=== PATIENT | female | born 1955 | race Caucasian/White ===

== ENCOUNTER 2022-10-11 04:03 | Emergency (ER) | payer MEDICARE, SELFPAY ==
[2022-10-11 04:26] VITALS: BP 157/72; PULSE 72; RESP 18; TEMP 36.5; O2SAT 97; BMI 23.4
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
--- NOTE | 2022-10-11 05:01 | CT_ITS ---
[address] [address] Patient Name: MARIANNA STEINBERG MRN: [id number] date: 1955 Sex: F Assigned Patient Location: ER Current Patient Location: ER Accession/Order Number: [id number] Exam Date: 10/11/2022 06:10 Report Date: 10/11/2022 06:35 At the request of: RONALD GONZALEZ Procedure: CT abdomen pelvis w con EXAM: CT abdomen pelvis w con HISTORY: TRAUMA right pelvis COMPARISON: 07/18/2017. TECHNIQUE: Axial CT imaging was performed through the abdomen and pelvis with intravenous contrast. Multiplanar reformats were performed. Dose reduction techniques were achieved by using automated exposure control and/or adjustment of mA and/or kV according to patient size and/or use of iterative reconstruction technique. FINDINGS: Lung bases: Mild, dependent opacities at the lung bases have appearance most suggestive of atelectasis. GI upper: Unremarkable. Liver: Hepatic steatosis. Normal size and contour. Gallbladder: No significant abnormality. No cholelithiasis. Biliary system: No intra or extrahepatic biliary ductal dilatation. Spleen: Normal size. Pancreas: Unremarkable. Adrenal glands: Normal adrenal glands. Kidneys/ureters: Normal contours. No hydronephrosis or ureterolithiasis. No nephrolithiasis. Subcentimeter hypoattenuating lesions of the bilateral kidneys are too small to further characterize although statistically most likely represent cysts. Simple fluid attenuation cyst of the mid left kidney is noted. Vessels: No aneurysmal dilatation of the aorta. Atherosclerotic disease is noted. Lymph Nodes: No lymphadenopathy. Small bowel: No wall thickening or dilatation. Colon: No wall thickening or dilatation. Appendix: No findings of appendicitis. Peritoneal cavity: No free fluid or peritoneum. Lower : Tiny focus of nondependent bladder gas is most likely related to catheterization-in the absence of catheterization, gas-forming infectious process must be excluded on clinical grounds. Bones: Degenerative findings without acute bony abnormality. Mild to moderate spondylosis of the lower lumbar spine. Findings are suggestive of decreased bone density. Soft tissues: No acute finding. Additional findings: None. CT/CT abdomen pelvis w con IMPRESSION: 1. No acute intra-abdominal abnormality. 2. Hepatic steatosis. Electronically authenticated by: KEON MARTINEZ Date: 10/11/2022 06:35
--- NOTE | 2022-10-11 05:01 | CT_ITS ---
The [address] [address] Patient Name: MARIANNA STEINBERG MRN: [id number] date: 1955 Sex: F Assigned Patient Location: ED.MAIN Current Patient Location: Accession/Order Number: [id number] Exam Date: 10/11/2022 06:10 Report Date: 10/11/2022 06:23 At the request of: RONALD GONZALEZ Procedure: CT head/brain wo con NONCONTRAST HEAD CT COMPARISON: None. CLINICAL HISTORY: Fall. TECHNIQUE: Routine noncontrast images of the brain obtained. CT examination of the head without IV contrast. Dose reduction techniques were achieved by using: automated exposure control and/or adjustment of mA and /or kV according to patient size and/or use of iterative reconstruction technique. FINDINGS: Paranasal sinuses and mastoid air cells are clear. Intraorbital contents are unremarkable. No acute bony abnormality. Intracranially, there is no evidence of hemorrhage, mass effect, or midline shift. Ventricles and cisternal spaces are age appropriate. CT/CT head/brain wo con IMPRESSION: No acute intracranial abnormality. Electronically authenticated by: HOLLY SEGUNDO Date: 10/11/2022 06:23
--- NOTE | 2022-10-11 05:01 | CT_ITS ---
The [address] [address] Patient Name: MARIANNA STEINBERG MRN: [id number] date: 1955 Sex: F Assigned Patient Location: ER Current Patient Location: ER Accession/Order Number: [id number] Exam Date: 10/11/2022 06:10 Report Date: 10/11/2022 06:47 At the request of: RONALD GONZALEZ Procedure: CT cervical spine wo con INDICATION: 67 years old; Female. Fall. CT cervical spine wo con INDICATION: 67 years old; Female . CLINICAL HISTORY: trauma TECHNIQUE: CT imaging of the cervical spine was performed. IV contrast: None. Dose reduction techniques were achieved by using automated exposure control and/or adjustment of mA and/or kV according to patient size and/or use of iterative reconstruction technique. COMPARISON: Cervical x-ray dated 12/26/2016. FINDINGS: POSTOPERATIVE CHANGES: None. ALIGNMENT: Normal cervical curve. COMPRESSION FRACTURES: No fracture or vertebral body collapse is appreciated. There is subtle deformity of the anterior, superior aspect of the body of C5 with a tiny bony density along the anterior, inferior aspect of the body of C5. These findings are present in the prior x-ray. No asymmetric widening of the facets is seen. No vertebral body collapse is seen. PREVERTEBRAL SOFT TISSUES: Normal. CRANIOCERVICAL JUNCTION: There is a normal relationship of the occipital condyles, lateral masses of C1, and articular surfaces of C2. The base of the dens and body of C2 are intact. There is a nonexpansile well-circumscribed cyst seen within C2 inferiorly on the right. No cortical disruption is seen. There is narrowing of the predental space with [id number] appearance between the anterior arch of C1 and the dens. Osteophytes are noted arising from the anterior arch of C1 and the dens with ligamentous calcification also present. POSTERIOR FOSSA: The cerebellar tonsils are above the foramen magnum. Disc levels: C2-C3: No disc herniation. No spinal canal or foraminal narrowing. C3-C4: No disc herniation. No spinal canal or foraminal narrowing. C4-C5: No disc herniation. No spinal canal or foraminal narrowing. C5-C6: No disc herniation. No spinal canal or foraminal narrowing. C6-C7: No disc herniation. No spinal canal or foraminal narrowing. C7-T1: No disc herniation. No spinal canal or foraminal narrowing. UPPER THORACIC SPINE: Not included in this examination. OTHER: No thyroid nodule or adenopathy. Vascular calcifications. CT/CT cervical spine wo con IMPRESSION: 1. No acute fracture or vertebral body collapse. 2. Degenerative changes, without stenosis. Electronically authenticated by: NILTON URIARTE Date: 10/11/2022 06:47
[2022-10-11 05:27] LABS: Basophils Absolute Auto 0.1 10^3/uL (0.0-0.1); Basophils Percent Auto 0.9 % (0.2-2.0); Eosinophils Absolute Auto 0.1 10^3/uL (0.0-0.7); Eosinophils Percent Auto 2.5 % (0.9-7.0); Hematocrit 38.1 % (36.0-48.0); Hemoglobin 12.2 g/dL (12.0-16.0); Immature Granulocytes Abs Auto 0.01 10^3/uL (0.00-0.03); Immature Granulocytes Pct Auto 0.2 % (0.0-0.5); Lymphocytes Absolute Auto 1.8 10^3/uL (1.2-3.8); Lymphocytes Percent Auto 31.9 % (20.5-60.0); Mean Corpuscular Hemoglobin 29.8 pg (26.7-34.0); Mean Corpuscular Volume 93.2 fL (81.0-99.0); Mean Platelet Volume 9.7 fL (9.5-13.5); Monocytes Absolute Auto 0.6 10^3/uL (0.3-0.8); Monocytes Percent Auto 10.5 % (1.7-12.0); Platelet Count 214 10^3/uL (150-450); Red Blood Count 4.09 10^6/uL (4.20-5.40); Red Cell Distribution Width 13.7 % (11.0-15.0); White Blood Count 5.5 10^3/uL (4.0-11.0)
[2022-10-11] MEDS: 0.9 % SODIUM CHLORIDE 1,000 ML 999 ML IV (05:34)
[2022-10-11 05:36] LABS: Alanine Aminotransferase 14 U/L (14-59); Albumin Level 3.3 g/dL (3.4-5.0); Alkaline Phosphatase 68 U/L (46-116); Anion Gap 13.5; Aspartate Amino Transferase 20 U/L (15-37); BUN Creatinine Ratio 12.9; Bilirubin Total 0.3 mg/dL (0.2-1.0); Calcium 8.2 mg/dL (8.5-10.1); Chloride 106 mmol/L (98-107); Estimated GFR (African America >60 (>=60); Estimated GFR (Non-African Ame 54 (>=60); Globulin 3.4 g/dL; Glucose 103 mg/dL (74-106); Potassium 3.5 mmol/L (3.5-5.1); Sodium 140 mmol/L (136-145); Total Protein 6.7 g/dL (6.4-8.2)
[2022-10-11 05:39] LABS: Lactate/Lactic Acid 0.4 mmol/L (0.4-2.0)
[2022-10-11 07:00] LABS: Bilirubin Urine NEGATIVE (NEGATIVE); Blood Urine SMALL (NEGATIVE); Clarity Urine CLEAR (CLEAR); Color Urine LT. YELLOW (YELLOW); Glucose Urine UA NEGATIVE (NEGATIVE); Ketones Urine NEGATIVE (NEGATIVE); Leukocyte Esterase Urine SMALL (NEGATIVE); Nitrite Urine POSITIVE (NEGATIVE); Protein Urine NEGATIVE (NEG/TRACE); Specific Gravity Urine <=1.005 (1.005-1.025); Urine Microscopic Indicated YES; Urobilinogen Urine 0.2 EU/dL (0.2-1.0); pH Urine 6.5 (5.0-9.0)
[2022-10-11 07:16] LABS: Bacteria Urine SMALL #/HPF (NONE SEEN); Mucus Urine NONE SEEN (NONE SEEN); Squamous Epithelial Cell Urine FEW #/LPF (NONE/RARE)
[2022-10-11 07:17] LABS: Urine Culture Indicated YES
[2022-10-11] MEDS: NAPROXEN 250 MG TABLET 500 MG PO (07:20)
--- NOTE | 2022-10-13 13:07 | PC.NURSE ---
10/13/[address] fernández reviewed c+s of urine from 10/11/22 nno at this time. S Sharon MEDINA
== END 2022-10-11 07:39 | disposition home or self-care (01) ==
PROVIDERS: Emergency Provider Internal Medicine; PCP Family Medicine
DX: S30.0XXA Contusion of lower back and pelvis, initial encounter (principal); S40.012A Contusion of left shoulder, initial encounter; W50.0XXA Accidental hit or strike by another person, initial encounter; F17.210 Nicotine dependence, cigarettes, uncomplicated
CPT/HCPCS: 36415; 70450; 72125; 74177; 80053; 81003; 81015; 83605; 85025; 87086; 87150; 87186; 99284; Q9967

== ENCOUNTER 2022-10-30 12:46 | Emergency (ER) | payer MEDICARE, SELFPAY ==
[2022-10-30] VITALS (28 sets, daily range): BP systolic 116–182; BP diastolic 50–94; PULSE 66–86; RESP 10–20; TEMP 36.7; O2SAT 95–100; BMI 23.4
--- NOTE | 2022-10-30 12:51 | XR_ITS ---
The [address] [address] Patient Name: MARIANNA STEINBERG MRN: [id number] date: 1955 Sex: F Assigned Patient Location: ED.MAIN Current Patient Location: ER Accession/Order Number: [id number] Exam Date: 10/30/2022 13:14 Report Date: 10/30/2022 13:24 At the request of: FIORELLA CASRTO Procedure: XR chest 1V EXAMINATION: XR chest 1V 10/30/2022 10:23 AM PDT HISTORY: chest pain TECHNIQUE: Single frontal view of the chest acquired. COMPARISONS: None. FINDINGS: Lines/tubes/other: None. Heart and mediastinum: Calcified atherosclerosis of the aortic arch. Cardiac silhouette is within normal limits for size. Bones: No acute osseous abnormality. Lungs: The lungs are clear. There is no evidence of pneumonia or pulmonary edema. Pleura: There is no significant pleural effusion or pneumothorax. Other: None. XR/XR chest 1V IMPRESSION: No acute cardiopulmonary abnormality. Electronically authenticated by: TAMI WORTHINGTON Date: 10/30/2022 13:24
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
[2022-10-30] MEDS: NITROGLYCERIN 2% 1 GRAM PACKET 1 GM TD (13:07)
[2022-10-30] MEDS: MORPHINE SULFATE 2 MG/ML SYRINGE IV (13:07)
--- NOTE | 2022-10-30 13:13 | ECG_ITS ---
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
[2022-10-30 13:19] LABS: Basophils Absolute Auto 0.1 10^3/uL (0.0-0.1); Basophils Percent Auto 0.6 % (0.2-2.0); Eosinophils Absolute Auto 0.1 10^3/uL (0.0-0.7); Eosinophils Percent Auto 1.4 % (0.9-7.0); Hematocrit 37.3 % (36.0-48.0); Hemoglobin 12.6 g/dL (12.0-16.0); Immature Granulocytes Abs Auto 0.01 10^3/uL (0.00-0.03); Immature Granulocytes Pct Auto 0.1 % (0.0-0.5); Lymphocytes Absolute Auto 2.1 10^3/uL (1.2-3.8); Lymphocytes Percent Auto 27.2 % (20.5-60.0); Mean Corpuscular HGB Conc 33.8 g/dL (29.9-35.2); Mean Corpuscular Hemoglobin 29.6 pg (26.7-34.0); Mean Corpuscular Volume 87.6 fL (81.0-99.0); Mean Platelet Volume 9.5 fL (9.5-13.5); Monocytes Absolute Auto 0.5 10^3/uL (0.3-0.8); Monocytes Percent Auto 6.5 % (1.7-12.0); Neutrophils Absolute Auto 4.9 10^3/uL (1.4-6.5); Neutrophils Percent Auto 64.2 % (43.0-75.0); Platelet Count 256 10^3/uL (150-450); Red Blood Count 4.26 10^6/uL (4.20-5.40); Red Cell Distribution Width 13.2 % (11.0-15.0); White Blood Count 7.7 10^3/uL (4.0-11.0)
[2022-10-30 13:32] LABS: D Dimer 0.38 mg/L FEU (<=0.59); Partial Thromboplastin Time 28.9 sec (22.3-36.2); Prothrombin Time 9.8 sec (9.0-11.6)
[2022-10-30 13:40] LABS: Alanine Aminotransferase 16 U/L (14-59); Albumin Level 3.6 g/dL (3.4-5.0); Alkaline Phosphatase 68 U/L (46-116); Anion Gap 14.3; Aspartate Amino Transferase 18 U/L (15-37); BUN Creatinine Ratio 14.7; Bilirubin Total 0.3 mg/dL (0.2-1.0); Calcium 8.6 mg/dL (8.5-10.1); Carbon Dioxide 24.5 mmol/L (21.0-32.0); Chloride 105 mmol/L (98-107); Estimated GFR (African America >60 (>=60); Estimated GFR (Non-African Ame 54 (>=60); Globulin 3.5 g/dL; Glucose 107 mg/dL (74-106); Potassium 3.8 mmol/L (3.5-5.1); Sodium 140 mmol/L (136-145); Total Protein 7.1 g/dL (6.4-8.2); Troponin I High Sensitivity 8.3 pg/mL (4.0-51.3)
[2022-10-30 13:45] LABS: INR <0.93
[2022-10-30] MEDS: LORAZEPAM 2 MG/ML 1 ML VIAL 1 MG IV (13:47)
[2022-10-30 14:01] LABS: Myoglobin 124 ng/mL (9-82)
[2022-10-30 15:52] LABS: Troponin I High Sensitivity 9.8 pg/mL (4.0-51.3)
== END 2022-10-30 17:11 | disposition home or self-care (01) ==
PROVIDERS: Personal Emergency Response Attendant; Emergency Provider Emergency Medicine; PCP Family Medicine
DX: R07.9 Chest pain, unspecified (principal); F17.210 Nicotine dependence, cigarettes, uncomplicated; Z79.899 Other long term (current) drug therapy
CPT/HCPCS: 36415; 71045; 80053; 82553; 83690; 83874; 84484; 85025; 85378; 85610; 85730; 93005; 96374; 96375; 99285

== ENCOUNTER 2023-02-16 13:25 | Outpatient (OUT) | payer MEDICARE, SELFPAY ==
--- NOTE | 2023-02-16 13:27 | MM_ITS ---
Patient Name: MARIANNA STEINBERG MR#: [id number] : 1955 Exam Date: 02/16/2023 Ordering Doctor: DR Omkar Raza . RADIOLOGY REPORT PROCEDURE: MM TOMOSYNTHESIS SCREENING BI COMPARISON: MG MAMM SCREEN 3D ANDERSON CAD, 02/13/2022. MG MAMM SCREEN 3D [place]ERSON CAD, 01/14/2021. MG MAMM SCREEN [place]ERSON W CAD, 01/03/2020. MG MAMM [place]ERSON SCRN W CAD DIG, 05/25/2013. INDICATIONS: Screening Calculator Name NCI Breast Cancer Risk Assessment Tool 5 Year Breast Cancer Risk 2.20% Lifetime Breast Cancer Risk 6.60% Personal Breast Cancer No Personal Ovarian Cancer No Treatments None Family Cancers Sister with hodgkins cancer at age 17. LOCATION: [facility] BREAST COMPOSITION: Scattered areas fibroglandular density. FINDINGS: DIAGNOSTIC CATEGORY 1--NEGATIVE. RIGHT BREAST: No significant suspicious finding. No significant change has occurred. LEFT BREAST: No significant suspicious finding. No significant change has occurred. RECOMMENDATIONS: ROUTINE MAMMOGRAM AND CLINICAL EVALUATION IN 12 MONTHS. PLEASE NOTE: A NORMAL MAMMOGRAM DOES NOT EXCLUDE THE POSSIBILITY OF BREAST CANCER. A CLINICALLY SUSPICIOUS PALPABLE LUMP SHOULD BE BIOPSIED. Dictated by: Moreno Briscoe M.D. on 02/18/2023 at 12:13 Approved by: Moreno Briscoe M.D. on 02/18/2023 at 12:25
== END 2023-02-16 13:26 | disposition home or self-care (01) ==
LOC: MAMMO 13:25
PROVIDERS: PCP Family Medicine; Visit Provider Family Medicine
DX: Z12.31 Encounter for screening mammogram for malignant neoplasm of breast (principal); Z80.7 Family history of other malignant neoplasms of lymphoid, hematopoietic and related tissues
CPT/HCPCS: 77063; 77067

== ENCOUNTER 2023-04-21 09:55 | Outpatient (OUT) | payer MEDICARE, SELFPAY ==
--- NOTE | 2023-04-21 10:01 | US_ITS ---
[address] [address] Patient Name: MARIANNA STEINBERG MRN: [id number] date: 1955 Sex: F Assigned Patient Location: US Current Patient Location: US Accession/Order Number: [id number] Exam Date: 04/21/2023 10:02 Report Date: 04/21/2023 12:33 At the request of: MARY ELLEN GRIFFITHS Procedure: US carotid duplex BI EXAMINATION: US carotid duplex BI HISTORY: carotid stenosis, asymptomatic bilateral I65.23 COMPARISON: No relevant comparison available. TECHNIQUE: Duplex Doppler ultrasound analysis of carotid and vertebral arteries. . Bilateral carotid arterial duplex examination was performed using B-mode, color flow and spectral analysis. Carotid stenosis is reported according to validated velocity parameters, similar to NASCET criteria. FINDINGS: RIGHT CAROTID ARTERY Mild atherosclerotic plaque Subclavian: PSV: 96.9 cm/s cm/s EDV: 9.2 cm/s cm/s CCA: Prox: PSV: 100.7 cm/s cm/s EDV: 11.5 cm/s cm/s Mid: PSV: 81.3 cm/s cm/s EDV: 12.8 cm/s cm/s Distal: PSV: 96.9 cm/s cm/s EDV: 16.7 cm/s cm/s BULB: PSV: 108.1 cm/s cm/s EDV: 25.7 cm/s cm/s ICA: Prox: PSV: 131.3 cm/s cm/s EDV: 24.8 cm/s cm/s Mid: PSV: 149.0 cm/s cm/s EDV: 18.9 cm/s cm/s Distal: PSV: 131.3 cm/s cm/s EDV: 18.9 cm/s cm/s ECA: PSV: 95.8 cm/s cm/s EDV: 3.2 cm/s cm/s VERTEBRAL: PSV: 76.0 cm/s cm/s EDV: 16.9 cm/s cm/s, antegrade ICA/CCA ratio: PSV: 1.5 EDV: 1.1 LEFT CAROTID ARTERY Mild atherosclerotic plaque Subclavian: PSV: 151.6 cm/s cm/s EDV: 16.5 cm/s CCA: Prox: PSV: 137.8 cm/s cm/s EDV: 11.6 cm/s Mid: PSV: 96.8 cm/s cm/s EDV: 12.8 cm/s Distal: PSV: 119.4 cm/s cm/s EDV: 14.4 cm/s BULB: PSV: 83.8 cm/s cm/s EDV: 9.5 cm/s ICA: Prox: PSV: 88.7 cm/s cm/s EDV: 16.0 cm/s Mid: PSV: 117.7 cm/s cm/s EDV: 20.8 cm/s Distal: PSV: 111.3 cm/s cm/s EDV: 14.4 cm/s ECA: PSV: 79.0 cm/s cm/s EDV: 6.6 cm/s VERTEBRAL: PSV: 59.2 cm/s cm/s EDV: 7.6 cm/s , antegrade ICA/CCA ratio: PSV: 1.0 EDV: 1.4 US/US carotid duplex BI IMPRESSION: 0-49% flow stenosis bilateral internal carotid arteries Spectral Doppler US Thresholds (Reference: Shawn EG, et al. Radiology 2000; 214:247-252) Stenosis (%) PSV (cm/sec) VICA/VCCA 0-49 <150 <2.5 50-69 150-225 2.5-4.0 >70 >225 >4.0 Electronically authenticated by: JANNIE NIEVES Date: 04/21/2023 12:33
--- NOTE | 2023-04-21 10:03 | US_ITS ---
[address] [address] Patient Name: MARIANNA STEINBERG MRN: [id number] date: 1955 Sex: F Assigned Patient Location: Current Patient Location: US Accession/Order Number: [id number] Exam Date: 04/21/2023 10:02 Report Date: 04/21/2023 12:37 At the request of: MARY ELLEN GRIFFITHS Procedure: US arterial duplex UE BI EXAMINATION: US arterial duplex UE BI HISTORY: subclavian artery stenosis I77.1 COMPARISON: No relevant comparison available. TECHNIQUE: Color duplex Doppler ultrasound evaluation analysis was performed in the usual manner. FINDINGS: LEFT UPPER EXTREMITY ARTERIAL Minimal atherosclerotic plaque. Normal waveform and velocities. No flow significant stenosis occlusion or aneurysm Subclavian Proximal PSV: 80.4 cm/s Subclavian Proximal EDV: 7.5 cm/s Axillary PSV: 70.1 cm/s Axillary EDV: 7.5 cm/s Brachial Proximal PSV: 112.2 cm/s Proximal EDV: 8.1 cm/s Distal PSV: 98.3 cm/s Distal EDV: 14.0 cm/s Radial Proximal PSV: 63.6 cm/s Proximal PSV: 2.3 cm/s Distal PSV: 57.0 cm/s Distal EDV: 5.6 cm/s Ulnar Proximal PSV: 55.9 cm/s Proximal PSV: 4.5 cm/s Distal PSV: 46.0 cm/s Distal EDV: 3.4 cm/s RIGHT UPPER EXTREMITY ARTERIAL Minimal atherosclerotic plaque. Normal waveform and velocities. No flow significant stenosis occlusion or aneurysm Subclavian Proximal PSV: 60 Subclavian Proximal EDV: 7 Axillary PSV: 59 Axillary EDV: 7 Brachial Proximal PSV: 113 Proximal EDV: 10 Distal PSV: 118 Distal EDV: 10 Radial Proximal PSV:78 Proximal EDV: 9 Distal PSV: 100 Distal EDV: 4 Ulnar Proximal PSV: 76 Proximal EDV: 4 Distal PSV: 98 Distal EDV: 5 WAVE FORM: Normal triphasic waveform throughout both upper extremities. VESSEL LUMEN: No significant narrowing or atherosclerotic disease. FLOW VELOCITY: No significantly increased or decreased flow velocity. US/US arterial duplex UE BI IMPRESSION: Normal exam Electronically authenticated by: JANNIE NIEVES Date: 04/21/2023 12:37
--- OUTSIDE RECORDS SUMMARY | 2023-04-21 10:08 | XMS_ITS | CCD ---
Author Name Unknown Address [address] [place] [address] Organization [facility] Care Team Providers Care Traffic Safety Administrator Name Role Phone MD Omkar Rene Primary Care Provider MD Twin Martinez Attending Provider [phone] Twin Martinez Unavailable OMKAR RENE Primary Care Physician OMKAR RENE Admitting Unavailable NADERER, OMKAR Clemens Attending Unavailable NADERER, OMKAR Clemens Primary Care Unavailable NADEREJamari, OMKAR Clemens Consulting Unavailable NADEREJamari, OMKAR Clemens Admitting Unavailable NADERER, OMKAR Clemens Attending Unavailable NADEREJamari, OMKAR Clemens Primary Care Unavailable ZIEBER, DR CINDY Kauffman Consulting Unavailable NADEREJamari, OMKAR Clemens Consulting Unavailable NADEREJamari, OMKAR Clemens Admitting Unavailable NADERER, OMKAR Clemens Attending Unavailable NADEREJamari, OMKAR Clemens Primary Care Unavailable ZIEBER, DR CINDY Kauffman Consulting Unavailable NADEREJmaari, OMKAR Clemens Consulting Unavailable NADERER, OMKAR Clemens Admitting Unavailable NADERER, OMKAR Clemens Attending Unavailable NADEREJamari, OMKAR Clemens Primary Care Unavailable ZIEBER, DR CINDY Kauffman Consulting Unavailable NADERER, OMKAR Clemens Consulting Unavailable FAY, MEÑO Admitting Unavailable FAY, MEÑO Attending Unavailable NADERER, OMKAR Clemens Primary Care Unavailable BARCELONETA, DR JANNIE Silva Consulting Unavailable FAY, MEÑO Consulting Unavailable NADERER, OMKAR Clemens Primary Care Unavailable HAY ., DR CHAVEZ Admitting Unavailable HAY ., DR CHAVEZ Attending Unavailable HAY ., DR CHAVEZ Consulting Unavailable AZEVEDO ., DR ZAKIA Joshua Admitting Unavailable AZEVEDO ., DR ZAKIA Joshua Attending Unavailable NADSRIRAM, OMKAR Clmeens Primary Care Unavailable AZEVEDO ., DR ZAKIA Joshua Consulting Unavailable AZEVEDO ., DR ZAKIA Joshua Admitting Unavailable AZEVEDO ., DR ZAKIA Joshua Attending Unavailable NADERER, OMKAR A Primary Care Unavailable JOLLY ., DR ZAKIA Joshua Consulting Unavailable MD Omkar Rene Primary Care Provider [phone] MD Luis Payne II Attending Provider [phone] Luis Payne II [phone] MACIE, YEIMI E Attending Unavailable MACIE, YEIMI E Admitting Unavailable MACIE, YEIMI E Admitting Unavailable MACIE, YEIMI E Attending Unavailable LueAshely MLamberto Admitting Unavailable Lue, Ashely Tovar Attending Unavailable LueAshely MLambetro Referring Unavailable MACIE, YEIMI E Attending Unavailable MACIE, YEIMI E Referring Unavailable MACIE, YEIMI E Admitting Unavailable OMKAR RENE Attending Unavailable MACIE, YEIMI E Attending Unavailable Blayne CHOI Attending Unavailable MACIE, YEIMI Elder Attending Unavailable Lue, Ashely Tovar Attending Unavailable MACIE, YEIMI E Attending Unavailable MACIE, YEIMI E Referring Unavailable MACIE, YEIMI E Admitting Unavailable MACIE, YEIMI E Attending Unavailable Lue, Ashely Tovar Attending Unavailable LueAshely MLamberto Admitting Unavailable MACIE, YEIMI E Attending Unavailable MACIE, YEIMI E Admitting Unavailable Omkar Rene Primary Care Unavailable Luis Payne II Admitting UnavailLuis Little II Attending Unavailtino e Virgilio Thorpe Admitting Unavailab Virgilio Cooper Attending Unavailab Omkar Flores Primary Care Unavailable MEÑO APONTE Attending Unavailable LORNE DURON Attending Unavailable Allergies Allergy Classification Reported Allergen(s) Allergy Type Date of Onset Reaction(s) Facility (3 sources) Amitriptyline Drug Allergy throat swelling [facility] Other (20 sources) atorvastatin; Translations: [atorvastatin] Drug Allergy 06-20-19 14 Unknown [facility] (10 sources) Desvenlafaxine; Translations: [desvenlafaxine] Drug Allergy [facility] (10 sources) FLUoxetine / OLANZapine; Translations: [fluoxetine-olanz apine] Drug Allergy [facility] (11 sources) latanoprost; Translations: [latanoprost ophthalmic] Drug Allergy 07-05-19 14 [facility] (1 source) atorvastatin Drug Allergy 06-21-19 14 [facility] (1 source) buPROPion Drug Allergy 06-21-19 14 [facility] (1 source) gemcitabine Drug Allergy 06-21-19 14 [facility] (2 sources) Lactobacillus; Translations: [OLANZAPINE] Drug Allergy 06-21-19 14 [facility] (1 source) latanoprost Drug Allergy 06-21-19 14 [facility] (2 sources) predniSONE; Translations: [PREDNISONE] Drug Allergy 10-20-19 15 [facility] (1 source) vilazodone Drug Allergy 01-26-20 14 [facility] (1 source) DULoxetine Drug Allergy Unknown [facility] Other (1 source) atorvastatin; Translations: [Lipitor] Drug Allergy [facility] Repository (1 source) buPROPion; Translations: [BUPROPION HCL] Drug Allergy 12-10-19 12 [facility] Repository (1 source) buPROPion; Translations: [BUPROPION HBR] Drug Allergy 11-17-19 17 [facility] Rep[facility] (1 source) vilazodone; Translations: [VILAZODONE] Drug Allergy 12-10-19 12 [facility] (1 source) OLANZAPINE-FLUOXE GREGORIO; Translations: [OLANZAPINE-FLUOX ETINE] Propensity to adverse reactions to drug (disorder) 07-05-19 14 [facility] (1 source) VENLAFAXINE ANALOGUES; Translations: [VENLAFAXINE ANALOGUES] Propensity to adverse reactions to drug (disorder) 07-05-19 14 [facility] Repository Medications Current Medications Medication Drug Class(es) Dates Sig (Normalized) Sig (Original) amoxicillin 875 mg oral tablet (1 source) Penicillin-class Antibacterial Start: 11-06-2022 End: 11-11-2022 take 1 tablet by mouth twice daily amoxicillin 875 mg Tab 875 mg = 1 tab(s), Oral, BID, X 5 day(s), # 10 tab(s), Refills(s) 0, Pharmacy: [facility] [id number], 158, cm, 06/02/22 11:06:00 EDT, Height/Length Dosing, 64, kg, 06/02/22 11:06:00 EDT, Weight Dosing Start Date: 11/06/22 Stop Date: 11/11/22 Status: Ordered aspirin 81 mg delayed release oral tablet (11 sources) Platelet Aggregation Inhibitor, Nonsteroidal Anti-inflammatory Drug Start: 05-18-2017 take 1 tablet by mouth once daily Aspirin (Aspir-81) 81 mg Tablet,Delayed Release (Dr/Ec) Active 81 MG PO Daily May 18, 2017 11:26am Start: 07-05-2014 take 81 mg by mouth once daily aspirin 81 mg, Oral, Daily, Refills(s) 0, Prophylaxis Start Date: 07/05/14 Status: Ordered B-12 (9 sources) Start: 07-05-2014 B-12 1,000 microgram, Oral, Daily, Refills(s) 0, Prophylaxis Start Date: 07/05/14 Status: Ordered carvedilol 3.125 mg oral tablet (14 sources) alpha-Adrenergic Delaney, beta-Adrenergic Delaney Start: 05-18-2017 take 3.125 mg by mouth twice daily Carvedilol Active 3.125 MG PO Twice daily May 18, 2017 11:26am Start: 07-05-2014 carvedilol 6.2 5 mg, Oral, Refills(s) 0, High blood pressure Start Date: 07/05/14 Status: Ordered celecoxib 200 mg oral capsule (9 sources) Nonsteroidal Anti-inflammatory Drug Start: 05-28-2022 celecoxib 200 mg Cap Refills(s) 0 Start Date: 05/28/22 Status: Ordered citalopram 40 mg oral tablet (14 sources) Serotonin Reuptake Inhibitor Start: 07-24-2014 take 40 mg by mouth once daily Celexa 40 mg, Oral, Daily, Refills(s) 0, Depression Start Date: 07/24/14 Status: Ordered Diclofenac (1 source) Nonsteroidal Anti-inflammatory Drug Start: 01-07-2023 Voltaren 1 % Apply 1-2 grams to the affected area Externally 4-5 times a day for 30 days Dec, Active dicyclomine hydrochloride 10 mg oral capsule (2 sources) Anticholinergic Start: 05-18-2017 take 10 mg by mouth once daily Dicyclomine Active 10 MG PO Daily May 18, 2017 11:26am estradiol 0.1 mg/ml vaginal cream (7 sources) Estrogen Start: 11-09-2022 Estrace 0.1 mg/g Cream See Instructions, 42.5 gm, Refill(s) 2, Apply pea sized amount to external urethra/vaginal area 3x a week for 1 month, then 2x a week afterwards, [facility] [id number], 62, cm, 11/09/22 11:18:00 EDT, Height/Length Dosing, 64, kg, 06/02/22 11:06:00 EDT, Weight Dosing Start Date: 11/09/22 Status: Ordered fluconazole 150 mg oral tablet (6 sources) Azole Antifungal Start: 11-20-2022 take 1 tablet by mouth once fluconazole 150 mg Tab 150 mg = 1 tab(s), Oral, Once, # 1 tab(s), Refills(s) 0, Pharmacy: [facility] [address], 62, cm, 11/09/22 11:18:00 EDT, Height/Length Dosing, 64, kg, 06/02/22 11:06:00 EDT, Weight Dosing Start Date: 11/20/22 Status: Ordered LORazepam 1 mg oral tablet (14 sources) Benzodiazepine Start: 05-18-2017 take 1 mg by mouth once daily Lorazepam Active 1 MG PO Daily May 18, 2017 11:26am Start: 07-05-2014 take 1 tablet by sanju th three times daily LORazepam 0.5 mg Tab 0.5 mg = 1 tab(s), Oral, TID, Refills(s) 0, Anxiety Start Date: 07/05/14 Status: Ordered 24 hr metoprolol succinate 25 mg extended release oral tablet (3 sources) beta-Adrenergic Delaney Metoprol ol Succinate ER 25 MG Not Available Oral for 90 Days Active pantoprazole 40 mg delayed release oral tablet (2 sources) Proton Pump Inhibitor Start: 05-18-19 18 take 40 mg by mouth once daily Pantoprazole Active 40 MG PO Daily May 18, 2017 11:26am pravastatin sodium 40 mg oral tablet (11 sources) HMG-CoA Reductase Inhibitor Start: 07-06-19 15 take 40 mg by mouth once daily pravastatin 40 mg, Oral, Daily, Refills(s) 0, High cholesterol Start Date: 07/05/14 Status: Ordered rOPINIRole 1 mg oral tablet (11 sources) Nonergot Dopamine Agonist Start: 05-18-19 18 take 1 mg by mouth once daily Ropinirole Active 1 MG PO Daily May 18, 2017 11:26am Start: 07-05-2014 take 0.5 mg by mouth once norma y ropinirole 0.5 mg, Oral, Daily, Refills(s) 0, Spasm Start Date: 07/05/14 Status: Ordered rosuvastatin calcium 40 mg oral tablet (12 sources) HMG-CoA Reductase Inhibitor Start: 05-28-2022 rosuvastatin 40 mg Tab Refills(s) 0 Start Date: 05/28/22 Status: Ordered sulfamethoxazole 800 mg / trimethoprim 160 mg oral tablet (1 source) Dihydrofolate Reductase Inhibitor Antibacterial, Sulfonamide Antimicrobial Start: 11-02-2022 End: 11-07-2022 Bactrim D.S. 800 mg-160 mg Tab 1 tab(s), Oral, BID for 5 day(s), 10 tab(s), Refill(s) 0, [facility] [address], 158, cm, 06/02/22 11:06:00 EDT, Height/Length Dosing, 64, kg, 06/02/22 11:06:00 EDT, Weight Dosing Start Date: 11/02/22 Stop Date: 11/07/22 Status: Ordered travoprost 0.04 mg/ml ophthalmic solution (2 sources) Prostaglandin Analog Start: 05-18-2017 Travoprost Active 0.004 PERCENT OPHTHALMIC Daily May 18, 2017 11:26am travoprost 0.004% Opth Hailey 2.5 mL (9 sources) Start: 07-05-2014 take 1 drop(s) into the eye(s) once daily in the evening travoprost 0.004% Opth Hailey 2.5 mL 1 drop(s), Eye-Both, qPM, Refill(s) 0, Ocular congestion Start Date: 07/05/14 Status: Ordered Vitamin D3 (9 sources) Start: 07-05-2014 Vitamin D3 1,000 [employer] t, Oral, Daily, Refills(s) 0, Prophylaxis Start Date: 07/05/14 Status: Ordered Completed/Discontinued Medications Medication Drug Class(es) Dates Sig (Normalized) Sig (Original) cephalexin 500 mg oral capsule (1 source) Cephalosporin Antibacterial Start: 02-02-2023 Keflex 500 mg Cap 500 mg = 1 cap(s), Oral, As Directed, Take 1 tab po after intercourse to prevent UTI, # 30 cap(s), Refills(s) 2, Pharmacy: [facility] [address], 158, cm, 02/02/23 11:22:00 EST, Height/Length Dosing, 64, kg, 02/02/23 11:22:00 EST, Weight Dosing Start Date: 02/02/23 Status: Ordered Problems Active Problems Problem Classification Problem Date Documented Da te Episodic/Chronic Abdominal pain (16 sources) Epigastric pain; Translations: [Epigastric pain] 05-18-2017 Episodic Anxiety disorders (10 sources) Anxiety disorder; Translations: [Anxiety disorder, unspecified] Onset: 09-05-2021 05-28-2022 Chronic Calculus of urinary tract (1 source) Kidney stone 02-02-2023 Episodic Chronic kidney disease (9 sources) Chronic kidney disease Onset: 12-06-2021 05-28-2022 Chronic Chronic kidney disease (1 source) Chronic kidney disease; Translations: [CHRONIC KIDNEY DISEASE STAGE 3A] Onset: 12-06-2021 Disorders of lipid metabolism (12 sources) Hyperlipidemia; Translations: [Hyperlipidemia, unspecified] Onset: 12-06-2021 05-28-2022 Chronic Essential hypertension (15 sources) Essential hypertension; Translations: [Essential (primary) hypertension] Onset: 09-03-2021 05-28-2022 Chronic Gastritis and duodenitis (3 sources) Superficial gastritis; Translations: [Chronic superficial gastritis without bleeding] Chronic Gastritis and duodenitis (12 sources) Gastritis; Translations: [Gastritis, unspecified, without bleeding] 05-28-2022 Episodic Hypertension with complications and secondary hypertension (4 sources) Hypertensive chronic kidney disease with stage 1 through stage 4 chronic kidney disease, or unspecified chronic kidney disease; Translations: [HTN CKD W/STAGE 1-4 CKD/UNS CKD] Onset: 12-01-2021 Chronic Menopausal disorders (3 sources) Atrophic vaginitis; Translations: [Postmenopausal atrophic vaginitis] Onset: 11-09-2022 Chronic Mood disorders (1 source) Major depressive disorder, single episode, unspecified; Translations: [SILVIA DEPRESS D/O SINGLE EPIS UNS] Onset: 09-05-2021 Chronic Nausea and vomiting (3 sources) Nausea; Translations: [Nausea] Episodic Occlusion or stenosis of precerebral arteries (1 source) Occlusion and stenosis of right carotid artery; Translations: [OCCLUSION AND STENOSIS RT CAROTID ART] Onset: 06-13-2022 Chronic Osteoarthritis (9 sources) Arthropathy of right hip joint; Translations: [Unilateral primary osteoarthritis, right hip] Onset: 06-12-2021 Resolved: 07-24-2021 Chronic Other aftercare (5 sources) Other long term care phlebotomist (current) drug therapy; Translations: [OTH GENERAL FREIGHT AGENT CURRENT DRUG THERAPY] Onset: 12-06-2021 Episodic Other circulatory disease (2 sources) Stricture of artery; Translations: [Stricture of artery] Onset: 07-24-2022 Chronic Other connective tissue disease (2 sources) Trochanteric bursitis, right hip Onset: 07-24-2021 Resolved: 07-24-2021 Episodic Other diseases of bladder and urethra (11 sources) Urethral stricture; Translations: [Unspecified urethral stricture, female] Onset: 11-09-2022 06-02-2022 Episodic Other diseases of kidney and ureters (1 source) Acquired renal cyst without neoplastic change; Translations: [Cyst of kidney, acquired] Onset: 02-02-2023 Episodic Other diseases of kidney and ureters (1 source) Cyst of kidney 02-02-2023 Episodic Other disorders of stomach and duodenum (2 sources) Disorder of function of stomach; Translations: [Disease of stomach and duodenum, unspecified] 05-18-2017 Episodic Other gastrointestinal disorders (3 sources) Burping; Translations: [Eructation] Episodic Other hereditary and degenerative nervous system conditions (1 source) Restless legs syndrome; Translations: [RESTLESS LEGS SYNDROME] Onset: 09-05-2021 Chronic Other infections; including parasitic (3 sources) History of Helicobacter pylori infection; Translations: [Personal history of other infectious and parasitic diseases] Episodic Other screening for suspected conditions (not mental disorders or infectious disease) (7 sources) CT of abdomen abnormal; Translations: [Abnormal findings on diagnostic imaging of other abdominal regions, including retroperitoneum] Onset: 02-13-2022 Episodic Other skin disorders (11 sources) Lichen sclerosus et atrophicus; Translations: [Lichen sclerosus et atrophicus] Onset: 11-09-2022 06-02-2022 Chronic Peripheral and visceral atherosclerosis (15 sources) Ischemic colitis; Translations: [Vascular disorder of intestine, unspecified] Onset: 05-16-2021 05-28-2022 Chronic Phlebitis; thrombophlebitis and thromboembolism (1 source) Acute embolism and thrombosis of subclavian vein, bilateral; Translations: [ACUTE EMBO THROMB SUBCLAV VEIN ANDERSON] Onset: 08-01-2022 Episodic Spondylosis; intervertebral disc disorders; other back problems (2 sources) Radiculopathy, lumbar region Onset: 06-12-2021 Resolved: 06-12-2021 Episodic Substance-related disorders (19 sources) Smoker; Translations: [Nicotine dependence, unspecified, uncomplicated] Onset: 06-12-2021 Resolved: 05-28-2022 Chronic Thyroid disorders (1 source) Nontoxic goiter, unspecified; Translations: [NONTOXIC GOITER UNSPECIFIED] Onset: 06-13-2022 Chronic Transient cerebral ischemia (6 sources) Other transient cerebral ischemic attacks and related syndromes; Translations: [OTH TRANS CERB ISCH ATTACK REL SYND] Onset: 07-24-2022 Chronic Unclassified (1 source) PERSONAL HISTORY OF COVID-19; Translations: [PERSONAL HISTORY OF COVID-19] Onset: 09-05-2021 Unclassified (1 source) Pain in right hip; Translations: [Pain in right hip] Onset: 01-07-2023 Urinary tract infections (14 sources) Urinary tract infectious disease; Translations: [Urinary tract infection, site not specified] Onset: 11-02-2022 06-02-2022 Episodic Past or Other Problems Problem Classification Problem Date Documented Date Episodic/Chronic E Codes: Adverse effects of medical drugs (1 source) Adverse effect of selective serotonin and norepinephrine reuptake inhibitors, initial encounter; Translations: [ADVERS EFF NICOLE SEROTONIN NRI INIT] Onset: 09-05-2021 Episodic Malaise and fatigue (1 source) Other fatigue; Translations: [OTHER FATIGUE] Onset: 12-06-2021 Episodic Other aftercare (1 source) tank terminal gauger (current) use of aspirin; Translations: [GENERAL FREIGHT AGENT CURRENT USE OF ASPIRIN] Onset: 09-05-2021 Episodic Other and unspecified benign neoplasm (1 source) Personal history of colonic polyps; Translations: [PERSONAL HISTORY OF COLONIC POLYPS] Onset: 09-05-2021 Episodic Other non-traumatic joint disorders (1 source) Pain in right hip; Translations: [PAIN IN RIGHT HIP] Onset: 08-07-2021 Episodic Residual codes; unclassified (1 source) Asymptomatic menopausal state Onset: 06-12-2021 Resolved: 06-12-2021 Episodic Residual codes; unclassified (1 source) Family history of other malignant neoplasms of lymphoid, hematopoietic and related tissues; Translations: [FAM HX OTH MAL GLENN LYMPH HEMATPOETC] Onset: 02-18-2022 Episodic Spondylosis; intervertebral disc disorders; other back problems (18 sources) Lumbar spondylosis; Translations: [Other spondylosis with radiculopathy, lumbar region] Onset: 03-06-2021 Resolved: 05-28-2022 Chronic Results Test Name Value Interpretation Reference Range Facility 36on 04-15-2023 36 Pt having carotid an d subclavin us and seeing gvm 04/16 at [facility] 02-03-2023 Screens [id number]. [id number] [facility] Ambulatory Visit Summaryon 1 04-04-2022 Ambulatory Visit Summary FIONA BECERRA :1955 Visit Date:02/02/2023 Ambulatory Visit Instructions Your Diagnosis Recurrent UTI Vaginal atrophy Unspecified urethral stricture, female Renal cyst Lichen sclerosus Tests Performed Urnls Dip Stick Auto w/o Microscopy POC 84204 Your Care Team Attending Physician - MACIE ACOSTA, YEIMI Elder Primary Care Physician - OMKAR RENE MD This Is Your Medications List estradiol topical (Estrace 0.1 mg/g Cream) Contact prescribing physician if questions or concerns aspirin carvedilol celecoxib (celecoxib 200 mg Cap) cholecalciferol (Vitamin D3) citalopram (Celexa) cyanocobalamin (B-12) fluconazole (fluconazole 150 mg Tab) lorazepam (LORazepam 0.5 mg Tab) pravastatin ropinirole rosuvastatin (rosuvastatin 40 mg Tab) travoprost ophthalmic (travoprost 0.004% Opth Hailey 2.5 mL) Procedures Performed Cystourethroscopy with dilation of urethral stricture (11/09/2022), Cystourethroscopy with dilation of urethral stricture (04/03/2016), Cystoscopy and retrograde pyelography (05/09/2014), Cystourethroscopy with dilation of urethral stricture (12/18/2013), Colonoscopy, Tonsillectomy. Discharge Vitals Height 158 cm Height 62 in Weight 64 kg Weight 140.8 lb BMI 25.64 What to do next Scheduled Follow-Up Appointments Wednesday 10:00 AM EST With: YEIMI QUIJANO PA-C Where: [facility] Patient Educationon 02-03-20 Patient Education Obstetrics and Gynecology Urinary Tract Infection, Adult A urinary tract infection (UTI) is an infection of any part of the urinary tract. The urinary tract includes the kidneys, ureters, bladder, and urethra. These organs make, store, and get rid of urine in the body. An upper UTI affects the ureters and kidneys. A lower UTI affects the bladder and urethra. What are the causes? Most urinary tract infections are caused by bacteria in your genital area around your urethra, where urine leaves your body. These bacteria grow and cause inflammation of your urinary tract. What increases the risk? You are more likely to develop this condition if: ? You have a urinary catheter that stays in place. ? You are not able to control when you urinate or have a bowel movement (incontinence). ? You are female and you: ? Use a spermicide or diaphragm for control. ? Have low estrogen levels. ? Are . ? You have certain genes that increase your risk. ? You are sexually active. ? You take antibiotic medicines. ? You have a condition that causes your flow of urine to slow down, such as: ? An enlarged prostate, if you are male. ? Blockage in your urethra. ? A kidney stone. ? A nerve condition that affects your bladder control (neurogenic bladder). ? Not getting enough to drink, or not urinating often. ? You have certain medical conditions, such as: ? Diabetes. ? A weak disease-fighting system (immunesystem). ? Sickle cell disease. ? Gout. ? Spinal cord injury. What are the signs or symptoms? Symptoms of this condition include: ? Needing to urinate right away (urgency). ? Frequent urination. This may include small amounts of urine each time you urinate. ? Pain or burning with urination. ? Blood in the urine. ? Urine that smells bad or unusual. ? Trouble urinating. ? Cloudy urine. ? Vaginal discharge, if you are female. ? Pain in the abdomen or the lower back. You may also have: ? Vomiting or a decreased appetite. ? Confusion. ? Irritability or tiredness. ? A fever or chills. ? Diarrhea. The first symptom in older adults may be confusion. In some cases, they may not have any symptoms until the infection has worsened. How is this diagnosed? This condition is diagnosed based on your medical history and a physical exam. You may also have other tests, including: ? Urine tests. ? Blood tests. ? Tests for STIs (sexually transmitted infections). If you have had more than one UTI, a cystoscopy or imaging studies may be done to determine the cause of the infections. How is this treated? Treatment for this condition includes: ? Antibiotic medicine. ? Avya-idy-gjtdjgm medicines to treat discomfort. ? Drinking enough water to stay hydrated. If you have frequent infections or have other conditions such as a kidney stone, you may need to see a health care provider who specializes in the urinary tract (urologist). In rare cases, urinary tract infections can cause sepsis. Sepsis is a life-threatening condition that occurs when the body responds to an infection. Sepsis is treated in the hospital with IV antibiotics, fluids, and other medicines. Follow these instructions at home: Medicines ? Take naef-qye-xkdecww and prescription medicines only as told by your health care provider. ? If you were prescribed an antibiotic medicine, take it as told by your health care provider. Do not stop using the antibiotic even if you start to feel better. General instructions ? Make sure you: ? Empty your bladder often and completely. Do not hold urine for long periods of time. ? Empty your bladder after sex. ? Wipe from front to back after urinating or having a bowel movement if you are female. Use each tissue only one time when you wipe. ? Drink enough fluid to keep your urine pale yellow. ? Keep all follow-up visits. This is important. Contact a health care provider if: ? Your symptoms do not get better after 1?2 days. ? Your symptoms go away and then return. Get help right away if: ? You have severe pain in your back or your lower abdomen. ? You have a fever or chills. ? You have nausea or vomiting. Summary ? A urinary tract infection (UTI) is an infection of any part of the urinary tract, which includes the kidneys, ureters, bladder, and urethra. ? Most urinary tract infections are caused by bacteria in your genital area. ? Treatment for this condition often includes antibiotic medicines. ? If you were prescribed an antibiotic medicine, take it as told by your health care provider. Do not stop using the antibiotic even if you start to feel better. ? Keep all follow-up visits. This is important. This information is not intended to replace advice given to you by your health care provider. Make sure you discuss any questions you have with your health care provider. Document Revised: 10/18/2020 Document Revie (more content not included)... Normal [facility] Urology Office/Clinic Noteon 02-02-2023 Urology Office/Clinic Note Chief Complaint F/U to Cysto HPI Staff Last seen in office 06/02/22 by SASHA as a referral for vulvar itching & dysuria. DX: Lichen sclerosus, Urethral Stricture & UTI. +C&S at time of last encounter. *>100,000 cfu/ml Staphylococcus epidermidis Tx'd w/Macrobid. Called our office 11/02/22 c/o pressure/burning and visible blood in urine. +C&S at that time. *30,000 cfu/ml Streptococcus agalactiae (Group B) & 1k skin containments Started on Bactrim Tx then switched to Amoxicillin. Pt then underwent Cysto/UD w/Dr Orlando 11/09/22. At that time KML started pt on Estrace cream topically 3 times a week at night for a month, twice a week for maintenance. Pt called our office 11/20/22 c/o possible yeast infection. KML sent fluconazole. Pt called again on 11/24/22 c/o BL flank pain JACK & KUB 11/26/22 +C&S 12/01/22 *75,000 cfu/ml Enterococcus faecalis 25,000 cfu/ml Escherichia coli Tx'd w/ Doxycycline CT ap w/o 12/04/22 Pt called 01/03/23 c/o bladder pressure & feeling like a bowling ball was coming out of her. +C&S 01/04/23 *>100,000 cfu/ml Escherichia coli Tx'd w/Keflex Dysuria: no Incomplete bladder emptying: no Hematuria: UA shows trace today Frequency: 3-4 hours Urgency: yes Nocturia: 0-1x's Stream: good stream Post void dripping: no Wearing pads/ Depends: no Urge incontinence: rarely Stress incontinence: no Incontinence without Sensory Awareness: no Abdominal pain: no Flank pain: no History of Present Illness staff HPI reviewed and agree. Review of Systems PHQ Score Initial Depression Screen Score: 0 SCORE no fever, chills, malaise, myalgia. no rash/lesions. no chest pain, palpitations, or SOB. no abdominal pain, nausea, vomiting. no unilateral calf swelling, redness, pain Physical Exam Vitals & Measurements HT: 62 in HT: 158 cm WT: 64 kg WT: 140.8 lb BMI: 25.64 General: nontoxic, NAD Mouth: moist mucosa Lungs: normal respiratory effort Cardio: regular rate, good distal perfusion Abdomen: nondistended, no suprapubic distention or tenderness, no CVA tenderness Neurologic: Grossly normal Skin: No rashes or suspicious lesions Assessment/Plan Pt states she has recently lost 20 pounds without trying however states that she had gained weight the previous winter so this is back to her baseline 1. Recurrent UTI (N39.0: Urinary tract infection, site not specified) UaCx: 06/02/22 - >100k staph, Tx'd w/Macrobid. 11/02/22 - 30k strep, 1k mixed skin. Called our office 11/02/22 c/o pressure/burning and visible blood in urine. Started on Bactrim Tx then switched to Amoxicillin. 12/01/22 - 75k enterococcus, 25k e coli, tx'd w/ Doxycycline 01/04/23 - >100k e coli, Tx'd w/ Keflex. Pt called 01/03/23 c/o bladder pressure & feeling like a bowling ball was coming out of her. Does state she was having intercourse in a hot tub frequently. advised this can cause an infection. Counseled pt on post coital abx. risks benefits discussed. pt would like to proceed. UA today shows trace-intact blood. Asx currently. Has been taking probiotics. -Keflex 500mg 1 tab po after intercourse -Follow up in 1 year. call in meantime w breakthrough UTI sx. 2. Vaginal atrophy (N95.2: Postmenopausal atrophic vaginitis) Cysto/UD 11/09/22 sever vaginal atrophy. Pt was started on estrace cream at the time of procedure. -Cont estrace cream 3. Unspecified urethral stricture, female (N35.92: Unspecified urethral stricture, female) S/p cysto/UD 03/2016, 04/2014, 11/[address] Aburto PVR 06/02/22: 51 ml BBS 10. not bothersome. Repeat cysto/UD with KML 11/09/22 - Bladder trabeculated (1), no b.t., lesions, stones or foreign bodies. Urethral stricture mild on exam. Mild cystits cystica at trigone. 4. Renal cyst (N28.1: Cyst of kidney, acquired) KUB 11/26/22 there is a 4 mm calcification over the topography of the left kidney which may represent a renal stone. Renal US 11/26/22 neg for hydronephrosis or stones. CT AP wo con 12/04/22 neg for stones or hydronephrosis. 1.6 cm left renal cyst. -No further follow up for simple cysts 5. Lichen sclerosus (L90.0: Lichen sclerosus et atrophicus) known hx. cont clobetasol prn per dermatology Follow-up With When Contact Information MACIE ACOSTA, YEIMI Elder, URL [address] [facility] [place] [address] Additional Instructions: 1 year Patient Education Urinary Tract Infection, Adult Documentation recorded by the kaylah Pride accurately reflects the services(s) I performed and decisions made by me. Authenticated by Yeimi Quijano PA-C on 02/02/2023 12:59:23. IMarilee, personally scribed for Yeimi Quijano PA-C on 02/02/2023 11:50:05. . Problem List/Past Medical History Ongoing Anxiety disorder Bilateral flank pain Chronic kidney disease Essential hypertension Flank pain Gastritis Hyperlipidemia Ischemic colitis Kidney stone Lichen sclerosus Recurrent UTI Renal c (more content not included)... Normal [facility] Comment on above: Result Comment: Elec tronically Signed By: YEIMI QUIJANO PA-C\.br\Date and Time Signed: 02/02/23 12:59 EST\.br\Electronically Co-Signed By: Marilee Pride\.br\Date and Time Co-Signed: 02/02/23 11:50 EST\.br\Electronically Co-Signed By: Marilee Pride\.br\Date and Time Co-Signed: 02/02/23 11:54 EST XR hip RT min 2V(w/wo pelvis )*on 01-07-2023 XR hip RT min 2V(w/wo pelvis)* [facility] [place] [address] [place] [address] XRay Report Signed Patient: Fiona Becerra MR#: [id number] : 1955 Acct:[id number] Age/Sex: 67 / F ADM Date: 01/07/23 Loc: [facility] Room: Type: [facility] Attending Dr: Luis Payne II, MD Copies to: Luis Payne MD Ordering Provider: Luis Payne MD Date of Service: 01/07/23 XR/XR hip RT min 2V(w/wo pelvis)*: Right hip pain 2 views right hip with single view pelvis plain film COMPARISON: None HISTORY: Right hip pain for 3 to 4 years. ACUTE FINDINGS: None DEGENERATIVE CHANGE: Unremarkable SOFT TISSUE FINDINGS: Benign soft tissue calcification. JOINT EFFUSION: None POSTOP CHANGES: None BONY MINERALIZATION: Adequate XR/XR hip RT min 2V(w/wo pelvis)* IMPRESSION: Unremarkable exam Impression dictated by: Rui Kaba M.D.01/07/2023 8:55 PM Dictation Location: [place] [address] Transcribed By: [facility] 01/07/232054 Dictated By: Rui Kaba DO 01/07/232040 Signed By: 01/07/232054 [facility] C Urineon 01-06-2023 Bacteria identified Cx Nom (U) Microbiology PROCEDURE: Urine Culture [R1] SOURCE: U CleanCatch BODY SITE: COLLECTED DATE/TIME: 01/04/2023 15:16 EDT RECEIVED DATE/TIME: 01/04/2023 19:52 EDT START DATE/TIME: 01/04/2023 19:52 EDT FREE TEXT SOURCE: Darion HUSTON, Ashely Orlando MD, Ashely Tovar FINAL REPORTS Final Report [] Verified Date/Time: 01/06/2023 10:44 EDT >100,000 cfu/ml Escherichia coli SUSCEPTIBILITY RESULTS LEGEND: S=Susceptible, N/R=Not Reported, Blank=Data not available, or drug not advisable or tested, I=Intermediate, ESBL=Extended spectrum beta-lactamase, R=Resistant, TFG=Thymidine-depende nt strain, EARL=Beta-lactamase positive, JEAN PIERRE=mcg/m;(mg/L), S*=Predicted susceptible interp, R*=Predicted resistant interp EC Antibiotic JEAN PIERRE Dilutn JEAN PIERRE Interp Amikacin <=16 S Ampicillin >16 R Ampicillin/ 16/8 I Sulbactam Aztreonam <=4 S Cefazolin 4 S Cefepime <=2 S Cefoxitin <=8 S Ceftazidime <=1 S Ceftazidime/ <=8 S Avibactam Ceftriaxone <=1 S Ciprofloxacin >2 R Ertapenem <=0.5 S Gentamicin <=4 S Levofloxacin >4 R Meropenem <=1 S Nitrofurantoin <=32 S Piperacillin/ <=16 S Tazobactam Tetracycline <=4 S Tigecycline <=2 S Tobramycin <=4 S Trimethoprim/ <=2/38 S Sulfa Performing Locations R1: This test was performed at: [facility], [address] [place] [address], [address] , , [facility] Comment on above: Performed By: #### 2 [id number] #### [facility] [address] [place] [address] C Urineon 12-06-2022 Bacteria identified Cx Nom (U) Microbiology PROCEDURE: Urine Culture [R1] SOURCE: U CleanCatch BODY SITE: COLLECTED DATE/TIME: 12/01/2022 11:12 EDT RECEIVED DATE/TIME: 12/04/2022 10:07 EDT START DATE/TIME: 12/04/2022 10:07 EDT FREE TEXT SOURCE: YEIMI QUIJANO PA-C, PA-C, YEIMI Elder FINAL REPORTS Final Report [] Verified Date/Time: 12/06/2022 10:23 EDT 75,000 cfu/ml Enterococcus faecalis 25,000 cfu/ml Escherichia coli SUSCEPTIBILITY RESULTS LEGEND: S=Susceptible, N/R=Not Reported, Blank=Data not available, or drug not advisable or tested, I=Intermediate, ESBL=Extended spectrum beta-lactamase, R=Resistant, TFG=Thymidine-depende nt strain, EARL=Beta-lactamase positive, JEAN PIERRE=mcg/m;(mg/L), S*=Predicted susceptible interp, R*=Predicted resistant interp Entfaeca EC Antibiotic JEAN PIERRE Dilutn JEAN PIERRE Interp JEAN PIERRE Dilutn JEAN PIERRE Interp Amikacin <=16 S Ampicillin <=2 S >16 R Ampicillin/ 16/8 I Sulbactam Aztreonam <=4 S Cefazolin <=2 S Cefepime <=2 S Cefoxitin <=8 S Ceftazidime <=1 S Ceftazidime/ <=8 S Avibactam Ceftriaxone <=1 S Ciprofloxacin <=1 S >2 R Daptomycin 4 S Ertapenem <=0.5 S Gentamicin <=4 S Levofloxacin 2 S >4 R Linezolid <=2 S Meropenem <=1 S Nitrofurantoin <=32 S <=32 S Penicillin 8 S Piperacillin/ <=16 S Tazobactam Rifampin <=1 S Tetracycline <=4 S <=4 S Tigecycline <=2 S Tobramycin <=4 S Trimethoprim/ <=2/38 S Sulfa Vancomycin 1 S Performing Locations R1: This test was performed at: [facility], [address] [place] [address], [address]- , , [facility] Comment on above: Performed By: #### 2 [id number] #### [facility] [address] [place] [address] Abdomen/Pelvis w/o Contra jose maria 12-04-2022 CT Abdomen/Pelvis w/o Contrast Exam Date/Time: 12/04/2022 17:36 EDT Reason for Exam: Abdominal/flank pain, stone suspected;Other (please specify) Report IMPRESSION: NO OBSTRUCTIVE UROPATHY. NO ACUTE PATHOLOGY IN THE ABDOMEN OR PELVIS. EXAM: CT Abdomen/Pelvis w/o Contrast DATE:12/04/2022 5:23 PM CLINICAL HISTORY: Flank pain Abdominal/flank pain, stone suspected COMPARISON:None TECHNIQUE: Noncontrast CT scans of the kidneys ureters and bladder. It should be noted that study was appropriately performed without oral or IV contrast for consideration of obstructive uropathy. Sensitivity of this technique for alternative diagnosis that might explain the patient's symptoms however is limited. All CT scans at this facility use dose modulation, iterative reconstruction, and/or weight based dosing when appropriate to reduce radiation dose to as low as reasonably achievable. FINDINGS: Calcification in the left renal hilum appears vascular. No definite renal or ureteral stones. No hydronephrosis. 1.6 cm left renal cyst. Other findings on these noncontrast scans: Liver: Negative Spleen:Negative Pancreas:Negative Bowel:No obstruction, diverticulitis, or colitis. Appendix:No CT findings of acute appendicitis Nodes:No retroperitoneal, mesenteric or pelvic lymphadenopathy. Aorta:Negative. No aneurysm Peritoneum:There is no free fluid or free air. The abdominal wall is intact. Pelvis:No abnormal soft tissue mass. Lymphadenopathy. No free fluid Bones:Skeletal structures unremarkable. Report Ordering Provider: , FINAL REPORT Dictated: 12/04/2022 5:54 pm Manuel Ricks MD Signed (Electronic Signature): 12/04/2022 5:54 pm Signed by: Manuel Ricks MD Transcribed by: MAUREEN Technologist: LISA Technical Comments Rectal Contrast Given? No Oral contrast amount in ml's: 0 [facility] Consent for Treatmenton 11-20 Consent for Treatment [id number] .00CD:127 Normal [facility] Insurance Correspondenceon 0 12-02-2022 Insurance Correspondence [id number]# 1.00CD:127 Normal [facility] Ambulatory Visit Summaryon 0 12-01-2022 Ambulatory Visit Summary DIRISDOTANITHA Hill :1955 Visit Date:12/01/2022 Ambulatory Visit Instructions Your Diagnosis Urinary tract infection Tests Performed Urnls Dip Stick Auto w/o Microscopy POC [id number] Your Care Team Attending Physician - Darion HUSTON, Ashely Tovar Primary Care Physician - OMKAR RENE MD This Is Your Medications List aspirin carvedilol celecoxib (celecoxib 200 mg Cap) cholecalciferol (Vitamin D3) citalopram (Celexa) cyanocobalamin (B-12) estradiol topical (Estrace 0.1 mg/g Cream) fluconazole (fluconazole 150 mg Tab) lorazepam (LORazepam 0.5 mg Tab) pravastatin ropinirole rosuvastatin (rosuvastatin 40 mg Tab) travoprost ophthalmic (travoprost 0.004% Opth Hailey 2.5 mL) Procedures Performed Cystourethroscopy with dilation of urethral stricture (04/03/2016), Cystoscopy and retrograde pyelography (05/09/2014), Cystourethroscopy with dilation of urethral stricture (12/18/2013), Colonoscopy, Tonsillectomy. What to do next Scheduled Follow-Up Appointments Wednesday 11:00 AM EST With: MACIE ACOSTA, YEIMI Elder Where: [facility] Normal [facility] Urinalysison 12-01-2022 Bacteria LM Ql (Urine sed) 2+ /HPF Abnormal Trace [facility] Comment on above: Performed By: #### 1 [id number] ####[facility] [address] [place] [address] Bilirubin Ql (U) Negative Normal Negative [facility] Comment on above: Performed By: #### 1 [id number] ####[facility] [address] [place] [address] Clarity (U) CLOUDY Abnormal Clear [facility] Comment on above: Performed By: #### 1 [id number] ####[facility] [address] [place] [address] Color (U) YELLOW Normal Yellow [facility] Comment on above: Performed By: #### 1 [id number] ####[facility] [address] [place] [address] Epithelial cells.squamous LM.HPF (Urine sed) [#/Area] 0-2 Normal 0-2 [facility] Comment on above: Performed By: #### 1 [id number] ####[facility] [address] [place] [address] Glucose Test strip (U) [Mass/Vol] Negative Normal Negative [facility] Comment on above: Performed By: #### 1 [id number] ####[address] [address] Hemoglobin Ql (U) 1+ Abnormal Negative [facility] Comment on above: Performed By: #### 1 [id number] ####[address] [address] Ketones (U) [Mass/Vol] Negative Normal Negative [facility] Comment on above: Performed By: #### 1 [id number] ####[address] [address] [place].plasma/Lithi um.RBC (Bld) [Mass ratio] 0-3 Normal 0-3 [facility] Comment on above: Performed By: #### 1 [id number] ####[address] [address] Mucus Ql (Urine sed) TRACE Normal [facility] Comment on above: Performed By: #### 1 [id number] ####[address] [address] Nitrite Ql (U) Positive Abnormal Negative [facility] Comment on above: Performed By: #### 1 [id number] ####[address] [address] pH (U) 7.0 [pH] Invalid Interpretation Code 5.0-9.0 [facility] Comment on above: Performed By: #### 1 [id number] ####[address] [address] Protein (U) [Mass/Vol] Negative Normal Negative [facility] Comment on above: Performed By: #### 1 [id number] ####[address] [address] Specific gravity (U) [Rel density] 1.010 Invalid Interpretation Code 1.005-1.030 [facility] Comment on above: Performed By: #### 1 [id number] ####[facility] [address] [place] [address] Type of Urine collection method Clean Catch Normal [facility] Comment on above: Performed By: #### 1 [id number] ####[facility] [address] [place] [address] Urobilinogen Qn (U) 0.2 {Daniel'U}/dL Normal 0.0-1.0 [facility] Comment on above: Performed By: #### 1 [id number] ####[facility] [address] [place] [address] WBC Auto Ql (U) 3+ Abnormal Negative [facility] Comment on above: Performed By: #### 1 [id number] ####[facility] [address] [place] [address] WBC LM.HPF (Urine sed) [#/Area] /[HPF] Abnormal 0-5 [facility] Comment on above: Performed By: #### 1 [id number] ####[facility] [address] [place] [address] Consent for Treatmenton Consent for Treatment [id number]#1 .00CD:127 Normal [facility] US Renalon 11-26-2022 US Renal Exam Date/Time: 11/26/2022 10:42 EDT Reason for Exam: R10.9;Pain Report IMPRESSION: SOMEWHAT SMALL BOTH KIDNEYS. OTHERWISE, NEGATIVE ULTRASOUND OF THE KIDNEYS. CLINICAL HISTORY: Pain, R10.9. Persistent UTI COMPARISON: NONE. COMMENT: Sonogram of both kidneys was obtained. The right kidney measures approximately 8.6 cm in length, with renal cortical thickness of approximately 1.1 cm. The left kidney measures approximately 8.5 cm in length, with renal cortical thickness of approximately 1.3 cm. Both kidneys have a normal sonographic appearance. No renal masses nor cysts are seen. There is no hydronephrosis. There is symmetrical color flow into the both kidneys. Ordering Provider: , FINAL REPORT Dictated: 11/26/2022 11:25 am Abiel Quan M.D. Signed (Electronic Signature): 11/26/2022 11:25 am Signed by: Abiel Quan M.D. Transcribed by: MAUREEN Technologist: ANDIE Normal [facility] XR Abdomen 1 Viewon 11-27-19 23 XR Abdomen 1 View Exam Date/Time: 11/26/2022 10:49 EDT Reason for Exam: R10.9;Kidney stone Report IMPRESSION: THERE IS A POSSIBLE LEFT RENAL STONE IN THE 9 MM ROUND NODULE IN THE LEFT SIDE OF THE PELVIS OF UNCERTAIN ETIOLOGY. MAY CONSIDER CT CORRELATION. CLINICAL HISTORY: Kidney stone, R10.9 COMPARISON: NONE. KUB FINDINGS: There are no distended loops of bowel. There is no evidence of obstruction. There is retained fecal material throughout the colon, constipation pattern There is a 4 mm calcification over the topography of the left kidney which may represent a renal stone. There is a 9 mm hypodensity nodule in the left side of the pelvis of uncertain etiology. There are no acute osseous changes. Ordering Provider: , FINAL REPORT Dictated: 11/26/2022 2:33 pm Lj Tomlinson MD, V. Signed (Electronic Signature): 11/26/2022 2:33 pm Signed by: Lj Tomlinson MD, V. Transcribed by: MAUREEN Technologist: PATTY Technical Comments Radiation Dose: Ka,r in mGy = na DAP = na [facility] Consent for Procedure/Surger yon 11-09-2022 Consent for Procedure/Surgery [id number]# 1.00CD:127 Normal [facility] Consent for Treatmenton 10-21 Consent for Treatment [id number]#1 .00CD:127 [facility] Inpatient Patient Summaryon 11-09-2022 Inpatient Patient Summary [place] [id number] Clinical Summary Person Information Name: FIONA BECERRA Age: 67 Years : 1955 Sex: Female PCP: OMKAR RENE MD Marital Status: Race: White Ethnicity: Non- or Language: Zambian Visit Id: Visit Reason: URETHERAL STRICTURE, UTI'S Speciality: Acuity: Enc Type: Outpatient Med Service: Surgery Arrival: 11/09/2022 09:46:33 Discharge: Dispo Type: Address: [address] [place] [address] [address] [facility] [id number] Provider Notes: Diagnosis: Lichen sclerosus; Recurrent UTI; Unspecified urethral stricture, female; Vaginal atrophy Problems Active Urinary tract infection Lichen sclerosus Unspecified urethral stricture, female Ischemic colitis (05/16/2021) Hyperlipidemia (12/06/2021) Gastritis Essential hypertension (09/03/2021) Chronic kidney disease (12/06/2021) Anxiety disorder (09/05/2021) Smoking Status: Functional Status: Sensory Deficits: History of Falls: Mobility Assistance Prior to Admission: ADLs: Current Level of Assistance for Self-Care/Mobility: Cognitive Status: Allergies latanoprost ophthalmic Lipitor Pristiq Symbyax atorvastatin (Unknown) Laboratory or Other Results This Visit (last charted value for your 11/09/2022 visit) No Laboratory or Other Results This Visit Measurements: Height: 62 cm Weight: Blood Pressure: Not Valued / Not Valued BMI: Procedures No Procedures Documented Immunizations No Immunizations Documented This Visit Final Med List: amoxicillin (amoxicillin 875 mg Tab) 1 Tablets By Mouth 2 times a day for 5 Days. Refills: 0. aspirin 81 Milligram By Mouth every day. carvedilol 6.25 Milligram By Mouth. celecoxib (celecoxib 200 mg Cap) cholecalciferol (Vitamin D3) 1,000 International unit By Mouth every day. citalopram (Celexa) 40 Milligram By Mouth every day. cyanocobalamin (B-12) 1,000 Microgram By Mouth every day. estradiol topical (Estrace 0.1 mg/g Cream) Apply pea sized amount to external urethra/vaginal area 3x a week for 1 month, then 2x a week afterwards. Refills: 2. lorazepam (LORazepam 0.5 mg Tab) 1 Tablets By Mouth 3 times a day. pravastatin 40 Milligram By Mouth every day. ropinirole 0.5 Milligram By Mouth every day. rosuvastatin (rosuvastatin 40 mg Tab) travoprost ophthalmic (travoprost 0.004% Opth Hailey 2.5 mL) 1 Drops Both eyes once a day (in the evening). Care Team Members: Attending Physician: Ashely Orlando MD Consulting Physician: Referring Physician: Ashely Orlando MD Follow up: With: Address: When: YEIMI QUIJANO [address] [place], [place] [id number] Business (1) [address], [address] [place], [place] [phone] Business (1) [address] [place], [place] [phone] Business (1) Comments: Office to schedule follow up in 2-3 months with VIVI Bailon Patient Education Information: EU - Cystoscopy with Urethral Dilation Discharge Instructions (CUSTOM) [facility] IntraOperative Documentson 0 11-09-2022 IntraOperative Documents [id number]# 1.00CD:127 [facility] Main OR Intraoperative Recor don 11-09-2022 Main OR Intraoperative Record IntraOp Document Type FTURO Summary Primary Physician: Ashely Orlando MD Finalized Date/Time: 11/09/22 12:02:14 Pt. Name: FIONA BECERRA Chinmay/Sex: 1955 Female Med Rec #: [id number] Physician: Ashely Orlando MD Financial #: [id number] Pt. Type: O Room/Bed: / Admit/Disch: 11/09/22 09:46:33 - Institution: Case Times FTURO Entry 1 Patient Times In Room 11/09/22 11:43:00 Out Room 11/09/22 12:05:00 Procedure Times Start 11/09/22 11:49:00 Stop 11/09/22 12:00:00 Anesthesia Times Last Modified By: Anat MEDINA, Jada CRUZ 11/09/22 11:58:48 Case Attendance FTURO Entry 1 Entry 2 Entry 3 Case Attendee Ashely Orlando MD, RN, BRIANAOR, Lilliana KLEIN, Shell Elias Role Performed Surgeon - Primary Ceramic Coater Machine - Primary Scrub - Primary Time In 11/09/22 11:43:00 11/09/22 11:43:00 11/09/22 11:43:00 Time Out 11/09/22 12:05:00 11/09/22 12:05:00 11/09/22 12:05:00 Procedure CYSTOSCOPY LOCAL WITH CYSTOSCOPY LOCAL WITH CYSTOSCOPY LOCAL WITH URETHRAL DILATION(.) URETHRAL DILATION(.) URETHRAL DILATION(.) Comments Last Modified By: Anat RN, CNOR, Anat RN, CNOR, Anat RN, BRIANAOR, Jada 11/09/22 Jada 11/09/22 Jada 11/09/22 11:58:49 11:58:49 11:58:49 Surgical Procedures FTURO Entry 1 Procedure Description Procedure CYSTOSCOPY LOCAL WITH Modifiers . URETHRAL DILATION Surgeon Description cysto Primary Procedure Yes Primary Surgeon Ashely Orlando MD 11/09/22 11:49:00 Stop 11/09/22 12:00:00 Anesthesia Type Local Surgical Service Urology Wound Class 2 - Clean-Contaminated Last Modified By: Anat MEDINA, BRIANAOR, Jada 11/09/22 11:58:50 General Case Data FTURO Pre-Care Text: Classifies surgical wound, implements aseptic technique, initiates traffic control Entry 1 Case Information OR URO 1 FT Case Level None Wound Class 2 - Clean-Contaminated Specialty Urology Preop Diagnosis URETHERAL STRICTURE, Postop Same As Preop Yes UTI'S Postop Diagnosis URETHERAL STRICTURE, Outcomes Met? Yes UTI'S Last Modified By: Anat MEDINA, BRIANAOR, Jada 11/09/22 11:45:29 Post-Care Text: The patient is free from signs and symptoms of infection EU IntraOp - FTURO Pre-Care Text: Implements protective measures prior to operative or invasive procedure, confirms identity before the operative or invasive procedure, verifies operative procedure, surgical site, and laterality Entry 1 EU Perioperative Protocols Procedure(s) CYSTOSCOPY LOCAL WITH Patient Identity Birthday, ID Band URETHRAL DILATION(.) Verified (select at Check, Patient least 2): Participation Consents / H and P HandP, Surgery/Procedure Operative Site N/A Verified Consent Marking Verified Surgical Site Yes Laterality Verified n/a Verified Procedure Verified Yes Correct Patient Yes Position Verified Availability Equipment, Medication Time Out Ashely Orlando MD, Verified (If Participants ANTHONY Coppola RN, Applicable) Lilliana Elias CST, Julie A Time Out Complete 11/09/22 11:46:00 Allergies Reviewed? Yes Allergies Reviewed Self/Patient With Body Position Frog Legged Prep Area perineal area Prep Agents Betadine Solution Skin. Condition Unable to Visualize Additional None Specimens Collected Vitals - EU Blood Pressure 171/64 Pulse 64 bpm Respirations SPO2 EBL 0 IandO - EU Total Intake 0 mL Total Output 0 mL Outcomes Met? Yes Last Modified By: ANTHONY Coppola RN, Ruthann 11/09/22 11:47:56 Post-Care Text: The patient is free from signs and symptoms of injury caused by extraneous objects Sign Out FTURO Entry 1 Before Patient Leaves OR Nurse verbally Yes Nurse verbally n/a confirms with the confirms with the team the name of team that the procedure(s) instrument, sponge, recorded and needle counts are correct (or N/A) Nurse verbally n/a Nurse verbally n/a confirms with the confirms with the team how the team whether there specimen is labeled are any equipment (including patient problems to be name), if applicable addressed Sign Out Complete 11/09/22 12:02:00 Last Modified By: ANTHONY Coppola RN, Ruthann 11/09/22 11:59:17 Case Comments Finalized By: ANTHONY Coppola RN, Ruthann Document Signatures Signed By: ANTHONY Coppola RN, Ruthann 11/09/22 11:59 ANTHONY Coppola RN, Ruthann 11/09/22 12:02 [facility] Main OR Preoperative Recordo n 11-09-2022 Main OR Preoperative Record Holding Area Document Type FTURO Summary Primary Physician: Ashely Orlando MD Finalized Date/Time: 11/09/22 11:16:57 Pt. Name: FIONA BECERRA/Sex: 1955 Female Med Rec #: [id number] Physician: Ashely Orlando MD Financial #: [id number] Pt. Type: O Room/Bed: / Admit/Disch: 11/09/22 09:46:33 - Institution: Case Times Holding FTURO Pre-Care Text: Verifies consent for planned procedure, identifies individual values and wishes concerning care, includes family members in perioperative teaching Secures patient's records' belongings, and valuables, maintains patient's dignity and privacy, and maintains patient confidentiality Entry 1 In Holding 11/09/22 11:11:00 Outcomes Met? Yes Last Modified By: Shanti Gamboa RN 11/09/22 11:13:20 Post-Care Text: The patient participates in decisions affecting his or her perioperative plan of care The patient's right to privacy is maintained Surgery Checklist FTURO Entry 1 Patient Birthday, ID Band Procedure History and Physical, Identification: Check, Patient Verification: Surgical Consent, With Participation Patient NPO after Midnight: n/a Personal Items: Cataract Lens Implant, Dentures, Jewelry Personal Items BILATERAL CATARACT LENS Limitations: UP AD JUANPABLO Comment: IMPLANTS, UPPER DENTURES; WATCH X 1; NECKLACE X 1, EARRINS X 1 PAIR AND RING X Complaints of Pain: No Skin Integrity Dry, Warm Vitals - EU Blood Pressure 171/64 Pulse 64 bpm Respirations 16 br/min SPO2 93 % Additional None RN Reviewed Yes Specimens Collected Last Modified By: Shanti Gamboa RN 11/09/22 11:16:53 Finalized By: Shanti Gamboa RN Document Signatures Signed By: Shanti Gamboa RN 11/09/22 11:16 Normal [facility] Operative Reporton Operative Report Patient: FIONA BECERRA Age: 67 years Sex: Female : 1955 Associated Diagnoses: None Author: Ashely Orlando MD Procedure Operative Information Details: Date/ Time: 11/09/2022 12:02:00. Pre-Op Dx: Unspecified urethral stricture, female (FKE03-ZW N35.92, Discharge, Medical), Recurrent UTI (TQS11-MA N39.0, Discharge, Medical), Lichen sclerosus (ORE05-WL L90.0, Discharge, Medical). Post-Op Dx: Vaginal atrophy (RRE31-HJ N95.2, Discharge, Medical), Unspecified urethral stricture, female (EWV16-FD N35.92, Discharge, Medical), Recurrent UTI (OVX62-EN N39.0, Discharge, Medical), Lichen sclerosus (VPL49-HQ L90.0, Discharge, Medical). Anesthesia Type: Local. Procedure: Local Cystoscopy with Urethral Dilation. Complications: None. Risks/Benefits/Inform ed Consent: Surgical risks, benefits, details of the procedure have been explained to the patient, Full informed consent has been obtained. Intraoperative Information Prepped: Patient is brought back to the endoscopy suite, Patient is placed in supine position, Patient prepped in the usual fashion with Betadine solution, 2% Xylocaine Jelly is placed per Urethra, After waiting several minutes the Cystoscope is introduced. The Urethra is: Tight. The Bladder is: Normal, Trabeculated Mild (1), No bladder tumors, lesions, stones or foreign bodies. Mild cystitis cystica at trigone. The ureteral orifices: Show efflux of clear urine. The Urethra was dilated to: 30 Malian w/ sounds. Devices Implanted: None. Removal: Cystoscope is removed, The patient tolerated it well. Vaginal examination: Vaginal mucosa: There is severe vaginal atrophy The urethra is patent. There are no masses or lesions. There is no urethral hypermobility and YOSI is not seen. Small introitus. Pale, scarred vaginal tissue . Postoperative Information Discharge: Patient is discharged home with antibiotic coverage, Follow up arranged. Discussed risks/benefits of dilation given recent 30K strep UCx, completed bactrim, now on amoxicilin. She states her understanding and elected to proceed wtih dilation anyway, telling me multiple times just to dilate her urethra. See separate clinic note regarding treatment of recurrent UTIs and vaginal atrophy. . Normal [facility] Comment on above: Result Comment: Elec tronically Signed By: Darion HUSTON, Ashely Whittaker.yohana\Date and Time Signed: 11/09/22 12:06 EDT Outpatient Surgery Discharge Instructionon 11-09-2022 Outpatient Surgery Discharge Instruction [id number]# 1.00CD:127 Normal [facility] Outpatient Surgery Discharge Instruction [place] [id number] Patient Discharge Instructions PERSON INFORMATION Name: FIONA BECERRA Date of : 1955 Current Date: 11/09/2022 12:01:59 PHYSICIANS Admitting Physician: Ashely Orlando MD Comment: Discharge Diagnosis: Lichen sclerosus; Recurrent UTI; Unspecified urethral stricture, female; Vaginal atrophy FIONA BECERRA has been given the following list of follow-up instructions, prescriptions, and patient education materials: IF UNABLE TO CONTACT YOUR PHYSICIAN AND YOU FEEL IT IS AN EMERGENCY, GO TO THE NEAREST EMERGENCY ROOM OR CALL 911 Follow up: With: Address: When: YEIMI QUIJANO [address] [place] [id number] Business (1) [address], [address] [place], [place] [id number] Business (1) [address] [place] [id number] Business (1) Comments: Office to schedule follow up in 2-3 months with VIVI Bailon Comment: PATIENT EDUCATION INFORMATION Instructions: Cystoscopy with Urethral Dilation ? Voiding after the procedure: there may be some pain, urethral bleeding, burning, urgency, frequency and blood tinged urine following the procedure. These symptoms usually resolve within 2-5 days. Drink the amount of fluid it takes to keep the urine pink to yellow or clear in color. Drinking enough water and fluids will help to ease any discomfort after your procedure. ? If you are having problems that seem out of the ordinary, please call. ? If unable to contact your physician and you feel it is an emergency, go to the nearest emergency room or call 911 ? Diet ? you may resume your normal diet. ? Activity ? you may resume your normal activities ? Call if you have a fever over 100 degrees I, FIONA BECERRA, have received the attached patient education materials/instruction s and have verbalized understanding: May we do a follow up call? Yes No I was present when discharge instructions were given Patient Signature Date Clinican/Nurse Signature Date You may receive a survey from [employer] asking you to rate your care experience. Your feedback is important and will help us understand what we do well and how we can improve the quality of care we provide to you, your loved ones and our community. It?s an honor to serve you. Thank you for choosing [facility] Normal [facility] Progress Note-Physicianon Progress Note-Physician Patient: FIONA BECERRA Age: 67 years Sex: Female : 1955 Associated Diagnoses: None Author: Darion HUSTON, Ashely Tovar Health Status Allergies: Allergic Reactions (Selected) Severity Not Documented Atorvastatin- Unknown. Latanoprost ophthalmic- No reactions were documented. Lipitor- No reactions were documented. Pristiq- No reactions were documented. Symbyax- No reactions were documented., Allergies (5) Active Reaction atorvastatin Unknown latanoprost ophthalmic None Documented Lipitor None Documented Pristiq None Documented Symbyax None Documented Current medications: (Selected) Prescriptions Prescribed Estrace 0.1 mg/g Cream: See Instructions, 42.5 gm, Refill(s) 2, Apply pea sized amount to external urethra/vaginal area 3x a week for 1 month, then 2x a week afterwards, [facility] #72, 62, cm, 11/09/22 11:18:00 EDT, Height/Length Dosing, 64, kg, 06/02/22 11:06:0... amoxicillin 875 mg Tab: 875 mg = 1 tab(s), Oral, BID, X 5 day(s), # 10 tab(s), Refills(s) 0, Pharmacy: [facility], 158, cm, 06/02/22 11:06:00 EDT, Height/Length Dosing, 64, kg, 06/02/22 11:06:00 EDT, Weight Dosing Documented Medications Documented B-12: 1,000 microgram, Oral, Daily, Refills(s) 0, Prophylaxis Celexa: 40 mg, Oral, Daily, Refills(s) 0, Depression LORazepam 0.5 mg Tab: 0.5 mg = 1 tab(s), Oral, TID, Refills(s) 0, Anxiety Vitamin D3: 1,000 International_Unit, Oral, Daily, Refills(s) 0, Prophylaxis aspirin: 81 mg, Oral, Daily, Refills(s) 0, Prophylaxis carvedilol: 6.25 mg, Oral, Refills(s) 0, High blood pressure celecoxib 200 mg Cap: Refills(s) 0 pravastatin: 40 mg, Oral, Daily, Refills(s) 0, High cholesterol ropinirole: 0.5 mg, Oral, Daily, Refills(s) 0, Spasm rosuvastatin 40 mg Tab: Refills(s) 0 travoprost 0.004% Opth Hailey 2.5 mL: 1 drop(s), Eye-Both, qPM, Refill(s) 0, Ocular congestion Impression and Plan Assessment and Plan: Diagnosis: Vaginal atrophy (IAI19-MR N95.2, Discharge, Medical), Unspecified urethral stricture, female (FLB87-JW N35.92, Discharge, Medical), Recurrent UTI (ADP56-ZX N39.0, Discharge, Medical), Lichen sclerosus (JKE83-BW L90.0, Discharge, Medical). 67 yo F prior DLS pt last seen by VIVI Bailon here for urethral stricture dilation. 1. Urethral stricture- mild on exam, pt demanded repeat dilation despite recent +UCx, on abx. States understanding of getting worse infection/sick. Unclear if having stricture sx, but again pt was adamant about having dilation done. Risks thoroughly discussed. -Dilated to 30 Malian today without difficulty -Recommend starting Estrace cream topically 3 times a week at night for a month, twice a week for maintenance. Risk benefits discussed. Prescription sent to pharmacy on file -Follow-up with Katharine Quijano in 2 to 3 months 2. Vaginal atrophy on exam today We discussed presence of vaginal atrophy. I explained the lack of estrogen secondary to menopause causes changes in the vaginal epithelium that can predispose to lower urinary tract symptoms, vaginal discomfort, urge urinary incontinence, urgency, frequency, nocturia, dyspareunia, and recurrent urinary tract infections. This can be treated with topical application of estrogen to the vagina, which has been shown to reduce frequency of UTIs by up to 70%. She was reassured that there is minimal systemic absorption with application of vaginal estrogen cream and most of the benefits will be to the local tissues. -Start estrace cream. Patient was told to apply a pea-sized amount 3 times weekly at night for 4 weeks and then 2 times per week thereafter, may take up to 3 months for full effect. She should stop medication and notify us if she feels breast tenderness or has vaginal spotting. 3. Recurrent UTIs -complete antibiotic therapy now. 10% of women over the age of 60 will have recurrent urinary tract infection - 2 or more urinary tract infection in 6 months or 3 or more per year. We discussed the presence of vaginal atrophy on physical examination. I explained the lack of estrogen secondary to menopause causes changes in the vaginal epithelium that can predispose to lower urinary tract symptoms, vaginal discomfort, urinary incontinence, dyspareunia, and recurrent urinary tract infections. Because of these changes to the vaginal tissues the lactobacilli (good bacteria) fail to thrive. The pH of the vagina rises making it easier for harmful bacteria to colonize the vagina. - Cranberry pills, lactobacillus probiotic gel caps were recommended - Estrace cream - Bowel regimen - Safe sex, water based lubricant use. Denies direct associate with UTIs and intercourse. Consider on demand abx in the future if correlates. 4. Lichen sclerosis - cont clobetasol prn per dermatology Normal [facility] Comment on above: Result Comment: Elec tronically Signed By: Darion HUSTON, Ashely Tovar\.br\Date and Time Signed: 11/09/22 12:11 EDT C Urineon 11-05-2022 Bacteria identified Cx Nom (U) Microbiology PROCEDURE: Urine Culture [R1] SOURCE: U CleanCatch BODY SITE: COLLECTED DATE/TIME: 11/02/2022 12:07 EDT RECEIVED DATE/TIME: 11/02/2022 19:35 EDT START DATE/TIME: 11/02/2022 19:35 EDT FREE TEXT SOURCE: YEIMI QIUJANO PA-C, PA-C, YEIMI Elder FINAL REPORTS Final Report [] Verified Date/Time: 11/05/2022 13:09 EDT 30,000 cfu/ml Streptococcus agalactiae (Group B) Presumptive isolated. Penicillin is the drug of choice for Beta Hemolytic Streptococci Isolates. Routine susceptibility testing on Beta Hemolytic Streptococcus isolates is no longer performed. Susceptibilities will continue to be performed on Isolates from sterile body fluids and serious wound infections. 1,000 cfu/ml Mixed skin contaminants Performing Locations R1: This test was performed at: [facility], [address] [place] [address], [facility]- , , [facility] Comment on above: Performed By: #### 2 [id number] ####[place] [address] Insurance Correspondenceon 0 11-05-2022 Insurance Correspondence [id number]# 1.00CD:127 [facility] Office Visiton 11-05-2022 Follow-up visit [id number] Fiona Becerra 1955 F Date Provider Department Center 11/05/2022 [id number]-UBUONIWIELORNE DURON CARD [facility] Family History Problem Relation Age of Onset Atrial fibrillation Mother Hypertension Mother Heart failure Father Kidney disease Father Atrial fibrillation Sister Family Status - Relation Status Age at Mother Father Sister Level of Service:46946 HI OFFICE/OUTPATIENT ESTABLISHED MOD MDM 30-39 MIN Reason for Visit and Comments: Follow-up [155226] - Hospital follow up Normal [facility] Ambulatory Visit Summaryon 0 11-02-2022 Ambulatory Visit Summary FIONA BECERRA :1955 Visit Date:11/02/2022 Ambulatory Visit Instructions Your Diagnosis Urinary tract infection Your Care Team Attending Physician - JIMBO HUSTON, Blayne Kauffman Primary Care Physician - OMKAR RENE MD This Is Your Medications List aspirin carvedilol celecoxib (celecoxib 200 mg Cap) cholecalciferol (Vitamin D3) citalopram (Celexa) cyanocobalamin (B-12) lorazepam (LORazepam 0.5 mg Tab) pravastatin ropinirole rosuvastatin (rosuvastatin 40 mg Tab) travoprost ophthalmic (travoprost 0.004% Opth Hailey 2.5 mL) Procedures Performed Cystourethroscopy with dilation of urethral stricture (04/03/2016), Cystoscopy and retrograde pyelography (05/09/2014), Cystourethroscopy with dilation of urethral stricture (12/18/2013), Colonoscopy, Tonsillectomy. Medications What How Much When Instructions Unchanged aspirin 81 Milligram By Mouth Every day Unchanged carvedilol 6.25 Milligram By Mouth Unchanged celecoxib (celecoxib 200 mg Cap) Unchanged cholecalciferol (Vitamin D3) 1,000 International unit By Mouth Every day Unchanged citalopram (Celexa) 40 Milligram By Mouth Every day Unchanged cyanocobalamin (B-12) 1,000 Microgram By Mouth Every day Unchanged lorazepam (LORazepam 0.5 mg Tab) 1 Tablets By Mouth 3 times a day Unchanged pravastatin 40 Milligram By Mouth Every day Unchanged ropinirole 0.5 Milligram By Mouth Every day Unchanged rosuvastatin (rosuvastatin 40 mg Tab) Unchanged travoprost ophthalmic (travoprost 0.004% Opth Hailey 2.5 mL) 1 Drops Both eyes Once a day (in the evening) Allergies Lipitor Pristiq Symbyax atorvastatin (Unknown) latanoprost ophthalmic Problems Ongoing - Any problem that you are currently receiving treatment for. Anxiety disorder Chronic kidney disease Essential hypertension Gastritis Hyperlipidemia Ischemic colitis Lichen sclerosus Unspecified urethral stricture, female Urinary tract infection Historical - Any problem that you are no longer receiving treatment for. Lumbar spondylosis Smoker Normal [facility] Urinalysison 11-02-2022 Bacteria LM Ql (Urine sed) TRACE Normal Trace [facility] Comment on above: Performed By: #### 1 [id number] #### [facility] [address] [place] [address] Bilirubin Ql (U) Negative Normal Negative [facility] Comment on above: Performed By: #### 1 [id number] #### [facility] [address] [place] [address] Calcium oxalate crystals LM Ql (Urine sed) Present Normal [facility] Comment on above: Performed By: #### 1 [id number] #### [facility] [address] [place] [address] Clarity (U) SL CLOUDY Invalid Interpretation Code [facility] Comment on above: Performed By: #### 1 [id number] #### [facility] [address] [place] [address] Color (U) DARK YELLO Invalid Interpretation Code [facility] Comment on above: Performed By: #### 1 [id number] #### [facility] [address] [place] [address] Epithelial cells.squamous LM.HPF (Urine sed) [#/Area] 0-2 Normal 0-2 [facility] Comment on above: Performed By: #### 1 [id number] #### [facility] [address] [place] [address] Glucose Test strip (U) [Mass/Vol] Negative Normal Negative [facility] Comment on above: Performed By: #### 1 [id number] #### [facility] [address] [place] [address] Hemoglobin Ql (U) 2+ Abnormal Negative [facility] Comment on above: Performed By: #### 1 [id number] #### [facility] [address] [place] [address] Ketones (U) [Mass/Vol] TRACE Invalid Interpretation Code Negative [facility] Comment on above: Performed By: #### 1 [id number] #### [facility] [address] [place] [address] [place].plasma/Lithi um.RBC (Bld) [Mass ratio] 4-20 Normal 0-3 [facility] Comment on above: Performed By: #### 1 [id number] #### [facility] [address] [place] [address] Mucus Ql (Urine sed) 1+ Normal [facility] Comment on above: Performed By: #### 1 [id number] #### [facility] [address] [place] [address] Nitrite Ql (U) Positive Abnormal Negative [facility] Comment on above: Performed By: #### 1 [id number] #### [facility] [address] [place] [address] pH (U) 6.0 [pH] Invalid Interpretation Code 5.0-9.0 [facility] Comment on above: Performed By: #### 1 [id number] #### [facility] [address] [place] [address] Protein (U) [Mass/Vol] TRACE Abnormal Negative [facility] Comment on above: Performed By: #### 1 [id number] #### [facility] [address] [place] [address] Specific gravity (U) [Rel density] 1.020 Invalid Interpretation Code 1.005-1.030 [facility] Comment on above: Performed By: #### 1 [id number] #### [facility] [address] [place] [address] Type of Urine collection method Clean Catch Normal [facility] Comment on above: Performed By: #### 1 [id number] #### [facility] [address] [place] [address] Urobilinogen Qn (U) 0.2 {Daniel'U}/dL Normal 0.0-1.0 [facility] Comment on above: Performed By: #### 1 [id number] #### [facility] [address] [place] [address] WBC Auto Ql (U) 2+ Abnormal Negative [facility] Comment on above: Performed By: #### 1 [id number] #### [facility] [address] [place] [address] WBC LM.HPF (Urine sed) [#/Area] /[HPF] Abnormal 0-5 [facility] Comment on above: Performed By: #### 1 [id number] #### [facility] [address] [place] [address] US ARTERY UP EXT BILon 07-29 US ARTERY UP EXT ANDERSON EXAMINATION: US ARTERY UP EXT ANDERSON HISTORY: Transient cerebral ischemia COMPARISON: No relevant comparison available. TECHNIQUE: Color duplex Doppler ultrasound evaluation analysis was performed in the usual manner. FINDINGS: LEFT UPPER EXTREMITY ARTERIAL Subclavian Proximal PSV: 96.3 cm/s Subclavian Proximal EDV: 0.0 cm/s Axillary PSV: 96.7 cm/s Axillary EDV: 0.0 cm/s Brachial Proximal PSV: 153.0 cm/s Proximal EDV: 0.0 cm/s Distal PSV: 155.7 cm/s Distal EDV: 0.0 cm/s Radial Proximal PSV: 40.6 cm/s Proximal PSV: 0.0 cm/s Distal PSV: 59.2 cm/s Distal EDV: 0.0 cm/s Ulnar Proximal PSV: 57.0 cm/s Proximal PSV: 0.0 cm/s Distal PSV: 81.2 cm/s Distal EDV: 0.0 cm/s RIGHT UPPER EXTREMITY ARTERIAL Subclavian Proximal PSV: 192 cm/s Subclavian Proximal EDV: 0 Axillary PSV: 93 Axillary EDV: 0 Brachial Proximal PSV: 158 Proximal EDV: 0 Distal PSV: 124 Distal EDV: 0 Radial Proximal PSV:22 Proximal EDV: 0 Distal PSV: 46 Distal EDV: 0 Ulnar Proximal PSV: 95 Proximal EDV: 0 Distal PSV: 22 Distal EDV: 0 WAVE FORM: Normal triphasic waveform throughout both upper extremities. VESSEL LUMEN: No significant narrowing or atherosclerotic disease. FLOW VELOCITY: No significantly increased or decreased flow velocity. IMPRESSION: Elevated flow velocity proximal right subclavian artery of unknown etiology Electronically authenticated by: JANNIE NIEVES Date: 2022-07-29 17:55 Normal [facility] Office Visiton 07-24-2022 Follow-up visit [id number] Fiona Becerra 1955 F Date Provider Department Center 07/24/2022 MEÑO [facility] CARD [facility] Family History Problem Relation Age of Onset Atrial fibrillation Mother Hypertension Mother Heart failure Father Kidney disease Father Atrial fibrillation Sister Family Status - Relation Status Age at Mother Father Sister Level of Service:29226 HI OFFICE/OUTPATIENT ESTABLISHED MOD MDM 30-39 MIN Normal [facility] Coding Summary.on 06-05-2022 Coding Summary. [id number] h0bWw+PGhlYWQ+HV1FIKK mL06bgRFcrK7fY0MKZRwJ SywgQVBQTElOSyIgbmFtZ A4sfJUiFVEv IC8+GY4uWYMxCxajwMGvu 7R3dBN8J39lcz4mIUxcwF I4KCJdBtAkkeqbi9zxfGn 6IDcuNmluOyBt IEVaoF60OFL9qT08Mk02n FTztLPxu9mjlMm8OfSpTX WpXWB5lPtrTWhbo7RoZWY gS41raJPif4O4 HZXimPtvqIAdJoPpbEH9t A5mSVcmhjjxs6tgwvxfXr w6im57fRIui6K0jKW5H1S vkxO8HHGbxKZc ScpeqRDAxE9yatcmv3rlq qddOnXrEYNfBAg5OBm8BJ PkzXcgDhPvMF27LQG1EWO fqhLlW2AwMJKt kLebYmS1k9F9Uz3UD5UJN ostO6ZGFRKBMIafuIN+PC 09zp22K0JuKqpqHfh8VFW hFSM5xKR1fO0r KKUxTTpkr7K6qGA7U5Uoj hBlbj5ef4soCIZcDTktP7 4seCFcg2N5CZLujHV7RAK xlOjuXaNctT85 Oyc+WXIdeMqdj3SwZvxfa 7ofc7kolBw9GeesSMGiaz OmxOwuPKI1t4RbLl7sSXJ pzXO0kKZ3iU3f GuDyCyC6MRexF698VlElh TIeUuxeJ24uD1DceWV+PH FbEnl2ZBCjiAemCR9mB6P hZGRpbmctbGVm bVyhRL0fXIMonpogPJMtc S9vOXTcA0z4MlWeAoF9UE ilQ2YzVVOoelbpRw74vK6 kBiYoAbV2VBew T0DcyvA5KMVclRXsHClaR ST8S75xg4Z6OXViHBXrTY V4vIB4vM6liEljunyeeIA mdDsgdmVydGlj ZMyuZOzbM790XGMqfMkpE kNvZGluZyBEYXRlOiAgMD MvMTcvMjAyMzwvdGQ+PHR pAED8dZwmBJUo sWWiVQweDx9luFtzqKnkX J2oAZRqqgayGOWbfI8uBU SvcRZuxKgyJL4cKEOiaac ts867ApHeUAO0 IOXmvDSyO5HamT1jGiWiN MGuWXAlM4FmiWWgEIxnT8 15DWqwRhO0NINwuaSlG2U sLWFsaWduOiB0 z7C3Yy8Xg0DrwnquW7Hwz KMwJjQtKbdkVUe8S0RiGk wvdHI+VY58HQJbMI31OQj 7VXM3eLmrJXet YGOwQ4MscA2uZhLnPELuI GRkOyc+PHRhYmxlIHdpZH RoPScxMDAlJyBzdHlsZT0 bUz0oQDMtSRBk sWstuZHzQdNap7bzELNoN KcvEJ7zpVhjF9VunGR1EO Sax0b7Id36W08oK7TkwGF +TLIouDQ8bSR0 xK8kApVjCpL0LXzzT778V oHzlPElRsrdq2xsf4tgfZ n5AlQ4SNLoosSuiJlsXCE 4g6PjSp04C90y IHdpZHRoPSIxNSUiIHZhb Tksoy2lwD3vKr0+PGNvbC E0uLC9iU2pOvZfGsY6PBm qD894XlPvbUDr Zlkpv5oym7dhyUx7SyEcG JClnjAldYllWWW0h3GyDk 59Y3NlxMgez6XtAbs7ps0 2cUXws6H8jWU8 R2EaWTEidnctwOOffUhhL B9dGHDxytecDJGacB9mFW FaJ9r5RvUgDjM9BJlbT9S pbcD9NIJrpILy EDVnhYNLaU6vplftm7dzp bfcNeIxDJOgZWi4DIr4DF HyfMbqUpQyIYS3DtF6XYH 9iVCfzY3ecMoi wqrogO1aDso+TQW9mBLtn CPNFM9yRyawlTF+PHRkIH C6jKmvTXkuMBJrcJ9kBLH xR3y1XoBvNvE0 GVfbG1OjmqI7AHOxgXUcZ IXopVCUeY5dwhvta5irgq wuShOzVZMtQVc3VEz2MPD saWduOiBsZWZ0 CvV1FWB8vBJeuE4uqBsfl lmstV9kCcp+QmlydGggRG Y1XRo7D0SvIis5LHZldXt hIO1nvGMwIExc Nb1nvMbrkAmuNJ6zUFGty bsgu986GePfx0yiPUXuhB YbHFzoJDY7Y24bh3Z6HZA dPLSpFPH2tYL6 tI4byKtslpdrxVAdzYwgz jIwkDfsXQxgIOfmV770SQ ZeaCpzRqOaRXf4V7WgWgx 6WCAnlEowYK4z pCQyPObdIi0qcNfexGixL V7wFJYsoxqrm117KkYoc9 vzWTEupSPhRBjwTIR4J03 dt0R0TFPhBYWi QBS0pQY1aE8siZpgzfjdj GVmdDsgdmVydGljYWwtYW rqC273WQYzvBodDwUnaLx 0F9VvOwb9WZFd sFznIY1rkVIjDGhoDq2sa KzgdKpbEY3qHQAoqcneb1 78DfWze7iqHYKboCStAAc fFWO5K42jt5L0 SZIyXYEbQFQ0iSP9rM5ib GlnbjogbGVmdDsgdmVydG icMZhsAPuaA245CRBhgPw nPlBhdGllbnQg BEhwRRa9A7VeUoggtEN+P F97ZNOmLJ74cJXogQQat1 opsIe4JoJsILHdNSP5ePw fZEyln7FwBAOe M49hjPJrg2L3TQGdzNuyj FUhPlCbiXN0dB5jFHaakt kpc7jeienqTplhz3buym8 6kS34R83fLQnb ZHRoPSIzMCUiIHZhbGlnb m4ymL7iVx4+KICbvFO3jJ D3dO0zONKrQaI0EVkyH24 9InRvcCIvPjxj o0ikh8wfhDh3CnT5RCHjc kCkyMzzGJH5a6OdHw78V2 9sIHdpZHRoPSIyMCUiIHZ zgDamdh2fzP0m Ii8+SUNmkFN4gDI1iG2uR zTbDbQ0QJkhW751FlGegU WxWoulU99wM0MehOA+PHR oQgd1OXMgbNwp SD3goHZzFWcaKd9uAMA2G oCzVvVlJCmaA9EtSNEfht odqamtjHK3UIEbQJLxpC8 4Hq1nkQmlBEIw wPDIwP4fvfvjm0yrktrxH dCkIQAyTRk4MDb9GSAnpS uoPlUfIZR7IvV7NOH3xBJ vxF2puPlnjlzh dR0cP3UoIWErveuwHx42m G1fOzIuHjT1LAccPrg+SE FMTCwgSkFORVQgSzwvdGQ +NDInDKI6lVjp RBblVARenV1iESNjO2q1R bHfSzE4XSswP9CbNNDbsv mpNl97nU3kOsScHoF1ZSs vS5LmhvW6FMVo iHXaEJgaTQA6X94dn0P0G HZrXOOeTRZ5wOE5jA4crL lnbjogbGVmdDsgdmVydGl lHAglNLhnD051 SGLerGpwMtJdNdYyJtG1R FI7F1AcMby7CREvxIlnDR 3qaVVqOEpeHp4onJkwwOx tLO8wRZWuefad ZDQjnU4lEBSqsRVtlOmmK U0rZPNelhsmk635IyPvNW T6UEQwvFFtL7LzlG5zUaS wCPEmECDdX1Xg tNOqZTxwI677KSbjInJ4K LMhrdJjY5VrFFAajQrePj O6k4L2Ea20JIHSNHYkoum vdGQ+PHRkIHN0 nGmpGIiyGWYnlC5qYAIdV 6s2EmPsGfL0JKxoB8OgUX QajqazTz83bK2cYhQqTrE 1YHtrK2QtvhE4 ETBbuHOhSVodWIU2U26li 3E9SDIyYUUmJBH9dTP6eO 1hbGlnbjogbGVmdDsgdmV ydGljYWwtYWxp T082ZKQkmPuiUnFcpUMvX TwvdGQ+PQBmZSN0dBoxES epSGUwyM7kOGBdS0c1XnJ qEtG8XCigE6Zq TAXumsqvPx22gC7lNjKyI sS0YIxhF1LcgzH5BGMenQ TsXEloRCH0D03uy9F2JIL zDEFlKZZ2xZX3 zT0igTeeufnouGPsjYlwn lGvwJweUBvjNOmkY195IE FukIttZkkqTsFZnb0iTD7 mZjwvdGQ+PC90 nf25W7FkCydwXcq5XMZqW WH0oLS3rI6lWYTrIDjeq9 Z1dCA8T0DwcmGodj7xb7h aAPRnCWrpP19s oZDhu7O4GTXnuME7LPHsl LbcOfZyoZ68Rgk+PGNvbG zli8BqYeowu3xdh3jelBo 9IjMwJSIgdmFs sWofPGV7o5ViWb80M98wF HdpZHRoPSIzMCUiIHZhbG oozu6wyI3pTv5+PGNvbCB 0nAC7hF3hUaGj OwC5ZQlbU770FtZmfJVlA ydvx1afr5dzxSv9BxLrUW TqslKonFaiJVC5q0UnGu7 6D2SpgDzaz1Nv Urn0ib83uQVav3E0pLC2I 3BhZGRpbmctbGVmdDogMC 4lPPHgjggaHFXmxL7xCQC rI9s5ZsUmNmJ6 PAdqN3YhtiW0PSDzmNKmN LCmfCSUiN7nmsnhp0ilvs ngTpSbUIQjQSm7XNh7IQZ saWduOiBsZWZ0 IfG6XOM8rJCaqQ3dnOdtg imnsT9uBcu+GIg9l3ubmW OmMT3fiJZ1HU28ZX78tSA ex9Y0xGT7L5Rp BKYnmlnllhyswSD6YZWqU REapO96Ll8csBefCb7jJA WiCVM7MXKusCKsU1ZhbA5 yOiAjMDAwMDAw U5MnsKHdQCacZ126YYnfT bX9RLJvhaVeR7TuDNHlpX vrMwZ7z1U1Ks8SAO42TL9 0MQ66zQRmj2O2 vSL7H6WwHAGekjewysoaz FC1PIWlRSPzdG69Gy2gaK leXy5vMRRgGNJ1OPYpzUR lC5OmdU9aAcHy GZXvCLJzX8YcaFMqPDotE 864XLjwMnQ1HEJaxzSbW1 RkEWSvqEfyYpG8n4C9Yk7 RRy36VD27GM40 oLGel3P8yPL1H1YtMHEls kuthvrzrVM1KGClHTOfeZ 56Mj5gaDjwHd8pUOSeJDG 8ULAntZXmK1Cv zI7wIhYwXXSoPZYiO2Rjo MTzEZmyN346OMxaCfY7SH DlllTbV9BfDOObjTdiUhO 5u2U0Lz2DMWwd xho1M5BgIejwiNB+PC90Y DWvEG46bMBdvOCck9pbwB b6LrHySQQtMDW8kFvnYXh uu2FvGDDvC71s bGFw (more content not included)... Normal [facility] US CAROTID ART BILon 023 US CAROTID ART ANDERSON EXAMINATION: US CAROTID ART ANDERSON HISTORY: Right carotid artery occlusion , neck pain COMPARISON: Ultrasound carotid artery bilateral 01/16/2019 TECHNIQUE: Duplex Doppler ultrasound analysis of carotid and vertebral arteries. . Bilateral carotid arterial duplex examination was performed using B-mode, color flow and spectral analysis. Carotid stenosis is reported according to validated velocity parameters, similar to NASCET criteria. FINDINGS: RIGHT CAROTID ARTERY: Mild plaque within carotid bulb without significant stenosis. RIGHT VERTEBRAL: Antegrade flow. Subclavian: PSV: 205.8 cm/s EDV: 0.0 cm/s CCA: Prox: PSV: 84.6 cm/s EDV: 15.6 cm/s Mid: PSV: 106.2 cm/s EDV: 17.5 cm/s Distal: PSV: 98.4 cm/s EDV: 19.5 cm/s BULB: PSV: 100.3 cm/s EDV: 19.5 cm/s ICA: Prox: PSV: 116.0 cm/s EDV: 31.3 cm/s Mid: PSV: 98.3 cm/s EDV: 33.3 cm/s Distal: PSV: 94.4 cm/s EDV: 23.4 cm/s ECA: PSV: 116.0 cm/s EDV: 5.7 cm/s VERTEBRAL: PSV: 50.4 cm/s EDV: 13.1 cm/s ICA/CCA ratio: PSV: 1.2 EDV: 1.6 LEFT CAROTID ARTERY: Mild plaque scattered within common carotid artery and within the bulb; mild stenosis within bulb. LEFT VERTEBRAL: Antegrade flow. Subclavian: PSV: 217.4 cm/s EDV: 18.6 cm/s CCA: Prox: PSV: 108.3 cm/s EDV: 22.0 cm/s Mid: PSV: 98.4 cm/s EDV: 17.5 cm/s Distal: PSV: 88.5 cm/s EDV: 13.6 cm/s BULB: PSV: 72.7 cm/s EDV: 13.6 cm/s ICA: Prox: PSV: 94.4 cm/s EDV: 19.5 cm/s Mid: PSV: 116.0 cm/s EDV: 23.4 cm/s Distal: PSV: 121.9 cm/s EDV: 25.4 cm/s ECA: PSV: 104.2 cm/s EDV: 7.7 cm/s VERTEBRAL: PSV: 47.1 cm/s EDV: 8.7 cm/s ICA/CCA ratio: PSV: 1.4 EDV: 1.9 IMPRESSION: 1. Mild atherosclerotic disease bilaterally. 2. 0-49% flow stenosis bilaterally. Electronically authenticated by: CINDY BRISCOE Date: 2022-06-05 10:05 Normal [facility] US THYROIDon 06-05-2022 US THYROID EXAMINATION: US THYROID HISTORY: Simple goiter COMPARISON: Ultrasound thyroid 01/16/2019 FINDINGS: RIGHT LOBE: Slightly heterogeneous echotexture containing several nodules. The only notable nodule is a 1.3 x 1.0 x 1.2 cm TR 4 nodule which appears stable. Lobe size: 4.8 x 1.6 x 1.7 cm LEFT LOBE: Contain several small nodules. The only notable nodule is a 0.4 cm TR 4 nodule. Lobe size: 4.4 x 1.9 x 1.7 cm. ISTHMUS: Normal size and echotexture. Thickness: 2 mm IMPRESSION: 1. Findings favor mild multinodular goiter. No overtly suspicious nodules. TR4 (moderately suspicious): If > 1.0 cm Follow-up ultrasound in 1, 2, 3, and 5 years. If > 1.5 cm fine needle aspiration (FNA). Electronically authenticated by: CINDY BRISCOE Date: 2022-06-05 14:32 Normal [facility] C Urineon 06-04-2022 Bacteria identified Cx Nom (U) Microbiology PROCEDURE: Urine Culture [R1] SOURCE: U Random BODY SITE: COLLECTED DATE/TIME: 06/02/2022 11:33 EDT RECEIVED DATE/TIME: 06/02/2022 18:09 EDT START DATE/TIME: 06/02/2022 18:09 EDT FREE TEXT SOURCE: YEIMI QUIJANO PA-C, PA-C, YEIMI Elder FINAL REPORTS Final Report [] Verified Date/Time: 06/04/2022 11:52 EDT >100,000 cfu/ml Staphylococcus epidermidis SUSCEPTIBILITY RESULTS LEGEND: S=Susceptible, N/R=Not Reported, Blank=Data not available, or drug not advisable or tested, I=Intermediate, ESBL=Extended spectrum beta-lactamase, R=Resistant, TFG=Thymidine-depende nt strain, EARL=Beta-lactamase positive, JEAN PIERRE=mcg/m;(mg/L), S*=Predicted susceptible interp, R*=Predicted resistant interp Staepi Antibiotic JEAN PIERRE Dilutn JEAN PIERRE Interp Amoxicillin/ <=4/2 R Clavulanate Ampicillin 4 R Ampicillin/ <=8/4 R Sulbactam Cefazolin <=8 R Ciprofloxacin >2 R Daptomycin <=1 S Gentamicin <=4 S Levofloxacin >4 R Linezolid <=2 S Nitrofurantoin <=32 S Oxacillin >2 R Penicillin 2 R Rifampin <=1 S Tetracycline <=4 S Trimethoprim/ >2/38 R Sulfa Vancomycin 1 S Performing Locations R1: This test was performed at: [facility], [address] [place] [address], [id number] , , Normal [facility] Comment on above: Performed By: #### 2 [id number] #### [facility] [address] [place] [id number] CBC AUTO DIFFon 06-04-2022 BASO # 0.0 103/ul Normal 0.0-0.1 [facility] Comment on above: Performed By: #### L IVER, BMP, LIPID, TSH #### [facility] [address] [place] [address] Dr. Malachi Maciel Basophils/100 WBC (Bld) 0.6 % Normal 0.2-2.0 [facility] Comment on above: Performed By: #### L IVER, BMP, LIPID, TSH #### [facility] [address] [address] [address] Malachi Maciel EO # 0.1 103/ul Normal 0.0-0.7 [facility] Comment on above: Performed By: #### L IVER, BMP, LIPID, TSH #### [facility] [address] [place] [address] Dr. Malachi Maciel Eosinophils/100 WBC (Bld) 1.7 % Normal 0.9-7.0 [facility] Comment on above: Performed By: #### L IVER, BMP, LIPID, TSH #### [facility] [address] [place] [address] Dr. Malachi Maciel Erythrocyte distribution width (RBC) [Ratio] 12.4 % Normal 11.0-15.0 [facility] Comment on above: Performed By: #### L IVER, BMP, LIPID, TSH #### [facility] [address] [place] [address] Dr. Malachi Maciel Hematocrit (Bld) [Volume fraction] 36.7 % Normal 36.0-48.0 [facility] Comment on above: Performed By: #### L IVER, BMP, LIPID, TSH #### [facility] [address] [place] [address] Dr. Malachi Maciel Hemoglobin (Bld) [Mass/Vol] 12.2 g/dL Normal 12.0-16.0 [facility] Comment on above: Performed By: #### L IVER, BMP, LIPID, TSH #### [facility] [address] [place] [address] Dr. Malachi Maciel IG # 0.01 10e3/ul Normal 0.00-0.03 [facility] Comment on above: Performed By: #### L IVER, BMP, LIPID, TSH #### [facility] [address] [place] [address] Dr. Malachi Maciel IG % 0.1 % Normal 0.0-0.5 [facility] Comment on above: Performed By: #### L IVER, BMP, LIPID, TSH #### [facility] [address] [place] [address] Dr. Malachi Maciel LYMPH # 2.1 103/ul Normal 1.2-3.8 [facility] Comment on above: Performed By: #### L IVER, BMP, LIPID, TSH #### [facility] [address] [place] [address] Dr. Malachi Maciel Lymphocytes/100 WBC (Bld) 29.6 % Normal 20.5-60.0 [facility] Comment on above: Performed By: #### L IVER, BMP, LIPID, TSH #### [facility] [address] [place] [address] Dr. Malachi Maciel MANUAL DIFF REQ NO Normal [facility] Comment on above: Performed By: #### L IVER, BMP, LIPID, TSH #### [facility] [address] [place] [address] Dr. Malachi Maciel MCH (RBC) [Entitic mass] 29.6 pg Normal 26.7-34.0 [facility] Comment on above: Performed By: #### L IVER, BMP, LIPID, TSH #### [facility] [address] [place] [address] Dr. Malachi Maciel MCHC (RBC) [Mass/Vol] 33.2 g/dL Normal 29.9-35.2 [facility] Comment on above: Performed By: #### L IVER, BMP, LIPID, TSH #### [facility] [address] [place] [address] Dr. Malachi Maciel MCV (RBC) [Entitic vol] 89.1 fL Normal 81.0-99.0 [facility] Comment on above: Performed By: #### L IVER, BMP, LIPID, TSH #### [facility] [address] [place] [address] Dr. Malachi Maciel MONO # 0.6 103/ul Normal 0.3-0.8 [facility] Comment on above: Performed By: #### L IVER, BMP, LIPID, TSH #### [facility] [address] [place] [address] Dr. Malachi Maciel Monocytes/100 WBC (Bld) 8.2 % Normal 1.7-12.0 [facility] Comment on above: Performed By: #### L IVER, BMP, LIPID, TSH #### [facility] [address] [place] [address] Dr. Malachi Maciel NEUT # 4.2 103/ul Normal 1.4-6.5 [facility] Comment on above: Performed By: #### L IVER, BMP, LIPID, TSH #### [facility] [address] [place] [address] Dr. Malachi Maciel Neutrophils/100 WBC (Bld) 59.8 % Normal 43.0-75.0 [facility] Comment on above: Performed By: #### L IVER, BMP, LIPID, TSH #### [facility] [address] [place] [address] Dr. Malachi Maciel Platelet mean volume (Bld) [Entitic vol] 9.4 fL Critically low 9.5-13.5 [facility] Comment on above: Performed By: #### L IVER, BMP, LIPID, TSH #### [facility] [address] [address] [address] Malachi Maciel PLT 220 103/ul Normal 150-450 [facility] Comment on above: Performed By: #### L IVER, BMP, LIPID, TSH #### [facility] [address] [address] [address] Malachi Maciel RBC 4.12 106/ul Critically low 4.20-5.40 [facility] Comment on above: Performed By: #### L IVER, BMP, LIPID, TSH #### [facility] [address] [place] [address] Dr. Malachi Maciel WBC 7.0 103/ul Normal 4.0-11.0 [facility] Comment on above: Performed By: #### L IVER, BMP, LIPID, TSH #### [facility] [address] [place] [address] Dr. Malachi Maciel FREE T3on 06-04-2022 FREE T3 2.90 pg/mlL Normal 2.18-3.98 [facility] Comment on above: Performed By: #### L IVER, BMP, LIPID, TSH #### [facility] [address] [place] [address] Dr. Malachi Maciel FREE T4on 06-04-2022 Free T4 [Mass/Vol] 0.69 ng/dL Critically low 0.76-1.46 [facility] Comment on above: Performed By: #### F T4 #### [facility] [address] [place] [address] Dr. Malachi Maciel PROF CHEM 8 (BAS METB)on Anion gap [Moles/Vol] 11.1 mmol/L Normal [facility] Comment on above: Performed By: #### L IVER, BMP, LIPID, TSH #### [facility] [address] [place] [address] Dr. Malachi Maciel Calcium [Mass/Vol] 8.6 mg/dL Normal 8.5-10.1 [facility] Comment on above: Performed By: #### L IVER, BMP, LIPID, TSH #### [facility] [address] [address] [address] Malachi Maciel Chloride [Moles/Vol] 104 mmol/L Normal 98-107 [facility] Comment on above: Performed By: #### L IVER, BMP, LIPID, TSH #### [facility] [address] [address] [address] Malachi Maciel CO2 [Moles/Vol] 29.7 mmol/L Normal 21.0-32.0 [facility] Comment on above: Performed By: #### L IVER, BMP, LIPID, TSH #### [facility] [address] [address] [address] Malachi Maciel Creatinine [Mass/Vol] 1.15 mg/dL Critically high 0.55-1.02 [facility] Comment on above: Performed By: #### L IVER, BMP, LIPID, TSH #### [facility] [address] [address] [address] Malachi Maciel EGFR-AF SALVADOREAN 57 mL/min/1.73m2 Critically low >=60 [facility] Comment on above: Performed By: #### L IVER, BMP, LIPID, TSH #### [facility] [address] [place] [address] Dr. Malachi Maciel EGFR-NON AF SALVADOREAN 47 mL/min/1.73m2 Critically low >=60 [facility] Comment on above: Performed By: #### L IVER, BMP, LIPID, TSH #### [facility] [address] [place] [address] Dr. Malachi Maciel Glucose [Mass/Vol] 101 mg/dL Normal 74-106 [facility] Comment on above: Performed By: #### L IVER, BMP, LIPID, TSH #### [facility] [address] [address] [address] Malachi Maciel Potassium [Moles/Vol] 3.8 mmol/L Normal 3.5-5.1 [facility] Comment on above: Performed By: #### L IVER, BMP, LIPID, TSH #### [facility] [address] [address] [address] Malachi Maciel Sodium [Moles/Vol] 141 mmol/L Normal 136-145 [facility] Comment on above: Performed By: #### L IVER, BMP, LIPID, TSH #### [facility] [address] [address] [address] Malachi Maciel Urea nitrogen [Mass/Vol] 17.0 mg/dL Normal 7.0-18.0 [facility] Comment on above: Performed By: #### L IVER, BMP, LIPID, TSH #### [facility] [address] [address] [address] Malachi Maciel Urea nitrogen/Creatinine [Mass ratio] 14.8 mg/mg Normal [facility] Comment on above: Performed By: #### L IVER, BMP, LIPID, TSH #### [facility] [address] [address] [address] Malachi Maciel TSHon 06-04-2022 TSH 1.471 uIU/mL Normal 0.358-3.740 [facility] Comment on above: Performed By: #### L IVER, BMP, LIPID, TSH #### [facility] [address] [address] [address] Malachi Maciel Ambulatory Visit Summaryon 0 06-02-2022 Ambulatory Visit Summary FIONA BECERRA :1955 Visit Date:06/02/2022 Ambulatory Visit Instructions Your Diagnosis Lichen sclerosus Unspecified urethral stricture, female Urinary tract infection Tests Performed Urnls Dip Stick Auto w/o Microscopy POC [id number] Your Care Team Attending Physician - YEIMI QUIJANO PA-C Primary Care Physician - OMKAR RENE MD This Is Your Medications List Contact prescribing physician if questions or concerns aspirin carvedilol celecoxib (celecoxib 200 mg Cap) cholecalciferol (Vitamin D3) citalopram (Celexa) cyanocobalamin (B-12) lorazepam (LORazepam 0.5 mg Tab) pravastatin ropinirole rosuvastatin (rosuvastatin 40 mg Tab) travoprost ophthalmic (travoprost 0.004% Opth Hailey 2.5 mL) Procedures Performed Cystourethroscopy with dilation of urethral stricture (04/03/2016), Cystoscopy and retrograde pyelography (05/09/2014), Cystourethroscopy with dilation of urethral stricture (12/18/2013), Colonoscopy, Tonsillectomy. Discharge Vitals Blood Pressure 110/62 Height 158 cm Height 62 in Weight 64 kg Weight 140.8 lb BMI 25.64 What to do next You Need to Schedule the Following Appointments Follow Up with SHAYY HUSTON, ANASTACIO Lord When: Where: [email or web address] [place] [id number] Medications What How Much When Instructions Unchanged aspirin 81 Milligram By Mouth Every day Contact prescribing physician if questions or concerns Unchanged carvedilol 6.25 Milligram By Mouth Contact prescribing physician if questions or concerns Unchanged celecoxib (celecoxib 200 mg Cap) Contact prescribing physician if questions or concerns Unchanged cholecalciferol (Vitamin D3) 1,000 International unit By Mouth Every day Contact prescribing physician if questions or concerns Unchanged citalopram (Celexa) 40 Milligram By Mouth Every day Contact prescribing physician if questions or concerns Unchanged cyanocobalamin (B-12) 1,000 Microgram By Mouth Every day Contact prescribing physician if questions or concerns Unchanged lorazepam (LORazepam 0.5 mg Tab) 1 Tablets By Mouth 3 times a day Contact prescribing physician if questions or concerns Unchanged pravastatin 40 Milligram By Mouth Every day Contact prescribing physician if questions or concerns Unchanged ropinirole 0.5 Milligram By Mouth Every day Contact prescribing physician if questions or concerns Unchanged rosuvastatin (rosuvastatin 40 mg Tab) Contact prescribing physician if questions or concerns Unchanged travoprost ophthalmic (travoprost 0.004% Opth Hailey 2.5 mL) 1 Drops Both eyes Once a day (in the evening) Contact prescribing physician if questions or concerns Test Results Urnls Dip Stick Auto w/o Microscopy POC 52415 (06/02/2022) Bilirubin Urine Dipstick - Negative Blood Urine Dipstick - Trace-intact Glucose Urine Dipstick - Negative Ketones Urine Dipstick - Negative Leukocytes Urine Dipstick - Trace Nitrite Urine Dipstick - Positive Protein Urine Dipstick - Negative Specific [place] Urine Dipstick - 1.020 Urine Appearance Urine Dipstick - Clear Urine Color Urine Dipstick - Yellow Urobilinogen Urine Dipstick - Normal 0.2-1 EU/dl pH Urine Dipstick - 6 Allergies Lipitor Pristiq Symbyax atorvastatin (Unknown) latanoprost ophthalmic Problems Ongoing - Any problem that you are currently receiving treatment for. Anxiety disorder Chronic kidney disease Essential hypertension Gastritis Hyperlipidemia Ischemic colitis Lichen sclerosus Unspecified urethral stricture, female Urinary tract infection Historical - Any problem that you are no longer receiving treatment for. Lumbar spondylosis Smoker Education Materials Lichen Sclerosus Lichen sclerosus is a skin problem. It can happen on any part of the body, but it commonly involves the anal or genital areas. It can cause itching and discomfort in these areas. Treatment can help to control symptoms. When the genital area is affected, getting treatment is important because the condition can cause scarring that may lead to other problems. What are the causes? The cause of this condition is not known. It may be related to an overactive immune system or a lack of certain hormones. Lichen sclerosus is not an infection or a fungus, and it is not passed from one person to another (not contagious). What increases the risk? This condition is more likely to develop in women, usually after menopause. What are the signs or symptoms? Symptoms of this condition include: ? Thin, wrinkled, white areas on the skin. ? Thickened white areas on the skin. ? Red and swollen patches (lesions) on the skin. ? Tears or cracks in the skin. ? Bruising. ? Blood blisters. ? Severe itching. ? Pain, itching, or burning when urinating. Constipation is also common in people with lichen sclerosus. How is this diagnosed? This condition may be (more content not included)... Normal [facility] Patient Educationon 06-03-19 23 Patient Education Dermatology Lichen Sclerosus Lichen sclerosus is a skin problem. It can happen on any part of the body, but it commonly involves the anal or genital areas. It can cause itching and discomfort in these areas. Treatment can help to control symptoms. When the genital area is affected, getting treatment is important because the condition can cause scarring that may lead to other problems. What are the causes? The cause of this condition is not known. It may be related to an overactive immune system or a lack of certain hormones. Lichen sclerosus is not an infection or a fungus, and it is not passed from one person to another (not contagious). What increases the risk? This condition is more likely to develop in women, usually after menopause. What are the signs or symptoms? Symptoms of this condition include: ? Thin, wrinkled, white areas on the skin. ? Thickened white areas on the skin. ? Red and swollen patches (lesions) on the skin. ? Tears or cracks in the skin. ? Bruising. ? Blood blisters. ? Severe itching. ? Pain, itching, or burning when urinating. Constipation is also common in people with lichen sclerosus. How is this diagnosed? This condition may be diagnosed with a physical exam. In some cases, a tissue sample (biopsy sample) may be removed to be looked at under a microscope. How is this treated? This condition is usually treated with medicated creams or ointments (topical steroids) that are applied over the affected areas. In some cases, treatment may also include medicines that are taken by mouth. Surgery may be needed in more severe cases that are causing problems such as scarring. Follow these instructions at home: ? Take or use vely-qvn-zbzgube and prescription medicines only as told by your health care provider. ? Use creams or ointments as told by your health care provider. ? Do not scratch the affected areas of skin. ? If you are a woman, be sure to keep the vaginal area as clean and dry as possible. ? Clean the affected area of skin gently with water. Avoid using rough towels or toilet paper. ? Keep all follow-up visits as told by your health care provider. This is important. Contact a health care provider if: ? You have increasing redness, swelling, or pain in the affected area. ? You have fluid, blood, or pus coming from the affected area. ? You have new lesions on your skin. ? You have a fever. ? You have pain during sex. Summary ? Lichen sclerosus is a skin problem. When the genital area is affected, getting treatment is important because the condition can cause scarring that may lead to other problems. ? This condition is usually treated with medicated creams or ointments (topical steroids) that are applied over the affected areas. ? Take or use qzmn-ctn-skegszl and prescription medicines only as told by your health care provider. ? Contact a health care provider if you have new lesions on your skin, have pain during sex, or have increasing redness, swelling, or pain in the affected area. ? Keep all follow-up visits as told by your health care provider. This is important. This information is not intended to replace advice given to you by your health care provider. Make sure you discuss any questions you have with your health care provider. Document Released: 07/29/2011 Document Revised: 07/21/2018 Document Reviewed: 07/21/2018 [employer] Patient Education ? 2019 [employer] Normal [facility] Historical Records Officeon 05-28-2022 Historical Records Office [id number] Normal [facility] MG MAMM SCREEN 3D ANDERSON CADon 02-13-2022 MG MAMM SCREEN 3D ANDERSON CAD Patient: FIONA BECERRA Exam Date: 02/13/2022 : 1955 Gender:F Ordering : DR OMKAR RENE . Admission #: [id number] Family : Order #: [id number] CLICK HERE TO VIEW EXAM RADIOLOGY REPORT PROCEDURE: MAMMOGRAM SCREENING 3D BILATERAL CAD COMPARISON: MG MAMM SCREEN 3D ANDERSON CAD, 01/14/2021. MG MAMM SCREEN ANDERSON W CAD, 01/03/2020. INDICATIONS: Screening mammography Calculator Name NCI Breast Cancer Risk Assessment Tool 5 Year Breast Cancer Risk 2.10% Lifetime Breast Cancer Risk 6.90% Personal Breast Cancer No Personal Ovarian Cancer No Treatments None Family Cancers Sister with hodgkins cancer at age 17. LOCATION: [facility] BREAST COMPOSITION: Scattered areas fibroglandular density. FINDINGS: DIAGNOSTIC CATEGORY 1--NEGATIVE. RIGHT BREAST: No significant suspicious finding. No significant change has occurred. LEFT BREAST: No significant suspicious finding. No significant change has occurred. RECOMMENDATIONS: ROUTINE MAMMOGRAM AND CLINICAL EVALUATION IN 12 MONTHS. PLEASE NOTE: A NORMAL MAMMOGRAM DOES NOT EXCLUDE THE POSSIBILITY OF BREAST CANCER. A CLINICALLY SUSPICIOUS PALPABLE LUMP SHOULD BE BIOPSIED. Dictated by: Cindy Briscoe M.D. on 02/17/2022 at 12:08 Approved by: Cindy Briscoe M.D. on 02/17/2022 at 12:10 Normal [facility] CT LUNG CANCER SCREENINGon 0 12-03-2021 CT LUNG CANCER SCREENING EXAMINATION: CT LUNG CANCER SCREENING HISTORY: Tobacco dependence caused by cigarettes COMPARISON: No relevant comparison available. TECHNIQUE: Axial, Coronal, and Sagittal images were created without the administration of IV contrast material. Dose reduction techniques were achieved by using automated exposure control and/or adjustment of mA and/or kV according to patient size and/or use of iterative reconstruction technique. FINDINGS: LUNGS: Mild emphysematous changes. No pulmonary nodules. PLEURA: No mass, effusion, or pneumothorax. VASCULATURE: No abnormality. BRIANNA: No mass or pathologic adenopathy. MEDIASTINUM: No mass or pathologic adenopathy. CARDIAC: No enlargement, pericardial thickening, or significant calcification. AORTA: Atherosclerotic disease of aorta and aortic arch branches. Endovascular stenting of the left subclavian CHEST WALL: No mass or axillary adenopathy BONES: No bone lesion or fracture. LIMITED ABDOMEN: No suspicious findings. Limited images of the upper abdomen. OTHER: Negative. IMPRESSION: 1. Lung-RADS Category 1 Negative. No nodules and definitely benign nodules. Continue annual screening with LDCT in 12 months. Electronically authenticated by: CINDY BRISCOE Date: 2021-12-03 15:48 Normal [facility] VIT D 25-OH LABCORPon 2021 Vitamin D, 25-Hydroxy 57.7 ng/mL Normal 30.0-100.0 [facility] Comment on above: Result Comment: Clementine min D deficiency has been defined by the [place] of [employer] and an Endocrine Society practice guideline as a level of serum 25-OH vitamin D less than 20 ng/mL (1,2). The Endocrine Society went on to further define vitamin D insufficiency as a level between 21 and 29 ng/mL (2). 1. IOM ([place] of [employer]). 2010. Dietary reference intakes for calcium and D. [place]: The National Academies Press. 2. Sharon MF, Carolyn NC, Jamari DUCKWORTH, et al. Evaluation, treatment, and prevention of vitamin D deficiency: an Endocrine Society clinical practice guideline. JCEM. 2010; 96(7):1911-30. Performed By: #### L IVER, BMP, LIPID, TSH #### [facility] [address] [place] [address] Dr. Malachi Maciel CBC AUTO DIFFon 12-01-2021 BASO # 0.1 103/ul Normal 0.0-0.1 [facility] Comment on above: Performed By: #### L IVER, BMP, LIPID, TSH #### [facility] [address] [place] [address] Dr. Malachi Maciel Basophils/100 WBC (Bld) 0.7 % Normal 0.2-2.0 [facility] Comment on above: Performed By: #### L IVER, BMP, LIPID, TSH #### [facility] [address] [place] [address] Dr. Malachi Maciel EO # 0.1 103/ul Normal 0.0-0.7 [facility] Comment on above: Performed By: #### L IVER, BMP, LIPID, TSH #### [facility] [address] [place] [address] Dr. Malachi Maciel Eosinophils/100 WBC (Bld) 1.8 % Normal 0.9-7.0 [facility] Comment on above: Performed By: #### L IVER, BMP, LIPID, TSH #### [facility] [address] [place] [address] Dr. Malachi Maciel Erythrocyte distribution width (RBC) [Ratio] 12.6 % Normal 11.0-15.0 [facility] Comment on above: Performed By: #### L IVER, BMP, LIPID, TSH #### [facility] [address] [place] [address] Dr. Malachi Macile Hematocrit (Bld) [Volume fraction] 39.7 % Normal 36.0-48.0 [facility] Comment on above: Performed By: #### L IVER, BMP, LIPID, TSH #### [facility] [address] [place] [address] Dr. Malachi Maciel Hemoglobin (Bld) [Mass/Vol] 13.0 g/dL Normal 12.0-16.0 [facility] Comment on above: Performed By: #### L IVER, BMP, LIPID, TSH #### [facility] [address] [place] [address] Dr. Malachi Maciel IG # 0.02 10e3/ul Normal 0.00-0.03 [facility] Comment on above: Performed By: #### L IVER, BMP, LIPID, TSH #### [facility] [address] [address] [address] Malachi Maciel IG % 0.3 % Normal 0.0-0.5 [facility] Comment on above: Performed By: #### L IVER, BMP, LIPID, TSH #### [facility] [address] [place] [address] Dr. Malachi Maciel LYMPH # 2.4 103/ul Normal 1.2-3.8 [facility] Comment on above: Performed By: #### L IVER, BMP, LIPID, TSH #### [facility] [address] [place] [address] Dr. Malachi Maciel Lymphocytes/100 WBC (Bld) 33.2 % Normal 20.5-60.0 [facility] Comment on above: Performed By: #### L IVER, BMP, LIPID, TSH #### [facility] [address] [place] [address] Dr. Malachi Maciel MANUAL DIFF REQ NO Normal [facility] Comment on above: Performed By: #### L IVER, BMP, LIPID, TSH #### [facility] [address] [place] [address] Dr. Malachi Maciel MCH (RBC) [Entitic mass] 29.3 pg Normal 26.7-34.0 [facility] Comment on above: Performed By: #### L IVER, BMP, LIPID, TSH #### [facility] [address] [place] [address] Dr. Malachi Maciel MCHC (RBC) [Mass/Vol] 32.7 g/dL Normal 29.9-35.2 [facility] Comment on above: Performed By: #### L IVER, BMP, LIPID, TSH #### [facility] [address] [place] [address] Dr. Malachi Maciel MCV (RBC) [Entitic vol] 89.4 fL Normal 81.0-99.0 [facility] Comment on above: Performed By: #### L IVER, BMP, LIPID, TSH #### [facility] [address] [place] [address] Dr. Malachi Maciel MONO # 0.5 103/ul Normal 0.3-0.8 [facility] Comment on above: Performed By: #### L IVER, BMP, LIPID, TSH #### [facility] [address] [place] [address] Dr. Malachi Maciel Monocytes/100 WBC (Bld) 7.2 % Normal 1.7-12.0 [facility] Comment on above: Performed By: #### L IVER, BMP, LIPID, TSH #### [facility] [address] [place] [address] Dr. Malachi Maciel NEUT # 4.1 103/ul Normal 1.4-6.5 [facility] Comment on above: Performed By: #### L IVER, BMP, LIPID, TSH #### [facility] [address] [place] [address] Dr. Malachi Maciel Neutrophils/100 WBC (Bld) 56.8 % Normal 43.0-75.0 [facility] Comment on above: Performed By: #### L IVER, BMP, LIPID, TSH #### [facility] [address] [address] [address] Malachi Maciel Platelet mean volume (Bld) [Entitic vol] 10.3 fL Normal 9.5-13.5 [facility] Comment on above: Performed By: #### L IVER, BMP, LIPID, TSH #### [facility] [address] [place] [address] Dr. Malachi Maciel PLT 230 103/ul Normal 150-450 [facility] Comment on above: Performed By: #### L IVER, BMP, LIPID, TSH #### [facility] [address] [place] [address] Dr. Malachi Maceil RBC 4.44 106/ul Normal 4.20-5.40 [facility] Comment on above: Performed By: #### L IVER, BMP, LIPID, TSH #### [facility] [address] [place] [address] Dr. Malachi Maciel WBC 7.2 103/ul Normal 4.0-11.0 [facility] Comment on above: Performed By: #### L IVER, BMP, LIPID, TSH #### [facility] [address] [address] [address] Malachi Maciel LIPID PROFILEon 12-01-2021 CHOL-HDL RATIO NORM SEE BELOW Normal [facility] Comment on above: Result Comment: 3.3 - 4.4 LOW RISK 4.4 - 7.1 AVERAGE RISK 7.1 - 11.0 MODERATE RISK >11.0 HIGH RISK Performed By: #### L IVER, BMP, LIPID, TSH #### [facility] [address] [address] [address] Malachi Maciel Cholesterol [Mass/Vol] 131 mg/dL Normal <=200 [facility] Comment on above: Performed By: #### L IVER, BMP, LIPID, TSH #### [facility] [address] [place] [address] Dr. Malachi Maciel Cholesterol in HDL [Mass/Vol] 29 mg/dL Critically low 40-60 [facility] Comment on above: Performed By: #### L IVER, BMP, LIPID, TSH #### [facility] [address] [address] [address] Malachi Maciel Cholesterol in LDL [Mass/Vol] 68.0 mg/dL Normal [facility] Comment on above: Performed By: #### L IVER, BMP, LIPID, TSH #### [facility] [address] [address] [address] Malachi Maciel Cholesterol.total/Ch olesterol in HDL [Mass ratio] 4.5 {ratio} Normal [facility] Comment on above: Performed By: #### L IVER, BMP, LIPID, TSH #### [facility] [address] [address] [address] Malachi Maciel HDL NORMAL > or = 60 mg/dl - LO W CARDIOVASCULAR RISK <40 mg/dl - HIGH CARDIOVASCULAR RISK Normal [facility] Comment on above: Performed By: #### L IVER, BMP, LIPID, TSH #### [facility] [address] [address] [address] Malachi Maciel LDL CALC NORMAL SEE BELOW Normal [facility] Comment on above: Result Comment: <100 mg/dl OPTIMAL 100 - 129 mg/dl NEAR OR ABOVE OPTIMAL 130 - 159 mg/dl BORDERLINE HIGH 160 - 189 mg/dl HIGH >190 mg/dl VERY HIGH Performed By: #### L IVER, BMP, LIPID, TSH #### [facility] [address] [address] [address] Malachi Maciel Triglyceride [Mass/Vol] 170 mg/dL Critically high <=150 [facility] Comment on above: Performed By: #### L IVER, BMP, LIPID, TSH #### [facility] [address] [address] [address] Malachi Maciel VLDL CALC 34.0 mg/dL Normal [facility] Comment on above: Performed By: #### L IVER, BMP, LIPID, TSH #### [facility] [address] [place] [address] Dr. Malachi Maciel LIVER PROFILEon 12-01-2021 Albumin [Mass/Vol] 4.0 g/dL Normal 3.4-5.0 [facility] Comment on above: Performed By: #### L IVER, BMP, LIPID, TSH #### [facility] [address] [address] [address] Malachi Maciel Albumin/Globulin [Mass ratio] 1.1 {ratio} Normal [facility] Comment on above: Performed By: #### L IVER, BMP, LIPID, TSH #### [facility] [address] [address] [address] Malachi Maciel ALP [Catalytic activity/Vol] 69 U/L Normal 46-116 [facility] Comment on above: Performed By: #### L IVER, BMP, LIPID, TSH #### [facility] [address] [address] [address] Malachi Maciel ALT [Catalytic activity/Vol] 17 U/L Normal 14-59 [facility] Comment on above: Performed By: #### L IVER, BMP, LIPID, TSH #### [facility] [address] [address] [address] Malachi Maciel AST [Catalytic activity/Vol] 22 U/L Normal 15-37 [facility] Comment on above: Performed By: #### L IVER, BMP, LIPID, TSH #### [facility] [address] [address] [address] Malachi Maciel BILI, CONJUGATED 0.1 mg/dL Normal 0.0-0.2 [facility] Comment on above: Performed By: #### L IVER, BMP, LIPID, TSH #### [facility] [address] [address] [address] Malachi Maciel Bilirubin [Mass/Vol] 0.4 mg/dL Normal 0.2-1.0 [facility] Comment on above: Performed By: #### L IVER, BMP, LIPID, TSH #### [facility] [address] [place] [address] Dr. Malachi Maciel Globulin (S) [Mass/Vol] 3.6 g/dL Normal [facility] Comment on above: Performed By: #### L IVER, BMP, LIPID, TSH #### [facility] [address] [place] [address] Dr. Malachi Maciel Protein [Mass/Vol] 7.6 g/dL Normal 6.4-8.2 [facility] Comment on above: Performed By: #### L IVER, BMP, LIPID, TSH #### [facility] [address] [place] [address] Dr. Malachi Maciel PROF CHEM 8 (BAS METB)on Anion gap [Moles/Vol] 10.5 mmol/L Normal [facility] Comment on above: Performed By: #### L IVER, BMP, LIPID, TSH #### [facility] [address] [place] [address] Dr. Malachi Maciel Calcium [Mass/Vol] 9.3 mg/dL Normal 8.5-10.1 [facility] Comment on above: Performed By: #### L IVER, BMP, LIPID, TSH #### [facility] [address] [place] [address] Dr. Malachi Maciel Chloride [Moles/Vol] 105 mmol/L Normal 98-107 [facility] Comment on above: Performed By: #### L IVER, BMP, LIPID, TSH #### [facility] [address] [address] [address] Malachi Maciel CO2 [Moles/Vol] 28.1 mmol/L Normal 21.0-32.0 [facility] Comment on above: Performed By: #### L IVER, BMP, LIPID, TSH #### [facility] [address] [address] [address] Malachi Maciel Creatinine [Mass/Vol] 1.18 mg/dL Critically high 0.55-1.02 [facility] Comment on above: Performed By: #### L IVER, BMP, LIPID, TSH #### [facility] [address] [address] [address] Malachi Maciel EGFR-AF SALV[place]OREAN 55 mL/min/1.73m2 Critically low >=60 [facility] Comment on above: Performed By: #### L IVER, BMP, LIPID, TSH #### [facility] [address] [address] [address] Malachi Maciel EGFR-NON AF [place] 46 mL/min/1.73m2 Critically low >=60 [facility] Comment on above: Performed By: #### L IVER, BMP, LIPID, TSH #### [facility] [address] [address] [address] Malachi Maciel Glucose [Mass/Vol] 95 mg/dL Normal 74-106 [facility] Comment on above: Performed By: #### L IVER, BMP, LIPID, TSH #### [facility] [address] [address] [address] Malachi Maciel Potassium [Moles/Vol] 4.6 mmol/L Normal 3.5-5.1 [facility] Comment on above: Performed By: #### L IVER, BMP, LIPID, TSH #### [facility] [address] [address] [address] Malachi Maciel Sodium [Moles/Vol] 139 mmol/L Normal 136-145 [facility] Comment on above: Performed By: #### L IVER, BMP, LIPID, TSH #### [facility] [address] [place] [address] Dr. Malachi Maciel Urea nitrogen [Mass/Vol] 14.0 mg/dL Normal 7.0-18.0 [facility] Comment on above: Performed By: #### L IVER, BMP, LIPID, TSH #### [facility] [address] [place] [address] Dr. Malachi Maciel Urea nitrogen/Creatinine [Mass ratio] 11.9 mg/mg Normal [facility] Comment on above: Performed By: #### L IVER, BMP, LIPID, TSH #### [facility] [address] [place] [address] Dr. Malachi Maciel TSHon 12-01-2021 TSH 0.987 uIU/mL Normal 0.358-3.740 [facility] Comment on above: Performed By: #### L IVER, BMP, LIPID, TSH #### [facility] [address] [place] [address] Dr. Malachi Maciel CBC AUTO DIFFon 09-03-2021 BASO # 0.0 103/ul Normal 0.0-0.1 [facility] Comment on above: Performed By: #### L IVER, BMP, LIPID, TSH #### [facility] [address] [place] [address] Dr. Malachi Maciel Basophils/100 WBC (Bld) 0.5 % Normal 0.2-2.0 [facility] Comment on above: Performed By: #### L IVER, BMP, LIPID, TSH #### [facility] [address] [place] [address] Dr. Malachi Maciel EO # 0.1 103/ul Normal 0.0-0.7 [facility] Comment on above: Performed By: #### L IVER, BMP, LIPID, TSH #### [facility] [address] [place] [address] Dr. Malachi Maciel Eosinophils/100 WBC (Bld) 1.7 % Normal 0.9-7.0 [facility] Comment on above: Performed By: #### L IVER, BMP, LIPID, TSH #### [facility] [address] [place] [address] Dr. Malachi Maciel Erythrocyte distribution width (RBC) [Ratio] 12.5 % Normal 11.0-15.0 [facility] Comment on above: Performed By: #### L IVER, BMP, LIPID, TSH #### [facility] [address] [place] [address] Dr. Malachi Maciel Hematocrit (Bld) [Volume fraction] 40.8 % Normal 36.0-48.0 [facility] Comment on above: Performed By: #### L IVER, BMP, LIPID, TSH #### [facility] [address] [place] [address] Dr. Malachi Maciel Hemoglobin (Bld) [Mass/Vol] 13.7 g/dL Normal 12.0-16.0 [facility] Comment on above: Performed By: #### L IVER, BMP, LIPID, TSH #### [facility] [address] [place] [address] Dr. Malachi Maciel IG # 0.01 10e3/ul Normal 0.00-0.03 [facility] Comment on above: Performed By: #### L IVER, BMP, LIPID, TSH #### [facility] [address] [place] [address] Dr. Malachi Maciel IG % 0.1 % Normal 0.0-0.5 [facility] Comment on above: Performed By: #### L IVER, BMP, LIPID, TSH #### [facility] [address] [place] [address] Dr. Malachi Maciel LYMPH # 1.8 103/ul Normal 1.2-3.8 [facility] Comment on above: Performed By: #### L IVER, BMP, LIPID, TSH #### [facility] [address] [place] [address] Dr. Malachi Maciel Lymphocytes/100 WBC (Bld) 24.0 % Normal 20.5-60.0 [facility] Comment on above: Performed By: #### L IVER, BMP, LIPID, TSH #### [facility] [address] [place] [address] Dr. Malachi Maciel MANUAL DIFF REQ NO Normal [facility] Comment on above: Performed By: #### L IVER, BMP, LIPID, TSH #### [facility] [address] [address] [address] Malachi Maciel MCH (RBC) [Entitic mass] 29.7 pg Normal 26.7-34.0 [facility] Comment on above: Performed By: #### L IVER, BMP, LIPID, TSH #### [facility] [address] [address] [address] Malachi Maciel MCHC (RBC) [Mass/Vol] 33.6 g/dL Normal 29.9-35.2 [facility] Comment on above: Performed By: #### L IVER, BMP, LIPID, TSH #### [facility] [address] [address] [address] Malachi Maciel MCV (RBC) [Entitic vol] 88.3 fL Normal 81.0-99.0 [facility] Comment on above: Performed By: #### L IVER, BMP, LIPID, TSH #### [facility] [address] [address] [address] Malachi Maciel MONO # 0.7 103/ul Normal 0.3-0.8 [facility] Comment on above: Performed By: #### L IVER, BMP, LIPID, TSH #### [facility] [address] [address] [address] Malachi Maciel Monocytes/100 WBC (Bld) 8.5 % Normal 1.7-12.0 [facility] Comment on above: Performed By: #### L IVER, BMP, LIPID, TSH #### [facility] [address] [address] [address] Malachi Maciel NEUT # 5.0 103/ul Normal 1.4-6.5 [facility] Comment on above: Performed By: #### L IVER, BMP, LIPID, TSH #### [facility] [address] [address] [address] Malachi Maciel Neutrophils/100 WBC (Bld) 65.2 % Normal 43.0-75.0 [facility] Comment on above: Performed By: #### L IVER, BMP, LIPID, TSH #### [facility] [address] [place] [address] Dr. Malachi Maciel Platelet mean volume (Bld) [Entitic vol] 9.8 fL Normal 9.5-13.5 [facility] Comment on above: Performed By: #### L IVER, BMP, LIPID, TSH #### [facility] [address] [place] [address] Dr. Malachi Maciel PLT 232 103/ul Normal 150-450 [facility] Comment on above: Performed By: #### L IVER, BMP, LIPID, TSH #### [facility] [address] [place] [address] Dr. Malachi Maciel RBC 4.62 106/ul Normal 4.20-5.40 [facility] Comment on above: Performed By: #### L IVER, BMP, LIPID, TSH #### [facility] [address] [place] [address] Dr. Malachi Maciel WBC 7.7 103/ul Normal 4.0-11.0 [facility] Comment on above: Performed By: #### L IVER, BMP, LIPID, TSH #### [facility] [address] [place] [address] Dr. Malachi Maciel PROF CHEM 8 (BAS METB)on Anion gap [Moles/Vol] 16.2 mmol/L Normal [facility] Comment on above: Performed By: #### L IVER, BMP, LIPID, TSH #### [facility] [address] [place] [address] Dr. Malachi Maciel Calcium [Mass/Vol] 9.5 mg/dL Normal 8.5-10.1 [facility] Comment on above: Performed By: #### L IVER, BMP, LIPID, TSH #### [facility] [address] [place] [address] Dr. Malachi Maciel Chloride [Moles/Vol] 105 mmol/L Normal 98-107 [facility] Comment on above: Performed By: #### L IVER, BMP, LIPID, TSH #### [facility] [address] [address] [address] Malachi Maciel CO2 [Moles/Vol] 24.7 mmol/L Normal 21.0-32.0 [facility] Comment on above: Performed By: #### L IVER, BMP, LIPID, TSH #### [facility] [address] [address] [address] Malachi Maciel Creatinine [Mass/Vol] 1.16 mg/dL Critically high 0.55-1.02 [facility] Comment on above: Performed By: #### L IVER, BMP, LIPID, TSH #### [facility] [address] [address] [address] Malachi Maciel EGFR-AF SALVADOREAN 56 mL/min/1.73m2 Critically low >=60 [facility] Comment on above: Performed By: #### L IVER, BMP, LIPID, TSH #### [facility] [address] [place] [address] Dr. Malachi Maciel EGFR-NON AF SALVADOREAN 46 mL/min/1.73m2 Critically low >=60 [facility] Comment on above: Performed By: #### L IVER, BMP, LIPID, TSH #### [facility] [address] [address] [address] Malachi Maciel Glucose [Mass/Vol] 103 mg/dL Normal 74-106 [facility] Comment on above: Performed By: #### L IVER, BMP, LIPID, TSH #### [facility] [address] [address] [address] Malachi Maciel Potassium [Moles/Vol] 3.9 mmol/L Normal 3.5-5.1 [facility] Comment on above: Performed By: #### L IVER, BMP, LIPID, TSH #### [facility] [address] [address] [address] Malachi Maciel Sodium [Moles/Vol] 142 mmol/L Normal 136-145 [facility] Comment on above: Performed By: #### L IVER, BMP, LIPID, TSH #### [facility] [address] [address] [address] Malachi Maciel Urea nitrogen [Mass/Vol] 12.0 mg/dL Normal 7.0-18.0 [facility] Comment on above: Performed By: #### L IVER, BMP, LIPID, TSH #### [facility] [address] [address] [address] Malachi Maciel Urea nitrogen/Creatinine [Mass ratio] 10.3 mg/mg Normal [facility] Comment on above: Performed By: #### L IVER, BMP, LIPID, TSH #### [facility] [address] [address] [address] Malachi Maciel TROPONIN, HIGH SENSITIVITYon 09-03-2021 HSTROP 4.6 pg/mL Normal 4.0-51.3 [facility] Comment on above: Result Comment: CUT- OFF POINTS HAVE BEEN ESTABLISHED BASED ON THE FOURTH UNIVERSAL DEFINITIONS OF MYOCARDIAL INFARCTION. THE UPPER REFERENCE LIMIT (URL) OF TROPONIN, DEFINED THE 99TH PERCENTILE OF cTnI DISTRIBUTION IN A REFERENCE POPULATION, HAS BEEN CONFIRMED THE DECISION THRESHOLD FOR MD DIAGNOSIS. Performed By: #### L IVER, BMP, LIPID, TSH #### [facility] [address] [address] [address] Malachi Maciel BASIC METABOLIC PANELon 08-20 Calcium [Mass/Vol] 8.8 mg/dL Normal 8.6-10.3 [facility] Comment on above: Order Comment: No: D o not add to previous draw Performed By: #### 0 0071 #### [facility] [address] [facility] [place] [address], [facility] Chloride [Moles/Vol] 107 mmol/L Normal 98-107 [facility] Comment on above: Order Comment: No: D o not add to previous draw Performed By: #### 0 0071 #### [facility] [address] [place] [address], [facility] CO2 [Moles/Vol] 28 mmol/L Normal 21-31 [facility] Comment on above: Order Comment: No: D o not add to previous draw Performed By: #### 0 0071 #### [facility] [address] [place] [address], [place] Creatinine [Mass/Vol] 0.76 mg/dL Normal 0.60-1.20 [facility] Comment on above: Order Comment: No: D o not add to previous draw Performed By: #### 0 0071 #### [facility] [address] [place] [address], [place] GFR/1.73 sq M predicted among blacks MDRD (S/P/Bld) [Vol rate/Area] mL/min/{1.73_m2} Normal >60 [facility] Comment on above: Order Comment: No: D o not add to previous draw Performed By: #### 0 0071 #### [facility] [address] [place] [address], [place] GFR/1.73 sq M predicted among non-blacks MDRD (S/P/Bld) [Vol rate/Area] mL/min/{1.73_m2} Normal >60 [facility] Comment on above: Order Comment: No: D o not add to previous draw Performed By: #### 0 0071 #### [facility] [address] [place] [address], [place] Glucose [Mass/Vol] 115 mg/dL High 70-100 [facility] Comment on above: Order Comment: No: D o not add to previous draw Performed By: #### 0 0071 #### [facility] [address] [place] [address], [place] Potassium [Moles/Vol] 4.3 mmol/L Normal 3.5-5.1 [facility] Comment on above: Order Comment: No: D o not add to previous draw Performed By: #### 0 0071 #### [facility] [address] [place] [address], [place] Sodium [Moles/Vol] 137 mmol/L Normal 136-145 [facility] Comment on above: Order Comment: No: D o not add to previous draw Performed By: #### 0 0071 #### [facility] [address] [place] [address], [facility] Urea nitrogen [Mass/Vol] 16 mg/dL Normal 7-25 [facility] Comment on above: Order Comment: No: D o not add to previous draw Performed By: #### 0 0071 #### [facility] [address] [place] [address], [facility] CBC COMPLETE BLOOD COUNTon 09-02-2019 Erythrocyte distribution width (RBC) [Ratio] 12.5 % Normal 11.5-15.0 [facility] Comment on above: Order Comment: No: D o not add to previous draw Performed By: #### 5 0608 #### [facility] [address] Hematocrit (Bld) [Volume fraction] 32.2 % Low 36.0-45.0 [facility] Comment on above: Order Comment: No: D o not add to previous draw Performed By: #### 5 [id number] #### [facility] [address] [facility] [place] [address], [facility] Hemoglobin (Bld) [Mass/Vol] 10.6 g/dL Low 12.0-15.0 [facility] Comment on above: Order Comment: No: D o not add to previous draw Performed By: #### 5 0608 #### [facility] [address] [place] [address], [facility] MCH (RBC) [Entitic mass] 29.8 pg Normal 27.0-33.0 [facility] Comment on above: Order Comment: No: D o not add to previous draw Performed By: #### 5 0608 #### [facility] [address] [place] [address], [facility] MCHC (RBC) [Mass/Vol] 32.9 g/dL Normal 32.0-35.0 [facility] Comment on above: Order Comment: No: D o not add to previous draw Performed By: #### 5 0608 #### [facility] [address] [facility] [place] [address], [facility] MCV (RBC) [Entitic vol] 90.4 fL Normal 82.0-98.0 [facility] Comment on above: Order Comment: No: D o not add to previous draw Performed By: #### 5 0608 #### [facility] [address] [place] [address], [facility] Nucleated RBC/100 WBC (Bld) [Ratio] 0 % Normal 0-0 [facility] Comment on above: Order Comment: No: D o not add to previous draw Performed By: #### 5 0608 #### [facility] [address] [place] [address], [facility] PLAT CNT 188 10*3/uL Normal 150-400 [facility] Comment on above: Order Comment: No: D o not add to previous draw Performed By: #### 5 0608 #### [facility] [address] [place] [address], [facility] RBC (Bld) [#/Vol] 3.56 10*6/uL Low 3.80-5.00 [facility] Comment on above: Order Comment: No: D o not add to previous draw Performed By: #### 5 [id number] #### [facility] [address] [facility] [place] [address], [facility] WBC (Bld) [#/Vol] 6.98 10*3/uL Normal 4.00-10.60 [facility] Comment on above: Order Comment: No: D o not add to previous draw Performed By: #### 5 [id number] #### [facility] [address] [place] [address], [facility] CT ABDOMEN AND PELVIS WO CON TRASTon 09-02-2019 CT ABDOMEN AND PELVIS WO CONTRAST [facility] Department of Radiology [address] [place] [id number] Patient Name: FIONA BECERRA : 1955 Sex: F Age: Race: White Pt. Location: [id number] Patient Status: O Ordered Date: 09/02/2019 5:00:00 AM Completed Date: 09/02/2019 05:33 AM Requesting Provider: RAHEL VITAL Attending Provider: JON NUNEZ Report Copy To: Signs & Symptoms: Other History: See Comments Comments: Other, to rule out retroperitnoeal bleed Exam: CT ABDOMEN AND PELVIS WO CONTRAST CT ABDOMEN AND PELVIS WO CONTRAST 09/02/2019 5:33 AM CLINICAL INDICATIONS: Other TECHNOLOGIST COMMENTS: pt. had cardiac cath technician procedure yesterday, rule out retroperitoneal bleed. QUESTION FOR THE RADIOLOGIST: Other, to rule out retroperitoneal bleed PROTOCOL: Axial CT images of the abdomen and pelvis were obtained without IV contrast. TECHNIQUE: Multidetector CT axial slices of the abdomen and pelvis without IV contrast. Multiplanar reformats were performed and viewed on a separate workstation and reviewed to further define anatomy and possible pathology. All CT scans at this facility use dose modulation, iterative reconstruction, and/or weight based dosing when appropriate to reduce radiation dose to as low as reasonably achievable COMPARISON: None. FINDINGS: Minimal bibasilar atelectasis. No cardiomegaly. No pericardial effusion. Liver demonstrates a noncirrhotic morphology, no focal masses identified with limitations of lack of intravenous contrast. The gallbladder is contracted with retained contrast and/or stones. The spleen is unremarkable. The pancreas is unremarkable. The adrenal glands are unremarkable. The right kidney is unremarkable. There is a hypoattenuating focus in the superior pole of the left kidney measuring approximately 1.4 cm. Average Hounsfield units measure approximately 16 and this is consistent with a simple renal cyst which requires no further follow-up. There is another smaller hypoattenuating focus in the mid pole, medially this is too small to characterize but likely also represents a simple renal cyst. There is contrast being excreted with contrast opacifying the bladder. The GI tract is unremarkable with a few segments of what is likely peristalsis. Appendix is visualized in the right lower quadrant is unremarkable. Abdominal aorta is nonaneurysmal with heavy atherosclerotic calcification of the abdominal aorta and the iliac arteries bilaterally. The IVC is right-sided. No free fluid, adenopathy or free intraperitoneal gas. There is stranding with no definitive fluid collection in the right groin, likely related to access changes. No acute fractures or dislocations. Severe degenerative changes of the thoracolumbar spine most pronounced at L4-L5, L5-S1 with vacuum disc phenomenon. IMPRESSION: No acute intra-abdominal or pelvic process. Specifically, no CT evidence of retroperitoneal or intraperitoneal hematoma/hemorrhage. Approved by:Mohamud Bolanos09/02/2019 6:02 AM. I, Kim Ellison,have reviewed the images and reports Electronically signed: Kim Ellison. Transcribed by: [email or web address], User Resident: MOHAMUD JACKSON Electronically Signed by: KIM ELLISON @ 09/02/2019 06:06 AM I personally read this/these film(s) with this resident Normal [facility] Comment on above: Order Comment: Other , to rule out retroperitnoeal bleed Cardiovascular Lab Reporton 09-02-2019 Cardiovascular Lab Report [facility] Patient Name: Fiona Becerra [facility] MR #: [id number] Physician: Hector Painting of [facility] Bang Medicine Service Date: 09/01/2019 Division of Birthdate: 1955 Cardiology Room #: [id number] Adult Cardiovascular Services [address] [place] [address] Cardiovascular Laboratory Report INDICATION: The patient is a 64-year-old woman with prior history of left subclavian stent in 2012. She was recently evaluated in Cardiology Clinic because of left subclavian steal syndrome and significant symptoms of dizziness and arm weakness. There was also suggestion of right innominate artery or subclavian stenosis by ultrasound, therefore she was referred for angiography and possible intervention. PROCEDURE: 1. Limited right femoral angiography. 2. Thoracic aortogram. 3. Innominate arteriography. 4. Left subclavian arteriography. 5. Successful balloon dilatation and reduction of 90% stenosis in the left subclavian artery to 10% using balloon angioplasty alone. METHODS: Procedure was explained to the patient with risks and benefits. She signed informed consent. She was brought to cardiac cath technician in a fasting state. The right groin area was prepped and draped in a usual fashion. Using micropuncture technique, the right common femoral artery was accessed. The inner cannula was advanced and limited femoral angiography was performed. Initially the access was thought to be at higher than desired location. This was abandoned and manual compression applied for hemostasis. After 3 attempts, we managed to access the artery at the optimal location in the mid segment of the common femoral artery, as confirmed by the inner cannula angiography. This access was upsized to a 6-Malian x 11 cm sheath. Heparin was administered intravenously and therapeutic ACT confirmed during the rest of the procedure. A straight 6-Malian pigtail catheter was advanced to the ascending aorta and a thoracic aortogram was performed using power injection of contrast. A 5-Malian [employer] Machine Operator H1 catheter was then used to selectively engage the innominate artery and angiography was performed in multiple views. The catheter was then brought backwards and used to selectively engage the left subclavian artery. Angiography was performed. Using an angled Glidewire, the left subclavian stenosis was crossed and the wire was used to advance the [employer] Machine Operator catheter and then the wire was exchanged to an exchange length Magic Torque wire. The catheter was retracted and the access sheath was removed. Over the Magic Torque wire, a Christopher 6-Malian x 55 cm sheath was then advanced to the ostium of the left subclavian artery. Angiography was performed in multiple views. A [employer] Operating Engineer 6 x 40 mm balloon was then advanced and used to perform balloon angioplasty in the left subclavian artery with repeated inflations up to 14 atmospheres. Angiography was performed. A [employer] Operating Engineer 7 x 20 mm balloon was then advanced and used to perform additional balloon angioplasty in the proximal to mid segment of the stent inflated up to 16 atmospheres. Final angiography was performed showing excellent result with reduction of the stenosis to 10% with no evidence of dissection or perforation and excellent flow in the left subclavian artery and its branches. The guiding wire and catheter were removed. The access sheath was exchanged to a 6-Malian x 11 cm sheath. The patient was transferred to the cardiovascular recovery area. The access sheaths were removed and manual compression applied for hemostasis when the ACT is subtherapeutic. She will be admitted for overnight observation. Note that she was maintained previously on aspirin and she was loaded with 600 mg of Plavix before the procedure. TOTAL FLUORO TIME: 26.58 minutes. TOTAL AIR KERMA: 303 mGy. TOTAL CONTRAST VOLUME: 125 mL. 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 There was evidence of a previously placed stent in the left subclavian artery with reduced flow in the subclavian artery. Right innominate arteriography: This showed a patent right innominate artery, the patent origin and proximal segment of the right carotid artery and patent right subclavian artery with no apparent stenosis in the proximal to mid segment. The right vertebral artery was large and appears patent in its proximal to mid segment. Left subclavian angiography: This showed evidence of a previously placed stent extending from the ostium of the artery to the mid segments. Baseline angiography showed evidence of diffuse in-stent restenoses extending from the ostium to the distal end of the stent with up to 90% severity and the stenosis extended beyond this stent to just proximal to the origin of the vertebral artery post balloon angioplasty. All stenoses were reduced to 10% with no evidence of pressure gradient by pullback from the stent into the aortic arch. Limited right femoral angiography: This showed initial access at a higher than desired location using the micropuncture inner cannula angiography. Access was repeated a couple of times, but was lower than desired and finally the final access was in the mid common femoral artery proper at an optimal location and was upsized to 6-Malian. There were no obstructive lesions noted in the femoral artery or its proximal branches. SUMMARY OF THE FINDINGS: 1. Severe up to 90% in-stent restenosis in the left subclavian artery extending beyond the distal end of the stent to just proximal to the origin of the left vertebral artery. 2. Successful balloon angioplasty of the left subclavian artery with reduction of all stenosis to 10%. 3. Patent bilateral vertebral arteries. 4. Patent proximal to mid segments of both internal carotid arteries. 5. Patent innominate artery with no evidence of stenosis. 6. Patent right subclavian artery in its proximal to mid segment with no evidence of stenosis. RECOMMENDATIONS: 1. Aspirin and statin therapy for life. 2. Plavix therapy for 3 months after balloon angioplasty of the subclavian artery. 3. Follow up in Cardiology Clinic. Electronically Signed by: Hector Bang M.D. 09/10/2019 07:58 A Hector Bang M.D. Date Dict: 09/01/2019/06:08 P/Hector Bang M.D. Date Trans: 09/02/2019 08:52 A/charline [id number] Normal [facility] HEMOGLOBINon 09-02-2019 Hemoglobin (Bld) [Mass/Vol] 10.4 g/dL Low 12.0-15.0 [facility] Comment on above: Order Comment: No: D o not add to previous draw Performed By: #### 9 [id number] #### [facility] [address] [place] [address], [facility] POC GLUCOSE LABon 09-02-2019 Glucose [Mass/Vol] 102 mg/dL High 70-100 [facility] Comment on above: Performed By: #### 8 [id number] #### [facility] [address] [place] [address], [facility] Glucose [Mass/Vol] 106 mg/dL High 70-100 [facility] Comment on above: Performed By: #### 8 [id number] #### [facility] [address] [place] [address], [facility] URINALYSIS REFLEXon 06-13-20 20 Appearance (U) SL CLOUDY Abnormal CLEAR [facility] Comment on above: Order Comment: No: D o not add to previous draw Criteria for reflexing a culture was not met. Please call the lab at [phone] within 24 hours of collection time if culture is needed Performed By: #### 3 0965 #### [facility] [address] [place] [address], [place] Bilirubin [Mass/Vol] Negative Normal NEGATIVE [facility] Comment on above: Order Comment: No: D o not add to previous draw Criteria for reflexing a culture was not met. Please call the lab at [phone] within 24 hours of collection time if culture is needed Performed By: #### 3 0965 #### [facility] [address] [facility] [place] [address], [facility] BLOOD SMALL Abnormal NEGATIVE [facility] Comment on above: Order Comment: No: D o not add to previous draw Criteria for reflexing a culture was not met. Please call the lab at [phone] within 24 hours of collection time if culture is needed Performed By: #### 3 0965 #### [facility] [address] [place] [address], [place] Color (U) YELLOW Normal YELLOW [facility] Comment on above: Order Comment: No: D o not add to previous draw Criteria for reflexing a culture was not met. Please call the lab at [phone] within 24 hours of collection time if culture is needed Performed By: #### 3 0965 #### [facility] [address] [place] [address], [place] EPIS MOD Abnormal FEW,OCC,NONE SEEN [facility] Comment on above: Order Comment: No: D o not add to previous draw Criteria for reflexing a culture was not met. Please call the lab at [phone] within 24 hours of collection time if culture is needed Performed By: #### 3 0965 #### [facility] [address] [place] [address], [place] Glucose [Mass/Vol] Negative Normal NEGATIVE [facility] Comment on above: Order Comment: No: D o not add to previous draw Criteria for reflexing a culture was not met. Please call the lab at [phone] within 24 hours of collection time if culture is needed Performed By: #### 3 0965 #### [facility] [address] [place] [address], [facility] KETONE Negative Normal NEGATIVE [facility] Comment on above: Order Comment: No: D o not add to previous draw Criteria for reflexing a culture was not met. Please call the lab at [phone] within 24 hours of collection time if culture is needed Performed By: #### 3 [id number] #### [facility] [address] [facility] [place] [address], [facility] LEUK CHRIS SMALL Abnormal NEGATIVE [facility] Comment on above: Order Comment: No: D o not add to previous draw Criteria for reflexing a culture was not met. Please call the lab at [phone] within 24 hours of collection time if culture is needed Performed By: #### 3 0965 #### [facility] [address] [facility] [place] [address], [facility] MUCUS THREADS OCC Abnormal NONE SEEN [facility] Comment on above: Order Comment: No: D o not add to previous draw Criteria for reflexing a culture was not met. Please call the lab at [phone] within 24 hours of collection time if culture is needed Performed By: #### 3 0965 #### [facility] [address] [facility] [place] [address], [facility] Nitrite Ql (U) Positive Abnormal NEGATIVE [facility] Comment on above: Order Comment: No: D o not add to previous draw Criteria for reflexing a culture was not met. Please call the lab at [phone] within 24 hours of collection time if culture is needed Performed By: #### 3 [id number] #### [facility] [address] [facility] [place] [address], [facility] pH (Bld) 6.0 Normal 5.0-8.0 [facility] Comment on above: Order Comment: No: D o not add to previous draw Criteria for reflexing a culture was not met. Please call the lab at [phone] within 24 hours of collection time if culture is needed Performed By: #### 3 [id number] #### [facility] [address] [facility] [place] [address], [facility] Protein (U) [Mass/Vol] Negative Normal NEGATIVE [facility] Comment on above: Order Comment: No: D o not add to previous draw Criteria for reflexing a culture was not met. Please call the lab at [phone] within 24 hours of collection time if culture is needed Performed By: #### 3 [id number] #### [facility] [address] [facility] [place] [address], [facility] RBC (U) [#/Vol] 6-10 Abnormal NONE SEEN [facility] Comment on above: Order Comment: No: D o not add to previous draw Criteria for reflexing a culture was not met. Please call the lab at [phone] within 24 hours of collection time if culture is needed Performed By: #### 3 [id number] #### [facility] [address] [facility] [place] [address], [facility] SPEC GRAV 1.032 High 1.015-1.020 [facility] Comment on above: Order Comment: No: D o not add to previous draw Criteria for reflexing a culture was not met. Please call the lab at [phone] within 24 hours of collection time if culture is needed Performed By: #### 3 [id number] #### [facility] [address] [facility] [place] [address], [facility] WBC UA 11-20 Abnormal NONE SEEN [facility] Comment on above: Order Comment: No: D o not add to previous draw Criteria for reflexing a culture was not met. Please call the lab at [phone] within 24 hours of collection time if culture is needed Performed By: #### 3 [id number] #### [facility] [address] [facility] [place] [address], [facility] Vital Signs Date Time Vital Sign Value Performing Clinician Eliezeri lity 01-07-2023 14:00-0400 Body height 157.48 cm Luis Payne II Other [facility] Other 01-07-2023 14:00-0400 Body mass index (BMI) [Ratio] 22.49 kg/m2 Luis Payne II Other [facility] Other 01-07-2023 14:00-0400 Body weight 55.79 kg Luis Payne II Other [facility] Other 07-24-2021 10:40-0400 Body height Twin Martinez Other [facility] Other 07-24-2021 10:40-0400 Body mass index (BMI) [Ratio] 23.77 kg/m2 Twin Martinez Other [facility] Other 07-24-2021 10:40-0400 Body weight 58.97 kg Twin Martinez Other [facility] Other 06-12-2021 14:20-0400 Body height Twin Martinez Other [facility] Other 06-12-2021 14:20-0400 Body mass index (BMI) [Ratio] 23.77 kg/m2 Twin Martinez Other [facility] Other 06-12-2021 14:20-0400 Body weight 58.97 kg Twin Martinez Other [facility] Other Encounters Encounter Date Encounter Type Care Provider Facility Start: 02-08-2024 ambulatory YEIMI Castaneda ty:[facility] Start: 02-05-2023 ambulatory Virgilio Moreno acility:[facility] Start: 02-02-2023 End: 02-03-2023 ambulatory YEIMI QUIJANO Facility:[facility] Start: 02-02-2023 End: 02-02-2023 Patient encounter procedure YEIMI QUIJANO [facility] Start: 01-07-2023 Office outpatient ne w 45 minutes Luis GREER [facility] Start: 01-07-2023 End: 01-07-2023 ambulatory Omkar Rene Facility:[facility] Start: 01-07-2023 End: 01-07-2023 ambulatory MD Omkar Rene Work Phone: [facility] Work Phone: Start: 01-07-2023 End: 01-07-2023 Patient encounter procedure MD Omkar Rene Work Phone: [facility] Start: 01-04-2023 End: 01-05-2023 ambulatory Ashely [place] Facility[facility] Start: 01-04-2023 End: 01-04-2023 Lab Drop off Ashely Orlando [facility] Start: 01-04-2023 End: 01-05-2023 ambulatory OMKAR RENE Facility:[facility] Start: 01-04-2023 End: 01-04-2023 Patient encounter procedure OMKAR RENE [facility] Start: 12-04-2022 End: 12-05-2022 ambulatory YEIMI QUIJANO Facility:[facility] Start: 12-04-2022 End: 12-04-2022 Patient encounter procedure YEIMI QUIJANO [facility] Start: 12-01-2022 End: 12-02-2022 ambulatory YEIMI Elder MACIE Facility:[facility] Start: 12-01-2022 End: 12-01-2022 Patient encounter procedure Ashely Orlando [facility] Start: 11-26-2022 End: 11-27-2022 ambulatory YEIMI E MACIE Facility:[facility] Start: 11-26-2022 End: 11-26-2022 Patient encounter procedure YEIMI E MACIE [facility] Start: 11-09-2022 End: 11-10-2022 ambulatory Ashely Orlando Facility:[facility] Start: 11-09-2022 End: 11-09-2022 Patient encounter procedure Ashely Orlando [facility] Start: 11-05-2022 End: 11-05-2022 ambulatory LORNE [facility] Start: 11-02-2022 End: 11-03-2022 ambulatory YEIMI E MACIE Facility:[facility] Start: 11-02-2022 End: 11-02-2022 Patient encounter procedure Blayne R JIMBO [facility] Start: 07-29-2022 End: 07-30-2022 ambulatory MEÑO LEYVAS Facility:[facility] Start: 07-24-2022 End: 07-24-2022 ambulatory MEÑO APONTE [facility] Start: 06-08-2022 ambulatory YEIMI MACIE Facility :[facility] Start: 06-04-2022 End: 06-05-2022 ambulatory OMKAR RENE Facility:[facility] Start: 06-02-2022 End: 06-03-2022 ambulatory YEIMI E MACIE Facility:[facility] Start: 06-02-2022 End: 06-03-2022 ambulatory YEIMI E MACIE Facility:[facility] [place] Start: 06-02-2022 End: 06-02-2022 Lab Drop off YEIMI E MACIE [facility] Start: 02-13-2022 End: 02-14-2022 ambulatory OMKAR POLANCOERER Facility:[facility] Start: 12-03-2021 End: 12-04-2021 ambulatory OMKAR A SHERRIERER Facility:[facility] Start: 12-01-2021 End: 12-02-2021 ambulatory OMKAR POLANCOERER Facility:[facility] Start: 09-03-2021 End: 09-03-2021 ambulatory OMKAR Sarath RICCOR Facility:[facility] Start: 08-21-2021 End: 08-21-[address] ZAKIA AZEVEDO . Facility:[facility] Start: 08-05-2021 End: 08-05-[address] ZAKIA AZEVEDO . Facility:[facility] Start: 07-24-2021 End: 07-24-2021 ambulatory Twin Martinez Other [facility] Other Start: 07-24-2021 Office outpatient visit 15 minutes Twin Martinez [facility] Start: 06-18-2021 End: 06-18-2021 Patient encounter procedure MD Omkar Rene Work Phone: [facility] Start: 06-12-2021 End: 06-12-2021 ambulatory Twin Martinez Other [facility] Other Start: 06-12-2021 Office outpatient ne w 30 minutes Twin Martinez [facility] Procedures Date Procedure Procedure Detail Performing Clinician Start: 01-07-2023 Plain X-ray of right hip MD Omkar Rene Work Phone: Start: 11-09-2022 Cystourethroscopy wi th dilation of urethral stricture YEIMI QUIJANO Start: 06-18-2021 X-ray of lumbar spin e, six views including bending views MD Omkar Rene Work Phone: Start: 06-18-2021 Dual energy X-ray absorptiometry MD Omkar Rene Work Phone: Start: 04-03-2016 Cystourethroscopy wi th dilation of urethral stricture YEIMI QUIJANO Start: 05-09-2014 Cystoscopy and retro grade pyelography YEIMI QUIJANO Start: 12-18-2013 Cystourethroscopy wi th dilation of urethral stricture YEIMI QUIJANO Colonoscopy YEIMI QUIJANO Tonsillectomy YEIMI QUIJANO Immunizations Immunization Date Immunization Notes Care Provider [facility] 01-08-2023 influenza virus vaccine, unspecified formulation YEIMI QUIJANO [facility] 12-23-2021 influenza virus vaccine, unspecified formulation YEIMI QUIJANO [facility] 12-23-2021 SARS-CoV-2 (COVID-19 ) [id number] YEIMI QUIJANO [facility] 07-15-2021 SARS-CoV-2 mRNA (gobgctxvjox-dbsq-eqofx se) vaccine YEIMI QUIJANO [facility] 01-09-2021 SARS-CoV-2 (COVID-19 ) mRNA BNT-162b2 vax YEIMI QUIJANO [facility] 12-26-2020 influenza virus vaccine, unspecified formulation YEIMI QUIJANO [facility] 06-12-2020 SARS-CoV-2 (COVID-19 ) mRNA BNT-162m2 vax YEIMI QUIJANO [facility] 05-24-2020 SARS-CoV-2 (COVID-19 ) mRNA BNT-162b2 vax YEIMI QUIJANO [facility] Comment on above: Result Comment: 2022: [id number] 04-25-2020 zoster vaccine recombinant YEIMI MACIE [facility] 12-23-2018 influenza virus vaccine, unspecified formulation YEIMI MACIE [facility] 12-23-2018 zoster vaccine recombinant YEIMI MCAIE [facility] 01-01-2016 influenza virus vaccine, unspecified formulation YEIMI MACIE [facility] 01-01-2016 zoster vaccine, live JENNIFE R MACIE [facility] Payers Date Payer Category Payer Self-pay [id number] 2017 Private Health Insurance [facility] [id number] 1959 Medicaid [id number] 1961 Medicare [id number] 1953 Unknown [id number] 2.16.84 0.1.400761.3.579.2.593 1953 Unknown [id number] 2.16.84 0.1.147820.3.579.2.593 1953 Unknown [id number] 2.16.84 0.1.587524.3.579.2.593 1953 Unknown [id number] 2.16.84 0.1.620676.3.579.2.593 1953 Unknown [id number] 2.16.84 0.1.643448.3.579.2.593 1953 Unknown [id number] 2.16.84 0.1.650537.3.579.2.593 1953 Unknown [id number] 2.16.84 0.1.667262.3.579.2.593 1953 Unknown [id number] 2.16.84 0.1.671797.3.579.2.593 1953 Unknown [id number] 2.16.8 40.1.955409.3.579.2.727 1953 Unknown [id number] 2.16.8 40.1.995169.3.579.2.72 1953 Unknown [id number] 2.16.8 40.1.478749.3.579.2.72 1953 Unknown [id number] 2.16.8 40.1.554087.3.579.2.72 1953 Unknown [id number] 2.16.8 40.1.499078.3.579.2.72 1953 Unknown [id number] 2.16.8 40.1.977147.3.579.2.72 1953 Unknown [id number] 2.16.8 40.1.752854.3.579.2.72 1953 Unknown [id number] 2.16.8 40.1.026538.3.579.2.72 1953 Unknown [id number] 2.16.8 40.1.435865.3.579.2.727 1953 Unknown [id number] 2.16.8 40.1.055499.3.579.2.72 1953 Unknown [id number] 2.16.8 40.1.306034.3.579.2.72 1953 Unknown [id number] 2.16.8 40.1.077181.3.579.272 1953 Unknown [id number] 2.16.8 40.1.203712.3.579.2.727 Medicare [id number] Unknown [id number] Unknown [id number] 2.16.8 40.1.357874.3.579.2.531 Unknown [id number] 2.16.8 40.1.100165.3.579.2.531 Social History Date Type Detail [facility] Other Start: 1955 Sex Assigned At Female [facility] Sex Assigned At [facility] Start: 06-02-2022 Tobacco smoking status Ex-smoker (fi nding) [facility] Functional Status Date Assessment Result Facility 02-02-2023 Functional Status N/A [facility] 11-09-2022 Functional Status N/A [facility] Clinical Notes 06-12-2021 to 02-02-2023 Note Date & Type Note Facility 02-02-2023 Hospital Discharg e instructions Patient Education 02/02/2023 11:49:46 Urinary Tract Infection, Adult Urinary Tract Infection, Adult A urinary tract infection (UTI) is an infection of any part of the urinary tract. The urinary tract includes the kidneys, ureters, bladder, and urethra. These organs make, store, and get rid of urine in the body. An upper UTI affects the ureters and kidneys. A lower UTI affects the bladder and urethra. What are the causes? Most urinary tract infections are caused by bacteria in your genital area around your urethra, where urine leaves your body. These bacteria grow and cause inflammation of your urinary tract. What increases the risk? You are more likely to develop this condition if: You have a urinary catheter that stays in place. You are not able to control when you urinate or have a bowel movement (incontinence). You are female and you: ?Use a spermicide or diaphragm for control. ?Have low estrogen levels. ?Are . You have certain genes that increase your risk. You are sexually active. You take antibiotic medicines. You have a condition that causes your flow of urine to slow down, such as: ?An enlarged prostate, if you are male. ?Blockage in your urethra. ?A kidney stone. ?A nerve condition that affects your bladder control (neurogenic bladder). ?Not getting enough to drink, or not urinating often. You have certain medical conditions, such as: ?Diabetes. ?A weak disease-fighting system (immunesystem). ?Sickle cell disease. ?Gout. ?Spinal cord injury. What are the signs or symptoms? Symptoms of this condition include: Needing to urinate right away (urgency). Frequent urination. This may include small amounts of urine each time you urinate. Pain or burning with urination. Blood in the urine. Urine that smells bad or unusual. Trouble urinating. Cloudy urine. Vaginal discharge, if you are female. Pain in the abdomen or the lower back. You may also have: Vomiting or a decreased appetite. Confusion. Irritability or tiredness. A fever or chills. Diarrhea. The first symptom in older adults may be confusion. In some cases, they may not have any symptoms until the infection has worsened. How is this diagnosed? This condition is diagnosed based on your medical history and a physical exam. You may also have other tests, including: Urine tests. Blood tests. Tests for STIs (sexually transmitted infections). If you have had more than one UTI, a cystoscopy or imaging studies may be done to determine the cause of the infections. How is this treated? Treatment for this condition includes: Antibiotic medicine. Waqr-bfj-iehsxln medicines to treat discomfort. Drinking enough water to stay hydrated. If you have frequent infections or have other conditions such as a kidney stone, you may need to see a health care provider who specializes in the urinary tract (urologist). In rare cases, urinary tract infections can cause sepsis. Sepsis is a life-threatening condition that occurs when the body responds to an infection. Sepsis is treated in the hospital with IV antibiotics, fluids, and other medicines. Follow these instructions at home: Medicines Take tqdt-unh-qcydgmi and prescription medicines only as told by your health care provider. If you were prescribed an antibiotic medicine, take it as told by your health care provider. Do not stop using the antibiotic even if you start to feel better. General instructions Make sure you: ?Empty your bladder often and completely. Do not hold urine for long periods of time. ?Empty your bladder after sex. ?Wipe from front to back after urinating or having a bowel movement if you are female. Use each tissue only one time when you wipe. Drink enough fluid to keep your urine pale yellow. Keep all follow-up visits. This is important. Contact a health care provider if: Your symptoms do not get better after 1 2 days. Your symptoms go away and then return. Get help right away if: You have severe pain in your back or your lower abdomen. You have a fever or chills. You have nausea or vomiting. Summary A urinary tract infection (UTI) is an infection of any part of the urinary tract, which includes the kidneys, ureters, bladder, and urethra. Most urinary tract infections are caused by bacteria in your genital area. Treatment for this condition often includes antibiotic medicines. If you were prescribed an antibiotic medicine, take it as told by your health care provider. Do not stop using the antibiotic even if you start to feel better. Keep all follow-up visits. This is important. This information is not intended to replace advice given to you by your health care provider. Make sure you discuss any questions you have with your health care provider. Document Revised: 10/18/2020 Document Reviewed: 10/18/2020 [employer] Patient Education 2022 [employer]. Follow Up Care 11/10/2022 12:49:15 With:YEIMI QUIJANO PA-C, URL Address: [address] [place] [address] [facility] [place] [address] When: Unknown [facility] 01-07-2023 Evaluation note Encounter Date Diagnosis Assessment Notes Dec, Greater trochanteric bursitis of right hip (ICD-10 - M70.61) Dec, Lumbar back pain with radiculopathy affecting right lower extremity (ICD-10 - M54.16) Dec, Other 1. We had a long discussion regarding the etiology of their symptoms. I explained to the patient that greater trochanteric bursitis is a chronic condition and as a result may require several rounds of physical therapy and or injections. Furthermore, it requires a diligent home exercise regimen to prevent flareups. 2. We discussed oral anti-inflammato elsy and Tylenol. Recommended utilizing saju-bjq-xptknl r oral anti-inflammato elsy. Recommended adjusting their Tylenol dosing to 1000mg by mouth up to 3 times a day. We also prescribed her Voltaren gel 3. We discussed physical therapy. Patient preferred formal therapy which we prescribed today. 4. We discussed steroid injections as a treatment option. We will hold off on any injections at this point 5. Follow up in 3 months with Katharine. If the patient did not get relief at all the we may want to consider more invasive treatment options. If she goes through multiple rounds of more invasive options from a treatment standpoint and is not getting relief we may need to consider an MRI to evaluate for gluteal tendon pathology. [facility] Other 08-21-2023 Note [id number]:127[facility] 11-09-2022 NoteCystoscopy with Urethral Dilation ? Voiding after the procedure: there may be some pain, urethral bleeding, burning, urgency, frequency and blood tinged urine following the procedure. These symptoms usually resolve within 2-5 days. Drink the amount of fluid it takes to keep the urine pink to yellow or clear in color. Drinking enough water and fluids will help to ease any discomfort after your procedure. ? If you are having problems that seem out of the ordinary, please call. ? If unable to contact your physician and you feel it is an emergency, go to the nearest emergency room or call 911 ? Diet ? you may resume your normal diet. ? Activity ? you may resume your normal activities ? Call if you have a fever over [facility] degrees[facility] Hospital Discharge instructions Patient Education 11/09/2022 12:01:57 [facility] - Cystoscopy with Urethral Dilation Discharge Instructions (CUSTOM) Cystoscopy with Urethral Dilation Voiding after the procedure: there may be some pain, urethral bleeding, burning, urgency, frequencyand blood tinged urine following the procedure. These symptoms usually resolve within 2-5 days. Drink the amount of fluid it takes to keep the urine pink to yellow or clear in color. Drinking enough water and fluids will help to ease any discomfort after your procedure. If you are having problems that seem out of the ordinary, please call. If unable to contact your physician and you feel it is an emergency, go to the nearest emergency room or call 911 Diet you may resume your normal diet. Activity you may resume your normal activities Call if you have a fever over 100 degrees Follow Up Care 11/04/2022 16:37:52 With:YEIMI QUIJANO Address: [address] [place] [address] [place] [address] Business (1) [address], [address] [place] [address] Business (1) [address] [place] [address] Business (1) When: Unknown Comments:Office to schedule follow up in 2-3 months with VIVI Bailon [facility]08-21-2023 Evaluation + Plan noteExtracted from: Title:- Clinic HOPD Note Author:Ashely Orlando MD. Date:11/09/22 Impression and Plan Assessment and Plan: Diagnosis: Vaginal atrophy (FQS45-AO N95.2, Discharge, Medical), Unspecified urethral stricture, female (MSW02-RC N35.92, Discharge, Medical), Recurrent UTI (HDL11-UT N39.0, Discharge, Medical), Lichen sclerosus ([id number]-PF L90.0, Discharge, Medical). 67 yo F prior DLS pt last seen by VIVI Bailon here for urethral stricture dilation. 1. Urethral stricture- mild on exam, pt demanded repeat dilation despite recent +UCx, on abx. States understanding of getting worse infection/sick. Unclear if having stricture sx, but again pt was adamant about having dilation done. Risks thoroughly discussed. -Dilated to 30 Malian today without difficulty -Recommend starting Estrace cream topically 3 times a week at night for a month, twice a week for maintenance. Risk benefits discussed. Prescription sent to pharmacy on file -Follow-up with Katharine Quijano in 2 to 3 months 2. Vaginal atrophy on exam today We discussed presence of vaginal atrophy. I explained the lack of estrogen secondary to menopause causes changes in the vaginal epithelium that can predispose to lower urinary tract symptoms, vaginal discomfort, urge urinary incontinence, urgency, frequency, nocturia, dyspareunia, and recurrent urinary tract infections. This can be treated with topical application of estrogen to the vagina, which has been shown to reduce frequency of UTIs by up to 70%. She was reassured that there is minimal systemic absorption with application of vaginal estrogen cream and most of the benefits will be to the local tissues. -Start estrace cream. Patient was told to apply a pea-sized amount 3 times weekly at night for 4 weeks and then 2 times per week thereafter, may take up to 3 months for full effect. She should stop medication and notify us if she feels breast tenderness or has vaginal spotting. 3. Recurrent UTIs -complete antibiotic therapy now. 10% of women over the age of 60 will have recurrent urinary tract infection - 2 or more urinary tract infection in 6 months or 3 or more per year. We discussed the presence of vaginal atrophy on physical examination. I explained the lack of estrogen secondary to menopause causes changes in the vaginal epithelium that can predispose to lower urinary tract symptoms, vaginal discomfort, urinary incontinence, dyspareunia, and recurrent urinary tract infections. Because of these changes to the vaginal tissues the lactobacilli (good bacteria) fail to thrive. The pH of the vagina rises making it easier for harmful bacteria to colonize the vagina. - Cranberry pills, lactobacillus probiotic gel caps were recommended - Estrace cream - Bowel regimen - Safe sex, water based lubricant use. Denies direct associate with UTIs and intercourse. Consider on demand abx in the future if correlates. 4. Lichen sclerosis - cont clobetasol prn per dermatology [facility]08-17-2023 NoteSubjective Fiona Becerra is a 67 y.o. year old female patient being seen for hypertension and subclavian stenosis s/p left subclavian stenting in 2011 at [facility]. Patient Active Problem List Diagnosis Anxiety Carotid stenosis Constipation Depression Disorder of sacrum Essential hypertension Hyperlipidemia Lightheadedness Lumbosacral spondylosis without myelopathy Peripheral vascular disease (CMS/HCC) Thyroid nodule Subclavian steal syndrome Lichen sclerosus Ischemic colitis (CMS/HCC) Gastritis Chronic kidney disease Urinary tract infection Unspecified urethral stricture, female Anxiety disorder Subclavian steal syndrome of left subclavian artery Family History Problem Relation Name Age of Onset Atrial fibrillation Mother Hypertension Mother Heart failure Father Kidney disease Father Atrial fibrillation Sister Social History Tobacco Use Smoking status: Every Day Packs/day: 0.50 Types: Cigarettes Smokeless tobacco: Never Substance Use Topics Alcohol use: Yes Comment: occasional HPI Fiona Becerra is a 67 y.o. year old female patient being seen for hypertension and subclavian stenosis s/p left subclavian stenting in 2011 at [facility]. Update: 02/05/2022 She had Covid back in the summer of 2020, and has been feeling more fatigued and lightheaded/dizzy since then. Lightheadedness occurs upon standing and at times with walking. Notices numbness in hands usually in the morning, no associated pain. Denies chest pain, SOB, palpitations, or syncope. KEITH occurs with climbing 3 flights of stairs. Update: 11/05/2021 She was seen at the [facility] with chest pain on 10/30/2022 Pain was sharp and lasted for 6 hours, was not relieved with nitro EKG and cardiac markers were negative, she was discharged following resolution of symptoms with morphine She is under a lot of stress dealing with multiple interpersonal conflicts She still has mild ongoing pain that is unchanged with activity She is smoking about 1/2-1 ppd Review of Systems Constitutional: Fatigue Cardiovascular: Positive for dyspnea on exertion. Negative for chest pain, leg swelling, near-syncope, orthopnea, palpitations and syncope. Respiratory: Negative. Skin: Negative. Neurological: Negative for dizziness and light-headedness. Psychiatric/Behavioral: Endorses depression Objective Visit Vitals BP 130/62 (BP Location: Left arm, Patient Position: Sitting, BP Cuff Size: Adult) Pulse 81 Resp 10 Ht 1.588 m (5' 2.5 ) Wt 57.6 kg (127 lb) SpO2 96% BMI 22.86 kg/m??? Smoking Status Every Day BSA 1.59 m??? Physical Exam General: Awake, alert, good spirits. NAD Neck: No elevated JVP. +ve carotid bruits R>L Pulm: Breath sounds clear to ascultation bilaterally with no wheeze, crackles or rhonchi Cards: Regular rate and rhythm, S1, S2. No S3 or S4 gallop. Murmur: none Abd: Soft, Nontender, physiologic bowel sounds are present Extr: Lower extremity edema: None. DP pulses present bilaterally Skin: warm, dry, well perfused Neuro: A&Ox3, No gross deficits Allergies Allergies Allergen Reactions Bupropion Hcl Hives Olanzapine-Fluoxetine Unknown Prednisone Other Vilazodone Other suicidal tendencies Atorvastatin Nausea Only and Rash Bupropion Hbr Hives Latanoprost Other and Unknown depression Olanzapine Other Worse depression Venlafaxine Analogues Other and Unknown Depression Medications Current Outpatient Medications: aspirin 81 mg EC tablet, Take 1 tablet every day by oral route., Disp: , Rfl: carvedilol (Coreg) 6.25 mg tablet, Take 1 tablet by mouth in the morning and at bedtime., Disp: , Rfl: citalopram (CeleXA) 40 mg tablet, Take 1 tablet by mouth in the morning., Disp: , Rfl: lisinopril 5 mg tablet, Take 2.5 mg by mouth in the morning., Disp: , Rfl: LORazepam (Ativan) 1 mg tablet, Take 1 tablet by mouth if needed in the morning, at noon, and at bedtime., Disp: , Rfl: rOPINIRole (Requip) 2 mg tablet, Take 1 tablet by mouth in the morning, afternoon, and at bedtime., Disp: , Rfl: rosuvastatin (Crestor) 40 mg tablet, Take 1 tablet (40 mg) by mouth at bedtime., Disp: 90 tablet, Rfl: 3 ibuprofen 600 mg tablet, Take 1 tablet (600 mg) by mouth in the morning, at noon, and at bedtime for 3 days., Disp: 9 tablet, Rfl: 0 Recent Labs 10/30/2022 WBC 7.7, hemoglobin 12.6, hematocrit 37.3, Sodium 140, potassium 3.8,Chloride 107, BUN 15, serum creatinine 1.02, estimated GFR 54% Blood testing 04/25/2021: TSH normal, cholesterol 120, triglycerides 76, LDL 59, HDL 46, potassium 4.7, BUN 22, creatinine 1.07 Free T4 0.95, hemoglobin 12.1, platelets 199. Imaging and other tests Bilateral upper extremity ultrasound: 07/29/2022 Waveform: Normal triphasic waveform throughout both upper extremities Vessel lumen: No significant narrowing or atherosclerotic disease Flow velocity: No significant increased or decreased flow velocity Impression Elevated flow (more content not included)...[facility] 07-24-2022 NoteCurrently stableUnBu[facility]05-05-2023 NoteStable, no concerning symptomsUnBucyrus Community Hospital05-05-2023 NoteContinue crestor Last LDL was 59- well controlledUnBucyrus Community Hospital05-05-2023 NoteubUnBucyrus Community Hospital05-05-2023 NotePatient here for 6 mo follow up subclavian steal syndrome and hypertension. Had labs and carotid US in May 2022. Denies chest pain, SOB, and lightheadedness. Says she's feeling pretty good lately from a cardiac standpoint. Review of Systems Constitutional: Positive for malaise/fatigue. Musculoskeletal: Positive for arthritis, back pain, joint pain and muscle weakness. All other systems reviewed and are negative.[facility] 07-24-2022 NoteUTP CARDIOLOGY PROGRESS NOTE HPI: Fiona Becerra is a 67 y.o. female here for being seen for hypertension, HPL and subclavian stenosis s/p left subclavian stenting in 2011. Currently she denied chest pain, shortness of breath, orthopnea, N/T or weakness of b/l hands/arms. States she forgot to take her b/p meds this morning. Review of Systems Constitutional: Negative. Respiratory: Negative. Cardiovascular: Negative. Neurological: Negative. All other systems reviewed and are negative. Visit Vitals BP 140/63 (BP Location: Right arm, Patient Position: Sitting) Pulse 79 Ht 1.588 m (5' 2.5 ) Wt 64 kg (141 lb) SpO2 99% BMI 25.38 kg/m??? Smoking Status Every Day BSA 1.68 m??? Allergies Allergen Reactions Bupropion Hcl Hives Olanzapine-Fluoxetine Unknown Prednisone Other Vilazodone Other suicidal tendencies Atorvastatin Nausea Only and Rash Bupropion Hbr Hives Latanoprost Other and Unknown depression Olanzapine Other Worse depression Venlafaxine Analogues Other and Unknown Depression Medications: Current Outpatient Medications on File Prior to Visit Medication Sig Dispense Refill aspirin 81 mg EC tablet Take 1 tablet every day by oral route. carvedilol (Coreg) 6.25 mg tablet Take 1 tablet by mouth in the morning and at bedtime. citalopram (CeleXA) 40 mg tablet Take 1 tablet by mouth in the morning. lisinopril 2.5 mg tablet Take 2.5 mg by mouth in the morning and at bedtime. LORazepam (Ativan) 1 mg tablet Take 1 tablet by mouth if needed in the morning, at noon, and at bedtime. rOPINIRole (Requip) 2 mg tablet Take 1 tablet by mouth in the morning, afternoon, and at bedtime. rosuvastatin (Crestor) 40 mg tablet Take 40 mg by mouth at bedtime. No current facility-administered medications on file prior to visit. Physical Exam: Constitutional: Appearance: Normal appearance. Without apparent distress HENT: Head: Normocephalic and atraumatic. Nose: Nose normal. Mouth/Throat: Mouth: Mucous membranes are moist. Eyes: Extraocular Movements: Extraocular movements intact. Conjunctiva/sclera: Conjunctivae normal. Neck: Vascular: No JVD. Cardiovascular: Rate and Rhythm: Normal rate and regular rhythm. Pulses: Radial pulses Lt 2+, Rt 3+ Dorsalis pedis pulses are 3 on the right side and 3on the left side. Posterior tibial pulses are 3 on the right side and 3 on the left side. Heart sounds: Normal heart sounds, S1 normal and S2 normal. Pulmonary: Effort: Pulmonary effort is normal. Breath sounds: Normal breath sounds. Abdominal: General: Bowel sounds are normal. Palpations: Abdomen is soft. Musculoskeletal: General: Normal range of motion. Cervical back: Normal range of motion. Right lower leg: No edema. Left lower leg: No edema. Skin: General: Skin is warm and dry. Capillary Refill: Capillary refill takes less than 2 seconds. Neurological: General: No focal deficit present. Mental Status: She is alert and oriented to person, place, and time. Psychiatric: Mood and Affect: Mood normal. Behavior: Behavior normal. Thought Content: Thought content normal. Judgment: Judgment normal. Labs: Blood testing 04/25/2021: TSH normal, cholesterol 120, triglycerides 76, LDL 59, HDL 46, potassium 4.7, BUN 22, creatinine 1.07 Free T4 0.95, hemoglobin 12.1, platelets 199. Last lab values have been reviewed CV Testin06/05/22 Carotid US- Carotid u/s 08/02/2019: There is less than 50% stenosis of the RIGHT internal carotid artery. There is less than 50% stenosis of the LEFT internal carotid artery. There is flow reversal of the LEFT vertebral artery consistent with subclavian steal. Subclavian u/s 08/02/2019: There is greater than 70% stenosis of the distal innominate artery and proximal RIGHT subclavian artery. There is greater than 70% stenosis of the LEFT proximal subclavian artery. Significant pressure difference between the arms with much lower pressure in left arm consistent with severe left subclavian stenosis. Echocardiogram 06/20/2018: normal LVEF, mild MR. Angiogram 09/01/2019: 1. Severe up to 90% in-stent restenosis in the left subclavian artery extending beyond the distal end of the stent to just proximal to the origin of the left vertebral artery. 2. Successful balloon angioplasty of the left subclavian artery with reduction of all stenosis to 10%. 3. Patent bilateral vertebral arteries. 4. Patent proximal to mid segments of both internal carotid arteries. 5. Patent innominate artery with no evidence of stenosis. 6. Patent right subclavian artery in its proximal to mid segment with no evidence of stenosis. 11/2019 Exam Note: 09/01/19 Thoracic aortogram: Bovine aortic arch with LT carotid artery sharing common origin with the innominate artery. LT subclavian artery stent from ostium of artery to mid segment. Conclusions LEFT subclavian artery stent is patent. There is close to 50% in-stent stenosis ( (more content not included)... [facility]05-05-2023 NoteHypertension is typically well controlled- she forgot to take her meds this morningUnBucyrus Community Hospital05-05-2023 NoteF/[facility]Un[facility]03-14-2023 NoteChief Complaint Patient Is here for a UTI referral HPI Staff Previous DLS pt. Referred due to recurrent UTI. However pt denies frequent UTIs. Hasn't had one in a long time. Pt is actually here w c/o vulvar itching and dysuria. Last seen in our office 05/17/18 by DLS due to urge incontinence, urgency, chronic cystitis, urethral stricture, & dysuria. S/P Cysto/UD 04/03/16 with multiple UD prior. Patient states she is drinking cranberry juice and plenty of water in the last week. no vaginal discharge. Patient states she has tried Monistat spray and cream and no relief. Saw PCP yesterday who started her on topical steroid cream due to hx lichen sclerosis. CT a/p done 09/02/19 Dysuria: yes Incomplete bladder emptying: no Hematuria: no Frequency: Patient states every 2 hours Urgency: no Nocturia: no Stream: Strong Leaking: yes, just right after she finishes voiding and starts to itch Post void dripping: no Wearing pads/ Depends: no Urge incontinence: no Stress incontinence: no Incontinence without Sensory Awareness: no Abdominal pain: no Flank pain: both sides for 3 weeks, mild intermittent History of Present Illness staff HPI reviewed and agree. Review of Systems PHQ Score Initial Depression Screen Score: 0 no fever, chills, malaise, myalgia. no rash/lesions. no chest pain, palpitations, or SOB. no abdominal pain, nausea, vomiting. no unilateral calf swelling, redness, pain Physical Exam Vitals & Measurements BP: 110/62 HT: 62 in HT: 158 cm WT: 64 kg WT: 140.8 lb BMI: 25.64 General: nontoxic, NAD Mouth: moist mucosa Lungs: normal respiratory effort Cardio: regular rate, good distal perfusion Abdomen: nondistended, no suprapubic distention or tenderness, no CVA tenderness Neurologic: Grossly normal Skin: No rashes or suspicious lesions Assessment/Plan last saw Dr. Aburto 05/20/2018 1. Lichen sclerosus (L90.0: Lichen sclerosus et atrophicus) known hx. C/o vaginal/vulvar itching but denies discharge. Patient states she has tried Monistat spray & cream w/o relief. Primary care just started pt on Clobetasol 0.05% cream for Lichen's. 2. Unspecified urethral stricture, female (N35.92: Unspecified urethral stricture, female) S/p Cysto/UD 04/03/2016, 05/09/14, 12/18/[address] Aburto. PVR today 51 mL. Pt is having dysuria and some intermittent stream. Will repeat Cysto/UD with Dr. Matthews (pt requested not to be with other [facility] MDs). The procedure risks, benefits, details, and treatment alternatives have been discussed with the patient. These include bleeding, infection, recurrent scar in over 50%, need for repeat dilation or other procedures, no symptom relief with dilation, among others. Full informed consent has been obtained. Will order Local anesthesia. Holding off on prophylactic antibiotic due to culture being sent today. 3. Urinary tract infection (N39.0: Urinary tract infection, site not specified) UA today shows TRACE-INTACT blood, positive nitrates, and trace GRAHAM. Will send for culture, asx currently. if shows bacteria, will treat due to upcoming UD. Follow-up With When Contact Information SHAYY HUSTON, Oswaldo P, URL [address] [place] [phone] Additional Instructions: Cysto/UD with Dr. Matthews Patient Education Lichen Sclerosus Documentation recorded by the scribjanelle Pride accurately reflects the services(s) I performed and decisions made by me. Authenticated by Yeimi Quijano PA-C on 06/02/2022 12:45:09. IMarilee, personally scribed for Yeimi Quijano PA-C on 06/02/2022 11:36:31. . Problem List/Past Medical History Ongoing Anxiety disorder Chronic kidney disease Essential hypertension Gastritis Hyperlipidemia Ischemic colitis Lichen sclerosus Unspecified urethral stricture, female Urinary tract infection Historical Lumbar spondylosis Smoker Procedure/Surgical History Cystourethroscopy with dilation of urethral stricture (04/03/2016), Cystoscopy and retrograde pyelography (05/09/2014), Cystourethroscopy with dilation of urethral stricture (12/18/2013), Colonoscopy, Tonsillectomy. Medications aspirin, 81 mg, Oral, Daily B-12, 1000 mcg, Oral, Daily carvedilol, 6.25 mg, Oral celecoxib 200 mg Cap Celexa, 40 mg, Oral, Daily LORazepam 0.5 mg Tab, 0.5 mg= 1 tab(s), Oral, TID pravastatin, 40 mg, Oral, Daily ropinirole, 0.5 mg, Oral, Daily rosuvastatin 40 mg Tab travoprost 0.004% Opth Hailey 2.5 mL, 1 drop(s), Eye-Both, qPM Vitamin D3, 1000 International_Unit, Oral, Daily Allergies Lipitor Pristiq Symbyax atorvastatin (Unknown) latanoprost ophthalmic Social History Tobacco Former smoker, quit more than 30 days ago Tobacco Use:., 06/02/2022 Family History Renal failure syndrome: Mother and Father. Lab Results Ambulatory Point of Care Results Bilirubin Urine Dipstick: Negative (06/02/22 10:43:0 (more content not included)...[facility] HospitalComment on above:Result Comment: Electronically Signed By: YEIMI QUIJANO PA-C\.br\Date and Time Signed: 06/03/2311:45 EDT\.br\Electronically Co-Signed By: Marilee Pride\.br\Date and Time Co-Signed: 06/02/22 11:37 [id number] Evaluation + Plan note Diagnostic Tests Pending * Urine Culture 06/02/22 [facility]05-05-2022 Evaluation note* Encounter Date Diagnosis Assessment Notes Treatment Notes Treatment Clinical Notes July, Trochanteric bursitis, right hip (ICD-10 - M70.61) July, Inflammation of right sacroiliac joint (ICD-10 - M46.1) This patient has very little radicular pain on the right. I have independently reviewed the 6 view lumbar spine which shows reasonable alignment and osteoporotic appearing bone and the DEXA scan of the axial skeleton which in the forearm has definite signs of osteoporosis. Add this to smoking and I think the patient is a very poor surgical candidate. Majority of her pain is not radicular, it is axial with sacroiliac and hip pain. I have personally written a note to her pain management doctor for suggestions of treatment. 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 Today the patient reports more of an L5 pain on the right that is much more consistent with radiculopathy, more so than the back pain which is also on the right. She has had some benefit from pain management apparently over time. The patient continues to smoke. I am not certain as to her candidacy for surgery at this point. I have asked the patient to obtain a DEXA scan and a 6 view dynamic back x-ray and review the findings with me. Also part of her treatment will need to be a diagnostic therapeutic intra-articular hip injection as well as a full course of physical therapy which the patient herself asked about. We will discuss that at her next visit. I will follow up with her in a month. May, Arthropathy of right hip (ICD-10 - M16.11) May, Smoker (ICD-10 - F17.200) May, Asymptomatic age-related postmenopausal state (ICD-10 - Z78.0) [facility] Other evaluation + Plan note Future Appointments Appointment Date:02/02/2023 11:00:00 AM Scheduled Provider:YEIMI QUIJANO PA-C Location:[facility] Appointment Type:URO Office Visit Future Scheduled Tests Laboratory* [facility] Future Appointments Appointment Date:02/02/2023 11:00:00 AM Scheduled Provider:YEIMI QUIJANO PA-C Location:[facility] Appointment Type:URO Office Visit Future Scheduled Tests Radiology* CT Abdomen/Pelvis w/o Contrast 12/01/22 [facility] evaluation + Plan note Future Appointments Appointment Date:02/02/2023 11:00:00 AM Scheduled Provider:YEIMI QUIJANO PA-C Location:[facility] Appointment Type:URO [facility] Future Appointments Appointment Date:02/02/2023 11:00:00 AM Scheduled Provider:YEIMI QUIJANO PA-C Location:[facility] Appointment Type:URO Office Visit Diagnostic Tests Pending * Urine Culture [facility] Future Appointments Appointment Date:02/08/2024 10:00:00 AM Scheduled Provider:YEIMI QUIJANO PA-C Location:[facility] Appointment Type:URO Office Visit [facility] evaluation noteNo assessment information available [facility] Work Phone: History general Narrative - Reported* Type Description Date Medical History GERD Medical History glaucoma Medical History HTN Medical History hyperlipidemia Medical History anxiety Medical History Atrial fibrillation Surgical History bunionectomy Surgical History Bunions Surgical History tonsillectomy Surgical History Tonsils Surgical History Ovaries Surgical History urethral dilation Surgical History ovary surgery Surgical History Stents Hospitalization History see above [employer] Other Hospital course Narrative No data available for this section [facility] No data available for this section [facility] No data available for this section [facility] for visit NarrativeReferral [facility] [place] Other Summary Purpose Family History No Family History Records FoundNo Family History Records Found No data available for this section No data available for this section No data available for this section No Family History Records FoundNo Family History Records FoundNo Family History Records Found Advance Directives No Advanced Directives Records Found Advance Directive Response Recorded Date/ Time Advance Directives No April 3:57pm Hospital Course Note MR#: [id number] 2 [facility] Pt. 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 The patient had balloon dilation of the left subclavian artery with reduction in all stenosis to 10%. In addition, the patient had patent bilateral vertebral arteries along with patent uudueefn-bo-sax segments of both internal carotid arteries. The innominate artery also showed no evidence of stenosis along with the right subclavian artery in the oiiriecl-gv-itz segment with no evidence of stenosis. DISCHARGE DIAGNOSES: 1. Left subclavian artery in-stent restenosis, status post balloon dilation. 2. Left subclavian steal syndrome. 3. Carotid artery stenosis. 4. Essential hypertension. (more content not included)... Chief Complaint and Reason for Visit Chief Complaint z78.0,M54.16 Additional Source Comments INFORMATION SOURCE (unrecogn ized section and content) DATE CREATED AUTHOR 04/04/2020 [facility] DATE CREATED AUTHOR AUTHOR'S ORGANIZ ATION 08/02/2022 [facility] DATE CREATED AUTHOR AUTHOR'S ORGANIZ ATION 02/03/2023 [facility] DATE CREATED AUTHOR AUTHOR'S ORGANIZ ATION 03/26/2023 [facility] DATE CREATED AUTHOR AUTHOR'S ORGANIZ ATION 04/16/2023 [facility] Care Teams (unrecognized sec tion and content) Team Status: Inactive Member Role Status Dates Omkar Rene MD Primary Care Provider Active Twin Martinez MD Attending Provider Active Team Status: Active Member Role Status Dates Omkar Rene MD Primary Care Provider Active Team Status: Inactive Member Role Status Dates Omkar Rene MD Primary Care Provider Active Luis Payne II, MD Attending Provider Active Goals (unrecognized section and content) Goals may be documented in a n alternate sectionNo InformationNo Information No data available for this section No data available for this section No data available for this section No data available for this section No data available for this section No data available for this section No data available for this section No data available for this sectionGoals may be documented in an alternate sectionNo Information No data available for this section REASON FOR VISIT (unrecogniz ed section and content) 6 WK-DEXA, XRAY RESULTSCONSU LT DR RENE RT HIP PAIN NX FOR RECORDS PERTAINING TO PATIENTS WHO ARE OR HAVE BEEN ENROLLED IN A CHEMICAL DEPENDENCY/SUBSTANCEABUSE PROGRAM, SOME INFORMATION MAY BE OMITTED. This clinical summary was aggregated from multiple sources. Caution should be exercised in using it in the provision of clinical care. This summary normalizes information from multiple sources, and as a consequence, information in this document may materially change the coding, format and clinical context of patient data. In addition, data may be omitted in some cases. CLINICAL DECISIONS SHOULD BE BASED ON THE PRIMARY CLINICAL RECORDS. [employer] provides no warranty or guarantee of the accuracy or completeness of information in this document.
== END 2023-04-21 09:56 | disposition home or self-care (01) ==
LOC: US 09:55
PROVIDERS: PCP Family Medicine; Visit Provider Internal Medicine Interventional Cardiology
DX: I77.1 Stricture of artery (principal); I87.1 Compression of vein; I65.23 Occlusion and stenosis of bilateral carotid arteries
CPT/HCPCS: 93880; 93930

== ENCOUNTER 2023-05-13 14:26 | Outpatient (OUT) | payer MEDICARE, MEDICAID, SELFPAY ==
--- NOTE | 2023-05-13 | ECG_ITS ---
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
--- NOTE | 2023-05-13 14:44 | XR_ITS ---
[address] [address] Patient Name: MARIANNA STEINBERG MRN: [id number] date: 1955 Sex: F Assigned Patient Location: CARD Current Patient Location: MRI Accession/Order Number: [id number] Exam Date: 05/13/2023 14:46 Report Date: 05/14/2023 13:24 At the request of: SHAIKH DENEEN Procedure: XR lumbar spine 2-3V EXAM: XR lumbar spine 2-3V HISTORY: Lumbosacral Spondylosis Without Myelopathy M57.817 COMPARISON: None. TECHNIQUE: 2 views Findings/impression: Satisfactory alignment. Maintained vertebral body heights. Multilevel endplate degenerative changes and disc disease at the visualized spine of L4 to S1. Scattered calcified atherosclerotic disease of aorta. Electronically authenticated by: BRYSON BRITTON Date: 05/14/2023 13:24
--- OUTSIDE RECORDS SUMMARY | 2023-05-13 14:49 | XMS_ITS | CCD ---
Author Name Unknown Address [address] [place] [address] Organization [facility] Care Team Providers Care Tableau Report Developer Name Role Phone MD Omkar Rene Primary Care Provider MD Twin Martinez Attending Provider Twin Martinez Unavailable OMKAR RENE Primary Care [...] Unavailable NADERER, OMKAR Clemens Primary Care Unavailable NODAWAY, DR JANNIE Silva Consulting Unavailable FAY, MEÑO Consulting Unavailable NADERER, OMKAR Clemens Primary Care Unavailable HAY ., DR CHAVEZ Admitting Unavailable HAY ., DR CHAVEZ Attending Unavailable HAY ., DR CHAVEZ Consulting Unavailable AZEVEDO ., DR ZAKIA Joshua Admitting Unavailable AZEVEDO ., DR ZAKIA Joshua Attending Unavailable NADSRIRAM, OMKAR Clemens Primary Care Unavailable AZEVEDO ., DR ZAKIA Joshua Consulting Unavailable AZEVEDO ., DR ZAKIA Joshua Admitting Unavailable AZEVEDO ., DR ZAKIA Joshua Attending Unavailable NADERER, OMKAR A Primary Care Unavailable JOLLY ., DR ZAKIA Joshua Consulting Unavailable MD Omkar Rene Primary Care Provider [phone] MD Luis Payne II Attending Provider [phone] Luis Payne II [phone] MACIE, YEIMI E Attending Unavailable MACIE, YEIMI E Admitting Unavailable MACIE, YEIMI E Admitting Unavailable MACIE, YEIMI E Attending Unavailable Lue, Ashely MLamberto Admitting Unavailable Lue, Ashely MLamberto Attending Unavailable Lue, Ashely MLamberto Referring Unavailable MACIE, YEIMI E Attending Unavailable MACIE, YEIMI E Referring Unavailable MACIE, YEIMI E Admitting Unavailable NADEREOMKAR Kauffman Attending Unavailable MACIE, YEIMI E Attending Unavailable Blayne CHOI Attending Unavailable MACIE, YEIMI Elder Attending Unavailable Lue, Ashely MLamberto Attending Unavailable MACIE, YEIMI E Attending Unavailable MACIE, YEIMI E Referring Unavailable MACIE, YEIMI E Admitting Unavailable MACIE, YEIMI E Attending Unavailable Lue, Ashely MLamberto Attending Unavailable Lue, Ashely MLamberto Admitting Unavailable MACIE, YEIMI E Attending Unavailable MACIE, YEIMI E Admitting Unavailable MEÑO APONTE Attending Unavailable MARY ELLEN GRIFFITHS Attending Unavailable LORNE DURON Attending Unavailable Amrit Thorpeelrahman Admitting Unavailab Virgilio Cooper Attending Unavailab Omkar Flores Primary Care Unavailable Omkar Rene Primary Care Unavailable Luis Payne II Admitting UnavailLuis Little II Attending Unavailabl e Allergies Allergy Classification Reported Allergen(s) Allergy Type Date of Onset Reaction(s) Facility (3 sources) Amitriptyline Drug Allergy throat swelling [facility] Other (20 sources) atorvastatin; Translations: [atorvastatin] Drug Allergy 06-20-19 14 Unknown [facility] (10 sources) Desvenlafaxine; Translations: [desvenlafaxine] Drug Allergy [facility] (10 sources) FLUoxetine / OLANZapine; Translations: [fluoxetine-olanz apine] Drug Allergy [facility] (11 sources) latanoprost; Translations: [latanoprost ophthalmic] Drug Allergy 07-05-19 14 [facility] (1 source) atorvastatin Drug Allergy 06-21-19 14 [facility] (1 source) buPROPion Drug Allergy 06-21-19 14 [facility] (1 source) gemcitabine Drug Allergy 06-21-19 14 [facility] (2 sources) Lactobacillus; Translations: [OLANZAPINE] Drug Allergy 06-21-19 14 [facility] (1 source) latanoprost Drug Allergy 06-21-19 14 [facility] (2 sources) predniSONE; Translations: [PREDNISONE] Drug Allergy 10-20-19 15 [facility] (1 source) vilazodone Drug Allergy 01-26-20 14 [facility] (1 source) DULoxetine Drug Allergy Unknown [employer] Other (1 source) atorvastatin; Translations: [Lipitor] Drug Allergy [facility] (1 source) buPROPion; Translations: [BUPROPION HCL] Drug Allergy 12-10-19 12 [facility] (1 source) buPROPion; Translations: [BUPROPION HBR] Drug Allergy 11-17-19 17 [facility] (1 source) vilazodone; Translations: [VILAZODONE] Drug Allergy 12-10-19 12 [facility] (1 source) OLANZAPINE-FLUOXE GREGORIO; Translations: [OLANZAPINE-FLUOX ETINE] Propensity to adverse reactions to drug (disorder) 07-05-19 14 [facility] (1 source) VENLAFAXINE ANALOGUES; Translations: [VENLAFAXINE ANALOGUES] Propensity to adverse reactions to drug (disorder) 07-05-19 14 [facility] (1 source) Amitriptyline Drug Allergy 01-08-20 23 [facility] (1 source) DULoxetine Drug Allergy 01-08-20 [facility] Medications Current Medications Medication Drug Class(es) Dates Sig (Normalized) Sig (Original) amoxicillin 875 mg oral tablet (1 source) Penicillin-class Antibacterial Start: 11-06-2022 End: 11-11-2022 take 1 tablet by mouth twice daily amoxicillin 875 mg Tab 875 mg = 1 tab(s), Oral, BID, X 5 day(s), # 10 tab(s), Refills(s) 0, Pharmacy: [facility] #72, 158, cm, 06/02/22 11:06:00 EDT, Height/Length [...] 1 month, then 2x a week afterwards, [facility], 62, cm, 11/09/22 11:18:00 EDT, Height/Length Dosing, 64, kg, 06/02/22 11:06:00 EDT, Weight Dosing Start Date: 11/09/22 Status: Ordered fluconazole 150 mg oral tablet (6 sources) Azole Antifungal Start: 11-20-2022 take 1 tablet by mouth once fluconazole 150 mg Tab 150 mg = 1 tab(s), Oral, Once, # 1 tab(s), Refills(s) 0, Pharmacy: [facility], 62, cm, 11/09/22 11:18:00 EDT, Height/Length [...] (2 sources) Proton Pump Inhibitor Start: 05-18-19 take 40 mg by mouth once daily Pantoprazole Active 40 MG PO Daily May 18, 2017 11:26am pravastatin sodium 40 mg oral tablet (11 sources) HMG-CoA Reductase Inhibitor Start: 07-06-19 take 40 mg by mouth once daily pravastatin 40 mg, Oral, Daily, Refills(s) 0, High cholesterol Start Date: 07/05/14 Status: Ordered rOPINIRole 1 mg oral tablet (11 sources) Nonergot Dopamine Agonist Start: 05-18-19 take 1 mg by mouth once daily [...] for 5 day(s), 10 tab(s), Refill(s) 0, [facility] #[facility], 158, cm, 06/02/22 11:06:00 EDT, [...] UTI, # 30 cap(s), Refills(s) 2, Pharmacy: [facility], 158, cm, 02/02/23 11:22:00 EST, Height/Length [...] 07-24-2021 Chronic Other aftercare (5 sources) 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; Translations: [OTH USP CURRENT DRUG THERAPY] Onset: 12-06-2021 Episodic Other circulatory disease (2 sources) Stricture of artery; Translations: [Stricture of artery] Onset: 07-24-2022 Chronic Other circulatory disease (2 sources) Other hypotension; Translations: [Other hypotension] Onset: 04-23-2023 Episodic Other connective tissue disease (2 sources) Trochanteric [...] Onset: 12-06-2021 Episodic Other aftercare (1 source) long-term (current) use of aspirin; Translations: [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] Onset: 09-05-2021 Episodic [...] Test Name Value Interpretation Reference Range Facility Office Visiton 04-23-2023 Follow-up visit [id number] Fiona Becerra 1955 F Date Provider Department Center 04/23/2023 MARY ELLEN PEREZ [facility] Family History Problem Relation Age of Onset Atrial fibrillation Mother Hypertension Mother Heart failure Father Kidney disease Father Atrial fibrillation Sister Family Status - Relation Status Age at Mother Father Sister Level of Service:[address] [place] OFFICE/OUTPATIENT ESTABLISHED MOD MDM 30 MIN Normal [facility] 36on 04-15-2023 36 Pt having carotid an d subclavin us and seeing gvm 04/16 at [place] Normal [facility] Screenson 02-03-2023 Screens [id number]. [id number] Normal [facility] Ambulatory Visit Summaryon 1 04-04-2022 Ambulatory Visit Summary FIONA BECERRA :1955 Visit Date:02/02/2023 Ambulatory Visit Instructions Your Diagnosis Recurrent UTI Vaginal atrophy Unspecified urethral stricture, female Renal cyst Lichen sclerosus Tests Performed Urnls Dip Stick Auto w/o Microscopy POC 47276 Your Care Team Attending Physician - YEIMI [...] YEIMI QUIJANO PA-C Where: [facility] Patient Educationon 02-03-20 23 Patient Education Obstetrics and Gynecology Urinary Tract [...] this condition includes: ? Antibiotic medicine. ? Kzrq-hlr-ihtqqtg medicines to treat discomfort. ? Drinking enough [...] these instructions at home: Medicines ? Take ctqb-kyc-avncnwb and prescription medicines only as told by [...] Document Revie (more content not included)... Normal [facility] Urology Office/Clinic Noteon 02-02-2023 Urology Office/Clinic Note [...] per dermatology Follow-up With When Contact Information YEIMI QUIJANO PA-C, URL [address] [facility] [place] [address] Additional Instructions: 1 year Patient Education Urinary Tract Infection, Adult Documentation recorded by the kaylah Pride accurately reflects the services(s) I performed and decisions made by me. Authenticated by Yeimi Quijano PA-C on 02/02/2023 12:59:23. I, Marilee Pride, personally scribed for Yeimi Quijano PA-C on 02/02/2023 11:50:05. . Problem List/Past Medical History Ongoing Anxiety disorder Bilateral flank pain Chronic kidney disease Essential hypertension Flank pain Gastritis Hyperlipidemia Ischemic colitis Kidney stone Lichen sclerosus Recurrent UTI Renal c (more content not included)... Normal [facility] Comment on above: Result Comment: Elec tronically Signed By: YEIMI QUIJANO PA-C\.br\Date and Time Signed: 02/02/23 12:59 EST\.br\Electronically Co-Signed By: Marilee Pride\.br\Date and Time Co-Signed: 02/02/23 11:50 EST\.br\Electronically Co-Signed By: Marilee Pride\.br\Date and Time Co-Signed: 02/02/23 11:54 EST XR hip RT min 2V(w/wo pelvis )*on 01-07-2023 XR hip RT min 2V(w/wo pelvis)* [facility] Main [address] [address] XRay Report Signed Patient: Fiona Becerra MR#: [id number] : 1955 Acct:[id number] Age/Sex: 67 / F ADM Date: 01/07/23 Loc: [facility] Room: Type: [facility] Attending Dr: Luis Payen II, MD Copies to: Luis Payne MD [...] Rui Kaba M.D.01/07/2023 8:55 PM Dictation Location: [place] [address] Transcribed By: [facility] 01/07/232054 Dictated By: Rui Kaba DO 01/07/232040 Signed By: 01/07/232054 [facility] C Urineon 01-06-2023 Bacteria identified Cx Nom [...] Locations R1: This test was performed at: [facility], [address] [place] [address], [facility] , , [facility] Comment on above: Performed By: #### 2 [id number] #### [facility] [address] [place] [address] Urineon 12-06-2022 Bacteria identified Cx Nom (U) [...] PIERRE=mcg/m;(mg/L), S*=Predicted susceptible interp, R*=Predicted resistant interp [facility] Antibiotic JEAN PIERRE Dilutn JEAN PIERRE Interp [...] Locations R1: This test was performed at: [facility], [address] [place] [address], [address]- , [place], Normal [facility] Comment on above: Performed By: #### 2 [id number] #### [facility] [address] [place] [address] Abdomen/Pelvis w/o Contra ston 12-04-2022 CT Abdomen/Pelvis w/o Contrast Exam Date/Time: [...] No Oral contrast amount in ml's: 0 Normal [facility] Consent for Treatmenton 11-20 Consent for Treatment [id number] .00CD:127 Normal [facility] Insurance Correspondenceon 0 12-02-2022 Insurance Correspondence [id number]# 1.00CD:127 Normal [facility] Ambulatory Visit Summaryon 0 12-01-2022 Ambulatory Visit Summary FIONA BECERRA :1955 Visit Date:12/01/2022 Ambulatory Visit Instructions Your Diagnosis Urinary tract infection Tests Performed Urnls Dip Stick Auto w/o Microscopy POC 75968 Your Care Team Attending Physician - Darion [...] Follow-Up Appointments Wednesday 11:00 AM EST With: YEIMI QUIJANO PA-C Where: [facility] Lakisha Normal [facility] Urinalysison 12-01-2022 Bacteria LM Ql (Urine sed) 2+ /HPF Abnormal Trace [facility] Comment on above: Performed By: #### 1 [id number] ####[facility] [address] [place] [address] Bilirubin Ql (U) Negative Normal Negative [facility] Comment on above: Performed By: #### 1 [id number] ####[facility] [address] [place] [address] Clarity (U) CLOUDY Abnormal Clear [facility] Comment on above: Performed By: #### 1 [id number] ####[facility] [address] [place] [address] Color (U) YELLOW Normal Yellow [facility] Comment on above: Performed By: #### 1 [id number] ####[address] [address] Epithelial cells.squamous LM.HPF (Urine sed) [#/Area] 0-2 Normal 0-2 [facility] Comment on above: Performed By: #### 1 [id number] ####[address] [address] Glucose Test strip (U) [Mass/Vol] Negative Normal Negative [facility] Comment on above: Performed By: #### 1 [id number] ####[facility] [address] [place] [address] Hemoglobin Ql (U) 1+ Abnormal Negative [facility] Comment on above: Performed By: #### 1 [id number] ####[facility] [address] [place] [address] Ketones (U) [Mass/Vol] Negative Normal Negative [facility] Comment on above: Performed By: #### 1 [id number] ####[address] [address] [place].plasma/Lithi um.RBC (Bld) [Mass ratio] 0-3 Normal 0-3 [facility] Comment on above: Performed By: #### 1 [id number] ####[facility] [address] [place] [address] Mucus Ql (Urine sed) TRACE Normal [facility] Comment on above: Performed By: #### 1 [id number] ####[facility] [address] [place] [address] Nitrite Ql (U) Positive Abnormal Negative [facility] Comment on above: Performed By: #### 1 [id number] ####[place] [address] [place] [address] pH (U) 7.0 [pH] Invalid Interpretation Code 5.0-9.0 [facility] Comment on above: Performed By: #### 1 [id number] ####[address] [address] Protein (U) [Mass/Vol] Negative Normal Negative [facility] Comment on above: Performed By: #### 1 [id number] ####[address] [address] Specific gravity (U) [Rel density] 1.010 Invalid Interpretation Code 1.005-1.030 [facility] Comment on above: Performed By: #### 1 [id number] ####[address] [address] Type of Urine collection method Clean Catch Normal [facility] Comment on above: Performed By: #### 1 [id number] ####[address] [address] Urobilinogen Qn (U) 0.2 {Daniel'U}/dL Normal 0.0-1.0 [facility] Comment on above: Performed By: #### 1 [id number] ####[address] [address] WBC Auto Ql (U) 3+ Abnormal Negative [facility] Comment on above: Performed By: #### 1 [id number] ####[address] [address] WBC LM.HPF (Urine sed) [#/Area] /[HPF] Abnormal 0-5 [facility] Comment on above: Performed By: #### 1 7582489 ####[address] [address] Consent for Treatmenton 09-0 Consent for Treatment [id number]#1 .00CD:127 Normal [facility] US Renalon 11-26-2022 US Renal Exam Date/Time: [...] Abiel Quan M.D. Transcribed by: MAUREEN Technologist: HW [facility] XR Abdomen 1 Viewon 11-27-19 23 [...] in mGy = na DAP = na Normal [facility] Consent for Procedure/Surger yon 11-09-2022 Consent for Procedure/Surgery [id number]# 1.00CD:127 Normal [facility] Consent for Treatmenton 10-21 Consent for Treatment [id number] .00CD:127 Normal [facility] Inpatient Patient Summaryon 11-09-2022 Inpatient Patient Summary [place] [id number] Clinical Summary Person Information Name: FIONA BECERRA Age: 67 Years : 1955 Sex: Female PCP: OMKAR RENE MD Marital Status: Race: White Ethnicity: Non- or Language: Telugu Visit Id: Visit Reason: URETHERAL STRICTURE, UTI'S Speciality: Acuity: Enc Type: Outpatient Med Service: Surgery Arrival: 11/09/2022 09:46:33 Discharge: Dispo Type: Address: [address] [place] [id number] Provider Notes: Diagnosis: Lichen sclerosus; Recurrent UTI; [...] up: With: Address: When: YEIMI QUIJANO [address] [facility] [address] [place], [place] [id number] Business (1) [address] [facility], [facility] [address] [place], [place] [id number] Business (1) [address] [facility]. [place], [place] [phone] Business (1) Comments: Office to schedule follow up in 2-3 months with VIVI Bailon Patient Education Information: EU - Cystoscopy with Urethral Dilation Discharge Instructions (CUSTOM) [facility] IntraOperative Documentson 0 11-09-2022 IntraOperative Documents [id number]# 1.00CD:127 [facility] Main OR Intraoperative Recor don 11-09-2022 Main OR Intraoperative Record IntraOp Document Type FTURO Summary Primary Physician: Ashely [place] MD Finalized Date/Time: 11/09/22 12:02:14 Pt. Name: FIONA BECERRA Chinmay/Sex: 1955 Female Med Rec #: [id number] Physician: Ashely [place] MD Financial #: [id number] Pt. Type: O Room/Bed: / Admit/Disch: 11/09/22 09:46:33 - Institution: Case Times FTURO Entry 1 Patient Times In Room 11/09/22 11:43:00 Out Room 11/09/22 12:05:00 Procedure Times Start 11/09/22 11:49:00 Stop 11/09/22 12:00:00 Anesthesia Times Last Modified By: Anat MEDINA, BRIANAOR, Jada 11/09/22 11:58:48 Case Attendance FTURO Entry 1 Entry 2 Entry 3 Case Attendee Darion HUSTON, Ashely Coppola RN, CNOR, Lilliana KLEIN, Shell Elias Role Performed Surgeon - Primary Photograph Enlarger - Primary Scrub - Primary Time In 11/09/22 11:43:00 11/09/22 11:43:00 11/09/22 11:43:00 Time Out 11/09/22 12:05:00 11/09/22 12:05:00 11/09/22 12:05:00 Procedure CYSTOSCOPY LOCAL WITH CYSTOSCOPY LOCAL WITH CYSTOSCOPY LOCAL WITH URETHRAL DILATION(.) URETHRAL DILATION(.) URETHRAL DILATION(.) Comments Last Modified By: Anat RN, CNOR, Anat RN, CNOR, Anat RN, CNOR, Jada 11/09/22 Jada 11/09/22 Jada 11/09/22 11:58:49 11:58:49 11:58:49 Surgical Procedures FTURO Entry 1 Procedure Description Procedure CYSTOSCOPY LOCAL WITH Modifiers . URETHRAL DILATION Surgeon Description cysto Primary Procedure Yes Primary Surgeon Ashely [place] MD Start 11/09/22 11:49:00 Stop 11/09/22 12:00:00 Anesthesia Type [...] Outcomes Met? Yes UTI'S Last Modified By: ANTHONY Coppola RN, Ruthann 11/09/22 11:45:29 Post-Care Text: The patient is [...] 11:59 ANTHONY Coppola RN, Ruthann 11/09/22 12:02 Normal [facility] Main OR Preoperative Recordo n 11-09-2022 Main OR Preoperative Record Holding Area Document Type FTURO Summary Primary Physician: Ashely [place] MD Finalized Date/Time: 11/09/22 11:16:57 Pt. Name: FIONA BECERRA Chinmay/Sex: 1955 Female Med Rec #: [id number] Physician: Ashely [place] MD Financial #: [id number] Pt. Type: O Room/Bed: / Admit/Disch: 11/09/22 [...] By: Shanti Gamboa RN 11/09/22 11:16 Normal [facility] Operative Reporton Operative Report Patient: FIONA BECERRA Age: 67 years Sex: Female : 1955 Associated Diagnoses: None Author: Ashely [place] MD Procedure Operative Information Details: Date/ Time: 11/09/2022 12:02:00. Pre-Op Dx: Unspecified urethral stricture, female (WWJ21-CY N35.92, Discharge, Medical), Recurrent UTI (QXF75-ST N39.0, Discharge, Medical), Lichen sclerosus (MKM25-WW L90.0, Discharge, Medical). Post-Op Dx: Vaginal atrophy (ISH24-SA N95.2, Discharge, Medical), Unspecified urethral stricture, female (LCL07-LV N35.92, Discharge, Medical), Recurrent UTI (HNZ00-VF N39.0, Discharge, Medical), Lichen sclerosus (AAY12-TY L90.0, Discharge, Medical). Anesthesia Type: Local. Procedure: [...] urine. The Urethra was dilated to: 30 Martiniquais w/ sounds. Devices Implanted: None. Removal: Cystoscope [...] recurrent UTIs and vaginal atrophy. . Normal [facility] Comment on above: Result Comment: Elec tronically Signed By: Ashely [place] MD\.br\Date and Time Signed: 11/09/22 12:06 EDT Outpatient Surgery Discharge Instructionon 11-09-2022 Outpatient Surgery Discharge Instruction [id number]# 1.00CD:127 Normal [facility] Outpatient Surgery Discharge Instruction [address] [address] Patient Discharge Instructions PERSON INFORMATION Name: FIONA [...] Follow up: With: Address: When: YEIMI QUIJANO [address] [place] [address] C [place], [place] [id number] [facility] (1) [address] [facility] [address] [place], [place] [phone] [facility] (1) [address] [place] [address]. [place], [place] [phone] [facility] (1) Comments: Office to schedule follow up [...] you have a fever over 100 degrees IDRIS Montaño FIONA K, have received the attached patient education materials/instruction s and have verbalized understanding: May we do a follow up call? Yes No I was present when discharge instructions were given Patient Signature Date Clinican/Nurse Signature Date You may receive a survey from [employer] asking you to rate your care experience. Your feedback is important and will help us understand what we do well and how we can improve the quality of care we provide to you, your loved ones and our community. It?s an honor to serve you. Thank you for choosing [facility] Normal [facility] Progress Note-Physicianon Progress Note-Physician Patient: FIONA BECERRA [...] 1 month, then 2x a week afterwards, [facility], 62, cm, 11/09/22 11:18:00 EDT, Height/Length Dosing, 64, kg, 06/02/22 11:06:0... amoxicillin 875 mg Tab: 875 mg = 1 tab(s), Oral, BID, X 5 day(s), # 10 tab(s), Refills(s) 0, Pharmacy: [facility], 158, cm, 06/02/22 11:06:00 EDT, Height/Length [...] Plan Assessment and Plan: Diagnosis: Vaginal atrophy (UKM14-VT N95.2, Discharge, Medical), Unspecified urethral stricture, female (GGG72-WG N35.92, Discharge, Medical), Recurrent UTI (JBY15-GX N39.0, Discharge, Medical), Lichen sclerosus (SAC97-ZJ L90.0, Discharge, Medical). 67 yo F prior DLS pt last seen by VIVI Bailon here for urethral stricture dilation. 1. Urethral stricture- mild on exam, pt demanded repeat dilation despite recent +UCx, on abx. States understanding of getting worse infection/sick. Unclear if having stricture sx, but again pt was adamant about having dilation done. Risks thoroughly discussed. -Dilated to 30 Martiniquais today without difficulty -Recommend starting Estrace cream [...] sclerosis - cont clobetasol prn per dermatology [facility] Comment on above: Result Comment: Elec tronically Signed By: Darion HUSTON, Ashely Whittaker.br\Date and Time Signed: 11/09/22 12:11 EDT C Urineon 11-05-2022 Bacteria identified Cx Nom (U) Microbiology PROCEDURE: Urine Culture [R1] SOURCE: U CleanCatch BODY SITE: COLLECTED DATE/TIME: 11/02/2022 12:07 EDT RECEIVED DATE/TIME: 11/02/2022 19:35 EDT START DATE/TIME: 11/02/2022 19:35 EDT FREE TEXT SOURCE: YEIMI QUIJANO PA-C, [...] Locations R1: This test was performed at: [facility], [address] [place] [address], [address] , , [facility] Comment on above: Performed By: #### 2 [id number] ####[place] [address] [place] [address] Insurance Correspondenceon 0 11-05-2022 Insurance Correspondence [id number]# 1.00CD:127 Normal [facility] Office Visiton 11-05-2022 Follow-up visit [id number] Fiona Becerra 1955 F Date Provider Department Center 11/05/2022 [id number] DURON [facility] Family History Problem Relation Age of Onset Atrial fibrillation Mother Hypertension Mother Heart failure Father Kidney disease Father Atrial fibrillation Sister Family Status - Relation Status Age at Mother Father Sister Level of Service:[address] [place] OFFICE/OUTPATIENT ESTABLISHED MOD MDM 30-39 MIN Reason for Visit and Comments: Follow-up [251453] - Hospital follow up Normal [facility] Ambulatory Visit Summaryon 0 11-02-2022 Ambulatory Visit [...] receiving treatment for. Lumbar spondylosis Smoker Normal [facility] Urinalysison 11-02-2022 Bacteria LM Ql (Urine sed) TRACE Normal Trace [facility] Comment on above: Performed By: #### 1 [id number] #### [facility] [address] [place] [address] Bilirubin Ql (U) Negative Normal Negative [facility] Comment on above: Performed By: #### 1 [id number] #### [facility] [address] [place] [address] Calcium oxalate crystals LM Ql (Urine sed) Present Normal [facility] Comment on above: Performed By: #### 1 [id number] #### [facility] [address] [place] [address] Clarity (U) SL CLOUDY Invalid Interpretation Code [facility] Comment on above: Performed By: #### 1 [id number] #### [facility] [address] [place] [address] Color (U) DARK YELLO Invalid Interpretation Code [facility] Comment on above: Performed By: #### 1 [id number] #### [facility] [address] [place] [address] Epithelial cells.squamous LM.HPF (Urine sed) [#/Area] 0-2 Normal 0-2 [facility] Comment on above: Performed By: #### 1 [id number] #### [facility] [address] [place] [address] Glucose Test strip (U) [Mass/Vol] Negative Normal Negative [facility] Comment on above: Performed By: #### 1 [id number] #### [facility] [address] [place] [address] Hemoglobin Ql (U) 2+ Abnormal Negative [facility] Comment on above: Performed By: #### 1 [id number] #### [facility] [address] [place] [address] Ketones (U) [Mass/Vol] TRACE Invalid Interpretation Code Negative [facility] Comment on above: Performed By: #### 1 [id number] #### [facility] [address] [place] [address] [place].plasma/Lithi um.RBC (Bld) [Mass ratio] 4-20 Normal 0-3 [facility] Comment on above: Performed By: #### 1 [id number] #### [facility] [address] [place] [address] Mucus Ql (Urine sed) 1+ Normal [facility] Comment on above: Performed By: #### 1 [id number] #### [facility] [address] [place] [address] Nitrite Ql (U) Positive Abnormal Negative [facility] Comment on above: Performed By: #### 1 [id number] #### [facility] [address] [place] [address] pH (U) 6.0 [pH] Invalid Interpretation Code 5.0-9.0 [facility] Comment on above: Performed By: #### 1 [id number] #### [facility] [address] [place] [address] Protein (U) [Mass/Vol] TRACE Abnormal Negative [facility] Comment on above: Performed By: #### 1 [id number] #### [facility] [address] [place] [address] Specific gravity (U) [Rel density] 1.020 Invalid Interpretation Code 1.005-1.030 [facility] Comment on above: Performed By: #### 1 [id number] #### [facility] [address] [place] [address] Type of Urine collection method Clean Catch Normal [facility] Comment on above: Performed By: #### 1 [id number] #### [facility] [address] [place] [address] Urobilinogen Qn (U) 0.2 {Daniel'U}/dL Normal 0.0-1.0 [facility] Comment on above: Performed By: #### 1 [id number] #### [facility] [address] [place] [address] WBC Auto Ql (U) 2+ Abnormal Negative [facility] Comment on above: Performed By: #### 1 [id number] #### [facility] [address] [place] [address] WBC LM.HPF (Urine sed) [#/Area] /[HPF] Abnormal 0-5 [facility] Comment on above: Performed By: #### 1 [id number] #### [facility] [address] [place], [place] [id number] [place] ARTERY UP EXT BILon 07-29 US [...] by: JANNIE NIEVES Date: 2022-07-29 17:55 Normal [facility] Office Visiton 07-24-2022 Follow-up visit [id number] Fiona Becerra 1955 F Date Provider Department Center 07/24/2022 MEÑO DOUGLASS [facility] Family History Problem Relation Age of Onset Atrial fibrillation Mother Hypertension Mother Heart failure Father Kidney disease Father Atrial fibrillation Sister Family Status - Relation Status Age at Mother Father Sister Level of Service:22123 [place] OFFICE/OUTPATIENT ESTABLISHED MOD MDM 30-39 MIN Normal [facility] Coding Summary.on 06-05-2022 Coding Summary. CD:[id number] G h0bWw+PGhlYWQ+RO7SSUT eC67mtDHjyJ1qD9SPBLmV SywgQVBQTElOSyIgbmFtZ Y3kfCWrQBRu IC8+XA3tSOCsEjhilRRxh 1I0vJP8A02myv2aBKvziN X1NHGzJpJmjiioz5yioCt 6IDcuNmluOyBt VMOnhG52BSK8wC93Qb73w LPxfPDpi9vryQt8UnHxLS IbACY1cAgaZNjvk3GoFZX pG31atVKfn3Z3 AOEvlCmizICjUkWwaCA8s H8zPHshzkgyq0wzlxjcMq b6ij95pNNpi4O6zBM4N0M iagD7DPBazRBm PkthmTUUxX8zyntlw6zkb xfaNpNdWBHgRUt5GQa4YU XiuKxrJhIeYY62DYB4TXH yhmHkT5UlPRTe cPqyQyX0h1T1To5IJ9BRA cnhX1LLVCHDDYuvqOD+PC 15ja84H8GdQfmeQut4JIV tEJF8jPV0cO9m EALfKVfnu2I5eTZ5O5Qqe cHbvr8vc2pfYRZpNGirV3 6hyGDcs8H4HLBsaYM5OTH leVclRjNduO68 Oyc+RGInaFjoo1OlOvfkk 2qkp5vspOb2TndwUTDfra UsbRhdPJS3x3BpFm4eVNE qwGS4tPK1xD5k TbHpAhK2FKkwB062DrOvk VGqBzwiC27mE5TsvUP+PH ElGcr8FALupXwsJL8mG0W hZGRpbmctbGVm mVrnGV5wYUBqnfvtBWZeb J3fOULcI8y0BgNrZoB0VA mvZ8GsRWUfqxysQg64jF4 kKeAoSzD6FHgf L8AfnxD2MRTfmQWrIQjrK RE9F83kw4Q9PNSlVCFyRT J0sAD3eK7ghBvqdxravIQ mdDsgdmVydGlj IVbdXQouI352TMCmwDssP kNvZGluZyBEYXRlOiAgMD MvMTcvMjAyMzwvdGQ+PHR wYPH4oIknCUUl oBLcYXpfLg6xpNvnzDakK U8sUTRsunbbFFQnpS0mVK RqlOCumMxsTZ1jIPUkeno ij140SnHiETC6 HCGkxYSwS8GgqZ7yPyJvO YXuNDSnY0PdvWSxYDpuG4 18JRutVjU4DYDyopEeG3C sLWFsaWduOiB0 g6V7Of9Lf4LatjkhT1Msu MNnFgHgHhrjDAb9W2MgQv wvdHI+BG00SHBaVV58TCi 9WHD2fJlgCGoc MDXtM7MjwY5gJyCzBUZnP GRkOyc+PHRhYmxlIHdpZH RoPScxMDAlJyBzdHlsZT0 wCw1jXNRpZLWl lChfvLCbCiIgi0jhKIEqY PapCD7ajInaK8AvnZP4EV Wva6p8Bs91N53uC3KtvWD +KUGjtDK1xGE8 cQ8nFkVmFdF0DDbbD739H oRnvMDlNkmas5pjl1uycA d9PgN6GPBturScvOwuNVG 8s1UxBj18K92m IHdpZHRoPSIxNSUiIHZhb Hajrw3ihV0hRk1+PGNvbC F7zQR1fO1zMjDpTiG8MDd pK432MtAkvFKx Satvf9rkq3dnlUy1IhOdZ UDcmlTtsHvdLNL0u0ZsIl 13R2AztTnub4EcBaa0fb0 1wFVfx1D7jYM7 U6SyMEAdkmlhrWIyeHuaR Y9aBOUvruesYOPpiN4mVQ JgK2r6QxMkZlL3RNwkA5W oslN9XZBujHYx EIBovZDBxB3clnlqf7oak nrbYtNkOCOyLVu9BDp3HJ UqxTuiJtYgCCY4FyS5MUQ 9lQGgjG3yaHij qgrsoG0jHai+YCM5xFFbo WGSBM2aMvsdmHG+PHRkIH Z5sEebCZufIBAfuH5rHPB pC4u8AoWiFkI6 OKfrH9KomeC3MVOvpPBlM ECwkHAEiZ6ypgkax8kguv fkBmTvUMHzRXb7ECk9QHI saWduOiBsZWZ0 BbP5DNY5wRHfyW5txBjay ofliN7fKon+QmlydGggRG S6WGt4V9JbVle3VJLouEf lUS3viEFsUPsa Sr2lfInycQswEX5aQFRpc nhdz406EmGqg3yxVJPorP FeBSzuUSI4F54ku9E3PAG nLXNfQLL9uWB1 aU3riBwqjfdldJQzrMaxk bBgzRtoFVtdUCtlK251SJ SbfGyiAuQzMUb9W0EqYky 6XHXaoJevIL1v nBMdZSjsSb7yrPgoxKxkJ H7eOXUehkeib441ShMvh4 zgDVYhgFElRSmyATY4G46 dk1I4EBVvWLFj LHY5nGE1yM7vgEopjzfcq GVmdDsgdmVydGljYWwtYW coU572XGDkkPbuJxWnvKs 4X2QuBvo7JMZe uIqcXG6jfCIcRLjaRk0pd EvreTrlPP6cGFSboefni1 87MvQay6qhHPOnmGQyGRb sLXY8B48kn3Q4 CBKyOCLyNQI8vOD4wL3oo GlnbjogbGVmdDsgdmVydG uiETrzTHaqJ405TNVjvZs nPlBhdGllbnQg YOdcUGc6S8EvPstflIT+P E22UKVqXX63fBDkfKAiy1 oylDx0WsTkTAObBRY6pUu mOAogz5ElYVBe A60ncKJpr1Y3CSPmlMdcq UXxVrZevQE1lQ0uUMxgte omh1qlxrtrLceii8kxhs5 1dB46N04dZVzh ZHRoPSIzMCUiIHZhbGlnb i5atD1vOn5+XHMkgZS9yG H1lW0uUGXcJvZ5AKijW67 9InRvcCIvPjxj z8nig4swcFf9DiD8ICBcb eYwaYdoLCR4n9CpEk79A5 9sIHdpZHRoPSIyMCUiIHZ xzImrog1tqH5s Ii8+ZNKwxAX5vDS3bK4hC xJxYoT3HDjkL907JgYicH KmUtiqR81bE1VcxYT+PHR vDbc7QVPrbSph DW4bvJYsKNdkKq5kSKZ5P xMwYeNpAHaeZ7HvTIOgtx ycwihqeMH8RASmHZFkoH5 6Jx0ebYprDYLy uRDEwG0xatblr1lrbtnsP gQtDZScXTz7JAb2GQPgcW rsHrJdQBN2ApL9IPW3tUY tyS8loYygotyo rW1rC8KwCVSflardJq56j W2aFrThEcC5CCvaUmn+SE FMTCwgSkFORVQgSzwvdGQ +VHNmKHP3kIbu RFruLEBstH5pZKBbK7c6X mWrPkM6GDnhG2BpTCFdhn gdMp23tG9pVpRrQpG4FUn nJ6KtqxG5VXEd pEYnJLdySOY7W24yf0Y3W DBmUAFfRHU0gBJ4qF4nsI lnbjogbGVmdDsgdmVydGl rSNfnGMepI096 MNWtqApxSoHaNkAnQrD0P LY7R2XfLdp5WVRszGrxNA 8rbGYtJZzvKj2tbCfxvOs qPN5fTWEurpsp AGXdoX0bVNDrfPJvfUxrD T1rFNZwnuakw025IwWmSU Q2LJZzsGIrN4ZgoX7jFeR pQNOoIYRfV8Ez gLDfBSymX203NVivBrJ0H MBlinSvR3EcBNCasQkbLg P4l6Z9Nc38MEZBNRYmnwa vdGQ+PHRkIHN0 cJeeELzaORSuyY0cIVCxJ 5w8XjQyIfM3MPzqI3NlVH CegedlKh55oF0mTfTlLdY 2SBavS0UsoyC7 NSJjlJPgAAkeTZI3U68vf 2I2SAUyVHCkTMT8zIV9xW 1hbGlnbjogbGVmdDsgdmV ydGljYWwtYWxp S653DZJqaJrpQpExcOQeI TwvdGQ+AIWgIAM6cIheBI lrSOIysB8aMEKgO9z0QeC rIdG4JMrzW7Pw YGRdhyjzVn64pA4uOgWgB rA3QBoiC7JzuxZ0MNKnfW YeVNgpQQK8G14yy0F0SYQ aVBQyXYB3dSK0 tH2gaRrpenbduJNfeUrgv dMvjRylXLlyBOcpS098EL TpaBvrMijuLoFKma4vST6 mZjwvdGQ+PC90 yw10R4TkVqppMye2IIZbB XC4cUU3mK4xWBTlQYjeq7 I1zQW2T7LhgiGwki4hh7e vRXYxEBbsT54x mHPxg9S4DSCdyQY4ICVlo YdyWoWxoM27Jjc+PGNvbG cjo8PaKptsh8zkc6dzuRy 9IjMwJSIgdmFs fEknBEV7q5BxDz52X50nQ HdpZHRoPSIzMCUiIHZhbG wljg2diF4pOs3+PGNvbCB 1yIV5oB7aDzDy StW0QKxdE408SaFczZSkP aghz9dvj6bflBk1EwMqWV RjeqSpvXlhOVI6d5FwCs1 4B8WqfDzys2Sk Mki7cp61uTDwf2P0fZA1A 3BhZGRpbmctbGVmdDogMC 8hSHWctodnFXXzwA9rUGW iH3p9JmHzSuU1 JNpdB6RqubK6MAOrwYQsJ CLexRIZeO8uznwcc1yhrh xtQkUkGXSdMGd3TLm9VUZ saWduOiBsZWZ0 ScZ3XRE6jNMrzT6vvPngn rcmrP8fSnm+MLz3a4qngN BjGI0sbWH8JU82EV16mSB rt3F6wGK1N4Ai ZCJsuiburjnmoAX1BAFeH IJizH90Qt7dgHyjOd6gPQ UeTRZ8YNJnnPXnY6OikO0 yOiAjMDAwMDAw F1AziCVxBLzuJ973GLvwM zW5UAPztdTkF6ErGCOcqO ssZdP5b1Q1Rv1NZR21ZY5 3AO66pWIts1K6 sNR0E6NbDUYbydsinsxww NS6DOVqVGUgbR78Su8foG udKn5uERIpQQA4DWOacAD qA9JnlX4sHtRk AUDjWZUrG4SwnOFpOKtaQ 782RTvyUqZ0WQDewmYmG0 TtYSJtiBlyYdE6z9N9Ft8 KPy07SA42XX46 xKBkk1G7zOF9O1ThTYUjo vzldpiqtMI5ZQSvNPLfdR 12Zd6oeWllTz1wYLJcION 2CAPsyJMnD8St gU2fWcXsGQKvKMHdM3Six YHaHQwxV459CTnlVrB4IH MsfxVbX1PzFFTdwDdkFjB 9c1Z3Co0YLFxq uae8R7EtHarbrOW+PC90Y ACkEF75aXWebWPhx6mvfK q1NdYuTDFtCWV5eDnyKKx qn8JpCVDqN09d bGFw (more content not included)... Normal [facility] US CAROTID ART BILon 17-2 023 US CAROTID ART ANDERSON EXAMINATION: US [...] by: CINDY BRISCOE Date: 2022-06-05 10:05 Normal [facility] US THYROIDon 06-05-2022 US THYROID EXAMINATION: US [...] by: CINDY BRISCOE Date: 2022-06-05 14:32 Normal [facility] C Urineon 06-04-2022 Bacteria identified Cx Nom [...] Locations R1: This test was performed at: [facility], [address] [place] [address], [address] , , [facility] Comment on above: Performed By: #### 2 [id number] #### [facility] [address] [place] [address] CBC AUTO DIFFon 06-04-2022 BASO # 0.0 103/ul Normal 0.0-0.1 [facility] Comment on above: Performed By: #### L IVER, BMP, LIPID, TSH #### [facility] [address] [place] [address] Dr. Malachi Maciel Basophils/100 WBC (Bld) 0.6 % Normal 0.2-2.0 [facility] Comment on above: Performed By: #### L IVER, BMP, LIPID, TSH #### [facility] [address] [place] [address] Dr. Malachi Maciel EO # 0.1 103/ul Normal 0.0-0.7 [facility] Comment on above: Performed By: #### L IVER, BMP, LIPID, TSH #### [facility] [address] [address] [address] Malachi Maciel Eosinophils/100 WBC (Bld) 1.7 % Normal 0.9-7.0 [facility] Comment on above: Performed By: #### L IVER, BMP, LIPID, TSH #### [facility] [address] [address] [address] Malachi Maciel Erythrocyte distribution width (RBC) [Ratio] 12.4 % Normal 11.0-15.0 [facility] Comment on above: Performed By: #### L IVER, BMP, LIPID, TSH #### [facility] [address] [place] [address] Dr. Malachi Maciel Hematocrit (Bld) [Volume fraction] 36.7 % Normal 36.0-48.0 [facility] Comment on above: Performed By: #### L IVER, BMP, LIPID, TSH #### [facility] [address] [place] [address] Dr. Malachi Maciel Hemoglobin (Bld) [Mass/Vol] 12.2 g/dL Normal 12.0-16.0 [facility] Comment on above: Performed By: #### L IVER, BMP, LIPID, TSH #### [facility] [address] [place] [address] Dr. Malachi Maciel IG # 0.01 10e3/ul Normal 0.00-0.03 [facility] Comment on above: Performed By: #### L IVER, BMP, LIPID, TSH #### [facility] [address] [place] [address] Dr. Malachi Maciel IG % 0.1 % Normal 0.0-0.5 [facility] Comment on above: Performed By: #### L IVER, BMP, LIPID, TSH #### [facility] [address] [place] [address] Dr. Malachi Maciel LYMPH # 2.1 103/ul Normal 1.2-3.8 [facility] Comment on above: Performed By: #### L IVER, BMP, LIPID, TSH #### [facility] [address] [address] [address] Malachi Maciel Lymphocytes/100 WBC (Bld) 29.6 % Normal 20.5-60.0 [facility] Comment on above: Performed By: #### L IVER, BMP, LIPID, TSH #### [facility] [address] [place] [address] Dr. Malachi Maciel MANUAL DIFF REQ NO Normal [facility] Comment on above: Performed By: #### L IVER, BMP, LIPID, TSH #### [facility] [address] [place] [address] Dr. Malachi Maciel MCH (RBC) [Entitic mass] 29.6 pg Normal 26.7-34.0 [facility] Comment on above: Performed By: #### L IVER, BMP, LIPID, TSH #### [facility] [address] [place] [address] Dr. Malachi Maciel MCHC (RBC) [Mass/Vol] 33.2 g/dL Normal 29.9-35.2 [facility] Comment on above: Performed By: #### L IVER, BMP, LIPID, TSH #### [facility] [address] [place] [address] Dr. Malachi Maciel MCV (RBC) [Entitic vol] 89.1 fL Normal 81.0-99.0 [facility] Comment on above: Performed By: #### L IVER, BMP, LIPID, TSH #### [facility] [address] [place] [address] Dr. Malachi Maciel MONO # 0.6 103/ul Normal 0.3-0.8 [facility] Comment on above: Performed By: #### L IVER, BMP, LIPID, TSH #### [facility] [address] [place] [address] Dr. Malachi Maciel Monocytes/100 WBC (Bld) 8.2 % Normal 1.7-12.0 [facility] Comment on above: Performed By: #### L IVER, BMP, LIPID, TSH #### [facility] [address] [address] [address] Malachi Maciel NEUT # 4.2 103/ul Normal 1.4-6.5 [facility] Comment on above: Performed By: #### L IVER, BMP, LIPID, TSH #### [facility] [address] [address] [address] Malachi Maciel Neutrophils/100 WBC (Bld) 59.8 % Normal 43.0-75.0 [facility] Comment on above: Performed By: #### L IVER, BMP, LIPID, TSH #### [facility] [address] [address] [address] Malachi Maciel Platelet mean volume (Bld) [Entitic vol] 9.4 fL Critically low 9.5-13.5 [facility] Comment on above: Performed By: #### L IVER, BMP, LIPID, TSH #### [facility] [address] [place] [address] Dr. Malachi Maciel PLT 220 103/ul Normal 150-450 [facility] Comment on above: Performed By: #### L IVER, BMP, LIPID, TSH #### [facility] [address] [address] [address] Malachi Maciel RBC 4.12 106/ul Critically low 4.20-5.40 [facility] Comment on above: Performed By: #### L IVER, BMP, LIPID, TSH #### [facility] [address] [address] [address] aMlachi Maciel WBC 7.0 103/ul Normal 4.0-11.0 [facility] Comment on above: Performed By: #### L IVER, BMP, LIPID, TSH #### [facility] [address] [place] [address] Dr. Malachi Maciel FREE T3on 06-04-2022 FREE T3 2.90 pg/mlL Normal 2.18-3.98 [facility] Comment on above: Performed By: #### L IVER, BMP, LIPID, TSH #### [facility] [address] [place] [address] Dr. Malachi Maciel FREE T4on 06-04-2022 Free T4 [Mass/Vol] 0.69 ng/dL Critically low 0.76-1.46 Th e [facility] Comment on above: Performed By: #### F T4 #### [facility] [address] [place] [address] Dr. Malachi Maciel PROF CHEM 8 (BAS METB)on Anion gap [Moles/Vol] 11.1 mmol/L Normal [facility] Comment on above: Performed By: #### L IVER, BMP, LIPID, TSH #### [facility] [address] [place] [address] Dr. Malachi Maciel Calcium [Mass/Vol] 8.6 mg/dL Normal 8.5-10.1 [facility] Comment on above: Performed By: #### L IVER, BMP, LIPID, TSH #### [facility] [address] [place] [address] Dr. Malachi Maciel Chloride [Moles/Vol] 104 mmol/L Normal 98-107 [facility] Comment on above: Performed By: #### L IVER, BMP, LIPID, TSH #### [facility] [address] [place] [address] Dr. Malachi Maciel CO2 [Moles/Vol] 29.7 mmol/L Normal 21.0-32.0 [facility] Comment on above: Performed By: #### L IVER, BMP, LIPID, TSH #### [facility] [address] [place] [address] Dr. Malachi Maciel Creatinine [Mass/Vol] 1.15 mg/dL Critically high 0.55-1.02 [facility] Comment on above: Performed By: #### L IVER, BMP, LIPID, TSH #### [facility] [address] [place] [address] Dr. Malachi Maciel EGFR-AF CAMEROONIAN 57 mL/min/1.73m2 Critically low >=60 [facility] Comment on above: Performed By: #### L IVER, BMP, LIPID, TSH #### [facility] [address] [place] [address] Dr. Malachi Maciel EGFR-NON AF CAMEROONIAN 47 mL/min/1.73m2 Critically low >=60 [facility] Comment on above: Performed By: #### L IVER, BMP, LIPID, TSH #### [facility] [address] [address] [address] Malachi Maciel Glucose [Mass/Vol] 101 mg/dL Normal 74-106 [facility] Comment on above: Performed By: #### L IVER, BMP, LIPID, TSH #### [facility] [address] [address] [address] Malachi Maciel Potassium [Moles/Vol] 3.8 mmol/L Normal 3.5-5.1 [facility] Comment on above: Performed By: #### L IVER, BMP, LIPID, TSH #### [facility] [address] [address] [address] Malachi Maciel Sodium [Moles/Vol] 141 mmol/L Normal 136-145 [facility] Comment on above: Performed By: #### L IVER, BMP, LIPID, TSH #### [facility] [address] [address] [address] Malachi Maciel Urea nitrogen [Mass/Vol] 17.0 mg/dL Normal 7.0-18.0 [facility] Comment on above: Performed By: #### L IVER, BMP, LIPID, TSH #### [facility] [address] [address] [address] Malachi Maciel Urea nitrogen/Creatinine [Mass ratio] 14.8 mg/mg Normal [facility] Comment on above: Performed By: #### L IVER, BMP, LIPID, TSH #### [facility] [address] [address] [address] Malachi Maciel TSHon 06-04-2022 TSH 1.471 uIU/mL Normal 0.358-3.740 [facility] Comment on above: Performed By: #### L IVER, BMP, LIPID, TSH #### [facility] [address] [address] [address] Malachi Maciel Ambulatory Visit Summaryon 0 06-02-2022 Ambulatory Visit Summary FIONA BECERRA :1955 Visit Date:06/02/2022 Ambulatory Visit Instructions Your Diagnosis Lichen sclerosus Unspecified urethral stricture, female Urinary tract infection Tests Performed Urnls Dip Stick Auto w/o Microscopy POC 69302 Your Care Team Attending Physician - YEIMI [...] with SHAYY HUSTON, ANASTACIO Lord When: Where: [address] [place] [address] [place], [place] [id number]- Medications What How Much When Instructions Unchanged [...] Urnls Dip Stick Auto w/o Microscopy POC 10472 (06/02/2022) Bilirubin Urine Dipstick - Negative Blood Urine Dipstick - Trace-intact Glucose Urine Dipstick - Negative Ketones Urine Dipstick - Negative Leukocytes Urine Dipstick - Trace Nitrite Urine Dipstick - Positive Protein Urine Dipstick - Negative Specific [place] Urine Dipstick - 1.020 Urine Appearance Urine [...] may be (more content not included)... Normal [facility] Patient Educationon 06-03-19 23 Patient Education Dermatology [...] instructions at home: ? Take or use [id number] and prescription medicines only as told by [...] the affected areas. ? Take or use [id number]-[id number] and prescription medicines only as told by [...] 07/29/2011 Document Revised: 07/21/2018 Document Reviewed: 07/21/2018 [employer] Patient Education ? 2019 [employer]. [facility] Historical Records Officeon 05-28-2022 Historical Records Office [id number] [facility] MG MAMM SCREEN 3D ANDERSON CADon 02-13-2022 MG MAMM SCREEN 3D ANDERSON CAD Patient: FIONA BECERRA Exam Date: 02/13/2022 : 1955 Gender:F Ordering : DR OMKAR RENE . Admission #: [id number] Family : Order #: [id number] CLICK HERE TO VIEW EXAM RADIOLOGY REPORT [...] hodgkins cancer at age 15. LOCATION: [facility] BREAST COMPOSITION: Scattered areas fibroglandular density. FINDINGS: [...] LUMP SHOULD BE BIOPSIED. Dictated by: Cindy Brisceo M.D. on 02/17/2022 at 12:08 Approved by: Cindy Briscoe M.D. on 02/17/2022 at 12:10 Normal [facility] CT LUNG CANCER SCREENINGon 0 12-03-2021 CT [...] CINDY BRISCOE Date: 2021-12-03 15:48 Normal [facility] VIT D 25-OH [facility] 2021 Vitamin D, 25-Hydroxy 57.7 ng/mL Normal 30.0-100.0 [facility] Comment on above: Result Comment: Clementine min D deficiency has been defined by the [employer] of [employer] and an Endocrine Society practice guideline as a level of serum 25-OH vitamin D less than 20 ng/mL (1,2). The Endocrine Society went on to further define vitamin D insufficiency as a level between 21 and 29 ng/mL (2). 1. IOM ([employer] of [employer]). 2010. Dietary reference intakes for calcium and D. [place]: The National Academies Press. 2. Sharon MF, Carolyn GILLILAND, Jamari DUCKWROTH, et al. Evaluation, treatment, and prevention of vitamin D deficiency: an Endocrine Society clinical practice guideline. JCEM. 2010; 96(7):1911-30. Performed By: #### L IVER, BMP, LIPID, TSH #### [facility] [address] [place] [address] Dr. Malachi Maciel CBC AUTO DIFFon 12-01-2021 BASO # 0.1 103/ul Normal 0.0-0.1 [facility] Comment on above: Performed By: #### L IVER, BMP, LIPID, TSH #### [facility] [address] [place] [address] Dr. Malachi Maciel Basophils/100 WBC (Bld) 0.7 % Normal 0.2-2.0 [facility] Comment on above: Performed By: #### L IVER, BMP, LIPID, TSH #### [facility] [address] [address] [address] Malachi Maciel EO # 0.1 103/ul Normal 0.0-0.7 [facility] Comment on above: Performed By: #### L IVER, BMP, LIPID, TSH #### [facility] [address] [address] [address] Malachi Maciel Eosinophils/100 WBC (Bld) 1.8 % Normal 0.9-7.0 [facility] Comment on above: Performed By: #### L IVER, BMP, LIPID, TSH #### [facility] [address] [place] [address] Dr. Malachi Maciel Erythrocyte distribution width (RBC) [Ratio] 12.6 % Normal 11.0-15.0 [facility] Comment on above: Performed By: #### L IVER, BMP, LIPID, TSH #### [facility] [address] [place] [address] Dr. Malachi Maciel Hematocrit (Bld) [Volume fraction] 39.7 % Normal 36.0-48.0 [facility] Comment on above: Performed By: #### L IVER, BMP, LIPID, TSH #### [facility] [address] [address] [address] Malachi Maciel Hemoglobin (Bld) [Mass/Vol] 13.0 g/dL Normal 12.0-16.0 [facility] Comment on above: Performed By: #### L IVER, BMP, LIPID, TSH #### [facility] [address] [place] [address] Dr. Malachi Maciel IG # 0.02 10e3/ul Normal 0.00-0.03 [facility] Comment on above: Performed By: #### L IVER, BMP, LIPID, TSH #### [facility] [address] [place] [address] Dr. Malachi Maciel IG % 0.3 % Normal 0.0-0.5 [facility] Comment on above: Performed By: #### L IVER, BMP, LIPID, TSH #### [facility] [address] [address] [address] Malachi Maciel LYMPH # 2.4 103/ul Normal 1.2-3.8 [facility] Comment on above: Performed By: #### L IVER, BMP, LIPID, TSH #### [facility] [address] [place] [address] Dr. Malachi Maciel Lymphocytes/100 WBC (Bld) 33.2 % Normal 20.5-60.0 [facility] Comment on above: Performed By: #### L IVER, BMP, LIPID, TSH #### [facility] [address] [place] [address] Dr. Malachi Maciel MANUAL DIFF REQ NO Normal [facility] Comment on above: Performed By: #### L IVER, BMP, LIPID, TSH #### [facility] [address] [place] [address] Dr. Malachi Maciel MCH (RBC) [Entitic mass] 29.3 pg Normal 26.7-34.0 [facility] Comment on above: Performed By: #### L IVER, BMP, LIPID, TSH #### [facility] [address] [place] [address] Dr. Malachi Maciel MCHC (RBC) [Mass/Vol] 32.7 g/dL Normal 29.9-35.2 [facility] Comment on above: Performed By: #### L IVER, BMP, LIPID, TSH #### [facility] [address] [place] [address] Dr. Malachi Maciel MCV (RBC) [Entitic vol] 89.4 fL Normal 81.0-99.0 [facility] Comment on above: Performed By: #### L IVER, BMP, LIPID, TSH #### [facility] [address] [place] [address] Dr. Malachi Maciel MONO # 0.5 103/ul Normal 0.3-0.8 [facility] Comment on above: Performed By: #### L IVER, BMP, LIPID, TSH #### [facility] [address] [place] [address] Dr. Malachi Maciel Monocytes/100 WBC (Bld) 7.2 % Normal 1.7-12.0 [facility] Comment on above: Performed By: #### L IVER, BMP, LIPID, TSH #### [facility] [address] [place] [address] Dr. Malachi Maciel NEUT # 4.1 103/ul Normal 1.4-6.5 [facility] Comment on above: Performed By: #### L IVER, BMP, LIPID, TSH #### [facility] [address] [place] [address] Dr. Malachi Maciel Neutrophils/100 WBC (Bld) 56.8 % Normal 43.0-75.0 [facility] Comment on above: Performed By: #### L IVER, BMP, LIPID, TSH #### [facility] [address] [place] [address] Dr. Malachi Maciel Platelet mean volume (Bld) [Entitic vol] 10.3 fL Normal 9.5-13.5 [facility] Comment on above: Performed By: #### L IVER, BMP, LIPID, TSH #### [facility] [address] [address] [address] Malachi Maciel PLT 230 103/ul Normal 150-450 [facility] Comment on above: Performed By: #### L IVER, BMP, LIPID, TSH #### [facility] [address] [address] [address] Malachi Maciel RBC 4.44 106/ul Normal 4.20-5.40 [facility] Comment on above: Performed By: #### L IVER, BMP, LIPID, TSH #### [facility] [address] [address] [address] Malachi Maciel WBC 7.2 103/ul Normal 4.0-11.0 [facility] Comment on above: Performed By: #### L IVER, BMP, LIPID, TSH #### [facility] [address] [place] [address] Dr. Malachi Maciel LIPID PROFILEon 12-01-2021 CHOL-HDL RATIO NORM SEE BELOW Normal [facility] Comment on above: Result Comment: 3.3 - 4.4 LOW RISK 4.4 - 7.1 AVERAGE RISK 7.1 - 11.0 MODERATE RISK >11.0 HIGH RISK Performed By: #### L IVER, BMP, LIPID, TSH #### [facility] [address] [place] [address] Dr. Malcahi Maciel Cholesterol [Mass/Vol] 131 mg/dL Normal <=200 [facility] Comment on above: Performed By: #### L IVER, BMP, LIPID, TSH #### [facility] [address] [address] [address] Malachi Maciel Cholesterol in HDL [Mass/Vol] 29 mg/dL Critically low 40-60 [facility] Comment on above: Performed By: #### L IVER, BMP, LIPID, TSH #### [facility] [address] [address] [address] Malachi Maciel Cholesterol in LDL [Mass/Vol] 68.0 mg/dL Normal [facility] Comment on above: Performed By: #### L IVER, BMP, LIPID, TSH #### [facility] [address] [address] [address] Malachi Maciel Cholesterol.total/Ch olesterol in HDL [Mass ratio] 4.5 {ratio} Normal [facility] Comment on above: Performed By: #### L IVER, BMP, LIPID, TSH #### [facility] [address] [address] [address] Malachi Maciel HDL NORMAL > or = 60 mg/dl - LO W CARDIOVASCULAR RISK <40 mg/dl - HIGH CARDIOVASCULAR RISK Normal [facility] Comment on above: Performed By: #### L IVER, BMP, LIPID, TSH #### [facility] [address] [address] [address] Malachi Maciel LDL CALC NORMAL SEE BELOW Normal [facility] Comment on above: Result Comment: <100 mg/dl OPTIMAL 100 - 129 mg/dl NEAR OR ABOVE OPTIMAL 130 - 159 mg/dl BORDERLINE HIGH 160 - 189 mg/dl HIGH >190 mg/dl VERY HIGH Performed By: #### L IVER, BMP, LIPID, TSH #### [facility] [address] [address] [address] Malachi Maciel Triglyceride [Mass/Vol] 170 mg/dL Critically high <=150 [facility] Comment on above: Performed By: #### L IVER, BMP, LIPID, TSH #### [facility] [address] [address] [address] Malachi Maciel VLDL CALC 34.0 mg/dL Normal [facility] Comment on above: Performed By: #### L IVER, BMP, LIPID, TSH #### [facility] [address] [address] [address] Malachi Maciel LIVER PROFILEon 12-01-2021 Albumin [Mass/Vol] 4.0 g/dL Normal 3.4-5.0 [facility] Comment on above: Performed By: #### L IVER, BMP, LIPID, TSH #### [facility] [address] [address] [address] Malachi Maciel Albumin/Globulin [Mass ratio] 1.1 {ratio} Normal [facility] Comment on above: Performed By: #### L IVER, BMP, LIPID, TSH #### [facility] [address] [address] [address] Malachi Maciel ALP [Catalytic activity/Vol] 69 U/L Normal 46-116 [facility] Comment on above: Performed By: #### L IVER, BMP, LIPID, TSH #### [facility] [address] [place] [address] Dr. Malachi Maciel ALT [Catalytic activity/Vol] 17 U/L Normal 14-59 [facility] Comment on above: Performed By: #### L IVER, BMP, LIPID, TSH #### [facility] [address] [place] [address] Dr. Malachi Maciel AST [Catalytic activity/Vol] 22 U/L Normal 15-37 [facility] Comment on above: Performed By: #### L IVER, BMP, LIPID, TSH #### [facility] [address] [place] [address] Dr. Malachi Maciel BILI, CONJUGATED 0.1 mg/dL Normal 0.0-0.2 [facility] Comment on above: Performed By: #### L IVER, BMP, LIPID, TSH #### [facility] [address] [place] [address] Dr. Malachi Maciel Bilirubin [Mass/Vol] 0.4 mg/dL Normal 0.2-1.0 [facility] Comment on above: Performed By: #### L IVER, BMP, LIPID, TSH #### [facility] [address] [place] [address] Dr. Malachi Maciel Globulin (S) [Mass/Vol] 3.6 g/dL Normal [facility] Comment on above: Performed By: #### L IVER, BMP, LIPID, TSH #### [facility] [address] [place] [address] Dr. Malachi Maciel Protein [Mass/Vol] 7.6 g/dL Normal 6.4-8.2 [facility] Comment on above: Performed By: #### L IVER, BMP, LIPID, TSH #### [facility] [address] [place] [address] Dr. Malachi Maciel PROF CHEM 8 (BAS METB)on Anion gap [Moles/Vol] 10.5 mmol/L Normal [facility] Comment on above: Performed By: #### L IVER, BMP, LIPID, TSH #### [facility] [address] [place] [address] Dr. Malachi Maciel Calcium [Mass/Vol] 9.3 mg/dL Normal 8.5-10.1 [facility] Comment on above: Performed By: #### L IVER, BMP, LIPID, TSH #### [facility] [address] [place] [address] Dr. Malachi Maciel Chloride [Moles/Vol] 105 mmol/L Normal 98-107 [facility] Comment on above: Performed By: #### L IVER, BMP, LIPID, TSH #### [facility] [address] [place] [address] Dr. Malachi Maciel CO2 [Moles/Vol] 28.1 mmol/L Normal 21.0-32.0 [facility] Comment on above: Performed By: #### L IVER, BMP, LIPID, TSH #### [facility] [address] [place] [address] Dr. Malachi Maciel Creatinine [Mass/Vol] 1.18 mg/dL Critically high 0.55-1.02 [facility] Comment on above: Performed By: #### L IVER, BMP, LIPID, TSH #### [facility] [address] [place] [address] Dr. Malachi Maciel EGFR-AF CAMEROONIAN 55 mL/min/1.73m2 Critically low >=60 [facility] Comment on above: Performed By: #### L IVER, BMP, LIPID, TSH #### [facility] [address] [place] [address] Dr. Malachi Maciel EGFR-NON AF CAMEROONIAN 46 mL/min/1.73m2 Critically low >=60 [facility] Comment on above: Performed By: #### L IVER, BMP, LIPID, TSH #### [facility] [address] [address] [address] Malachi Maciel Glucose [Mass/Vol] 95 mg/dL Normal 74-106 [facility] Comment on above: Performed By: #### L IVER, BMP, LIPID, TSH #### [facility] [address] [place] [address] Dr. Malachi Maciel Potassium [Moles/Vol] 4.6 mmol/L Normal 3.5-5.1 [facility] Comment on above: Performed By: #### L IVER, BMP, LIPID, TSH #### [facility] [address] [place] [address] Dr. Malachi Maciel Sodium [Moles/Vol] 139 mmol/L Normal 136-145 [facility] Comment on above: Performed By: #### L IVER, BMP, LIPID, TSH #### [facility] [address] [place] [address] Dr. Malacih Maciel Urea nitrogen [Mass/Vol] 14.0 mg/dL Normal 7.0-18.0 [facility] Comment on above: Performed By: #### L IVER, BMP, LIPID, TSH #### [facility] [address] [place] [address] Dr. Malachi Maciel Urea nitrogen/Creatinine [Mass ratio] 11.9 mg/mg Normal [facility] Comment on above: Performed By: #### L IVER, BMP, LIPID, TSH #### [facility] [address] [place] [address] Dr. Malachi Maciel TSHon 12-01-2021 TSH 0.987 uIU/mL Normal 0.358-3.740 [facility] Comment on above: Performed By: #### L IVER, BMP, LIPID, TSH #### [facility] [address] [place] [address] Dr. Malachi Maciel CBC AUTO DIFFon 09-03-2021 BASO # 0.0 103/ul Normal 0.0-0.1 [facility] Comment on above: Performed By: #### L IVER, BMP, LIPID, TSH #### [facility] [address] [place] [address] Dr. Malachi Maciel Basophils/100 WBC (Bld) 0.5 % Normal 0.2-2.0 [facility] Comment on above: Performed By: #### L IVER, BMP, LIPID, TSH #### [facility] [address] [place] [address] Dr. Malachi Maciel EO # 0.1 103/ul Normal 0.0-0.7 [facility] Comment on above: Performed By: #### L IVER, BMP, LIPID, TSH #### [facility] [address] [place] [address] Dr. Malachi Maciel Eosinophils/100 WBC (Bld) 1.7 % Normal 0.9-7.0 [facility] Comment on above: Performed By: #### L IVER, BMP, LIPID, TSH #### [facility] [address] [place] [address] Dr. Malachi Maciel Erythrocyte distribution width (RBC) [Ratio] 12.5 % Normal 11.0-15.0 [facility] Comment on above: Performed By: #### L IVER, BMP, LIPID, TSH #### [facility] [address] [place] [address] Dr. Malachi Maciel Hematocrit (Bld) [Volume fraction] 40.8 % Normal 36.0-48.0 [facility] Comment on above: Performed By: #### L IVER, BMP, LIPID, TSH #### [facility] [address] [place] [address] Dr. Malachi Maciel Hemoglobin (Bld) [Mass/Vol] 13.7 g/dL Normal 12.0-16.0 [facility] Comment on above: Performed By: #### L IVER, BMP, LIPID, TSH #### [facility] [address] [place] [address] Dr. Malachi Maciel IG # 0.01 10e3/ul Normal 0.00-0.03 [facility] Comment on above: Performed By: #### L IVER, BMP, LIPID, TSH #### [facility] [address] [place] [address] Dr. Malachi Maciel IG % 0.1 % Normal 0.0-0.5 [facility] Comment on above: Performed By: #### L IVER, BMP, LIPID, TSH #### [facility] [address] [place] [address] Dr. Malachi Maciel LYMPH # 1.8 103/ul Normal 1.2-3.8 [facility] Comment on above: Performed By: #### L IVER, BMP, LIPID, TSH #### [facility] [address] [place] [address] Dr. Malachi Maciel Lymphocytes/100 WBC (Bld) 24.0 % Normal 20.5-60.0 [facility] Comment on above: Performed By: #### L IVER, BMP, LIPID, TSH #### [facility] [address] [place] [address] Dr. Malachi Maciel MANUAL DIFF REQ NO Normal [facility] Comment on above: Performed By: #### L IVER, BMP, LIPID, TSH #### [facility] [address] [place] [address] Dr. Malachi Maciel MCH (RBC) [Entitic mass] 29.7 pg Normal 26.7-34.0 [facility] Comment on above: Performed By: #### L IVER, BMP, LIPID, TSH #### [facility] [address] [place] [address] Dr. Malachi Maciel MCHC (RBC) [Mass/Vol] 33.6 g/dL Normal 29.9-35.2 [facility] Comment on above: Performed By: #### L IVER, BMP, LIPID, TSH #### [facility] [address] [place] [address] Dr. Malachi Maciel MCV (RBC) [Entitic vol] 88.3 fL Normal 81.0-99.0 [facility] Comment on above: Performed By: #### L IVER, BMP, LIPID, TSH #### [facility] [address] [place] [address] Dr. Malachi Maciel MONO # 0.7 103/ul Normal 0.3-0.8 [facility] Comment on above: Performed By: #### L IVER, BMP, LIPID, TSH #### [facility] [address] [place] [address] Dr. Malachi Maciel Monocytes/100 WBC (Bld) 8.5 % Normal 1.7-12.0 [facility] Comment on above: Performed By: #### L IVER, BMP, LIPID, TSH #### [facility] [address] [place] [address] Dr. Malachi Maciel NEUT # 5.0 103/ul Normal 1.4-6.5 [facility] Comment on above: Performed By: #### L IVER, BMP, LIPID, TSH #### [facility] [address] [place] [address] Dr. Malachi Maciel Neutrophils/100 WBC (Bld) 65.2 % Normal 43.0-75.0 [facility] Comment on above: Performed By: #### L IVER, BMP, LIPID, TSH #### [facility] [address] [place] [address] Dr. Malachi Maciel Platelet mean volume (Bld) [Entitic vol] 9.8 fL Normal 9.5-13.5 [facility] Comment on above: Performed By: #### L IVER, BMP, LIPID, TSH #### [facility] [address] [place] [address] Dr. Malachi Maciel PLT 232 103/ul Normal 150-450 [facility] Comment on above: Performed By: #### L IVER, BMP, LIPID, TSH #### [facility] [address] [place] [address] Dr. Malachi Maciel RBC 4.62 106/ul Normal 4.20-5.40 [facility] Comment on above: Performed By: #### L IVER, BMP, LIPID, TSH #### [facility] [address] [place] [address] Dr. Malachi Maciel WBC 7.7 103/ul Normal 4.0-11.0 [facility] Comment on above: Performed By: #### L IVER, BMP, LIPID, TSH #### [facility] [address] [place] [address] Dr. Malachi Maciel PROF CHEM 8 (BAS METB)on Anion gap [Moles/Vol] 16.2 mmol/L Normal [facility] Comment on above: Performed By: #### L IVER, BMP, LIPID, TSH #### [facility] [address] [place] [address] Dr. Malachi Maciel Calcium [Mass/Vol] 9.5 mg/dL Normal 8.5-10.1 [facility] Comment on above: Performed By: #### L IVER, BMP, LIPID, TSH #### [facility] [address] [place] [address] Dr. Malachi Maciel Chloride [Moles/Vol] 105 mmol/L Normal 98-107 [facility] Comment on above: Performed By: #### L IVER, BMP, LIPID, TSH #### [facility] [address] [place] [address] Dr. Malachi Maciel CO2 [Moles/Vol] 24.7 mmol/L Normal 21.0-32.0 [facility] Comment on above: Performed By: #### L IVER, BMP, LIPID, TSH #### [facility] [address] [place] [address] Dr. Malachi Maciel Creatinine [Mass/Vol] 1.16 mg/dL Critically high 0.55-1.02 [facility] Comment on above: Performed By: #### L IVER, BMP, LIPID, TSH #### [facility] [address] [place] [address] Dr. Malachi Maciel EGFR-AF CAMEROONIAN 56 mL/min/1.73m2 Critically low >=60 [facility] Comment on above: Performed By: #### L IVER, BMP, LIPID, TSH #### [facility] [address] [place] [address] Dr. Malachi Maciel EGFR-NON AF CAMEROONIAN 46 mL/min/1.73m2 Critically low >=60 [facility] Comment on above: Performed By: #### L IVER, BMP, LIPID, TSH #### [facility] [address] [place] [address] Dr. Malachi Maciel Glucose [Mass/Vol] 103 mg/dL Normal 74-106 [facility] Comment on above: Performed By: #### L IVER, BMP, LIPID, TSH #### [facility] [address] [address] [address] Malachi Maciel Potassium [Moles/Vol] 3.9 mmol/L Normal 3.5-5.1 [facility] Comment on above: Performed By: #### L IVER, BMP, LIPID, TSH #### [facility] [address] [address] [address] Malachi Maciel Sodium [Moles/Vol] 142 mmol/L Normal 136-145 [facility] Comment on above: Performed By: #### L IVER, BMP, LIPID, TSH #### [facility] [address] [place] [address] Dr. Malachi Maciel Urea nitrogen [Mass/Vol] 12.0 mg/dL Normal 7.0-18.0 [facility] Comment on above: Performed By: #### L IVER, BMP, LIPID, TSH #### [facility] [address] [address] [address] Malachi Maciel Urea nitrogen/Creatinine [Mass ratio] 10.3 mg/mg Normal The [facility] Comment on above: Performed By: #### L IVER, BMP, LIPID, TSH #### [facility] [address] [place] [address] Dr. Malachi Maciel TROPONIN, HIGH SENSITIVITYon 09-03-2021 HSTROP 4.6 pg/mL Normal 4.0-51.3 The [facility] Comment on above: Result Comment: CUT- OFF POINTS HAVE BEEN ESTABLISHED BASED ON THE FOURTH UNIVERSAL DEFINITIONS OF MYOCARDIAL INFARCTION. THE UPPER REFERENCE LIMIT (URL) OF TROPONIN, DEFINED THE 99TH PERCENTILE OF cTnI DISTRIBUTION IN A REFERENCE POPULATION, HAS BEEN CONFIRMED THE DECISION THRESHOLD FOR WA DIAGNOSIS. Performed By: #### L IVER, BMP, LIPID, TSH #### [facility] [address] [address] [address] Malachi Maciel BASIC METABOLIC PANELon - Calcium [Mass/Vol] 8.8 mg/dL Normal 8.6-10.3 [facility] Comment on above: Order Comment: No: D o not add to previous draw Performed By: #### 0 0071 #### [facility] [address] [place] [address], [place] Chloride [Moles/Vol] 107 mmol/L Normal 98-107 [facility] Comment on above: Order Comment: No: D o not add to previous draw Performed By: #### 0 0071 #### [facility] [address] [place] [address], [place] CO2 [Moles/Vol] 28 mmol/L Normal 21-31 [facility] Comment on above: Order Comment: No: D o not add to previous draw Performed By: #### 0 0071 #### [facility] [address] [place] [address], [place] Creatinine [Mass/Vol] 0.76 mg/dL Normal 0.60-1.20 [facility] Comment on above: Order Comment: No: D o not add to previous draw Performed By: #### 0 0071 #### [facility] [address] [place] [address], [place] GFR/1.73 sq M predicted among blacks MDRD (S/P/Bld) [Vol rate/Area] mL/min/{1.73_m2} Normal >60 [facility] Comment on above: Order Comment: No: D o not add to previous draw Performed By: #### 0 0071 #### [facility] [address] [place] [address], [place] GFR/1.73 sq M predicted among non-blacks MDRD (S/P/Bld) [Vol rate/Area] mL/min/{1.73_m2} Normal >60 [facility] Comment on above: Order Comment: No: D o not add to previous draw Performed By: #### 0 0071 #### [facility] [address] [place] [address], [place] Glucose [Mass/Vol] 115 mg/dL High 70-100 [facility] Comment on above: Order Comment: No: D o not add to previous draw Performed By: #### 0 0071 #### [facility] [address] [place] [id number], [facility] Potassium [Moles/Vol] 4.3 mmol/L Normal 3.5-5.1 [facility] Comment on above: Order Comment: No: D o not add to previous draw Performed By: #### 0 0071 #### [facility] [address] [place] [address], [facility] Sodium [Moles/Vol] 137 mmol/L Normal 136-145 [facility] Comment on above: Order Comment: No: D o not add to previous draw Performed By: #### 0 0071 #### [facility] [address] [place] [address], [facility] Urea nitrogen [Mass/Vol] 16 mg/dL Normal 7-25 [facility] Comment on above: Order Comment: No: D o not add to previous draw Performed By: #### 0 0071 #### [facility] [address] [facility] [place] [address], [facility] CBC COMPLETE BLOOD COUNTon 0 - Erythrocyte distribution width (RBC) [Ratio] 12.5 % Normal 11.5-15.0 [facility] Comment on above: Order Comment: No: D o not add to previous draw Performed By: #### 5 0608 #### [facility] [address] [place] [address], [facility] Hematocrit (Bld) [Volume fraction] 32.2 % Low 36.0-45.0 [facility] Comment on above: Order Comment: No: D o not add to previous draw Performed By: #### 5 0608 #### [facility] [address] [place] [address], [facility] Hemoglobin (Bld) [Mass/Vol] 10.6 g/dL Low 12.0-15.0 [facility] Comment on above: Order Comment: No: D o not add to previous draw Performed By: #### 5 0608 #### [facility] [address] [facility]. [address] MCH (RBC) [Entitic mass] 29.8 pg Normal 27.0-33.0 [facility] Comment on above: Order Comment: No: D o not add to previous draw Performed By: #### 5 0608 #### [facility] [address] MCHC (RBC) [Mass/Vol] 32.9 g/dL Normal 32.0-35.0 [facility] Comment on above: Order Comment: No: D o not add to previous draw Performed By: #### 5 0608 #### [facility] [address] [facility] [place] [address], [facility] MCV (RBC) [Entitic vol] 90.4 fL Normal 82.0-98.0 [facility] Comment on above: Order Comment: No: D o not add to previous draw Performed By: #### 5 0608 #### [facility] [address] Nucleated RBC/100 WBC (Bld) [Ratio] 0 % Normal 0-0 [facility] Comment on above: Order Comment: No: D o not add to previous draw Performed By: #### 5 0608 #### [facility] [address] [place] [address], [facility] PLAT CNT 188 10*3/uL Normal 150-400 [facility] Comment on above: Order Comment: No: D o not add to previous draw Performed By: #### 5 0608 #### [facility] [address] [place] [address], [facility] RBC (Bld) [#/Vol] 3.56 10*6/uL Low 3.80-5.00 [facility] Comment on above: Order Comment: No: D o not add to previous draw Performed By: #### 5 0608 #### [id number] [place] [address] WBC (Bld) [#/Vol] 6.98 10*3/uL Normal 4.00-10.60 [facility] Comment on above: Order Comment: No: D o not add to previous draw Performed By: #### 5 0608 #### [facility] [address] [place], [place] [id number] [place] [address] CT ABDOMEN AND PELVIS WO CON TRASTon 09-02-2019 CT ABDOMEN AND PELVIS WO CONTRAST [facility] Department of Radiology [address] [place] [id number] Patient Name: FIONA BECERRA : 1955 Sex: F Age: Race: White Pt. 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 had director of labor relations procedure yesterday, rule out retroperitoneal bleed. QUESTION [...] reports Electronically signed: Kim Ellison. Transcribed by: [email or web address], User Resident: MOHAMUD JACKSON Electronically Signed by: KIM ELLISON @ 09/02/2019 06:06 AM I personally read this/these film(s) with this resident Normal [facility] Comment on above: Order Comment: Other , to rule out retroperitnoeal bleed Cardiovascular Lab Reporton 09-02-2019 Cardiovascular Lab Report [facility] Patient Name: Fiona Becerra [facility] MR #: [id number] Physician: Mary Ellen Painting of Evette Griffiths Medicine Service Date: 09/01/2019 Division of Birthdate: 1955 Cardiology Room #: 3AB [id number] Adult Cardiovascular Services [facility] [address] [facility]. [address] [place] [address] Cardiovascular Laboratory Report INDICATION: The patient is a 64-year-old woman with prior history of left subclavian stent in 2011. She was recently evaluated in Cardiology Clinic [...] signed informed consent. She was brought to director of labor relations in a fasting state. The right groin [...] angiography. This access was upsized to a 6-Martiniquais x 11 cm sheath. Heparin was administered intravenously and therapeutic ACT confirmed during the rest of the procedure. A straight 6-Martiniquais pigtail catheter was advanced to the ascending aorta and a thoracic aortogram was performed using power injection of contrast. A 5-Martiniquais Criminal Justice Professor H1 catheter was then used to selectively engage the innominate artery and angiography was performed in multiple views. The catheter was then brought backwards and used to selectively engage the left subclavian artery. Angiography was performed. Using an angled Glidewire, the left subclavian stenosis was crossed and the wire was used to advance the Criminal Justice Professor catheter and then the wire was exchanged to an exchange length Magic Torque wire. The catheter was retracted and the access sheath was removed. Over the Magic Torque wire, a Christopher 6-Martiniquais x 55 cm sheath was then advanced to the ostium of the left subclavian artery. Angiography was performed in multiple views. A Scrap Charger 6 x 40 mm balloon was then advanced and used to perform balloon angioplasty in the left subclavian artery with repeated inflations up to 14 atmospheres. Angiography was performed. A Scrap Charger 7 x 20 mm balloon was then [...] The access sheath was exchanged to a 6-Martiniquais x 11 cm sheath. The patient was [...] an optimal location and was upsized to 6-Martiniquais. There were no obstructive lesions noted in [...] up in Cardiology Clinic. Electronically Signed by: Mary Ellen Griffiths M.D. 09/10/2019 07:58 A Mary Ellen Griffiths M.D. Date Dict: 09/01/2019/06:08 P/Mary Ellen Griffiths M.D. Date Trans: 09/02/2019 08:52 A/charline [id number] Normal [facility] HEMOGLOBINon 09-02-2019 Hemoglobin (Bld) [Mass/Vol] 10.4 g/dL Low 12.0-15.0 [facility] Comment on above: Order Comment: No: D o not add to previous draw Performed By: #### 9 2089 #### [facility] [address] [place] [address], [facility] POC GLUCOSE LABon 09-02-2019 Glucose [Mass/Vol] 102 mg/dL High 70-100 [facility] Comment on above: Performed By: #### 8 5499 #### [facility] [address] [place] [address], [place] Glucose [Mass/Vol] 106 mg/dL High 70-100 [facility] Comment on above: Performed By: #### 8 5499 #### [facility] [address] [place] [address], [facility] URINALYSIS REFLEXon 09-02-19 20 Appearance (U) SL CLOUDY Abnormal CLEAR [facility] Comment on above: Order Comment: No: D o not add to previous draw Criteria for reflexing a culture was not met. Please call the lab at [phone] within 24 hours of collection time if culture is needed Performed By: #### 3 0965 #### [facility] [address] [place] [address], [facility] Bilirubin [Mass/Vol] Negative Normal NEGATIVE [facility] Comment on above: Order Comment: No: D o not add to previous draw Criteria for reflexing a culture was not met. Please call the lab at [phone] within 24 hours of collection time if culture is needed Performed By: #### 3 0965 #### [facility] [address] [place] [address], [facility] BLOOD SMALL Abnormal NEGATIVE [facility] Comment on above: Order Comment: No: D o not add to previous draw Criteria for reflexing a culture was not met. Please call the lab at [phone] within 24 hours of collection time if culture is needed Performed By: #### 3 0965 #### [facility] [address] [place] [address], [place] Color (U) YELLOW Normal YELLOW [facility] Comment on above: Order Comment: No: D o not add to previous draw Criteria for reflexing a culture was not met. Please call the lab at [phone] within 24 hours of collection time if culture is needed Performed By: #### 3 0965 #### [facility] [address] [place] [address], [place] EPIS MOD Abnormal FEW,OCC,NONE SEEN [facility] Comment on above: Order Comment: No: D o not add to previous draw Criteria for reflexing a culture was not met. Please call the lab at [phone] within 24 hours of collection time if culture is needed Performed By: #### 3 0965 #### [facility] [address] [place] [address], [facility] Glucose [Mass/Vol] Negative Normal NEGATIVE [facility] Comment on above: Order Comment: No: D o not add to previous draw Criteria for reflexing a culture was not met. Please call the lab at [phone] within 24 hours of collection time if culture is needed Performed By: #### 3 0965 #### [facility] [address] [place] [address], [place] KETONE Negative Normal NEGATIVE [facility] Comment on above: Order Comment: No: D o not add to previous draw Criteria for reflexing a culture was not met. Please call the lab at [phone] within 24 hours of collection time if culture is needed Performed By: #### 3 0965 #### [facility] [address] [place] [address], [place] LEUK CHRIS SMALL Abnormal NEGATIVE [facility] Comment on above: Order Comment: No: D o not add to previous draw Criteria for reflexing a culture was not met. Please call the lab at [phone] within 24 hours of collection time if culture is needed Performed By: #### 3 0965 #### [facility] [address] [place] [address], [place] MUCUS THREADS OCC Abnormal NONE SEEN [facility] Comment on above: Order Comment: No: D o not add to previous draw Criteria for reflexing a culture was not met. Please call the lab at [phone] within 24 hours of collection time if culture is needed Performed By: #### 3 0965 #### [facility] [address] [place] [address], [facility] Nitrite Ql (U) Positive Abnormal NEGATIVE [facility] Comment on above: Order Comment: No: D o not add to previous draw Criteria for reflexing a culture was not met. Please call the lab at [phone] within 24 hours of collection time if culture is needed Performed By: #### 3 0965 #### [facility] [address] [place] [address], [facility] pH (Bld) 6.0 Normal 5.0-8.0 [facility] Comment on above: Order Comment: No: D o not add to previous draw Criteria for reflexing a culture was not met. Please call the lab at [phone] within 24 hours of collection time if culture is needed Performed By: #### 3 0965 #### [facility] [address] [place] [address], [facility] Protein (U) [Mass/Vol] Negative Normal NEGATIVE [facility] Comment on above: Order Comment: No: D o not add to previous draw Criteria for reflexing a culture was not met. Please call the lab at [phone] within 24 hours of collection time if culture is needed Performed By: #### 3 0965 #### [facility] [address] [place] [address], [facility] RBC (U) [#/Vol] 6-10 Abnormal NONE SEEN [facility] Comment on above: Order Comment: No: D o not add to previous draw Criteria for reflexing a culture was not met. Please call the lab at [phone] within 24 hours of collection time if culture is needed Performed By: #### 3 0965 #### [facility] [address] [place] [address], [facility] SPEC GRAV 1.032 High 1.015-1.020 [facility] Comment on above: Order Comment: No: D o not add to previous draw Criteria for reflexing a culture was not met. Please call the lab at [phone] within 24 hours of collection time if culture is needed Performed By: #### 3 0965 #### [facility] [address] [facility] [place] [address], [facility] WBC UA 11-20 Abnormal NONE SEEN [facility] Comment on above: Order Comment: No: D o not add to previous draw Criteria for reflexing a culture was not met. Please call the lab at [phone] within 24 hours of collection time if culture is needed Performed By: #### 3 0965 #### [facility] [address] [facility] [place] [address], [facility] Vital Signs Date Time Vital Sign Value Performing Clinician Faci lity 01-07-2023 14:00-0400 Body height 157.48 cm Luis Galeisle II Other [employer] Other 01-07-2023 14:00-0400 Body mass index (BMI) [Ratio] 22.49 kg/m2 Luis Galeisle II Other [employer] Other 01-07-2023 14:00-0400 Body weight 55.79 kg Luis Alexisle II Other [employer] Other 07-24-2021 10:40-0400 Body height Twin Martinez Other [employer] Other 07-24-2021 10:40-0400 Body mass index (BMI) [Ratio] 23.77 kg/m2 Twin Martinez Other [employer] Other 07-24-2021 10:40-0400 Body weight 58.97 kg Twin Martinez Other [employer] Other 06-12-2021 14:20-0400 Body height Twin Martinez Other [employer] Other 06-12-2021 14:20-0400 Body mass index (BMI) [Ratio] 23.77 kg/m2 Twin Martinez Other [employer] Other 06-12-2021 14:200400 Body weight 58.97 kg Twin Martinez Other [employer] Other Encounters Encounter Date Encounter Type Care Provider Facility Start: 02-08-2024 ambulatory YEIMI Barrowi ty:[facility] Start: 04-23-2023 End: 04-23-[address] [facility] Start: 02-05-2023 ambulatory Virgilio Moreno acility:[facility] Start: 02-02-2023 End: 02-03-2023 ambulatory YEIMI QUIJANO Facility:[facility] Start: 02-02-2023 End: 02-02-2023 Patient encounter procedure YEIMI QUIJANO [facility] Start: 01-07-2023 Office outpatient ne w 45 minutes Luis Payne II [facility] Start: 01-07-2023 End: 01-07-2023 ambulatory Omkar Rene Facility:[facility] Start: 01-07-2023 End: 01-07-2023 ambulatory MD Omkar Rene Work Phone: [facility] Work Phone: Start: 01-07-2023 End: 01-07-2023 Patient encounter procedure MD Omkar Rene Work Phone: [facility] Start: 01-04-2023 End: 01-05-2023 ambulatory Ashely [place] Facility:[facility] Start: 01-04-2023 End: 01-04-2023 Lab Drop off Ashely Orlando [facility] Start: 01-04-2023 End: 01-05-2023 ambulatory [facility]MKAR RENE [facility] Start: 01-04-2023 End: 01-04-2023 Patient encounter procedure OMKAR RENE [facility] Start: 12-04-2022 End: 12-05-2022 ambulatory YEIMI E MACIE Facility:[facility] Start: 12-04-2022 End: 12-04-2022 Patient encounter procedure YEIMI E MACIE [facility] Start: 12-01-2022 End: 12-02-2022 ambulatory YEIMI E MACIE Facility:[facility] Start: 12-01-2022 End: 12-01-2022 Patient encounter procedure Ashely [place] [facility] Start: 11-26-2022 End: 11-27-2022 ambulatory YEIMI E MACIE Facility:[facility] Start: 11-26-2022 End: 11-26-2022 Patient encounter procedure YEIMI E MACIE [facility] Start: 11-09-2022 End: 11-10-2022 ambulatory Ashely [place] Facility:[facility] Start: 11-09-2022 End: 11-09-2022 Patient encounter procedure Ashely MLamberto Edwardse [facility] Start: 11-05-2022 End: 11-05-2022 ambulatory [facility] Start: 11-02-2022 End: 11-03-2022 ambulatory YEIMI E MACIE Facility:[facility] Start: 11-02-2022 End: 11-02-2022 Patient encounter procedure Blayne CHOI [facility] Start: 07-29-2022 End: 07-30-2022 ambulatory MEÑO APONTE Facility:[facility] Start: 07-24-2022 End: 07-24-2022 ambulatory MEÑO APONTE [facility] Start: 06-08-2022 ambulatory YEIMI QUIJANO Facility :[facility] Start: 06-04-2022 End: 06-05-2022 ambulatory OMKAR CHACKOR Facility:[facility] Start: 06-02-2022 End: 06-03-2022 ambulatory YEIMI QUIJANO Facility:[facility] Start: 06-02-2022 End: 06-03-2022 ambulatory YEIMI QUIJANO Facility:[facility] Start: 06-02-2022 End: 06-02-2022 Lab Drop off YEIMI QUIJANO [facility] Start: 02-13-2022 End: 02-14-2022 ambulatory OMKAR RENE Facility:[facility] Start: 12-03-2021 End: 12-04-2021 ambulatory OMKAR A RICCOR Facility:[facility] Start: 12-01-2021 End: 12-02-2021 ambulatory OMKAR CHACKOR Facility:[facility] Start: 09-03-2021 End: 09-03-2021 ambulatory OMKAR CHACKOR Facility:[facility] Start: 08-21-2021 End: 08-21-[address] ZAKIA AZEVEDO . Facility:[facility] Start: 08-05-2021 End: 08-05-[address] ZAKIA AZEVEDO . Facility:[facility] Start: 07-24-2021 End: 07-24-2021 ambulatory Twin Martinez Other [employer] [facility] [employer] Other Start: 07-24-2021 Office outpatient visit 15 minutes Twin Martinez [facility] Start: 06-18-2021 End: 06-18-2021 Patient encounter procedure MD Omkar Rene [facility] Start: 06-12-2021 End: 06-12-2021 ambulatory Twin Martinez Other [facility] [employer] Other Start: 06-12-2021 Office outpatient ne w 30 minutes Twin Michelle [facility] Procedures Date Procedure Procedure Detail Performing [...] Immunizations Immunization Date Immunization Notes Care Provider [facility] 01-08-2023 influenza virus vaccine, unspecified formulation YEIMI QUIJANO [facility] 12-23-2021 influenza virus vaccine, unspecified formulation YEIMI QUIJANO [facility] 12-23-2021 SARS-CoV-2 (COVID-19 ) [id number] YEIMI QUIJANO [facility] 07-15-2021 SARS-CoV-2 mRNA (rtsxdyveqto-lggm-loqex se) vaccine YEIMI MACIE [facility] 01-09-2021 SARS-CoV-2 (COVID-19 ) mRNA BNT-162b2 vax YEIMI MACIE [facility] 12-26-2020 influenza virus vaccine, unspecified formulation YEIMI MACIE [facility] 06-12-2020 SARS-CoV-2 (COVID-19 ) mRNA BNT-162b2 vax YEIMI MACIE [facility] 05-24-2020 SARS-CoV-2 (COVID-19 ) mRNA BNT-162w1 vax YEIMI MACIE [facility] Comment on above: Result Comment: 2022: [id number] 04-25-2020 zoster vaccine recombinant YEIMI MACIE [facility] 12-23-2018 influenza virus vaccine, unspecified formulation YEIMI MACIE [facility] 12-23-2018 zoster vaccine recombinant YEIMI MACIE [facility] 01-01-2016 influenza virus vaccine, unspecified formulation YEIMI MACIE [facility] 01-01-2016 zoster vaccine, live JENNIFE R MACIE [facility] Payers Date Payer Category Payer Self-pay [id number] 2017 Private Health Insurance [facility] [id number] 1959 Medicaid [id number] 1959 Medicare [id number] 1955 Unknown [id number] 2.16.84 0.1.596072.3.579.2.593 1953 Unknown [id number] 2.16.84 0.1.133949.3.579.2.593 1953 Unknown [id number] 2.16.84 0.1.273317.3.579.2.593 1953 Unknown [id number] 2.16.84 0.1.927846.3.579.2.593 1953 Unknown [id number] 2.16.84 0.1.151886.3.579.2.593 1953 Unknown [id number] 2.16.84 0.1.730508.3.579.2.593 1953 Unknown [id number] 2.16.84 0.1.688060.3.579.2.593 1953 Unknown [id number] 2.16.84 0.1.954529.3.579.2.593 1953 Unknown [id number] 2.16.8 40.1.402676.3.579.2.727 1953 Unknown [id number] 2.16.8 40.1.310756.3.579.2.727 1953 Unknown [id number] 2.16.8 40.1.095207.3.579.2.727 1953 Unknown [id number] 2.16.8 40.1.784920.3.579.2.727 1953 Unknown [id number] 2.16.8 40.1.743040.3.579.2.727 1953 Unknown [id number] 2.16.8 40.1.521664.3.579.2.727 1953 Unknown [id number] 2.16.8 40.1.867337.3.579.2.727 1953 Unknown [id number] 2.16.8 40.1.060109.3.579.2.727 1953 Unknown [id number] 2.16.8 40.1.964189.3.579.2.727 1953 Unknown [id number] 2.16.8 40.1.771618.3.579.2.727 1953 Unknown [id number] 2.16.8 40.1.897498.3.579.2.727 1953 Unknown [id number] 2.16.8 40.1.193448.3.579.2.727 1953 Unknown [id number] 2.16.8 40.1.837725.3.579.2.727 Medicare [id number] Unknown [id number] Unknown [id number] 2.16.8 40.1.304064.3.579.2.531 Unknown [id number] 2.16.8 40.1.504726.3.579.2.531 Social History Date Type Detail Facility [facility] [employer] Other Start: 1955 Sex Assigned At Female F [facility] Sex Assigned At [facility] Start: 06-02-2022 Tobacco smoking status Ex-smoker (fi nding) [facility] Functional Status Date Assessment Result Facility 02-02-2023 Functional Status N/A [facility] 11-09-2022 Functional Status N/A [facility] Clinical Notes 06-12-2021 to 04-23-2023 Note Date & Type Note Facility 04-23-2023 Note [facility] Subjective Fiona Becerra is a 68 y.o. year old female patient being seen for follow up vascular testing. She called the office last week c/o lightheadedness upon standing up. Patient had Covid-19 a month or so ago. Denies syncope but has been near-syncope upon standing several times. Denies chest pain, SOB, and palpitations. Patient Active Problem List Diagnosis Anxiety Carotid stenosis Constipation Depression Disorder of sacrum Essential hypertension Hyperlipidemia Lightheadedness Lumbosacral spondylosis without myelopathy Peripheral vascular disease (CMS/HCC) Thyroid nodule Subclavian steal syndrome Lichen sclerosus Ischemic colitis (CMS/HCC) Gastritis Chronic kidney disease Urinary tract infection Unspecified urethral stricture, female Anxiety disorder Subclavian steal syndrome of left subclavian artery Age-related nuclear cataract of both eyes Epigastric abdominal pain Flank pain Kidney stone Vaginal atrophy Family History Problem Relation Name Age of Onset Atrial fibrillation Mother Hypertension Mother Heart failure Father Kidney disease Father Atrial fibrillation Sister Social History Tobacco Use Smoking status: Every Day Packs/day: .5 Types: Cigarettes Smokeless tobacco: Never Substance Use Topics Alcohol use: Yes Comment: occasional HPI Fiona is seen in follow up on subclavian stenosis. Visit of 08/21/2019: She is a 64 yo woman with prior history of hypertension and subclavian stenosis s/p left subclavian stenting in 2011 at [facility]. She has been having significant symptoms of bilateral arm weakness, dizziness and lightheadedness on exertion. She does not have chest pain or shortness of breath. No leg swelling. She reports that she had one time AF episode in 2013 but no recurrence. She was recently evaluated in our clinic and duplex ultrasound showed evidence of bilateral subclavian stenosis more severe on the left with reversal of left vertebral flow. She has a differential of pressure in both arms with the left being lower. Carotid u/s 08/02/2019: There is less than [...] stenosis. Echocardiogram 06/20/2018: normal LVEF, mild MR. Visit of 09/14/2019: She is seen in follow up via telemedicine. After last visit I proceeded with angiogram and FINISH FILER of the left subclavian artery with excellent results on 09/01/2019. Since then the dizziness disappeared. Today she mentions that she has pain in the right side of the chest. The area is tender. Blood pressure is almost equal in both arms. Her blood pressure recordings at home show BP ranging from 100 to 140 systolic. With the low blood pressure she feels lightheaded. Angiogram 09/01/2019: 1. Severe up to 90% [...] mid segment with no evidence of stenosis. Visit of 12/27/2019: She is seen in follow up via telemedicine. She still feels dizziness. This happens with movement. She says it gets worse when she lays down. She has a lot of bruising. Her blood pressure is equal in both arms today. subclavian ultrasound 12/19/2019: ~50% left subclavian stenosis. Stent is patent. Improved velocities compared to prior u/s. Stress test 09/2019: normal. BMP 12/22/2019: w/n normal. Visit of 03/25/2020: She is seen in follow-up. She has been doing very well. No chest pain, no shortness of breath, no leg edema, no palpitations, no lightheadedness or dizziness. She ran out of lisinopril 5 mg daily and she has not been taking it for several weeks. Her blood pressure today is elevated. At last visit of December 2019 I stopped Plavix and continue the aspirin and statin therapy. Visit of 05/05/2021: Today she is seen as a sick call. She has been having issues with dizziness and lightheadedness and her blood pressure has been labile. She has no angina. No specific arm symptoms. No lower extremity swelling. No palpitations. No stroke-like symp (more content not included)... [facility] 02-02-2023 Hospital Discharge instructions Patient Education 02/02/2023 11:49:46 Urinary Tract [...] Treatment for this condition includes: Antibiotic medicine. Qqjd-rse-ifagled medicines to treat discomfort. Drinking enough water [...] Follow these instructions at home: Medicines Take phyp-sye-jhguezz and prescription medicines only as told by [...] provider. Document Revised: 10/18/2020 Document Reviewed: 10/18/2020 [employer] Patient Education 2022 [employer]. Follow Up Care 11/10/2022 12:49:15 With:MACIE ACOSTA, YEIMI Elder, URL Address: [address] [place] [address] When: Unknown [facility] [facility] 01-07-2023 Evaluation note Encounter Date Diagnosis Assessment [...] oral anti-inflammato elsy and Tylenol. Recommended utilizing prwu-syr-mzupka r oral anti-inflammato elsy. Recommended adjusting their [...] MRI to evaluate for gluteal tendon pathology. [employer] Other 08-21-2023 Note [id number]:127[facility] 11-09-2022 NoteCystoscopy with Urethral Dilation ? Voiding [...] if you have a fever over 100 degreesKindred Hospital [facility]ima08-21-2023 Hospital Discharge instructions Patient Education 11/09/2022 12:01:57 [...] Care 11/04/2022 16:37:52 With:YEIMI QUIJANO Address: [address] [place] [address] [place] [address] Business (1) [address], [address] [place] [address] Business (1) [address] [place] [address] Business (1) When: Unknown Comments:Office to schedule follow up in 2-3 months with VIVI Bailon [facility]08-21-2023 Evaluation + Plan noteExtracted from: Title:[facility] HOPD Note Author:Ashely Orlando MD Date:11/09/22 Impression and Plan Assessment and Plan: Diagnosis: Vaginal atrophy (NJZ95-DC N95.2, Discharge, Medical), Unspecified urethral stricture, female (DEE91-SR N35.92, Discharge, Medical), Recurrent UTI (IPC12-GT N39.0, Discharge, Medical), Lichen sclerosus (PVW91-YD L90.0, Discharge, Medical). 67 yo F prior DLS pt last seen by VIVI Bailon here for urethral stricture dilation. 1. Urethral stricture- mild on exam, pt demanded repeat dilation despite recent +UCx, on abx. States understanding of getting worse infection/sick. Unclear if having stricture sx, but again pt was adamant about having dilation done. Risks thoroughly discussed. -Dilated to 30 Martiniquais today without difficulty -Recommend starting Estrace cream [...] sclerosis - cont clobetasol prn per dermatology [facility]08-17-2023 NoteSubjective Fiona Becerra is a 67 y.o. year old female patient being seen for hypertension and subclavian stenosis s/p left subclavian stenting in 2011 at [facility]. Patient Active Problem List Diagnosis Anxiety Carotid [...] s/p left subclavian stenting in 2011 at [facility]. Update: 02/05/2022 She had Covid back in the summer of 2020, and has been feeling more fatigued and lightheaded/dizzy since then. Lightheadedness occurs upon standing and at times with walking. Notices numbness in hands usually in the morning, no associated pain. Denies chest pain, SOB, palpitations, or syncope. KEITH occurs with climbing 3 flights of stairs. Update: 11/05/2021 She was seen at the [place] ED with chest pain on 10/30/2022 Pain [...] velocity Impression Elevated flow (more content not included)...[facility] 07-24-2022 NoteCurrently stableUn[facility]05-05-2023 NoteStable, no concerning symptomsUnVeterans Health Administration05-05-2023 NoteContinue crestor Last LDL was 59- well controlledUnVeterans Health Administration05-05-2023 NoteubUnVeterans Health Administration05-05-2023 NotePatient here for 6 mo follow up subclavian steal syndrome and hypertension. Had labs and carotid US in May 2022. Denies chest pain, SOB, and lightheadedness. Says she's feeling pretty good lately from a cardiac standpoint. Review of Systems Constitutional: Positive for malaise/fatigue. Musculoskeletal: Positive for arthritis, back pain, joint pain and muscle weakness. All other systems reviewed and are negative.[facility] 07-24-2022 NoteUTP CARDIOLOGY PROGRESS NOTE HPI: Fiona [...] in-stent stenosis ( (more content not included)... [facility]05-05-2023 NoteHypertension is typically well controlled- she forgot to take her meds this morningUnVeterans Health Administration05-05-2023 NoteF/[facility] with [facility]UnV[facility]03-14-2023 NoteChief Complaint Patient Is here for a [...] (pt requested not to be with other [place] MDs). The procedure risks, benefits, details, and [...] With When Contact Information SHAYY HUSTON, Oswaldo Sewell, URL [address] [place] [address] [place] [address] Additional Instructions: Cysto/UD with Dr. Matthews Patient Education Lichen Sclerosus Documentation recorded by the kaylah Pride accurately reflects the services(s) I performed and decisions made by me. Authenticated by Yeimi Quijano PA-C on 06/02/2022 12:45:09. Marilee Montaño, personally scribed for Yeimi Quijano PA-C on [...] Dipstick: Negative (06/02/22 10:43:0 (more content not included)...[facility]:Result Comment: Electronically Signed By: YEIMI QUIJANO PA-C\.br\Date and Time Signed: 06/03/2311:45 EDT\.br\Electronically Co-Signed By: Marilee Pride.br\Date and Time Co-Signed: 06/02/22 11:37 [id number] Evaluation + Plan note Diagnostic Tests Pending * Urine Culture 06/02/22 [facility]05-05-2022 Evaluation note* Encounter Date Diagnosis Assessment Notes [...] without myelopathy or radiculopathy (ICD-10 - M47.816) [employer] Other 03-24-2022 Evaluation note* Encounter Date Diagnosis [...] Asymptomatic age-related postmenopausal state (ICD-10 - Z78.0) [employer] Other evaluation + Plan note Future Appointments Appointment Date:02/02/2023 11:00:00 AM Scheduled Provider:YEIMI QUIJANO PA-C Location:[facility] Appointment Type:URO Office Visit Future Scheduled Tests Laboratory* Urine Culture [facility]25/22 [facility] Future Appointments Appointment Date:02/02/2023 11:00:00 AM Scheduled Provider:YEIMI QUIJANO PA-C Location:[facility] Appointment Type:URO Office Visit Future Scheduled Tests Radiology* CT Abdomen/Pelvis w/o Contrast 12/01/22 [facility] evaluation + Plan note Future Appointments Appointment Date:02/02/2023 11:00:00 AM Scheduled Provider:YEIMI QUIJANO PA-C Location:[facility] Appointment Type:URO [facility] Future Appointments Appointment Date:02/02/2023 11:00:00 AM Scheduled Provider:YEIMI QUIJANO PA-C Location:[facility] Appointment Type:URO Office Visit Diagnostic Tests Pending * Urine Culture 01/04/23 [facility] Future Appointments Appointment Date:02/08/2024 10:00:00 AM Scheduled Provider:YEIMI QUIJANO PA-C Location:[facility] Appointment Type:URO Office Visit [facility] evaluation noteNo assessment information available [facility] Work Phone: Hiswdbp general Narrative - Reported* Type Description Date Medical History GERD Medical History glaucoma Medical History HTN Medical History hyperlipidemia Medical History anxiety Medical History Atrial fibrillation Surgical History bunionectomy Surgical History Bunions Surgical History tonsillectomy Surgical History Tonsils Surgical History Ovaries Surgical History urethral dilation Surgical History ovary surgery Surgical History Stents Hospitalization History see above [facility] [employer] Other Hospital course Narrative No data available for this section [facility] Dis[facility] instructions No data available for this section [facility] CenterProgress note No data available for this section [facility] CenterReason for visit NarrativeReferral Maryan Montes [facility]NHar[facility] [employer] Other Summary Purpose Family History No Family [...] 3:57pm Hospital Course Note MR#: [id number] [facility] Pt. 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 PROCEDURES: director of labor relations for severe in-stent restenosis in the left subclavian artery extending beyond the distal end of the stent to just proximal to the origin of the left vertebral artery. The patient had balloon dilation of the left subclavian artery with reduction in all stenosis to 10%. In addition, the patient had patent bilateral vertebral arteries along with patent ytquszmm-ky-euj segments of both internal carotid arteries. The innominate artery also showed no evidence of stenosis along with the right subclavian artery in the pcnpsohe-md-nau segment with no evidence of stenosis. DISCHARGE DIAGNOSES: 1. Left subclavian artery in-stent restenosis, status post balloon dilation. 2. Left subclavian steal syndrome. 3. Carotid artery stenosis. 4. Essential hypertension. (more content not included)... Chief Complaint and Reason for Visit Chief Complaint z78.0,M54.16 Additional Source Comments INFORMATION SOURCE (unrecogn ized section and content) DATE CREATED AUTHOR 04/04/2020 [facility] DATE CREATED AUTHOR AUTHOR'S ORGANIZ ATION 08/02/2022 [facility] DATE CREATED AUTHOR AUTHOR'S ORGANIZ ATION 02/03/2023 [facility] DATE CREATED AUTHOR AUTHOR'S ORGANIZ ATION 04/24/2023 [facility] DATE CREATED AUTHOR AUTHOR'S ORGANIZ ATION 04/30/2023 [facility] Care Teams (unrecognized sec tion and content) [...] BE BASED ON THE PRIMARY CLINICAL RECORDS. [employer] [facility]. provides no warranty or guarantee of the accuracy or completeness of information in this document.
[2023-05-13 15:29] LABS: Basophils Percent Auto 0.5 % (0.2-2.0); Eosinophils Absolute Auto 0.1 10^3/uL (0.0-0.7); Eosinophils Percent Auto 0.7 % (0.9-7.0); Hematocrit 39.4 % (36.0-48.0); Hemoglobin 12.8 g/dL (12.0-16.0); Immature Granulocytes Abs Auto 0.01 10^3/uL (0.00-0.03); Immature Granulocytes Pct Auto 0.1 % (0.0-0.5); Lymphocytes Absolute Auto 1.8 10^3/uL (1.2-3.8); Lymphocytes Percent Auto 24.8 % (20.5-60.0); Mean Corpuscular HGB Conc 32.5 g/dL (29.9-35.2); Mean Corpuscular Hemoglobin 29.2 pg (26.7-34.0); Mean Platelet Volume 9.9 fL (9.5-13.5); Monocytes Absolute Auto 0.4 10^3/uL (0.3-0.8); Monocytes Percent Auto 5.7 % (1.7-12.0); Neutrophils Absolute Auto 5.1 10^3/uL (1.4-6.5); Neutrophils Percent Auto 68.2 % (43.0-75.0); Platelet Count 249 10^3/uL (150-450); Red Blood Count 4.38 10^6/uL (4.20-5.40); Red Cell Distribution Width 12.9 % (11.0-15.0); White Blood Count 7.4 10^3/uL (4.0-11.0)
[2023-05-13 16:00] LABS: Alanine Aminotransferase 15 U/L (14-59); Albumin Globulin Ratio 0.9; Albumin Level 3.9 g/dL (3.4-5.0); Alkaline Phosphatase 74 U/L (46-116); Anion Gap 13.1; Aspartate Amino Transferase 16 U/L (15-37); BUN Creatinine Ratio 21.1; Bilirubin Total 0.3 mg/dL (0.2-1.0); Calcium 9.5 mg/dL (8.5-10.1); Carbon Dioxide 27.8 mmol/L (21.0-32.0); Chloride 103 mmol/L (98-107); Estimated GFR (African America >60 (>=60); Estimated GFR (Non-African Ame 50 (>=60); Globulin 4.4 g/dL; Glucose 79 mg/dL (74-106); Potassium 3.9 mmol/L (3.5-5.1); Sodium 140 mmol/L (136-145); TSH W/ REFLEX FT4 1.252 uIU/mL (0.358-3.740); Total Protein 8.3 g/dL (6.4-8.2)
== END 2023-05-13 14:27 | disposition home or self-care (01) ==
LOC: CARD 14:28
PROVIDERS: PCP Family Medicine; Visit Provider Internal Medicine
DX: R55 Syncope and collapse (principal); R63.4 Abnormal weight loss; R42 Dizziness and giddiness
CPT/HCPCS: 36415; 72100; 80053; 82607; 84443; 85025; 93005

== ENCOUNTER 2023-05-13 18:37 | Emergency (ER) | payer MEDICARE, SELFPAY ==
[2023-05-13] VITALS (28 sets, daily range): BP systolic 84–190; BP diastolic 55–80; PULSE 66–159; RESP 8–30; TEMP 36.5; O2SAT 95–100; BMI 20.9
--- NOTE | 2023-05-13 18:39 | XR_ITS ---
The [address] [address] Patient Name: MARIANNA STEINBERG MRN: [id number] date: 1955 Sex: F Assigned Patient Location: ED.MAIN Current Patient Location: ER Accession/Order Number: [id number] Exam Date: 05/13/2023 19:18 Report Date: 05/13/2023 19:30 At the request of: MAGDALENA KENNEDY Procedure: XR chest 1V EXAM: XR chest 1V at 1912 hours HISTORY: Chest pain COMPARISON: 10/30/2022 TECHNIQUE: AP upright portable chest x-ray FINDINGS: The heart is not enlarged and the vasculature is not distended. No acute infiltrate, effusion or pneumothorax is identified. The osseous structures are grossly intact. XR/XR chest 1V IMPRESSION: No acute infiltrate or evidence of cardiac decompensation. The overall appearance of the chest is essentially unchanged. Electronically authenticated by: ZOE WALKER Date: 05/13/2023 19:30
--- NOTE | 2023-05-13 18:39 | ECG_ITS ---
The [facility] Test Date: 2023-05-13 Pat Name: MARIANNA STEINBERG Department: Room: - Gender: Female Office Electrician: : 1955 Requested By: AMBER RENE Order Number: [id number] Reading MD: MARLINE GUERRIER Measurements Intervals [place] Rate: 155 P: -[id number] PA: -[id number] QRS: 65 QRSD: 74 T: 50 QT: 302 QTc: 389 Interpretive Statements Supraventricular tachycardia, can't exclude atrial flutter [address] depression 9150 abnormal ECG Electronically Signed On 05-13-2023 22:20:44 EST by MARLINE GUERRIER
--- OUTSIDE RECORDS SUMMARY | 2023-05-13 18:51 | XMS_ITS | CCD ---
Author Name Unknown Address [address] [place] [address] Organization [facility] Care Team Providers Care Glass Etcher Name Role Phone MD Omkar Rene Primary Care Provider [phone] MD Twin Martinez Attending Provider [phone] Twin Martinez Unavailable OMKAR RENE Primary [...] Unavailable NADERER, OMKAR Clemens Primary Care Unavailable [place], DR JANNIE Silva Consulting Unavailable FAY, MEÑO Consulting Unavailable NADERER, OMKAR Clemens Primary Care Unavailable HAY ., DR CHAVEZ Admitting Unavailable HAY ., DR CHAVEZ Attending Unavailable HAY ., DR CHVAEZ Consulting Unavailable AZEVEDO ., DR ZAKIA Joshua Admitting Unavailable AZEVEDO ., DR ZAKIA Joshua Attending Unavailable NADSRIRAM, OMKAR Clemens Primary Care Unavailable AZEVEDO ., DR ZAKIA Joshua Consulting Unavailable AZEVEDO ., DR ZAKIA Joshua Admitting Unavailable AZEVEDO ., DR ZAKIA Joshua Attending Unavailable NADERER, OMKAR A Primary Care Unavailable JOLLY ., DR ZAKIA Joshua Consulting Unavailable MD Omkar Rene Primary Care Provider MD Luis Payne II Attending Provider [phone] Luis Payne II Unavailable MACIE, YEIMI E Attending Unavailable MACIE, [...] (3 sources) Amitriptyline Drug Allergy throat swelling [employer] Other (20 sources) atorvastatin; Translations: [atorvastatin] Drug Allergy 06-20-19 14 Unknown [facility] (10 sources) Desvenlafaxine; Translations: [desvenlafaxine] Drug Allergy [facility] (10 sources) FLUoxetine / OLANZapine; Translations: [fluoxetine-olanz apine] Drug Allergy [facility] (11 sources) latanoprost; Translations: [latanoprost ophthalmic] Drug Allergy 07-05-19 14 [facility] (1 source) atorvastatin Drug Allergy 06-21-19 14 [facility] (1 source) buPROPion Drug Allergy 06-21-19 14 [facility] (1 source) gemcitabine Drug Allergy 06-21-19 14 [facility] (2 sources) Lactobacillus; Translations: [OLANZAPINE] Drug Allergy 06-21-19 14 [facility] (1 source) latanoprost Drug Allergy 06-21-19 14 [facility] (2 sources) predniSONE; Translations: [PREDNISONE] Drug Allergy 10-20-19 15 [facility] (1 source) vilazodone Drug Allergy 01-26-20 14 [facility] (1 source) DULoxetine Drug Allergy Unknown [employer] Other (1 source) atorvastatin; Translations: [Lipitor] Drug Allergy [facility] (1 source) buPROPion; Translations: [BUPROPION HCL] Drug Allergy 12-10-19 12 [facility] (1 source) buPROPion; Translations: [BUPROPION HBR] Drug Allergy 11-17-19 17 [facility] (1 source) vilazodone; Translations: [VILAZODONE] Drug Allergy 12-10-19 12 [facility] (1 source) OLANZAPINE-FLUOXE GREGORIO; Translations: [OLANZAPINE-FLUOX ETINE] Propensity to adverse reactions to drug (disorder) 07-05-19 14 [facility] (1 source) VENLAFAXINE ANALOGUES; Translations: [VENLAFAXINE ANALOGUES] Propensity to adverse reactions to drug (disorder) 07-05-19 14 [facility] (1 source) Amitriptyline Drug Allergy 01-08-20 23 [facility] (1 source) DULoxetine Drug Allergy 01-08-20 [facility] Medications Current Medications Medication Drug Class(es) Dates Sig (Normalized) Sig (Original) amoxicillin 875 mg oral tablet (1 source) Penicillin-class Antibacterial Start: 11-06-2022 End: 11-11-2022 take 1 tablet by mouth twice daily amoxicillin 875 mg Tab 875 mg = 1 tab(s), Oral, BID, X 5 day(s), # 10 tab(s), Refills(s) 0, Pharmacy: [facility] #[facility], 158, cm, 06/02/22 11:06:00 EDT, [...] 1 month, then 2x a week afterwards, [facility], 62, cm, 11/09/22 11:18:00 EDT, Height/Length Dosing, 64, kg, 06/02/22 11:06:00 EDT, Weight Dosing Start Date: 11/09/22 Status: Ordered fluconazole 150 mg oral tablet (6 sources) Azole Antifungal Start: 11-20-2022 take 1 tablet by mouth once fluconazole 150 mg Tab 150 mg = 1 tab(s), Oral, Once, # 1 tab(s), Refills(s) 0, Pharmacy: [facility] #[facility], 62, cm, 11/09/22 11:18:00 EDT, Height/Length [...] 5 day(s), 10 tab(s), Refill(s) 0, [facility] #[facility], 158, cm, 06/02/22 11:06:00 EDT, [...] UTI, # 30 cap(s), Refills(s) 2, Pharmacy: [facility] #[facility], 158, cm, 02/02/23 11:22:00 EST, Height/Length [...] 07-24-2021 Chronic Other aftercare (5 sources) 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; Translations: [OTH ASSISTED CURRENT DRUG THERAPY] Onset: 12-06-2021 Episodic Other [...] Onset: 12-06-2021 Episodic Other aftercare (1 source) longterm (current) use of aspirin; Translations: [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 ASPIRIN] Onset: 09-05-2021 Episodic [...] Range Facility Office Visiton 04-23-2023 Follow-up visit [id number] Fiona Becerra 1955 F Date Provider Department Center 04/23/2023 MARY ELLEN PEREZ [facility] Family History Problem Relation Age of Onset Atrial fibrillation Mother Hypertension Mother Heart failure Father Kidney disease Father Atrial fibrillation Sister Family Status - Relation Status Age at Mother Father Sister Level of Service:11664 HI OFFICE/OUTPATIENT ESTABLISHED MOD MDM 30 MIN Normal [facility] 36on 04-15-2023 36 Pt having carotid an d subclavin us and seeing gvm 04/[address] Normal [facility] Screenson 02-03-2023 Screens [id number]. 00TIFF Normal [facility] Ambulatory Visit Summaryon 1 04-04-2022 Ambulatory Visit Summary FIONA BECERRA :1955 Visit Date:02/02/2023 Ambulatory Visit Instructions Your Diagnosis Recurrent UTI Vaginal atrophy Unspecified urethral stricture, female Renal cyst Lichen sclerosus Tests Performed Urnls Dip Stick Auto w/o Microscopy POC 44716 Your Care Team Attending Physician - YEIMI [...] YEIMI QUIJANO PA-C Where: [facility] Patient Educationon 02-03-20 23 Patient Education Obstetrics [...] this condition includes: ? Antibiotic medicine. ? Wahd-akv-qgmjfxz medicines to treat discomfort. ? Drinking enough [...] these instructions at home: Medicines ? Take oglm-rfs-elqhhlb and prescription medicines only as told by [...] Document Revie (more content not included)... Normal [facility] Urology Office/Clinic Noteon 02-02-2023 Urology [...] When Contact Information YEIMI QUIJANO PA-C, URL [address] [place] [address] Additional Instructions: 1 year Patient Education Urinary [...] Renal c (more content not included)... Normal [facility] Comment on above: Result Comment: Elec tronically Signed By: YEIMI QUIJANO PA-C\.br\Date and Time Signed: 02/02/23 12:59 EST\.br\Electronically Co-Signed By: Marilee Pride\.br\Date and Time Co-Signed: 02/02/23 11:50 EST\.br\Electronically Co-Signed By: Marilee Pirde\.br\Date and Time Co-Signed: 02/02/23 11:54 EST XR hip RT min 2V(w/wo pelvis )*on 01-07-2023 XR hip RT min 2V(w/wo pelvis)* [facility] Main [address] [address] XRay Report Signed Patient: Fiona Becerra MR#: [id number] : 1955 Acct:[id number] Age/Sex: 67 / F ADM Date: 01/07/23 Loc: [facility] [place] Room: Type: [facility] Attending Dr: Luis Payne II, MD Copies [...] Rui Kaba M.D.01/07/2023 8:55 PM Dictation Location: [place] [address] Transcribed By: [facility] 01/07/232054 Dictated By: Rui Kaba DO 01/07/232040 Signed By: 01/07/232054 [facility] C Urineon 01-06-2023 Bacteria identified Cx Nom (U) Microbiology PROCEDURE: Urine Culture [R1] SOURCE: U CleanCatch BODY SITE: COLLECTED DATE/TIME: 01/04/2023 15:16 EDT RECEIVED DATE/TIME: 01/04/2023 19:52 EDT START DATE/TIME: 01/04/2023 19:52 EDT FREE TEXT SOURCE: Darion HUSOTN, Ashely Orlando MD, Ashely Tovar FINAL REPORTS [...] Locations R1: This test was performed at: [facility], [address] [place] [address], [facility] , , [facility] Comment on above: Performed By: #### 2 [id number] #### [facility] [address] [place] [address] Urineon 12-06-2022 Bacteria identified Cx Nom (U) [...] PIERRE=mcg/m;(mg/L), S*=Predicted susceptible interp, R*=Predicted resistant interp [facility] Antibiotic JEAN PIERRE Dilutn JEAN [...] Locations R1: This test was performed at: [facility], [address] [place] [address], [address]- , [place], Normal [facility] Comment on above: Performed By: #### 2 [id number] #### [facility] [address] [place] [address] Abdomen/Pelvis w/o Contra ston 12-04-2022 CT [...] Oral contrast amount in ml's: 0 Normal [facility] Consent for Treatmenton 11-20 Consent for Treatment [id number]#1 .00CD:127 Normal [facility] Insurance Correspondenceon 0 12-02-2022 Insurance Correspondence [id number]# 1.00CD:127 Normal [facility] Ambulatory Visit Summaryon 0 12-01-2022 Ambulatory Visit Summary FIONA BECERRA :1955 Visit Date:12/01/2022 Ambulatory Visit Instructions Your Diagnosis Urinary tract infection Tests Performed Urnls Dip Stick Auto w/o Microscopy POC 67311 Your Care Team Attending Physician - Darion [...] YEIMI QUIJANO PA-C Where: [facility] Lakisha Normal [facility] Urinalysison 12-01-2022 Bacteria LM Ql (Urine sed) 2+ /HPF Abnormal Trace [facility] Comment on above: Performed By: #### 1 [id number] ####[facility] [address] [place] [address] Bilirubin Ql (U) Negative Normal Negative [facility] Comment on above: Performed By: #### 1 0966072 ####[facility] [address] [place] [address] Clarity (U) CLOUDY Abnormal Clear [facility] Comment on above: Performed By: #### 1 8455581 ####[facility] [address] [place] [address] Color (U) YELLOW Normal Yellow [facility] Comment on above: Performed By: #### 1 [id number] ####[address] [address] Epithelial cells.squamous LM.HPF (Urine sed) [#/Area] 0-2 Normal 0-2 [facility] Comment on above: Performed By: #### 1 7578874 ####[address] [address] Glucose Test strip (U) [Mass/Vol] Negative Normal Negative [facility] Comment on above: Performed By: #### 1 [id number] ####[facility] [address] [place] [address] Hemoglobin Ql (U) 1+ Abnormal Negative [facility] Comment on above: Performed By: #### 1 [id number] ####[facility] [address] [place] [address] Ketones (U) [Mass/Vol] Negative Normal Negative [facility] Comment on above: Performed By: #### 1 [id number] ####[address] [address] [place].plasma/Lithi um.RBC (Bld) [Mass ratio] 0-3 Normal 0-3 [facility] Comment on above: Performed By: #### 1 6151555 ####[facility] [address] [place] [address] Mucus Ql (Urine sed) TRACE Normal [facility] Comment on above: Performed By: #### 1 3928912 ####[facility] [address] [place] [address] Nitrite Ql (U) Positive Abnormal Negative [facility] Comment on above: Performed By: #### 1 0581820 ####[place] [address] [place] [address] pH (U) 7.0 [pH] Invalid Interpretation Code 5.0-9.0 [facility] Comment on above: Performed By: #### 1 1203017 ####[address] [address] Protein (U) [Mass/Vol] Negative Normal Negative [facility] Comment on above: Performed By: #### 1 3441515 ####[address] [address] Specific gravity (U) [Rel density] 1.010 Invalid Interpretation Code 1.005-1.030 [facility] Comment on above: Performed By: #### 1 0913901 ####[address] [address] Type of Urine collection method Clean Catch Normal [facility] Comment on above: Performed By: #### 1 1360491 ####[address] [address] Urobilinogen Qn (U) 0.2 {Daniel'U}/dL Normal 0.0-1.0 [facility] Comment on above: Performed By: #### 1 9055114 ####[address] [address] WBC Auto Ql (U) 3+ Abnormal Negative [facility] Comment on above: Performed By: #### 1 1251269 ####[address] [address] WBC LM.HPF (Urine sed) [#/Area] /[HPF] Abnormal 0-5 [facility] Comment on above: Performed By: #### 1 9804349 ####[address] [address] Consent for Treatmenton 09-0 Consent for Treatment [id number]#1 .00CD:127 Normal [facility] US Renalon 11-26-2022 US Renal [...] Quan M.D. Transcribed by: MAUREEN Technologist: HW [facility] XR Abdomen 1 Viewon 11-27-19 23 [...] mGy = na DAP = na Normal [facility] Consent for Procedure/Surger yon 11-09-2022 Consent for Procedure/Surgery [id number]# 1.00CD:127 Normal [facility] Consent for Treatmenton 10-21 Consent for Treatment [id number] .00CD:127 Normal [facility] Inpatient Patient Summaryon 11-09-2022 Inpatient Patient Summary [place] [id number] Clinical Summary Person Information Name: FIONA BECERRA Age: 67 Years : 1955 Sex: Female PCP: OMKAR RENE MD Marital Status: Race: White Ethnicity: Non- or Language: Czech Visit Id: Visit Reason: URETHERAL STRICTURE, UTI'S Speciality: Acuity: Enc Type: Outpatient Med Service: Surgery Arrival: 11/09/2022 09:46:33 Discharge: Dispo Type: Address: [address] [place] [id number] Provider Notes: Diagnosis: Lichen sclerosus; Recurrent UTI; [...] up: With: Address: When: YEIMI QUIJANO [address] [place], [place] [phone] Business (1) [address] [facility], [facility] [address] [place], [place] [phone] Business (1) [address] [facility]. [place], [place] [phone] Business (1) Comments: Office to schedule follow up in 2-3 months with VIVI Bailon Patient Education Information: EU - Cystoscopy with Urethral Dilation Discharge Instructions (CUSTOM) [facility] IntraOperative Documentson 0 11-09-2022 IntraOperative Documents [id number]# 1.00CD:127 [facility] Main OR Intraoperative Recor don 11-09-2022 Main OR Intraoperative Record IntraOp Document Type FTURO Summary Primary Physician: Ashely Orlando MD Finalized Date/Time: 11/09/22 12:02:14 Pt. Name: FIONA BECERRA Chinmay/Sex: 1955 Female Med Rec #: [id number] Physician: Ashely Orlando MD Financial #: [id number] Pt. Type: O Room/Bed: / Admit/Disch: 11/09/22 [...] Shell Elias Role Performed Surgeon - Primary Edger Machine Operator - Primary Scrub - Primary Time In [...] Ruthann 11/09/22 11:59:17 Case Comments Finalized By: ANTHOYN Coppola RN, Ruthann Document Signatures Signed By: ANTHONY Coppola RN, Ruthann 11/09/22 11:59 ANTHONY Coppola RN, Ruthann 11/09/22 12:02 Normal [facility] Main OR Preoperative Recordo n 11-09-2022 Main OR Preoperative Record Holding Area Document Type FTURO Summary Primary Physician: Ashely Orlando MD Finalized Date/Time: 11/09/22 11:16:57 Pt. Name: FIONA BECERRA Chinmay/Sex: 1955 Female Med Rec #: [id number] Physician: Ashely Orlando MD Financial #: [id number] Pt. Type: O Room/Bed: / Admit/Disch: 11/09/22 [...] Shanti Gamboa RN 11/09/22 11:16 Normal [facility] Operative Reporton Operative Report Patient: FIONA BECERRA Age: 67 years Sex: Female : 1955 Associated Diagnoses: None Author: Ashely Orlando MD Procedure Operative Information Details: Date/ Time: 11/09/2022 12:02:00. Pre-Op Dx: Unspecified urethral stricture, female (LHE29-XM N35.92, Discharge, Medical), Recurrent UTI (GRF77-HN N39.0, Discharge, Medical), Lichen sclerosus (TXC65-OO L90.0, Discharge, Medical). Post-Op Dx: Vaginal atrophy (KMG06-LD N95.2, Discharge, Medical), Unspecified urethral stricture, female (BSI19-KJ N35.92, Discharge, Medical), Recurrent UTI (PET57-NY N39.0, Discharge, Medical), Lichen sclerosus (QEF52-BK L90.0, Discharge, Medical). Anesthesia Type: Local. Procedure: [...] urine. The Urethra was dilated to: 30 Taiwanese w/ sounds. Devices Implanted: None. Removal: Cystoscope [...] recurrent UTIs and vaginal atrophy. . Normal [facility] Comment on above: Result Comment: Elec tronically Signed By: Ashely Orlando MD\.br\Date and Time Signed: 11/09/22 12:06 EDT Outpatient Surgery Discharge Instructionon 11-09-2022 Outpatient Surgery Discharge Instruction [id number]# 1.00CD:127 Normal [facility] Outpatient Surgery Discharge Instruction [address] [address] Patient Discharge Instructions PERSON INFORMATION [...] Follow up: With: Address: When: YEIMI QUIJANO [address] [place] [address] [address] [place], [place] [phone] [facility] (1) [address] [facility] [address] [place], [place] [phone] [facility] (1) [address] [place] [address]. [place], [place] [phone] [facility] (1) Comments: Office to schedule follow [...] Date You may receive a survey from [employer] asking you to rate your care experience. Your feedback is important and will help us understand what we do well and how we can improve the quality of care we provide to you, your loved ones and our community. It?s an honor to serve you. Thank you for choosing [facility] Normal [facility] Progress Note-Physicianon Progress Note-Physician Patient: [...] 1 month, then 2x a week afterwards, [facility], 62, cm, 11/09/22 11:18:00 EDT, Height/Length Dosing, 64, kg, 06/02/22 11:06:0... amoxicillin 875 mg Tab: 875 mg = 1 tab(s), Oral, BID, X 5 day(s), # 10 tab(s), Refills(s) 0, Pharmacy: [facility] #72, 158, cm, 06/02/22 11:06:00 EDT, Height/Length [...] Plan Assessment and Plan: Diagnosis: Vaginal atrophy (HVA33-VA N95.2, Discharge, Medical), Unspecified urethral stricture, female (QUM04-JC N35.92, Discharge, Medical), Recurrent UTI (LLM80-IP N39.0, Discharge, Medical), Lichen sclerosus (WGM17-QT L90.0, Discharge, Medical). 67 yo F prior DLS pt last seen by VIVI Bailon here for urethral stricture dilation. 1. Urethral stricture- mild on exam, pt demanded repeat dilation despite recent +UCx, on abx. States understanding of getting worse infection/sick. Unclear if having stricture sx, but again pt was adamant about having dilation done. Risks thoroughly discussed. -Dilated to 30 Taiwanese today without difficulty -Recommend starting Estrace cream [...] sclerosis - cont clobetasol prn per dermatology [facility] Comment on above: Result Comment: Elec [...] Locations R1: This test was performed at: [facility], [address] [place] [address], [address] , , [facility] Comment on above: Performed By: #### 2 [id number] ####[place] [address] [place] [address] Insurance Correspondenceon 0 11-05-2022 Insurance Correspondence [id number]# 1.00CD:127 Normal [facility] Office Visiton 11-05-2022 Follow-up visit [id number] Fiona Becerra 1955 F Date Provider Department Center 11/05/2022 [address]-LRPMISHLDLORNE DURON [facility] Family History Problem Relation Age of Onset Atrial fibrillation Mother Hypertension Mother Heart failure Father Kidney disease Father Atrial fibrillation Sister Family Status - Relation Status Age at Mother Father Sister Level of Service:58948 HI OFFICE/OUTPATIENT ESTABLISHED MOD MDM 30-39 MIN Reason for Visit and Comments: Follow-up [253878] - Hospital follow up Normal [facility] Ambulatory Visit Summaryon 0 11-02-2022 Ambulatory [...] receiving treatment for. Lumbar spondylosis Smoker Normal [facility] Urinalysison 11-02-2022 Bacteria LM Ql (Urine sed) TRACE Normal Trace [facility] Comment on above: Performed By: #### 1 [id number] #### [facility] [address] [place] [address] Bilirubin Ql (U) Negative Normal Negative [facility] Comment on above: Performed By: #### 1 [id number] #### [facility] [address] [place] [address] Calcium oxalate crystals LM Ql (Urine sed) Present Normal [facility] Comment on above: Performed By: #### 1 8772761 #### [facility] [address] [place] [address] Clarity (U) SL CLOUDY Invalid Interpretation Code [facility] Comment on above: Performed By: #### 1 [id number] #### [facility] [address] [place] [address] Color (U) DARK YELLO Invalid Interpretation Code [facility] Comment on above: Performed By: #### 1 0357303 #### [facility] [address] [place] [address] Epithelial cells.squamous LM.HPF (Urine sed) [#/Area] 0-2 Normal 0-2 [facility] Comment on above: Performed By: #### 1 6665605 #### [facility] [address] [place] [address] Glucose Test strip (U) [Mass/Vol] Negative Normal Negative [facility] Comment on above: Performed By: #### 1 4885351 #### [facility] [address] [place] [address] Hemoglobin Ql (U) 2+ Abnormal Negative [facility] Comment on above: Performed By: #### 1 9343829 #### [facility] [address] [place] [address] Ketones (U) [Mass/Vol] TRACE Invalid Interpretation Code Negative [facility] Comment on above: Performed By: #### 1 [id number] #### [facility] [address] [place] [address] [place].plasma/Lithi um.RBC (Bld) [Mass ratio] 4-20 Normal 0-3 [facility] Comment on above: Performed By: #### 1 0538962 #### [facility] [address] [place] [address] Mucus Ql (Urine sed) 1+ Normal [facility] Comment on above: Performed By: #### 1 0733358 #### [facility] [address] [place] [address] Nitrite Ql (U) Positive Abnormal Negative [facility] Comment on above: Performed By: #### 1 3830733 #### [facility] [address] [place] [address] pH (U) 6.0 [pH] Invalid Interpretation Code 5.0-9.0 [facility] Comment on above: Performed By: #### 1 8795749 #### [facility] [address] [place] [address] Protein (U) [Mass/Vol] TRACE Abnormal Negative [facility] Comment on above: Performed By: #### 1 6505854 #### [facility] [address] [place] [address] Specific gravity (U) [Rel density] 1.020 Invalid Interpretation Code 1.005-1.030 [facility] Comment on above: Performed By: #### 1 5968557 #### [facility] [address] [place] [address] Type of Urine collection method Clean Catch Normal [facility] Comment on above: Performed By: #### 1 5133449 #### [facility] [address] [place] [address] Urobilinogen Qn (U) 0.2 {Daniel'U}/dL Normal 0.0-1.0 [facility] Comment on above: Performed By: #### 1 3555493 #### [facility] [address] [place] [address] WBC Auto Ql (U) 2+ Abnormal Negative [facility] Comment on above: Performed By: #### 1 5810198 #### [facility] [address] [place] [address] WBC LM.HPF (Urine sed) [#/Area] /[HPF] Abnormal 0-5 [facility] Comment on above: Performed By: #### 1 5059829 #### [facility] [address] [place], [place] [id number] US ARTERY UP EXT BILon 07-29 US [...] by: JANNIE NIEVES Date: 2022-07-29 17:55 Normal [facility] Office Visiton 07-24-2022 Follow-up visit [id number] Fiona Becerra 1955 F Date Provider Department Center 07/24/2022 MEÑO DOUGLASS [facility] Family History Problem Relation Age of Onset Atrial fibrillation Mother Hypertension Mother Heart failure Father Kidney disease Father Atrial fibrillation Sister Family Status - Relation Status Age at Mother Father Sister Level of Service:26380 HI OFFICE/OUTPATIENT ESTABLISHED MOD MDM 30-39 MIN Normal [facility] Coding Summary.on 06-05-2022 Coding Summary. CD:[id number] G h0bWw+PGhlYWQ+XM7JYWL zZ65qmRPvkS0cX6PFNHtQ SywgQVBQTElOSyIgbmFtZ Q5utDDmRHLf IC8+LP4gGMVpDfkaeXFuy 0P5zRZ9R40imy6wELfyoA L2IBKeIdXvahlaw6eaoOk 6IDcuNmluOyBt WWOzjA38UYB4bR07Nl50i FHwyRDal6aaaFj7FmYiZS EoRUV9tNyzHIkqa4UfJDE mA11jpYNnf4Q5 OCIuzTsxzBIcPwNymKK2o E7vENopmsgyv8dnpkxnZc a7yb76vWIad2Q1nDM4H3Z zqmT9CJGclMYi AdacnRNRgX5esgzdh1nek vyzErQbIYBeKBl1TVk9ES SbhJpgTqUpQS19WWE4OWQ byiDhY8DmCBHm dGmgQpU8e3H8Rq9NN8OFZ rofZ8QRGNOKAUppfGF+PC 82zr76O6ApUeamAyp3CSA wOHL4jLH9kS2x VDDsFLzox9D9aGG6E9Xrm lGasq0xl9utVISeSBeyM6 7ptYVqj7W3ZMEohGH6HZF vnJlwWoLbxE19 Oyc+KECfsWyhe2DdItzdz 4alc2uttGj8ZzoeOKEusi KibYykYMP0n7YeZk3bFYY geGA3dFL9gP8p AtXlEmZ2XNxjH159MxZwo QGwPkxpM20wV7WnqTP+PH UxLbm5RSUdyJjoON0aO3N hZGRpbmctbGVm rRtuVM1aUXVtqkhsUDKkn G6eBZAnO0k5ZiFpUyB9SU lxO4RuLTCecepuZp99eP9 eRgUuGqY2VFbh D5XmgfI8YJGcfCOhROeaY VP3B00ld2O8YHMlAKJnRZ X4bAB6iR4ixPrmldzjrFR mdDsgdmVydGlj WOmzYIojC702OMAedWmeO kNvZGluZyBEYXRlOiAgMD MvMTcvMjAyMzwvdGQ+PHR lOQO7xTucQXTa sPNiYCfwZk4uaJfnqZkjP F9iGTOapojlLGKlxD6qLH MhgNKabGziSY3zPKMmtkv yf347RiMoBHN1 ZLIgpOYyZ2HmxS1vKqYlX HKrIZFbY7MxuFVxPAvdO2 59MKktKsQ7ZYSgogNcO9I sLWFsaWduOiB0 o6X3Hk9Yt1AglyseL8Rch EXuVaMgSqhfWIo2C2DiNt wvdHI+NL62KEMrFH13TSf 7BZN9vKyfEZvo GOBmI5JkpK0iEtKpMBRmS GRkOyc+PHRhYmxlIHdpZH RoPScxMDAlJyBzdHlsZT0 kMd4kAADuVZVb cRtlvVNyQrLtw4jeFOBpK AgfYF3vsFluJ5WliUF1VS Fhf6a4Al69T09rR1VvbPJ +QDYdvMH3qQQ5 sH7iMbErJjJ9KIegZ341K pMqpJMhTtjnh2lph2lyaC m6UxY3LKTbjaTlyUwwQCL 4g2QwKf50G15k IHdpZHRoPSIxNSUiIHZhb Cjzkp5dnC1nMy4+PGNvbC A0lTC0cR7tIvSdFqB2IFi bZ135UwCffAQf Hfhdd5rhh5yyaQz7KqMoA DVgfkQbwUnlQUP5x2RiZt 16O5TgoLasr4VlBvy0si4 4kCWpx2Y2tRY1 E8DcHPZndswncNFixWkdX E2kXSDnjyyhGLAjkK3uMM RuD3f7YrXmClN0MFwxH0H fuqL1YLDijASs EPYprTBYvF4capgdm7jcg xezMrKwWDVhPSe5NLy1JC LbbGufPmPpVAJ5CuQ2OHT 4vCWivZ5lfNof csxsyS8mBsz+UHN7nUPpx MAQYB1iXutvaES+PHRkIH A2oYpaXDpiFPOkcI1sAZY fK1g5ChLzNaR3 ALhoS1BtkxV5AOQqhCWeE BMxmZNZiK6sejcel5iwco pcDkEiPPBhMFo1WCr2HGV saWduOiBsZWZ0 IwQ5AWP7kVSixO4prUavz fbggR9dFsu+QmlydGggRG I2OSi5L1ViOmq2AVFahUb sTQ3jgALiLBgi Ja2zqGoqdHueMA8yIBUax uajx397BeLvu5hvFVZpoK WkLAkfPWF1A33du8Q7CTS zEWUaKLW2zMA6 nG9vbCiqwxjulHXrxXeco fYwvZwsGZvqXCakI091WJ VwqEjpDnKuOSi6N5NbJzz 6PTHwjZxdOL0r oQMdISbcRw4doVghzGemP C3tYWUflpjpq044CwLmv6 ypPQLwuTCdOTuiXKF6Q49 br0H5YJFyPMAv JUU0tVC4nQ8dhWdscwbtb GVmdDsgdmVydGljYWwtYW vcG140JPPazEwzAePfhCj 9Z2ZtVut0AOBx tNqtLL5oaQWbZMzvNz4dy LoflEzwYY4xXFEugfbqw5 79RxHhr7biJIQwrVAzEKz tFND8W56xp4Y7 ZXHyORDwKNA2bJH8sF6rs GlnbjogbGVmdDsgdmVydG smVCckJSmtN228YYApbIl nPlBhdGllbnQg OHwlRDy5X4VqLpgrvFV+P O00TYJkKD87aOTwuWLsf2 mmqMe0HlDoRFTgOHM4fGb qLQqcj4ChTOPb Z37pxVLyg4B4BFFxtAtvv YIrOyOceEX7qC1oPIiuak vwy8xccvlfRrzen2xamx0 9cE92I48iLPij ZHRoPSIzMCUiIHZhbGlnb l0xnU2sVm4+EBCeySN7vP R2hD7dGUKfHfU6MVbcJ96 9InRvcCIvPjxj j9ern3iycYf2QyF8EUMpq xCsnPvhJMB1t2HdWx86M8 9sIHdpZHRoPSIyMCUiIHZ swAyojk3mmM4s Ii8+OREpcWT0iDR2yI8qB pAeCvE8ZPclN596YlWlbX GaBwgjB11xN6JttCU+PHR vIgc4OWUknPrt XK8xqBXaIClbJz4kQKS8B jBkMtYtJPzyR7CcDXSybm nqscngrUT4DJZsCGJmyP6 5Mv9thDztBACv aCITsP3gphmcq5dokldmG zRpFUJmIAh5YNe7GMVxnW epEyQfRUG9UvR0WLS8ePR wrK0abGizhlwn oT1wQ1XnHKIooasrKq09m V0aUsUyXbC9HZkfSzy+SE FMTCwgSkFORVQgSzwvdGQ +KUSmEJC0xIuq KLeoPGRnzT8kKWJrA7s8K zMuElS8VPreY1JeDQTcog pjCu01lX5pPmXqUfC1ORi qE9GnwzU5YIQe rBXtMGsrHBR2I41dw1N2Q EWiWNZtUWJ5qTB8wP7axM lnbjogbGVmdDsgdmVydGl jGGleNYetV276 LHBmmUgpNvCcBlVbEzA0L EI0R7SuPzo5SAGxcJawIE 4zdWIxUUjoQr2leFecjXd oEY0pVOBenwsx VKIakG6xYFQolOFzbVabU C0xDCMfqjhwf453DnTxBP H0FAJyaGGxF2ZekX1fXxP cQZAdSLSsY6Yr kLNzFHgxA421VNrnOzV1M BGbqtJxA2CsHVIjkKxiWk T8a2P2Yi17HDKLJOUwkuc vdGQ+PHRkIHN0 sGyiPRwqKMRbgT9rRUQuZ 2x0GyNqTrE4OBvaX8JhCG TostrfVe60rL9tPrImUsP 3LFmyA1FokwK5 HLDcqYTgPYqzQNE6M40im 4C9WNDuZLSpPZP9vOW5yB 1hbGlnbjogbGVmdDsgdmV ydGljYWwtYWxp W647DGWrvBjiVfAunVEyX TwvdGQ+WCUhLXD1wZkzBN rdQSHqeB8hUAPyV3u4CgX dTuK2REbtN8Hl QVNsxqtaQa88bB2gPeItU dM2XYorW9TsmoS4JAWhrT KaRBddCEJ7D75pe1S5IYK qQNCaSZE6sDR8 uY2inSwxbgrkqWWlzSzkt jRutFecOMlgTJrqR701ZG HtpXdmFsmpPnTQao3aLY9 mZjwvdGQ+PC90 qh31I1OyWumjJou3SWRuG VY9qRH1nK7hBKYvVMtwg3 G0nDH2Q0HkavPoev7fb9o tULOaBWhnP85k rNByg8A3LFZvvGE5VAWyy AnjDwWqjP85Qtu+PGNvbG xxo0DvJmgmk3uld4vquZo 9IjMwJSIgdmFs bTgnEIB5o9RwZx44V96dS HdpZHRoPSIzMCUiIHZhbG fosw9njU0tQs6+PGNvbCB 6dIC4mY2jGcWs ZbO3YLfxJ677DxBydRRkZ qeiu7rvq4eujVv6ZoWnZM BirrAbnVtqDYP9m2ZdGl6 9T2FzrOacg0An Zrv6wy21lPYaj9S0ySY4R 3BhZGRpbmctbGVmdDogMC 4lJCRtkoneOZRkdM2tSIJ gR1b4IpQyGbA7 AVebP4PwpvO8JIEzgAJcN HZhaXSWcH8uqphea4ogkn vgQaReGLRkFHm7LQx7WZC saWduOiBsZWZ0 YiP6IMB5nNIzhJ4duIxpu cajgO6qYzo+QUd3z2jyyC RjIL0cnET8MY50AG89hMS wq2Y9aEB6X2Qp HUDrvsfgjkeawWA0DQMfL PXmrJ27Zt7geRebMt9qLK VtZFD3WQHwvSMbM5PhtJ1 yOiAjMDAwMDAw I8EdxTOqNGvtY617UIzsL gG5ISKtjiAgQ3PiHSHewY foJsS6w8O7Ui6VNU41VG1 2SS81kDEfz2I2 hEK1T9TtKWCtettwzhcdw FU7ZKCaHWAcsJ13Me8bgV mdGm1xAPSnCOO9IODpxFW wQ1KbiQ5oAgUb WGGcZTRlC6LpdTGgULmjA 486SVifSyU2UEIixmGzY2 PpSCRabKniXtW5b9H5Bk3 FBa06XY79PU28 yPEoj7R2tIF9U9LcAEXgr viebjnlvCM3XJUbFUOlsL 00Jo1uhBrlYv0aLSLdSQP 7GDBopVDzU1Wx pE9aWqHaKJDdCFKiY5Qgm XXxNJahG940TLrqYpU1BV ZtpeLwW6VwSQCbxTisCcN 0v1P7Or0TRBai nfq8W8LjXtlgrUV+PC90Y LOxRA29rESrnMRcx0flgK n7XuMkYUEyRHH6yRhhJLv bq9TzERMrK02w bGFw (more content not included)... Normal [facility] US CAROTID ART BILon 17-2 023 US [...] by: CINDY BRISCOE Date: 2022-06-05 10:05 Normal [facility] US THYROIDon 06-05-2022 US THYROID EXAMINATION: US [...] by: CINDY BRISCOE Date: 2022-06-05 14:32 Normal [facility] C Urineon 06-04-2022 Bacteria identified Cx Nom [...] Locations R1: This test was performed at: [facility], [address] [place] [address], [id number] , , [facility] Comment on above: Performed By: #### [id number] #### [facility] [address] [place] [address] CBC AUTO DIFFon 06-04-2022 BASO # 0.0 103/ul Normal 0.0-0.1 [facility] Comment on above: Performed By: #### L IVER, BMP, LIPID, TSH #### [facility] [address] [place] [address] Dr. Malachi Maciel Basophils/100 WBC (Bld) 0.6 % Normal 0.2-2.0 [facility] Comment on above: Performed By: #### L IVER, BMP, LIPID, TSH #### [facility] [address] [place] [address] Dr. Malachi Maciel EO # 0.1 103/ul Normal 0.0-0.7 [facility] Comment on above: Performed By: #### L IVER, BMP, LIPID, TSH #### [facility] [address] [address] [address] Malachi Maciel Eosinophils/100 WBC (Bld) 1.7 % Normal 0.9-7.0 [facility] Comment on above: Performed By: #### L IVER, BMP, LIPID, TSH #### [facility] [address] [address] [address] Malachi Maciel Erythrocyte distribution width (RBC) [Ratio] 12.4 % Normal 11.0-15.0 [facility] Comment on above: Performed By: #### L IVER, BMP, LIPID, TSH #### [facility] [address] [place] [address] Dr. Malachi Maciel Hematocrit (Bld) [Volume fraction] 36.7 % Normal 36.0-48.0 [facility] Comment on above: Performed By: #### L IVER, BMP, LIPID, TSH #### [facility] [address] [place] [address] Dr. Malachi Maciel Hemoglobin (Bld) [Mass/Vol] 12.2 g/dL Normal 12.0-16.0 [facility] Comment on above: Performed By: #### L IVER, BMP, LIPID, TSH #### [facility] [address] [place] [address] Dr. Malachi Maciel IG # 0.01 10e3/ul Normal 0.00-0.03 [facility] Comment on above: Performed By: #### L IVER, BMP, LIPID, TSH #### [facility] [address] [place] [address] Dr. Malachi Maciel IG % 0.1 % Normal 0.0-0.5 [facility] Comment on above: Performed By: #### L IVER, BMP, LIPID, TSH #### [facility] [address] [place] [address] Dr. Malachi Maciel LYMPH # 2.1 103/ul Normal 1.2-3.8 [facility] Comment on above: Performed By: #### L IVER, BMP, LIPID, TSH #### [facility] [address] [address] [address] Malachi Maciel Lymphocytes/100 WBC (Bld) 29.6 % Normal 20.5-60.0 [facility] Comment on above: Performed By: #### L IVER, BMP, LIPID, TSH #### [facility] [address] [place] [address] Dr. Malachi Maciel MANUAL DIFF REQ NO Normal [facility] Comment on above: Performed By: #### L IVER, BMP, LIPID, TSH #### [facility] [address] [place] [address] Dr. Malachi Maciel MCH (RBC) [Entitic mass] 29.6 pg Normal 26.7-34.0 [facility] Comment on above: Performed By: #### L IVER, BMP, LIPID, TSH #### [facility] [address] [place] [address] Dr. Malachi Maciel MCHC (RBC) [Mass/Vol] 33.2 g/dL Normal 29.9-35.2 [facility] Comment on above: Performed By: #### L IVER, BMP, LIPID, TSH #### [facility] [address] [place] [address] Dr. Malachi Maciel MCV (RBC) [Entitic vol] 89.1 fL Normal 81.0-99.0 [facility] Comment on above: Performed By: #### L IVER, BMP, LIPID, TSH #### [facility] [address] [place] [address] Dr. Malachi Maciel MONO # 0.6 103/ul Normal 0.3-0.8 [facility] Comment on above: Performed By: #### L IVER, BMP, LIPID, TSH #### [facility] [address] [place] [address] Dr. Malachi Maciel Monocytes/100 WBC (Bld) 8.2 % Normal 1.7-12.0 [facility] Comment on above: Performed By: #### L IVER, BMP, LIPID, TSH #### [facility] [address] [address] [address] Malachi Maciel NEUT # 4.2 103/ul Normal 1.4-6.5 [facility] Comment on above: Performed By: #### L IVER, BMP, LIPID, TSH #### [facility] [address] [address] [address] Malachi Maciel Neutrophils/100 WBC (Bld) 59.8 % Normal 43.0-75.0 [facility] Comment on above: Performed By: #### L IVER, BMP, LIPID, TSH #### [facility] [address] [address] [address] Malachi Maciel Platelet mean volume (Bld) [Entitic vol] 9.4 fL Critically low 9.5-13.5 [facility] Comment on above: Performed By: #### L IVER, BMP, LIPID, TSH #### [facility] [address] [place] [address] Dr. Malachi Maciel PLT 220 103/ul Normal 150-450 [facility] Comment on above: Performed By: #### L IVER, BMP, LIPID, TSH #### [facility] [address] [address] [address] Malachi Maciel RBC 4.12 106/ul Critically low 4.20-5.40 [facility] Comment on above: Performed By: #### L IVER, BMP, LIPID, TSH #### [facility] [address] [address] [address] Malachi Maciel WBC 7.0 103/ul Normal 4.0-11.0 [facility] Comment on above: Performed By: #### L IVER, BMP, LIPID, TSH #### [facility] [address] [place] [address] Dr. Malachi Maciel FREE T3on 06-04-2022 FREE T3 2.90 pg/mlL Normal 2.18-3.98 [facility] Comment on above: Performed By: #### L IVER, BMP, LIPID, TSH #### [facility] [address] [place] [address] Dr. Malachi Maciel FREE T4on 06-04-2022 Free T4 [Mass/Vol] 0.69 ng/dL Critically low 0.76-1.46 [facility] Comment on above: Performed By: #### F T4 #### [facility] [address] [place] [address] Dr. Malachi Maciel PROF CHEM 8 (BAS METB)on Anion gap [Moles/Vol] 11.1 mmol/L Normal [facility] Comment on above: Performed By: #### L IVER, BMP, LIPID, TSH #### [facility] [address] [place] [address] Dr. Malachi Maciel Calcium [Mass/Vol] 8.6 mg/dL Normal 8.5-10.1 [place] Comment on above: Performed By: #### L IVER, BMP, LIPID, TSH #### [facility] [address] [place] [address] Dr. Malachi Maciel Chloride [Moles/Vol] 104 mmol/L Normal 98-107 [facility] Comment on above: Performed By: #### L IVER, BMP, LIPID, TSH #### [facility] [address] [place] [address] Dr. Malachi Maciel CO2 [Moles/Vol] 29.7 mmol/L Normal 21.0-32.0 [facility] Comment on above: Performed By: #### L IVER, BMP, LIPID, TSH #### [facility] [address] [place] [address] Dr. Malachi Maciel Creatinine [Mass/Vol] 1.15 mg/dL Critically high 0.55-1.02 [facility] Comment on above: Performed By: #### L IVER, BMP, LIPID, TSH #### [facility] [address] [place] [address] Dr. Malachi Maciel EGFR-AF BAHRAINI 57 mL/min/1.73m2 Critically low >=60 [facility] Comment on above: Performed By: #### L IVER, BMP, LIPID, TSH #### [facility] [address] [place] [address] Dr. Malachi Maciel EGFR-NON AF BAHRAINI 47 mL/min/1.73m2 Critically low >=60 [facility] Comment on above: Performed By: #### L IVER, BMP, LIPID, TSH #### [facility] [address] [address] [address] Malachi Maciel Glucose [Mass/Vol] 101 mg/dL Normal 74-106 [facility] Comment on above: Performed By: #### L IVER, BMP, LIPID, TSH #### [facility] [address] [address] [address] Malachi Maciel Potassium [Moles/Vol] 3.8 mmol/L Normal 3.5-5.1 [facility] Comment on above: Performed By: #### L IVER, BMP, LIPID, TSH #### [facility] [address] [address] [address] Malachi Maciel Sodium [Moles/Vol] 141 mmol/L Normal 136-145 [facility] Comment on above: Performed By: #### L IVER, BMP, LIPID, TSH #### [facility] [address] [address] [address] Malachi Maciel Urea nitrogen [Mass/Vol] 17.0 mg/dL Normal 7.0-18.0 [facility] Comment on above: Performed By: #### L IVER, BMP, LIPID, TSH #### [facility] [address] [address] [address] Malachi Maciel Urea nitrogen/Creatinine [Mass ratio] 14.8 mg/mg Normal [facility] Comment on above: Performed By: #### L IVER, BMP, LIPID, TSH #### [facility] [address] [address] [address] Malachi Maciel TSHon 06-04-2022 TSH 1.471 uIU/mL Normal 0.358-3.740 [facility] Comment on above: Performed By: #### L IVER, BMP, LIPID, TSH #### [facility] [address] [address] [address] Malachi Maciel Ambulatory Visit Summaryon 0 06-02-2022 Ambulatory Visit Summary FIONA BECERRA :1955 Visit Date:06/02/2022 Ambulatory Visit Instructions Your Diagnosis Lichen sclerosus Unspecified urethral stricture, female Urinary tract infection Tests Performed Urnls Dip Stick Auto w/o Microscopy POC 37554 Your Care Team Attending Physician - YEIMI [...] with SHAYY HUSTON, ANASTACIO Lord When: Where: [address] [place] [address] [place], [place] [id number]- Medications What How Much When Instructions Unchanged [...] Urnls Dip Stick Auto w/o Microscopy POC 87035 (06/02/2022) Bilirubin Urine Dipstick - Negative Blood Urine Dipstick - Trace-intact Glucose Urine Dipstick - Negative Ketones Urine Dipstick - Negative Leukocytes Urine Dipstick - Trace Nitrite Urine Dipstick - Positive Protein Urine Dipstick - Negative Specific [place] Urine Dipstick - 1.020 Urine Appearance Urine [...] may be (more content not included)... Normal [facility] Patient Educationon 06-03-19 23 Patient [...] instructions at home: ? Take or use qmec-ibj-nupoqog and prescription medicines only as told by [...] the affected areas. ? Take or use wszo-hif-ltsycpr and prescription medicines only as told by [...] 07/29/2011 Document Revised: 07/21/2018 Document Reviewed: 07/21/2018 [employer] Patient Education ? 2019 [employer]. [facility] Historical Records Officeon 05-28-2022 Historical Records Office [id number]:127 [facility] MG MAMM SCREEN 3D ANDERSON CADon 02-13-2022 MG MAMM SCREEN 3D ANDERSON CAD Patient: FIONA BECERRA Exam Date: 02/13/2022 : 1955 Gender:F Ordering : DR OMKAR RENE . Admission #: [id number] Family : Order #: [id number] CLICK HERE TO VIEW EXAM RADIOLOGY REPORT [...] hodgkins cancer at age 15. LOCATION: [facility] BREAST COMPOSITION: Scattered areas fibroglandular density. FINDINGS: [...] Briscoe M.D. on 02/17/2022 at 12:10 Normal [facility] CT LUNG CANCER SCREENINGon 0 12-03-2021 CT [...] CINDY BRISCOE Date: 2021-12-03 15:48 Normal [facility] VIT D 25-OH LABCORPon 2021 Vitamin D, 25-Hydroxy 57.7 ng/mL Normal 30.0-100.0 [facility] Comment on above: Result Comment: Clementine min D deficiency has been defined by the [place] of [employer] and an Endocrine Society practice guideline as a level of serum 25-OH vitamin D less than 20 ng/mL (1,2). The Endocrine Society went on to further define vitamin D insufficiency as a level between 21 and 29 ng/mL (2). 1. IOM ([place] [employer]). 2010. Dietary reference intakes for calcium and D. [place]: The National Academies Press. 2. Sharon MF, Carolyn GILLILAND, Jamari DUCKWORTH, et al. Evaluation, treatment, and prevention of vitamin D deficiency: an Endocrine Society clinical practice guideline. JCEM. 2010; 96(7):1911-30. Performed By: #### L IVER, BMP, LIPID, TSH #### [facility] [address] [place] [address] Dr. Malachi Maciel CBC AUTO DIFFon 12-01-2021 BASO # 0.1 103/ul Normal 0.0-0.1 [facility] Comment on above: Performed By: #### L IVER, BMP, LIPID, TSH #### [facility] [address] [place] [address] Dr. Malachi Maciel Basophils/100 WBC (Bld) 0.7 % Normal 0.2-2.0 [facility] Comment on above: Performed By: #### L IVER, BMP, LIPID, TSH #### [facility] [address] [address] [address] Malachi Maciel EO # 0.1 103/ul Normal 0.0-0.7 [facility] Comment on above: Performed By: #### L IVER, BMP, LIPID, TSH #### [facility] [address] [address] [address] Malachi Maciel Eosinophils/100 WBC (Bld) 1.8 % Normal 0.9-7.0 [facility] Comment on above: Performed By: #### L IVER, BMP, LIPID, TSH #### [facility] [address] [place] [address] Dr. Malachi Maciel Erythrocyte distribution width (RBC) [Ratio] 12.6 % Normal 11.0-15.0 [facility] Comment on above: Performed By: #### L IVER, BMP, LIPID, TSH #### [facility] [address] [place] [address] Dr. Malachi Maciel Hematocrit (Bld) [Volume fraction] 39.7 % Normal 36.0-48.0 [facility] Comment on above: Performed By: #### L IVER, BMP, LIPID, TSH #### [facility] [address] [address] [address] Malachi Maciel Hemoglobin (Bld) [Mass/Vol] 13.0 g/dL Normal 12.0-16.0 [facility] Comment on above: Performed By: #### L IVER, BMP, LIPID, TSH #### [facility] [address] [place] [address] Dr. Malachi Maciel IG # 0.02 10e3/ul Normal 0.00-0.03 [facility] Comment on above: Performed By: #### L IVER, BMP, LIPID, TSH #### [facility] [address] [place] [address] Dr. Malachi Maciel IG % 0.3 % Normal 0.0-0.5 [facility] Comment on above: Performed By: #### L IVER, BMP, LIPID, TSH #### [facility] [address] [address] [address] Malachi Maciel LYMPH # 2.4 103/ul Normal 1.2-3.8 [facility] Comment on above: Performed By: #### L IVER, BMP, LIPID, TSH #### [facility] [address] [place] [address] Dr. Malachi Maciel Lymphocytes/100 WBC (Bld) 33.2 % Normal 20.5-60.0 [facility] Comment on above: Performed By: #### L IVER, BMP, LIPID, TSH #### [facility] [address] [place] [address] Dr. Malachi Maciel MANUAL DIFF REQ NO Normal [facility] Comment on above: Performed By: #### L IVER, BMP, LIPID, TSH #### [facility] [address] [place] [address] Dr. Malachi Maciel MCH (RBC) [Entitic mass] 29.3 pg Normal 26.7-34.0 [facility] Comment on above: Performed By: #### L IVER, BMP, LIPID, TSH #### [facility] [address] [place] [address] Dr. Malachi Maciel MCHC (RBC) [Mass/Vol] 32.7 g/dL Normal 29.9-35.2 [facility] Comment on above: Performed By: #### L IVER, BMP, LIPID, TSH #### [facility] [address] [place] [address] Dr. Malachi Maciel MCV (RBC) [Entitic vol] 89.4 fL Normal 81.0-99.0 [facility] Comment on above: Performed By: #### L IVER, BMP, LIPID, TSH #### [facility] [address] [place] [address] Dr. Malachi Maciel MONO # 0.5 103/ul Normal 0.3-0.8 [facility] Comment on above: Performed By: #### L IVER, BMP, LIPID, TSH #### [facility] [address] [place] [address] Dr. Malachi Maciel Monocytes/100 WBC (Bld) 7.2 % Normal 1.7-12.0 [facility] Comment on above: Performed By: #### L IVER, BMP, LIPID, TSH #### [facility] [address] [place] [address] Dr. Malachi Maciel NEUT # 4.1 103/ul Normal 1.4-6.5 [facility] Comment on above: Performed By: #### L IVER, BMP, LIPID, TSH #### [facility] [address] [place] [address] Dr. Malachi Maciel Neutrophils/100 WBC (Bld) 56.8 % Normal 43.0-75.0 [facility] Comment on above: Performed By: #### L IVER, BMP, LIPID, TSH #### [facility] [address] [place] [address] Dr. Malachi Maciel Platelet mean volume (Bld) [Entitic vol] 10.3 fL Normal 9.5-13.5 [facility] Comment on above: Performed By: #### L IVER, BMP, LIPID, TSH #### [facility] [address] [address] [address] Malachi Maciel PLT 230 103/ul Normal 150-450 [facility] Comment on above: Performed By: #### L IVER, BMP, LIPID, TSH #### [facility] [address] [address] [address] Malachi Maciel RBC 4.44 106/ul Normal 4.20-5.40 [facility] Comment on above: Performed By: #### L IVER, BMP, LIPID, TSH #### [facility] [address] [address] [address] Malachi Maciel WBC 7.2 103/ul Normal 4.0-11.0 [facility] Comment on above: Performed By: #### L IVER, BMP, LIPID, TSH #### [facility] [address] [place] [address] Dr. Malachi Maciel LIPID PROFILEon 12-01-2021 CHOL-HDL RATIO NORM SEE BELOW Normal [facility] Comment on above: Result Comment: 3.3 - 4.4 LOW RISK 4.4 - 7.1 AVERAGE RISK 7.1 - 11.0 MODERATE RISK >11.0 HIGH RISK Performed By: #### L IVER, BMP, LIPID, TSH #### [facility] [address] [place] [address] Dr. Malachi Maciel Cholesterol [Mass/Vol] 131 mg/dL Normal <=200 [facility] Comment on above: Performed By: #### L IVER, BMP, LIPID, TSH #### [facility] [address] [address] [address] Malachi Maciel Cholesterol in HDL [Mass/Vol] 29 mg/dL Critically low 40-60 [facility] Comment on above: Performed By: #### L IVER, BMP, LIPID, TSH #### [facility] [address] [address] Dr. Malachi Maciel Cholesterol in LDL [Mass/Vol] 68.0 mg/dL Normal [facility] Comment on above: Performed By: #### L IVER, BMP, LIPID, TSH #### [facility] [address] [address] [address] Malachi Maciel Cholesterol.total/Ch olesterol in HDL [Mass ratio] 4.5 {ratio} Normal [facility] Comment on above: Performed By: #### L IVER, BMP, LIPID, TSH #### [facility] [address] [address] [address] Malachi Maciel HDL NORMAL > or = 60 mg/dl - LO W CARDIOVASCULAR RISK <40 mg/dl - HIGH CARDIOVASCULAR RISK Normal [facility] Comment on above: Performed By: #### L IVER, BMP, LIPID, TSH #### [facility] [address] [address] [address] Malachi Maciel LDL CALC NORMAL SEE BELOW Normal [facility] Comment on above: Result Comment: <100 mg/dl OPTIMAL 100 - 129 mg/dl NEAR OR ABOVE OPTIMAL 130 - 159 mg/dl BORDERLINE HIGH 160 - 189 mg/dl HIGH >190 mg/dl VERY HIGH Performed By: #### L IVER, BMP, LIPID, TSH #### [facility] [address] [address] [address] Malachi Maciel Triglyceride [Mass/Vol] 170 mg/dL Critically high <=150 [facility] Comment on above: Performed By: #### L IVER, BMP, LIPID, TSH #### [facility] [address] [address] [address] Malachi Maciel VLDL CALC 34.0 mg/dL Normal [facility] Comment on above: Performed By: #### L IVER, BMP, LIPID, TSH #### [facility] [address] [address] [address] Malachi Maciel LIVER PROFILEon 12-01-2021 Albumin [Mass/Vol] 4.0 g/dL Normal 3.4-5.0 [place] Comment on above: Performed By: #### L IVER, BMP, LIPID, TSH #### [facility] [address] [address] [address] Malachi Maciel Albumin/Globulin [Mass ratio] 1.1 {ratio} Normal [facility] Comment on above: Performed By: #### L IVER, BMP, LIPID, TSH #### [facility] [address] [address] [address] Malachi Maciel ALP [Catalytic activity/Vol] 69 U/L Normal 46-116 [facility] Comment on above: Performed By: #### L IVER, BMP, LIPID, TSH #### [facility] [address] [place] [address] Dr. Malachi Maciel ALT [Catalytic activity/Vol] 17 U/L Normal 14-59 [facility] Comment on above: Performed By: #### L IVER, BMP, LIPID, TSH #### [facility] [address] [place] [address] Dr. Malachi Maciel AST [Catalytic activity/Vol] 22 U/L Normal 15-37 [facility] Comment on above: Performed By: #### L IVER, BMP, LIPID, TSH #### [facility] [address] [place] [address] Dr. Malachi Maciel BILI, CONJUGATED 0.1 mg/dL Normal 0.0-0.2 [facility] Comment on above: Performed By: #### L IVER, BMP, LIPID, TSH #### [facility] [address] [place] [address] Dr. Malachi Maciel Bilirubin [Mass/Vol] 0.4 mg/dL Normal 0.2-1.0 [facility] Comment on above: Performed By: #### L IVER, BMP, LIPID, TSH #### [facility] [address] [place] [address] Dr. Malachi Maciel Globulin (S) [Mass/Vol] 3.6 g/dL Normal [facility] Comment on above: Performed By: #### L IVER, BMP, LIPID, TSH #### [facility] [address] [place] [address] Dr. Malachi Maciel Protein [Mass/Vol] 7.6 g/dL Normal 6.4-8.2 [place] Comment on above: Performed By: #### L IVER, BMP, LIPID, TSH #### [facility] [address] [place] [address] Dr. Malachi Maciel PROF CHEM 8 (BAS METB)on Anion gap [Moles/Vol] 10.5 mmol/L Normal [facility] Comment on above: Performed By: #### L IVER, BMP, LIPID, TSH #### [facility] [address] [place] [address] Dr. Malachi Maciel Calcium [Mass/Vol] 9.3 mg/dL Normal 8.5-10.1 [place] Comment on above: Performed By: #### L IVER, BMP, LIPID, TSH #### [facility] [address] [place] [address] Dr. Malachi Maciel Chloride [Moles/Vol] 105 mmol/L Normal 98-107 [facility] Comment on above: Performed By: #### L IVER, BMP, LIPID, TSH #### [facility] [address] [place] [address] Dr. Malachi Maciel CO2 [Moles/Vol] 28.1 mmol/L Normal 21.0-32.0 [facility] Comment on above: Performed By: #### L IVER, BMP, LIPID, TSH #### [facility] [address] [place] [address] Dr. Malachi Maciel Creatinine [Mass/Vol] 1.18 mg/dL Critically high 0.55-1.02 [facility] Comment on above: Performed By: #### L IVER, BMP, LIPID, TSH #### [facility] [address] [place] [address] Dr. Malachi Maciel EGFR-AF BAHRAINI 55 mL/min/1.73m2 Critically low >=60 [facility] Comment on above: Performed By: #### L IVER, BMP, LIPID, TSH #### [facility] [address] [place] [address] Dr. Malachi Maciel EGFR-NON AF BAHRAINI 46 mL/min/1.73m2 Critically low >=60 [facility] Comment on above: Performed By: #### L IVER, BMP, LIPID, TSH #### [facility] [address] [address] [address] Malachi Maciel Glucose [Mass/Vol] 95 mg/dL Normal 74-106 [facility] Comment on above: Performed By: #### L IVER, BMP, LIPID, TSH #### [facility] [address] [place] [address] Dr. Malachi Maciel Potassium [Moles/Vol] 4.6 mmol/L Normal 3.5-5.1 [facility] Comment on above: Performed By: #### L IVER, BMP, LIPID, TSH #### [facility] [address] [place] [address] Dr. Malachi Maciel Sodium [Moles/Vol] 139 mmol/L Normal 136-145 [facility] Comment on above: Performed By: #### L IVER, BMP, LIPID, TSH #### [facility] [address] [place] [address] Dr. Malachi Maciel Urea nitrogen [Mass/Vol] 14.0 mg/dL Normal 7.0-18.0 [facility] Comment on above: Performed By: #### L IVER, BMP, LIPID, TSH #### [facility] [address] [place] [address] Dr. Malachi Maciel Urea nitrogen/Creatinine [Mass ratio] 11.9 mg/mg Normal [facility] Comment on above: Performed By: #### L IVER, BMP, LIPID, TSH #### [facility] [address] [place] [address] Dr. Malachi Maciel TSHon 12-01-2021 TSH 0.987 uIU/mL Normal 0.358-3.740 [facility] Comment on above: Performed By: #### L IVER, BMP, LIPID, TSH #### [facility] [address] [place] [address] Dr. Malachi Maciel CBC AUTO DIFFon 09-03-2021 BASO # 0.0 103/ul Normal 0.0-0.1 [facility] Comment on above: Performed By: #### L IVER, BMP, LIPID, TSH #### [facility] [address] [place] [address] Dr. Malachi Maciel Basophils/100 WBC (Bld) 0.5 % Normal 0.2-2.0 [facility] Comment on above: Performed By: #### L IVER, BMP, LIPID, TSH #### [facility] [address] [place] [address] Dr. Malachi Maciel EO # 0.1 103/ul Normal 0.0-0.7 [facility] Comment on above: Performed By: #### L IVER, BMP, LIPID, TSH #### [facility] [address] [place] [address] Dr. Malachi Maciel Eosinophils/100 WBC (Bld) 1.7 % Normal 0.9-7.0 [facility] Comment on above: Performed By: #### L IVER, BMP, LIPID, TSH #### [facility] [address] [place] [address] Dr. Malachi Maciel Erythrocyte distribution width (RBC) [Ratio] 12.5 % Normal 11.0-15.0 [facility] Comment on above: Performed By: #### L IVER, BMP, LIPID, TSH #### [facility] [address] [place] [address] Dr. Malachi Maciel Hematocrit (Bld) [Volume fraction] 40.8 % Normal 36.0-48.0 [facility] Comment on above: Performed By: #### L IVER, BMP, LIPID, TSH #### [facility] [address] [place] [address] Dr. Malachi Maciel Hemoglobin (Bld) [Mass/Vol] 13.7 g/dL Normal 12.0-16.0 [facility] Comment on above: Performed By: #### L IVER, BMP, LIPID, TSH #### [facility] [address] [place] [address] Dr. Malachi Maciel IG # 0.01 10e3/ul Normal 0.00-0.03 [facility] Comment on above: Performed By: #### L IVER, BMP, LIPID, TSH #### [facility] [address] [place] [address] Dr. Malachi Maciel IG % 0.1 % Normal 0.0-0.5 [facility] Comment on above: Performed By: #### L IVER, BMP, LIPID, TSH #### [facility] [address] [place] [address] Dr. Malachi Maciel LYMPH # 1.8 103/ul Normal 1.2-3.8 [facility] Comment on above: Performed By: #### L IVER, BMP, LIPID, TSH #### [facility] [address] [place] [address] Dr. Malachi Maciel Lymphocytes/100 WBC (Bld) 24.0 % Normal 20.5-60.0 [facility] Comment on above: Performed By: #### L IVER, BMP, LIPID, TSH #### [facility] [address] [place] [address] Dr. Malachi Maciel MANUAL DIFF REQ NO Normal [facility] Comment on above: Performed By: #### L IVER, BMP, LIPID, TSH #### [facility] [address] [place] [address] Dr. Malachi Maciel MCH (RBC) [Entitic mass] 29.7 pg Normal 26.7-34.0 [facility] Comment on above: Performed By: #### L IVER, BMP, LIPID, TSH #### [facility] [address] [place] [address] Dr. Malachi Maciel MCHC (RBC) [Mass/Vol] 33.6 g/dL Normal 29.9-35.2 [facility] Comment on above: Performed By: #### L IVER, BMP, LIPID, TSH #### [facility] [address] [place] [address] Dr. Malachi Maciel MCV (RBC) [Entitic vol] 88.3 fL Normal 81.0-99.0 [facility] Comment on above: Performed By: #### L IVER, BMP, LIPID, TSH #### [facility] [address] [place] [address] Dr. Malachi Maceil MONO # 0.7 103/ul Normal 0.3-0.8 [facility] Comment on above: Performed By: #### L IVER, BMP, LIPID, TSH #### [facility] [address] [place] [address] Dr. Malachi Maciel Monocytes/100 WBC (Bld) 8.5 % Normal 1.7-12.0 [facility] Comment on above: Performed By: #### L IVER, BMP, LIPID, TSH #### [facility] [address] [place] [address] Dr. Malachi Maciel NEUT # 5.0 103/ul Normal 1.4-6.5 [facility] Comment on above: Performed By: #### L IVER, BMP, LIPID, TSH #### [facility] [address] [place] [address] Dr. Malachi Maciel Neutrophils/100 WBC (Bld) 65.2 % Normal 43.0-75.0 [facility] Comment on above: Performed By: #### L IVER, BMP, LIPID, TSH #### [facility] [address] [place] [address] Dr. Malachi Maciel Platelet mean volume (Bld) [Entitic vol] 9.8 fL Normal 9.5-13.5 [facility] Comment on above: Performed By: #### L IVER, BMP, LIPID, TSH #### [facility] [address] [place] [address] Dr. Malachi Maciel PLT 232 103/ul Normal 150-450 [facility] Comment on above: Performed By: #### L IVER, BMP, LIPID, TSH #### [facility] [address] [place] [address] Dr. Malachi Maciel RBC 4.62 106/ul Normal 4.20-5.40 [facility] Comment on above: Performed By: #### L IVER, BMP, LIPID, TSH #### [facility] [address] [place] [address] Dr. Malachi Maciel WBC 7.7 103/ul Normal 4.0-11.0 [facility] Comment on above: Performed By: #### L IVER, BMP, LIPID, TSH #### [facility] [address] [place] [address] Dr. Malachi Maciel PROF CHEM 8 (BAS METB)on Anion gap [Moles/Vol] 16.2 mmol/L Normal [facility] Comment on above: Performed By: #### L IVER, BMP, LIPID, TSH #### [facility] [address] [place] [address] Dr. Malachi Maciel Calcium [Mass/Vol] 9.5 mg/dL Normal 8.5-10.1 [place] Comment on above: Performed By: #### L IVER, BMP, LIPID, TSH #### [facility] [address] [place] [address] Dr. Malachi Maciel Chloride [Moles/Vol] 105 mmol/L Normal 98-107 [facility] Comment on above: Performed By: #### L IVER, BMP, LIPID, TSH #### [facility] [address] [place] [address] Dr. Malachi Maciel CO2 [Moles/Vol] 24.7 mmol/L Normal 21.0-32.0 [facility] Comment on above: Performed By: #### L IVER, BMP, LIPID, TSH #### [facility] [address] [place] [address] Dr. Malachi Maciel Creatinine [Mass/Vol] 1.16 mg/dL Critically high 0.55-1.02 [facility] Comment on above: Performed By: #### L IVER, BMP, LIPID, TSH #### [facility] [address] [place] [address] Dr. Malachi Maciel EGFR-AF BAHRAINI 56 mL/min/1.73m2 Critically low >=60 [facility] Comment on above: Performed By: #### L IVER, BMP, LIPID, TSH #### [facility] [address] [place] [address] Dr. Malachi Maciel EGFR-NON AF BAHRAINI 46 mL/min/1.73m2 Critically low >=60 [facility] Comment on above: Performed By: #### L IVER, BMP, LIPID, TSH #### [facility] [address] [place] [address] Dr. Malachi Maciel Glucose [Mass/Vol] 103 mg/dL Normal 74-106 [facility] Comment on above: Performed By: #### L IVER, BMP, LIPID, TSH #### [facility] [address] [address] [address] Malachi Maciel Potassium [Moles/Vol] 3.9 mmol/L Normal 3.5-5.1 [facility] Comment on above: Performed By: #### L IVER, BMP, LIPID, TSH #### [facility] [address] [address] [address] Malachi Maciel Sodium [Moles/Vol] 142 mmol/L Normal 136-145 [facility] Comment on above: Performed By: #### L IVER, BMP, LIPID, TSH #### [facility] [address] [place] [address] Dr. Malachi Maciel Urea nitrogen [Mass/Vol] 12.0 mg/dL Normal 7.0-18.0 [facility] Comment on above: Performed By: #### L IVER, BMP, LIPID, TSH #### [facility] [address] [address] [address] Malachi Maciel Urea nitrogen/Creatinine [Mass ratio] 10.3 mg/mg Normal [facility] Comment on above: Performed By: #### L IVER, BMP, LIPID, TSH #### [facility] [address] [place] [address] Dr. Malachi Maciel TROPONIN, HIGH SENSITIVITYon 09-03-2021 HSTROP 4.6 pg/mL Normal 4.0-51.3 [facility] Comment on above: Result Comment: CUT- OFF POINTS HAVE BEEN ESTABLISHED BASED ON THE FOURTH UNIVERSAL DEFINITIONS OF MYOCARDIAL INFARCTION. THE UPPER REFERENCE LIMIT (URL) OF TROPONIN, DEFINED THE 99TH PERCENTILE OF cTnI DISTRIBUTION IN A REFERENCE POPULATION, HAS BEEN CONFIRMED THE DECISION THRESHOLD FOR IN DIAGNOSIS. Performed By: #### L IVER, BMP, LIPID, TSH #### [facility] [address] [address] [address] Malachi Maciel BASIC METABOLIC PANELon - Calcium [Mass/Vol] 8.8 mg/dL Normal 8.6-10.3 [facility] Comment on above: Order Comment: No: D o not add to previous draw Performed By: #### 0 [id number] #### [facility] [address] [place] [address], [place] Chloride [Moles/Vol] 107 mmol/L Normal 98-107 [facility] Comment on above: Order Comment: No: D o not add to previous draw Performed By: #### 0 [id number] #### [facility] [address] [place] [address], [place] CO2 [Moles/Vol] 28 mmol/L Normal 21-31 [facility] Comment on above: Order Comment: No: D o not add to previous draw Performed By: #### 0 [id number] #### [facility] [address] [place] [address], [place] Creatinine [Mass/Vol] 0.76 mg/dL Normal 0.60-1.20 [facility] Comment on above: Order Comment: No: D o not add to previous draw Performed By: #### 0 [id number] #### [facility] [address] [place] [address], [place] GFR/1.73 sq M predicted among blacks MDRD (S/P/Bld) [Vol rate/Area] mL/min/{1.73_m2} Normal >60 [facility] Comment on above: Order Comment: No: D o not add to previous draw Performed By: #### 0 [id number] #### [facility] [address] [place] [address], [place] GFR/1.73 sq M predicted among non-blacks MDRD (S/P/Bld) [Vol rate/Area] mL/min/{1.73_m2} Normal >60 [facility] Comment on above: Order Comment: No: D o not add to previous draw Performed By: #### 0 [id number] #### [facility] [address] [place] [address], [place] Glucose [Mass/Vol] 115 mg/dL High 70-100 [facility] Comment on above: Order Comment: No: D o not add to previous draw Performed By: #### 0 [id number] #### [facility] [address] [place] [id number], [facility] Potassium [Moles/Vol] 4.3 mmol/L Normal 3.5-5.1 [facility] Comment on above: Order Comment: No: D o not add to previous draw Performed By: #### 0 [id number] #### [facility] [address] [place] [address], [facility] Sodium [Moles/Vol] 137 mmol/L Normal 136-145 [facility] Comment on above: Order Comment: No: D o not add to previous draw Performed By: #### 0 [id number] #### [facility] [address] [place] [address], [facility] Urea nitrogen [Mass/Vol] 16 mg/dL Normal 7-25 [facility] Comment on above: Order Comment: No: D o not add to previous draw Performed By: #### 0 [id number] #### [facility] [address] [facility] [place] [address], [facility] CBC COMPLETE BLOOD COUNTon 0 - Erythrocyte distribution width (RBC) [Ratio] 12.5 % Normal 11.5-15.0 [facility] Comment on above: Order Comment: No: D o not add to previous draw Performed By: #### 5 [id number] #### [facility] [address] [place] [address], [facility] Hematocrit (Bld) [Volume fraction] 32.2 % Low 36.0-45.0 [facility] Comment on above: Order Comment: No: D o not add to previous draw Performed By: #### 5 [id number] #### [facility] [address] [place] [address], [facility] Hemoglobin (Bld) [Mass/Vol] 10.6 g/dL Low 12.0-15.0 [facility] Comment on above: Order Comment: No: D o not add to previous draw Performed By: #### 5 [id number] #### [facility] [address] [facility]. [address] MCH (RBC) [Entitic mass] 29.8 pg Normal 27.0-33.0 [facility] Comment on above: Order Comment: No: D o not add to previous draw Performed By: #### 5 [id number] #### [facility] [address] MCHC (RBC) [Mass/Vol] 32.9 g/dL Normal 32.0-35.0 [facility] Comment on above: Order Comment: No: D o not add to previous draw Performed By: #### 5 [id number] #### [facility] [address] [facility] [place] [address], [facility] MCV (RBC) [Entitic vol] 90.4 fL Normal 82.0-98.0 [facility] Comment on above: Order Comment: No: D o not add to previous draw Performed By: #### 5 [id number] #### [facility] [address] Nucleated RBC/100 WBC (Bld) [Ratio] 0 % Normal 0-0 [facility] Comment on above: Order Comment: No: D o not add to previous draw Performed By: #### 5 [id number] #### [facility] [address] [place] [address], [facility] PLAT CNT 188 10*3/uL Normal 150-400 [facility] Comment on above: Order Comment: No: D o not add to previous draw Performed By: #### 5 [id number] #### [facility] [address] [place] [address], [facility] RBC (Bld) [#/Vol] 3.56 10*6/uL Low 3.80-5.00 [facility] Comment on above: Order Comment: No: D o not add to previous draw Performed By: #### 5 [id number] #### [id number] [place] [address] WBC (Bld) [#/Vol] 6.98 10*3/uL Normal 4.00-10.60 [facility] Comment on above: Order Comment: No: D o not add to previous draw Performed By: #### 5 [id number] #### [facility] [address] [place], [place] [id number] [place] [address] CT ABDOMEN AND PELVIS WO CON TRASTon 09-02-2019 CT ABDOMEN AND PELVIS WO CONTRAST [facility] Department of Radiology [address] [place] [id number] Patient Name: FIONA BECERRA : 1955 Sex: F Age: Race: White Pt. 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 had medical lab director procedure yesterday, rule out retroperitoneal bleed. QUESTION [...] reports Electronically signed: Kim Ellison. Transcribed by: [email or web address], User Resident: MOHAMUD JACKSON Electronically Signed by: KIM ELLISON @ 09/02/2019 06:06 AM I personally read this/these film(s) with this resident Normal [facility] Comment on above: Order Comment: Other , to rule out retroperitnoeal bleed Cardiovascular Lab Reporton 09-02-2019 Cardiovascular Lab Report [facility] Patient Name: Fiona Becerra [facility] MR #: [id number] Physician: Mary Ellen Painting of [facility] Medicine Service Date: 09/01/2019 Division of Birthdate: 1955 Cardiology Room #: 3AB [id number] Adult Cardiovascular Services [facility] [address] [facility] [place] [address] Cardiovascular Laboratory Report INDICATION: The patient is [...] signed informed consent. She was brought to medical lab director in a fasting state. The right groin [...] angiography. This access was upsized to a 6-Taiwanese x 11 cm sheath. Heparin was administered intravenously and therapeutic ACT confirmed during the rest of the procedure. A straight 6-Taiwanese pigtail catheter was advanced to the ascending aorta and a thoracic aortogram was performed using power injection of contrast. A 5-Taiwanese Reservation Clerk H1 catheter was then used to selectively engage the innominate artery and angiography was performed in multiple views. The catheter was then brought backwards and used to selectively engage the left subclavian artery. Angiography was performed. Using an angled Glidewire, the left subclavian stenosis was crossed and the wire was used to advance the Reservation Clerk catheter and then the wire was exchanged to an exchange length Magic Torque wire. The catheter was retracted and the access sheath was removed. Over the Magic Torque wire, a Christopher 6-Taiwanese x 55 cm sheath was then advanced to the ostium of the left subclavian artery. Angiography was performed in multiple views. A Over Hauler Helper 6 x 40 mm balloon was then advanced and used to perform balloon angioplasty in the left subclavian artery with repeated inflations up to 14 atmospheres. Angiography was performed. A Over Hauler Helper 7 x 20 mm balloon was then [...] The access sheath was exchanged to a 6-Taiwanese x 11 cm sheath. The patient was [...] an optimal location and was upsized to 6-Taiwanese. There were no obstructive lesions noted in [...] Griffiths M.D. Date Trans: 09/02/2019 08:52 A/charline [id number] Normal [facility] HEMOGLOBINon 09-02-2019 Hemoglobin (Bld) [Mass/Vol] 10.4 g/dL Low 12.0-15.0 [facility] Comment on above: Order Comment: No: D o not add to previous draw Performed By: #### 9 [id number] #### [facility] [address] [place] [address], [facility] POC GLUCOSE LABon 09-02-2019 Glucose [Mass/Vol] 102 mg/dL High 70-100 [facility] Comment on above: Performed By: #### 8 [id number] #### [facility] [address] [place] [address], [place] Glucose [Mass/Vol] 106 mg/dL High 70-100 [facility] Comment on above: Performed By: #### 8 [id number] #### [facility] [address] [place] [address], [facility] URINALYSIS REFLEXon 09-02-19 20 Appearance (U) SL CLOUDY Abnormal CLEAR [facility] Comment on above: Order Comment: No: D o not add to previous draw Criteria for reflexing a culture was not met. Please call the lab at [phone] within 24 hours of collection time if culture is needed Performed By: #### 3 0965 #### [facility] [address] [place] [address], [facility] Bilirubin [Mass/Vol] Negative Normal NEGATIVE [facility] Comment on above: Order Comment: No: D o not add to previous draw Criteria for reflexing a culture was not met. Please call the lab at [phone] within 24 hours of collection time if culture is needed Performed By: #### 3 0965 #### [facility] [address] [place] [address], [facility] BLOOD SMALL Abnormal NEGATIVE [facility] Comment on above: Order Comment: No: D o not add to previous draw Criteria for reflexing a culture was not met. Please call the lab at [phone] within 24 hours of collection time if culture is needed Performed By: #### 3 0965 #### [facility] [address] [place] [address], [place] Color (U) YELLOW Normal YELLOW [facility] Comment on above: Order Comment: No: D o not add to previous draw Criteria for reflexing a culture was not met. Please call the lab at [phone] within 24 hours of collection time if culture is needed Performed By: #### 3 0965 #### [facility] [address] [place] [address], [place] EPIS MOD Abnormal FEW,OCC,NONE SEEN [facility] Comment on above: Order Comment: No: D o not add to previous draw Criteria for reflexing a culture was not met. Please call the lab at [phone] within 24 hours of collection time if culture is needed Performed By: #### 3 0965 #### [facility] [address] [place] [address], [facility] Glucose [Mass/Vol] Negative Normal NEGATIVE [facility] Comment on above: Order Comment: No: D o not add to previous draw Criteria for reflexing a culture was not met. Please call the lab at [phone] within 24 hours of collection time if culture is needed Performed By: #### 3 0965 #### [facility] [address] [place] [address], [place] KETONE Negative Normal NEGATIVE [facility] Comment on above: Order Comment: No: D o not add to previous draw Criteria for reflexing a culture was not met. Please call the lab at [phone] within 24 hours of collection time if culture is needed Performed By: #### 3 0965 #### [facility] [address] [place] [address], [place] LEUK CHRIS SMALL Abnormal NEGATIVE [facility] Comment on above: Order Comment: No: D o not add to previous draw Criteria for reflexing a culture was not met. Please call the lab at [phone] within 24 hours of collection time if culture is needed Performed By: #### 3 0965 #### [facility] [address] [place] [address], [place] MUCUS THREADS OCC Abnormal NONE SEEN [facility] Comment on above: Order Comment: No: D o not add to previous draw Criteria for reflexing a culture was not met. Please call the lab at [phone] within 24 hours of collection time if culture is needed Performed By: #### 3 0965 #### [facility] [address] [place] [address], [facility] Nitrite Ql (U) Positive Abnormal NEGATIVE [facility] Comment on above: Order Comment: No: D o not add to previous draw Criteria for reflexing a culture was not met. Please call the lab at [phone] within 24 hours of collection time if culture is needed Performed By: #### 3 0965 #### [facility] [address] [place] [address], [facility] pH (Bld) 6.0 Normal 5.0-8.0 [facility] Comment on above: Order Comment: No: D o not add to previous draw Criteria for reflexing a culture was not met. Please call the lab at [phone] within 24 hours of collection time if culture is needed Performed By: #### 3 0965 #### [facility] [address] [place] [address], [facility] Protein (U) [Mass/Vol] Negative Normal NEGATIVE [facility] Comment on above: Order Comment: No: D o not add to previous draw Criteria for reflexing a culture was not met. Please call the lab at [phone] within 24 hours of collection time if culture is needed Performed By: #### 3 0965 #### [facility] [address] [place] [address], [facility] RBC (U) [#/Vol] 6-10 Abnormal NONE SEEN [facility] Comment on above: Order Comment: No: D o not add to previous draw Criteria for reflexing a culture was not met. Please call the lab at [phone] within 24 hours of collection time if culture is needed Performed By: #### 3 0965 #### [facility] [address] [place] [address], [facility] SPEC GRAV 1.032 High 1.015-1.020 [facility] Comment on above: Order Comment: No: D o not add to previous draw Criteria for reflexing a culture was not met. Please call the lab at [phone] within 24 hours of collection time if culture is needed Performed By: #### 3 0965 #### [facility] [address] [facility] [place] [address], [facility] WBC UA 11-20 Abnormal NONE SEEN [facility] Comment on above: Order Comment: No: D o not add to previous draw Criteria for reflexing a culture was not met. Please call the lab at [phone] within 24 hours of collection time if culture is needed Performed By: #### 3 0965 #### [facility] [address] [facility] [place] [address], [facility] Vital Signs Date Time Vital Sign Value Performing Clinician Faci lity 01-07-2023 14:00-0400 Body height 157.48 cm Luis Galeisle II Other [facility] Other 01-07-2023 14:00-0400 Body mass index (BMI) [Ratio] 22.49 kg/m2 Luis Galeisle II Other [facility] Other 01-07-2023 14:00-0400 Body weight 55.79 kg Luis Alexisle II Other [facility] Other 07-24-2021 10:40-0400 Body height Twin Martinez Other [employer] Other 07-24-2021 10:40-0400 Body mass index (BMI) [Ratio] 23.77 kg/m2 Twin Martinez Other [facility] Other 07-24-2021 10:40-0400 Body weight 58.97 kg Twin Martinez Other [facility] Other 06-12-2021 14:20-0400 Body height Twin Martinez Other [facility] Other 06-12-2021 14:20-0400 Body mass index (BMI) [Ratio] 23.77 kg/m2 Twin Martinez Other [facility] Other 06-12-2021 14:200400 Body weight 58.97 kg Twin Martinez Other [employer] Other Encounters Encounter Date Encounter Type Care Provider Facility Start: 02-08-2024 ambulatory YEIMI Barrowi ty:[facility] Start: 04-23-2023 End: 04-23-2023 ambulatory [facility] Start: 02-05-2023 ambulatory Virgilio Moreno acility:[facility] Start: 02-02-2023 End: 02-03-2023 ambulatory YEIMI QUIJANO Facility:[facility] Start: 02-02-2023 End: 02-02-2023 Patient encounter procedure YEIMI QUIJANO [facility] Start: 01-07-2023 Office outpatient ne w 45 minutes Luis Payne II [facility] Start: 01-07-2023 End: 01-07-2023 ambulatory Omkar Rene Facility:[facility] Start: 01-07-2023 End: 01-07-2023 ambulatory MD Omkar Rene Work Phone: [facility] Work Phone: Start: 01-07-2023 End: 01-07-2023 Patient encounter procedure MD Omkar Rene Work Phone: [facility] Start: 01-04-2023 End: 01-05-2023 ambulatory Ashely Orlando Facility:[facility] Start: 01-04-2023 End: 01-04-2023 Lab Drop off Ashely Orlando [facility] Start: 01-04-2023 End: 01-05-2023 ambulatory [facility] Start: 01-04-2023 End: 01-04-2023 Patient encounter procedure OMKAR RENE [facility] Start: 12-04-2022 End: 12-05-2022 ambulatory YEIMI E MACIE Facility:[facility] Start: 12-04-2022 End: 12-04-2022 Patient encounter procedure YEIMI E MACEI [facility] Start: 12-01-2022 End: 12-02-2022 ambulatory YEIMI E MACIE Facility:[facility] Start: 12-01-2022 End: 12-01-2022 Patient encounter procedure Asheyl Orlando [facility] Start: 11-26-2022 End: 11-27-2022 ambulatory YEIMI E MACIE Facility:[facility] Start: 11-26-2022 End: 11-26-2022 Patient encounter procedure YEIMI E MACIE [facility] Start: 11-09-2022 End: 11-10-2022 ambulatory Ashely Orlando Facility:[facility] Start: 11-09-2022 End: 11-09-2022 Patient encounter procedure Ashely MLamberto Edwardse [facility] Start: 11-05-2022 End: 11-05-2022 ambulatory [facility] Start: 11-02-2022 End: 11-03-2022 ambulatory YEIMI E MACIE Facility:[facility] Start: 11-02-2022 End: 11-02-2022 Patient encounter procedure Blayne CHOI [facility] Start: 07-29-2022 End: 07-30-2022 ambulatory MEÑO APONTE Facility:[facility] Start: 07-24-2022 End: 07-24-2022 ambulatory MEÑO APONTE [facility] Start: 06-08-2022 ambulatory YEIMI QUIJANO Facility :[facility] Start: 06-04-2022 End: 06-05-2022 ambulatory OMKAR CHACKOR Facility:[facility] Start: 06-02-2022 End: 06-03-2022 ambulatory YEIMI QUIJANO Facility:[facility] Start: 06-02-2022 End: 06-03-2022 ambulatory YEMII QUIJANO Facility:[facility] Start: 06-02-2022 End: 06-02-2022 Lab Drop off YEIMI QUIJANO [facility] Start: 02-13-2022 End: 02-14-2022 ambulatory OMKAR RENE Facility:[facility] Start: 12-03-2021 End: 12-04-2021 ambulatory OMKAR A RICCOR Facility:[facility] Start: 12-01-2021 End: 12-02-2021 ambulatory OMKAR CHACKOR Facility:[facility] Start: 09-03-2021 End: 09-03-2021 ambulatory OMKAR CHACKOR Facility:[facility] Start: 08-21-2021 End: 08-21-[address] ZAKIA AZEVEDO . Facility:[facility] Start: 08-05-2021 End: 08-05-[address] ZAKIA AZEVEDO . Facility:[facility] Start: 07-24-2021 End: 07-24-2021 ambulatory Twin Martinez Other [employer] [facility] Other Start: 07-24-2021 Office outpatient visit 15 minutes Twin Martinez [facility] Start: 06-18-2021 End: 06-18-2021 Patient encounter procedure MD Omkar Rene [facility] Start: 06-12-2021 End: 06-12-2021 ambulatory Twin Martinez Other [facility] [employer] Other Start: 06-12-2021 Office outpatient ne w 30 minutes Twin Michelle [facility] Procedures Date Procedure Procedure Detail Performing [...] Immunizations Immunization Date Immunization Notes Care Provider [facility] 01-08-2023 influenza virus vaccine, unspecified formulation YEIMI QUIJANO [facility] 12-23-2021 influenza virus vaccine, unspecified formulation YEIMI QUIJANO [facility] 12-23-2021 SARS-CoV-2 (COVID-19 ) [id number] YEIMI QUIJANO [facility] 07-15-2021 SARS-CoV-2 mRNA (yuztnvmvfck-vqsb-smieq se) vaccine YEIMI MACIE [facility] 01-09-2021 SARS-CoV-2 (COVID-19 ) mRNA BNT-162b2 vax YEIMI MACIE [facility] 12-26-2020 influenza virus vaccine, unspecified formulation YEIMI MACIE [facility] 06-12-2020 SARS-CoV-2 (COVID-19 ) mRNA BNT-162b2 vax YEIMI MACIE [facility] 05-24-2020 SARS-CoV-2 (COVID-19 ) mRNA BNT-162p7 vax YEIMI MACIE [facility] Comment on above: Result Comment: 2022: [id number] 04-25-2020 zoster vaccine recombinant YEIMI MACIE [facility] 12-23-2018 influenza virus vaccine, unspecified formulation YEIMI MACIE [facility] 12-23-2018 zoster vaccine recombinant YEIMI MACIE [facility] 01-01-2016 influenza virus vaccine, unspecified formulation YEIMI MACIE [facility] 01-01-2016 zoster vaccine, live JENNIFE R MACIE [facility] Payers Date Payer Category Payer Self-pay [id number] 2017 Private Health Insurance [facility] [id number] 1959 Medicaid [id number] 1959 Medicare [id number] 1953 Unknown [id number] 2.16.84 0.1.007278.3.579.2.593 1953 Unknown [id number] 2.16.84 0.1.764337.3.579.2.593 1953 Unknown [id number] 2.16.84 0.1.233654.3.579.2.593 1953 Unknown [id number] 2.16.84 0.1.331570.3.579.2.593 1953 Unknown [id number] 2.16.84 0.1.700737.3.579.2.593 1953 Unknown [id number] 2.16.84 0.1.045489.3.579.2.593 1953 Unknown [id number] 2.16.84 0.1.681425.3.579.2.593 1953 Unknown [id number] 2.16.84 0.1.656733.3.579.2.593 1953 Unknown [id number] 2.16.8 40.1.182065.3.579.2.727 1953 Unknown [id number] 2.16.8 40.1.475067.3.579.2.727 1953 Unknown [id number] 2.16.8 40.1.979166.3.579.2.727 1953 Unknown [id number] 2.16.8 40.1.837652.3.579.2.727 1953 Unknown [id number] 2.16.8 40.1.215999.3.579.2.727 1953 Unknown [id number] 2.16.8 40.1.859001.3.579.2.727 1953 Unknown [id number] 2.16.8 40.1.557396.3.579.2.727 1953 Unknown [id number] 2.16.8 40.1.341875.3.579.2.727 1953 Unknown [id number] 2.16.8 40.1.814472.3.579.2.727 1953 Unknown [id number] 2.16.8 40.1.027421.3.579.2.727 1953 Unknown [id number] 2.16.8 40.1.999356.3.579.2.727 1953 Unknown [id number] 2.16.8 40.1.430076.3.579.2.727 1953 Unknown [id number] 2.16.8 40.1.880233.3.579.2.727 Medicare [id number] Unknown [id number] Unknown [id number] 2.16.8 40.1.690203.3.579.2.531 Unknown [id number] 2.16.8 40.1.721367.3.579.2.531 Social History Date Type Detail Facility [facility] [employer] Other Start: 1955 Sex Assigned At Female F [facility] Sex Assigned At [facility] Start: 06-02-2022 Tobacco smoking status Ex-smoker (fi nding) [facility] Functional Status Date Assessment Result Facility 02-02-2023 Functional Status N/A [facility] 11-09-2022 Functional Status N/A [facility] Clinical Notes 06-12-2021 to 04-23-2023 Note Date & Type Note Facility 04-23-[address] Cardiology - [facility] Subjective Fiona Becerra is a [...] s/p left subclavian stenting in 2011 at [facility]. 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 [facility] 02-02-2023 Hospital Discharge instructions Patient Education [...] Treatment for this condition includes: Antibiotic medicine. Dhqu-imf-velywhg medicines to treat discomfort. Drinking enough water [...] Follow these instructions at home: Medicines Take csfe-ipm-rkvmmya and prescription medicines only as told by [...] provider. Document Revised: 10/18/2020 Document Reviewed: 10/18/2020 [employer] Patient Education 2022 [employer]. Follow Up Care 11/10/2022 12:49:15 With:MACIE ACOSTA, YEIMI Elder, URL Address: [address] [place] [address] When: Unknown [facility] [email or web address] 01-07-2023 Evaluation note Encounter Date Diagnosis Assessment [...] oral anti-inflammato elsy and Tylenol. Recommended utilizing koye-mls-ikoyrh r oral anti-inflammato elsy. Recommended adjusting their [...] MRI to evaluate for gluteal tendon pathology. [employer] Other 08-21-2023 Note [id number]:127[facility] 11-09-2022 NoteCystoscopy with Urethral Dilation [...] if you have a fever over 100 degrees[facility] Hospital Discharge instructions Patient Education [...] Care 11/04/2022 16:37:52 With:YEIMI QUIJANO Address: [address] [place] [address] Business (1) [address], [address] [place] [address] Business (1) [address] [place] [place] [address] Business (1) When: Unknown Comments:Office to schedule follow up in 2-3 months with VIVI Bailon [facility]08-21-2023 Evaluation + Plan noteExtracted from: Title:[facility] HOPD Note Author:Ashely Orlando MD Date:11/09/22 Impression and Plan Assessment and Plan: Diagnosis: Vaginal atrophy (JAP78-YV N95.2, Discharge, Medical), Unspecified urethral stricture, female (JES59-QP N35.92, Discharge, Medical), Recurrent UTI (YKV26-VH N39.0, Discharge, Medical), Lichen sclerosus (PYX60-IW L90.0, Discharge, Medical). 67 yo F prior DLS pt last seen by VIVI Bailon here for urethral stricture dilation. 1. Urethral stricture- mild on exam, pt demanded repeat dilation despite recent +UCx, on abx. States understanding of getting worse infection/sick. Unclear if having stricture sx, but again pt was adamant about having dilation done. Risks thoroughly discussed. -Dilated to 30 Taiwanese today without difficulty -Recommend starting Estrace cream [...] sclerosis - cont clobetasol prn per dermatology [facility]08-17-2023 NoteSubjective Fiona Becerra is a 67 y.o. year old female patient being seen for hypertension and subclavian stenosis s/p left subclavian stenting in 2011 at [facility]. Patient Active Problem List Diagnosis Anxiety [...] s/p left subclavian stenting in 2011 at [facility]. Update: 02/05/2022 She had Covid back [...] Update: 11/05/2021 She was seen at the [facility] with chest pain on 10/30/2022 Pain [...] velocity Impression Elevated flow (more content not included)...[facility] 07-24-2022 NoteCurrently stableUnSumma Health [facility]05-05-2023 NoteStable, no concerning symptomsUnSumma Health Wadsworth [facility]05-05-2023 NoteContinue crestor Last LDL was 59- well controlledUnSumma Health Wadsworth - [facility]itt[facility]05-05-2023 NoteubUnSumma Health Wadsworth [facility]itt[facility]05-05-2023 NotePatient here for 6 mo follow up subclavian steal syndrome and hypertension. Had labs and carotid US in May 2022. Denies chest pain, SOB, and lightheadedness. Says she's feeling pretty good lately from a cardiac standpoint. Review of Systems Constitutional: Positive for malaise/fatigue. Musculoskeletal: Positive for arthritis, back pain, joint pain and muscle weakness. All other systems reviewed and are negative.[facility] 07-24-2022 NoteUTP CARDIOLOGY PROGRESS NOTE HPI: [...] in-stent stenosis ( (more content not included)... [facility]05-05-2023 NoteHypertension is typically well controlled- she forgot to take her meds this morningUnSumma Health [facility]05-05-2023 NoteF/[facility]03-14-2023 NoteChief Complaint Patient Is here for a [...] (pt requested not to be with other [facility] MDs). The procedure risks, benefits, details, and [...] Contact Information SHAYY HUSTON, Oswaldo Sewell, URL [address] [place] [address] [place] [address]- Additional Instructions: Cysto/UD with Dr. Matthews [...] Dipstick: Negative (06/02/22 10:43:0 (more content not included)...[facility] above:Result Comment: Electronically Signed By: YEIMI QUIJANO PA-C\.br\Date and Time Signed: 06/03/2311:45 EDT\.br\Electronically Co-Signed By: Marilee Pride.br\Date and Time Co-Signed: 06/02/22 11:37 [id number] Evaluation + Plan note Diagnostic Tests Pending * Urine Culture 06/02/22 [facility]05-05-2022 Evaluation note* Encounter Date Diagnosis Assessment Notes [...] without myelopathy or radiculopathy (ICD-10 - M47.816) [facility] [employer] Other 03-24-2022 Evaluation note* Encounter Date Diagnosis [...] Asymptomatic age-related postmenopausal state (ICD-10 - Z78.0) [employer] Other evaluation + Plan note Future Appointments Appointment Date:02/02/2023 11:00:00 AM Scheduled Provider:YEIMI QUIJANO PA-C Location:[facility] Appointment Type:URO Office Visit Future Scheduled Tests Laboratory* Urine [facility] Future Appointments Appointment Date:02/02/2023 11:00:00 AM Scheduled Provider:YEIMI QUIJANO PA-C Location:[facility] Appointment Type:URO Office Visit Future Scheduled Tests Radiology* CT Abdomen/Pelvis w/o Contrast 12/01/22 [facility] evaluation + Plan note Future Appointments Appointment Date:02/02/2023 11:00:00 AM Scheduled Provider:YEIMI QUIJANO PA-C Location:[facility] Appointment Type:URO [facility] Future Appointments Appointment Date:02/02/2023 11:00:00 AM Scheduled Provider:YEIMI QUIJANO PA-C Location:[facility] Appointment Type:URO Office Visit Diagnostic Tests Pending * Urine Culture [facility]04[facility]23 [facility] Future Appointments Appointment Date:02/08/2024 10:00:00 AM Scheduled Provider:YEIMI QUIJANO PA-C Location:[facility] Appointment Type:URO Office Visit [facility] evaluation noteNo assessment information available [facility] Work Phone: Hisjmft general Narrative - Reported* Type Description Date Medical History GERD Medical History glaucoma Medical History HTN Medical History hyperlipidemia Medical History anxiety Medical History Atrial fibrillation Surgical History bunionectomy Surgical History Bunions Surgical History tonsillectomy Surgical History Tonsils Surgical History Ovaries Surgical History urethral dilation Surgical History ovary surgery Surgical History Stents Hospitalization History see above [facility] Other Hospital course Narrative No data available for this section [facility] No data available for this section [facility] No data available for this section [facility] NarrativeReferral [facility] Other Summary Purpose Family History No Family [...] 3:57pm Hospital Course Note MR#: [id number] 2 [facility] Pt. 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 The patient had balloon dilation of the left subclavian artery with reduction in all stenosis to 10%. In addition, the patient had patent bilateral vertebral arteries along with patent bxukjtij-jy-[id number] segments of both internal carotid arteries. The innominate artery also showed no evidence of stenosis along with the right subclavian artery in the bapqvbnb-[id number]-[id number] segment with no evidence of stenosis. DISCHARGE DIAGNOSES: 1. Left subclavian artery in-stent restenosis, status post balloon dilation. 2. Left subclavian steal syndrome. 3. Carotid artery stenosis. 4. Essential hypertension. (more content not included)... Chief Complaint and Reason for Visit Chief Complaint z78.0,M54.16 Additional Source Comments INFORMATION SOURCE (unrecogn ized section and content) DATE CREATED AUTHOR 04/04/2020 [facility] DATE CREATED AUTHOR AUTHOR'S ORGANIZ ATION 08/02/2022 [facility] DATE CREATED AUTHOR AUTHOR'S ORGANIZ ATION 02/03/2023 [facility] DATE CREATED AUTHOR AUTHOR'S ORGANIZ ATION 04/24/2023 [facility] DATE CREATED AUTHOR AUTHOR'S ORGANIZ ATION 04/30/2023 [facility] Teams (unrecognized sec tion and content) [...] BE BASED ON THE PRIMARY CLINICAL RECORDS. [employer] [facility]. provides no warranty or guarantee of the accuracy or completeness of information in this document.
--- NOTE | 2023-05-13 18:59 | ED_ITS ---
Documented by User: VIVI Cooper 05/13/23 21:31 HPI - Chest Pain General Chief Complaint: Chest Pain Stated Complaint: CHEST PAIN Time Seen by Provider: 05/13/23 18:39 Source: patient and EMR Mode of arrival: ambulance Limitations: no limitations History of Present Illness HPI narrative: Patient is a 68-year-old female who presents to the emergency department for the evaluation of chest pain. Patient states she had COVID 1 month ago And has been having issues with losing weight, not feeling well since that time. She states today she went for outpatient labs and on leaving the hospital, she had an onset of chest pain, shortness of breath. She was noted to be in rapid A-fib on arrival to the ER, she states she does have a history of this but does not take any medications for it. She is not anticoagulated. She denies any recent fevers, cough, congestion. She denies any leg swelling. No medications taken prior to arrival. Risk Factors Coronary artery disease risk factors: hypertension Related Data Home Medications Medication Instructions Recorded Confirmed carvedilol 6.25 mg tablet 6.25 mg PO Q12H 10/30/22 05/13/23 citalopram 40 mg tablet 40 mg PO QDAY 10/30/22 05/13/23 lisinopril 5 mg tablet 5 mg PO QDAY 10/30/22 05/13/23 lorazepam 1 mg tablet 1 mg PO Q8H 10/30/22 05/13/23 ropinirole 2 mg tablet 2 mg PO TID 10/30/22 05/13/23 rosuvastatin 40 mg tablet 40 mg PO QDAY 10/30/22 10/30/22 aspirin 81 mg capsule 81 mg PO DAILY 05/13/23 05/13/23 Previous Rx's Medication Instructions Recorded meloxicam 7.5 mg tablet 7.5 mg PO DAILY PRN pain #10 tabs 10/11/22 nitrofurantoin 100 mg PO BID 5 days #10 caps 10/11/22 monohydrate/macrocrystals 100 mg capsule (Macrobid) Allergies Allergy/AdvReac Type Severity Reaction Status Date / Time atorvastatin [From Lipitor] Allergy Mild Rash Verified 05/13/23 18:51 prednisone Allergy Unknown Verified 05/13/23 18:51 latanoprost Allergy Verified 05/13/23 18:51 bupropion AdvReac Unresponsiv Verified 05/13/23 18:51 e desvenlafaxine AdvReac Unconscious Verified 05/13/23 18:51 olanzapine AdvReac Unconscious Verified 05/13/23 18:51 venlafaxine AdvReac Depression Verified 05/13/23 18:52 vilazodone AdvReac suicidal Verified 05/13/23 18:51 ideation Review of Systems ROS Constitutional Denies: fever or chills Ears, nose, mouth, and throat Denies: throat pain Cardiovascular Reports: chest pain Respiratory Reports: shortness of breath; Denies: cough Gastrointestinal Denies: nausea or vomiting Genitourinary Denies: painful urination Musculoskeletal Denies: back pain or neck pain Integumentary/Breast Denies: rash Neurological Denies: headache Endocrine Denies: excessive urination Hematologic/Lymphatic Denies: easy bruising PFSH PFSH Social History Smoking status: Current every day smoker Exam Narrative Exam Narrative: Gen.: Awake, alert, in no distress Head: Normocephalic, atraumatic ENT: Moist mucous membranes Respiratory: No respiratory distress, lungs clear bilaterally Cardio: Tachycardia Gastrointestinal: Abdomen is soft, nondistended and nontender to palpation Extremities: Moves extremities equally Psych: Normal mood and affect Neuro: No focal neuro deficit Skin: Warm, dry, intact Constitutional Vital Signs, click to edit/add: Last Vital Signs Temp 97.7 F 05/13/23 18:40 Pulse 71 05/13/23 21:31 Resp 14 05/13/23 21:31 BP 153/64 H 05/13/23 21:31 Pulse Ox 100 05/13/23 21:31 O2 Del Method Room Air 05/13/23 18:40 Course Vital Signs Vital signs: Vital Signs Temperature 97.7 F 05/13/23 18:40 Pulse Rate 159 H 05/13/23 18:40 Respiratory Rate 24 05/13/23 18:40 Blood Pressure 107/80 05/13/23 18:40 Pulse Oximetry 99 05/13/23 18:40 Oxygen Delivery Method Room Air 05/13/23 18:40 Temperature 97.7 F 05/13/23 18:40 Pulse Rate 71 05/13/23 21:31 Respiratory Rate 14 05/13/23 21:31 Blood Pressure 153/64 H 05/13/23 21:31 Pulse Oximetry 100 05/13/23 21:31 Oxygen Delivery Method Room Air 05/13/23 18:40 MDM - Chest Pain MDM Narrative Medical decision making narrative: Arrival to the emergency department, patient was noted to have A-fib with RVR. She was treated with IV fluids, Cardizem bolus and immediately converted to normal sinus rhythm. She has no further medical complaints in the ER. She is very eager for discharge. Her D-dimer was elevated and she was sent for CT angio of the chest which is unremarkable. Repeat troponin was obtained, she was agreeable to these tests. She was offered admission to the hospital, it was recommended based on her age and risk factors that she be admitted for further evaluation. She declined this and would like to follow-up with her PCP. I feel this is reasonable as her symptoms have resolved as she converted to normal sinus rhythm. She will continue her home medications. Return to the emergency department if symptoms change or worsen. Medical Records Data Attestation: I reviewed the patient's medical records. Lab Data Attestation: I reviewed the patient's lab results. Labs: Lab Results 05/13/23 05/13/23 05/13/23 Range/Units 18:43 18:48 20:53 WBC 8.7 (4.0-11.0) 10^3/uL RBC 4.52 (4.20-5.40) 10^6/uL Hgb 13.1 (12.0-16.0) g/dL Hct 40.4 (36.0-48.0) % MCV 89.4 (81.0-99.0) fL MCH 29.0 (26.7-34.0) pg MCHC 32.4 (29.9-35.2) g/dL RDW 13.0 (11.0-15.0) % Plt Count 231 (150-450) 10^3/uL MPV 9.7 (9.5-13.5) fL Neut % (Auto) 59.2 (43.0-75.0) % Lymph % (Auto) 33.2 (20.5-60.0) % [place] % (Auto) 6.1 (1.7-12.0) % Eos % (Auto) 0.7 L (0.9-7.0) % Baso % (Auto) 0.6 (0.2-2.0) % Neut # (Auto) 5.2 (1.4-6.5) 10^3/uL Lymph # (Auto) 2.9 (1.2-3.8) 10^3/uL [place] # (Auto) 0.5 (0.3-0.8) 10^3/uL Eos # (Auto) 0.1 (0.0-0.7) 10^3/uL Baso # (Auto) 0.1 (0.0-0.1) 10^3/uL Abs Immat Gran (auto) 0.02 (0.00-0.03) 10^3/uL Imm/Tot Granulo (auto) 0.2 (0.0-0.5) % PT 10.3 (9.0-11.6) sec INR 0.97 APTT 31.6 (22.3-36.2) sec D-Dimer 2.43 H* (<=0.59) mg/L FEU Sodium 143 (136-145) mmol/L Potassium 3.8 (3.5-5.1) mmol/L Chloride 104 (98-107) mmol/L Carbon Dioxide 24.2 (21.0-32.0) mmol/L Anion Gap 18.6 BUN 23.0 H (7.0-18.0) mg/dL Creatinine 1.09 H (0.55-1.02) mg/dL Est GFR ( Amer) >60 (>=60) Est GFR (Non-Af Amer) 50 L (>=60) BUN/Creatinine Ratio 21.1 Glucose 129 H (74-106) mg/dL Calcium 9.6 (8.5-10.1) mg/dL Total Bilirubin 0.3 (0.2-1.0) mg/dL AST 14 L (15-37) U/L ALT 11 L (14-59) U/L Alkaline Phosphatase 76 (46-116) U/L Troponin I High Sens 6.3 13.6 (4.0-51.3) pg/mL NT-Pro-B Natriuret Pep 349.0 (<=900.0) pg/mL Total Protein 8.2 (6.4-8.2) g/dL Albumin 3.9 (3.4-5.0) g/dL Globulin 4.3 g/dL Albumin/Globulin Ratio 0.[address] scan - chest: Attestation: I have reviewed the pertinent imaging results. Radiologist's impression: ITS Impressions Chest X-Ray 05/13/23 18:39 IMPRESSION: No acute infiltrate or evidence of cardiac decompensation. The overall appearance of the chest is essentially unchanged. Electronically authenticated by: ZOE WALKER Date: 05/13/2023 19:30 Chest CTA 05/13/23 19:27 IMPRESSION: No evidence of pulmonary emboli or other acute findings. Electronically authenticated by: LUDMILA ARMSTRONG Date: 05/13/2023 21:09 ECG Data Attestation: I personally reviewed and interpreted this ECG as follows: (EKG #1: Rapid A-fib at a rate of 155, moderate ST depression with no acute ST elevation or ectopy. EKG reviewed by attending physician. EKG #2: Normal sinus rhythm at a rate of 77 with first-degree AV block, no acute ST elevation or ectopy. EKG reviewed by attending physician.) Heart Score History: Moderately Suspicious ECG: Normal Age: >65 years Risk Factors: >3 Risk Factors/ HX of CAD:2 Troponin: <Normal Limit Total Heart Score Recommendations & Risks:: 5 Discharge Plan Discharge Chief Complaint: Chest Pain Clinical Impression: Chest pain, Atrial fibrillation with RVR Patient Disposition: Home, Self-Care Time of Disposition Decision: 21:28 Condition: Good Prescriptions / Home Meds: No Action carvedilol 6.25 mg tablet 6.25 mg PO Q12H citalopram 40 mg tablet 40 mg PO QDAY lisinopril 5 mg tablet 5 mg PO QDAY Hold Instructions: Doctor's Order lorazepam 1 mg tablet 1 mg PO Q8H ropinirole 2 mg tablet 2 mg PO TID rosuvastatin 40 mg tablet 40 mg PO QDAY nitrofurantoin monohyd/m-cryst [Macrobid] 100 mg capsule 100 mg PO BID 5 Days Qty: 10 0RF Rx Instructions: must administer with a meal/food meloxicam 7.5 mg tablet 7.5 mg PO DAILY PRN (Reason: pain) Qty: 10 0RF aspirin 81 mg capsule 81 mg PO DAILY Instructions: A-fib (Atrial Fibrillation) (ED), Chest Pain (DC) Stand Alone Forms: Portal Instructions Referrals: Omkar Raza MD [Primary Care Provider] - 1 week Discharge Date/Time: 05/13/23 21:59 Documented by User: Rajeev Farias MD 05/14/23 06:52 HPI - Chest Pain General Chief Complaint: Chest Pain Stated Complaint: CHEST PAIN Time Seen by Provider: 05/13/23 18:39 Related Data Home Medications Medication Instructions Recorded Confirmed carvedilol 6.25 mg tablet 6.25 mg PO Q12H 10/30/22 05/13/23 citalopram 40 mg tablet 40 mg PO QDAY 10/30/22 05/13/23 lisinopril 5 mg tablet 5 mg PO QDAY 10/30/22 05/13/23 lorazepam 1 mg tablet 1 mg PO Q8H 10/30/22 05/13/23 ropinirole 2 mg tablet 2 mg PO TID 10/30/22 05/13/23 rosuvastatin 40 mg tablet 40 mg PO QDAY 10/30/22 10/30/22 aspirin 81 mg capsule 81 mg PO DAILY 05/13/23 05/13/23 Previous Rx's Medication Instructions Recorded meloxicam 7.5 mg tablet 7.5 mg PO DAILY PRN pain #10 tabs 10/11/22 nitrofurantoin 100 mg PO BID 5 days #10 caps 10/11/22 monohydrate/macrocrystals 100 mg capsule (Macrobid) Allergies Allergy/AdvReac Type Severity Reaction Status Date / Time atorvastatin [From Lipitor] Allergy Mild Rash Verified 05/13/23 18:51 prednisone Allergy Unknown Verified 05/13/23 18:51 latanoprost Allergy Verified 05/13/23 18:51 bupropion AdvReac Unresponsiv Verified 05/13/23 18:51 e desvenlafaxine AdvReac Unconscious Verified 05/13/23 18:51 olanzapine AdvReac Unconscious Verified 05/13/23 18:51 venlafaxine AdvReac Depression Verified 05/13/23 18:52 vilazodone AdvReac suicidal Verified 05/13/23 18:51 ideation PFSH PFSH Social History Smoking status: Current every day smoker Exam Constitutional Vital Signs, click to edit/add: Last Vital Signs Temp 97.7 F 05/13/23 18:40 Pulse 71 05/13/23 21:31 Resp 14 05/13/23 21:31 BP 153/64 H 05/13/23 21:31 Pulse Ox 100 05/13/23 21:31 O2 Del Method Room Air 05/13/23 18:40 Course Vital Signs Vital signs: Vital Signs Temperature 97.7 F 05/13/23 18:40 Pulse Rate 159 H 05/13/23 18:40 Respiratory Rate 24 05/13/23 18:40 Blood Pressure 107/80 05/13/23 18:40 Pulse Oximetry 99 05/13/23 18:40 Oxygen Delivery Method Room Air 05/13/23 18:40 Temperature 97.7 F 05/13/23 18:40 Pulse Rate 71 05/13/23 21:31 Respiratory Rate 14 05/13/23 21:31 Blood Pressure 153/64 H 05/13/23 21:31 Pulse Oximetry 100 05/13/23 21:31 Oxygen Delivery Method Room Air 05/13/23 18:40 MDM - Chest Pain Lab Data Labs: Lab Results 05/13/23 05/13/23 05/13/23 Range/Units 18:43 18:48 20:53 WBC 8.7 (4.0-11.0) 10^3/uL RBC 4.52 (4.20-5.40) 10^6/uL Hgb 13.1 (12.0-16.0) g/dL Hct 40.4 (36.0-48.0) % MCV 89.4 (81.0-99.0) fL MCH 29.0 (26.7-34.0) pg MCHC 32.4 (29.9-35.2) g/dL RDW 13.0 (11.0-15.0) % Plt Count 231 (150-450) 10^3/uL MPV 9.7 (9.5-13.5) fL Neut % (Auto) 59.2 (43.0-75.0) % Lymph % (Auto) 33.2 (20.5-60.0) % [place] % (Auto) 6.1 (1.7-12.0) % Eos % (Auto) 0.7 L (0.9-7.0) % Baso % (Auto) 0.6 (0.2-2.0) % Neut # (Auto) 5.2 (1.4-6.5) 10^3/uL Lymph # (Auto) 2.9 (1.2-3.8) 10^3/uL [place] # (Auto) 0.5 (0.3-0.8) 10^3/uL Eos # (Auto) 0.1 (0.0-0.7) 10^3/uL Baso # (Auto) 0.1 (0.0-0.1) 10^3/uL Abs Immat Gran (auto) 0.02 (0.00-0.03) 10^3/uL Imm/Tot Granulo (auto) 0.2 (0.0-0.5) % PT 10.3 (9.0-11.6) sec INR 0.97 APTT 31.6 (22.3-36.2) sec D-Dimer 2.43 H* (<=0.59) mg/L FEU Sodium 143 (136-145) mmol/L Potassium 3.8 (3.5-5.1) mmol/L Chloride 104 (98-107) mmol/L Carbon Dioxide 24.2 (21.0-32.0) mmol/L Anion Gap 18.6 BUN 23.0 H (7.0-18.0) mg/dL Creatinine 1.09 H (0.55-1.02) mg/dL Est GFR ( Amer) >60 (>=60) Est GFR (Non-Af Amer) 50 L (>=60) BUN/Creatinine Ratio 21.1 Glucose 129 H (74-106) mg/dL Calcium 9.6 (8.5-10.1) mg/dL Total Bilirubin 0.3 (0.2-1.0) mg/dL AST 14 L (15-37) U/L ALT 11 L (14-59) U/L Alkaline Phosphatase 76 (46-116) U/L Troponin I High Sens 6.3 13.6 (4.0-51.3) pg/mL NT-Pro-B Natriuret Pep 349.0 (<=900.0) pg/mL Total Protein 8.2 (6.4-8.2) g/dL Albumin 3.9 (3.4-5.0) g/dL Globulin 4.3 g/dL Albumin/Globulin Ratio 0.[address] scan - chest: Radiologist's impression: ITS Impressions Chest X-Ray 05/13/23 18:39 IMPRESSION: No acute infiltrate or evidence of cardiac decompensation. The overall appearance of the chest is essentially unchanged. Electronically authenticated by: ZOE WALKER Date: 05/13/2023 19:30 Chest CTA 05/13/23 19:27 IMPRESSION: No evidence of pulmonary emboli or other acute findings. Electronically authenticated by: LUDMILA ARMSTRONG Date: 05/13/2023 21:09 Heart Score Total Heart Score Recommendations & Risks:: 5 Discharge Plan Discharge Chief Complaint: Chest Pain Clinical Impression: Chest pain, Atrial fibrillation with RVR Patient Disposition: Home, Self-Care Time of Disposition Decision: 21:28 Condition: Good Prescriptions / Home Meds: No Action carvedilol 6.25 mg tablet 6.25 mg PO Q12H citalopram 40 mg tablet 40 mg PO QDAY lisinopril 5 mg tablet 5 mg PO QDAY Hold Instructions: Doctor's Order lorazepam 1 mg tablet 1 mg PO Q8H ropinirole 2 mg tablet 2 mg PO TID rosuvastatin 40 mg tablet 40 mg PO QDAY nitrofurantoin monohyd/m-cryst [Macrobid] 100 mg capsule 100 mg PO BID 5 Days Qty: 10 0RF Rx Instructions: must administer with a meal/food meloxicam 7.5 mg tablet 7.5 mg PO DAILY PRN (Reason: pain) Qty: 10 0RF aspirin 81 mg capsule 81 mg PO DAILY Instructions: A-fib (Atrial Fibrillation) (ED), Chest Pain (DC) Stand Alone Forms: Portal Instructions Referrals: Omkar Raza MD [Primary Care Provider] - 1 week Discharge Date/Time: 05/13/23 21:59
[2023-05-13 19:01] LABS: Basophils Absolute Auto 0.1 10^3/uL (0.0-0.1); Basophils Percent Auto 0.6 % (0.2-2.0); Eosinophils Absolute Auto 0.1 10^3/uL (0.0-0.7); Eosinophils Percent Auto 0.7 % (0.9-7.0); Hematocrit 40.4 % (36.0-48.0); Hemoglobin 13.1 g/dL (12.0-16.0); Immature Granulocytes Abs Auto 0.02 10^3/uL (0.00-0.03); Immature Granulocytes Pct Auto 0.2 % (0.0-0.5); Lymphocytes Absolute Auto 2.9 10^3/uL (1.2-3.8); Lymphocytes Percent Auto 33.2 % (20.5-60.0); Mean Corpuscular HGB Conc 32.4 g/dL (29.9-35.2); Mean Corpuscular Volume 89.4 fL (81.0-99.0); Mean Platelet Volume 9.7 fL (9.5-13.5); Monocytes Absolute Auto 0.5 10^3/uL (0.3-0.8); Monocytes Percent Auto 6.1 % (1.7-12.0); Neutrophils Absolute Auto 5.2 10^3/uL (1.4-6.5); Neutrophils Percent Auto 59.2 % (43.0-75.0); Platelet Count 231 10^3/uL (150-450); Red Blood Count 4.52 10^6/uL (4.20-5.40); White Blood Count 8.7 10^3/uL (4.0-11.0)
[2023-05-13] MEDS: DILTIAZEM HCL 25 MG/5 ML VIAL 10 MG IV (19:06)
[2023-05-13] MEDS: 0.9 % SODIUM CHLORIDE 1,000 ML 1000 ML IV (19:06)
--- NOTE | 2023-05-13 19:13 | ECG_ITS ---
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
[2023-05-13 19:19] LABS: INR 0.97; Partial Thromboplastin Time 31.6 sec (22.3-36.2); Prothrombin Time 10.3 sec (9.0-11.6)
[2023-05-13 19:25] LABS: D Dimer 2.43 mg/L FEU (<=0.59)
--- NOTE | 2023-05-13 19:27 | CT_ITS ---
[address] [address] Patient Name: MARIANNA STEINBERG MRN: [id number] date: 1955 Sex: F Assigned Patient Location: ER Current Patient Location: ER Accession/Order Number: [id number] Exam Date: 05/13/2023 20:38 Report Date: 05/13/2023 21:09 At the request of: MAGDALENA KENNEDY Procedure: CT angio chest EXAMINATION: CT angio chest, 05/13/2023 5:38 PM PST HISTORY: PE COMPARISON: None. TECHNIQUE: CT angiogram of the chest (per pulmonary embolus protocol) with contrast. Coronal and sagittal 3D MIP rendered images were created. ALARA Utilization: Dose reduction technique was used including one or more of the following: automated exposure control, iterative reconstruction technique, adjustment of mA and kV according patient size and/or scan done according to ALARA (exposure dose as low as reasonably achievable). FINDINGS: CTA: No pulmonary artery filling defects/emboli. Non dilated pulmonary trunk. LUNGS: No significant finding. AIRWAYS: No significant finding. PLEURA: No significant finding. MEDIASTINUM AND BRIANNA: No significant finding. HEART AND PERICARDIUM: Cardiomegaly. VESSELS: Moderate to heavy scattered atherosclerotic calcification. CHEST WALL: No significant finding. NECK BASE: No significant finding. UPPER ABDOMEN: No significant finding. BONES: No significant finding. CT/CT angio chest IMPRESSION: No evidence of pulmonary emboli or other acute findings. Electronically authenticated by: LUDMILA ARMSTRONG Date: 05/13/2023 21:09
[2023-05-13 19:28] LABS: Alanine Aminotransferase 11 U/L (14-59); Albumin Globulin Ratio 0.9; Albumin Level 3.9 g/dL (3.4-5.0); Alkaline Phosphatase 76 U/L (46-116); Anion Gap 18.6; Aspartate Amino Transferase 14 U/L (15-37); BUN Creatinine Ratio 21.1; Bilirubin Total 0.3 mg/dL (0.2-1.0); Calcium 9.6 mg/dL (8.5-10.1); Carbon Dioxide 24.2 mmol/L (21.0-32.0); Chloride 104 mmol/L (98-107); Estimated GFR (African America >60 (>=60); Estimated GFR (Non-African Ame 50 (>=60); Globulin 4.3 g/dL; Glucose 129 mg/dL (74-106); Potassium 3.8 mmol/L (3.5-5.1); Sodium 143 mmol/L (136-145); Total Protein 8.2 g/dL (6.4-8.2); Troponin I High Sensitivity 6.3 pg/mL (4.0-51.3)
[2023-05-13] MEDS: ENOXAPARIN SODIUM 60 MG/0.6 ML SYRINGE 50 MG SUBQ (21:00)
[2023-05-13 21:21] LABS: Troponin I High Sensitivity 13.6 pg/mL (4.0-51.3)
== END 2023-05-13 21:59 | disposition home or self-care (01) ==
PROVIDERS: Physician Assistant; Emergency Provider Emergency Medicine; PCP Family Medicine
DX: I48.91 Unspecified atrial fibrillation (principal); R07.9 Chest pain, unspecified; R55 Syncope and collapse; R63.4 Abnormal weight loss; R42 Dizziness and giddiness; Z86.16 Personal history of COVID-19; Z79.899 Other long term (current) drug therapy; Z79.82 Long term (current) use of aspirin; F17.210 Nicotine dependence, cigarettes, uncomplicated; R06.02 Shortness of breath; Z68.20 Body mass index [BMI] 20.0-20.9, adult
CPT/HCPCS: 36415; 71045; 71275; 72100; 80053; 82607; 83880; 84443; 84484; 85025; 85378; 85610; 85730; 93005; 96372; 96374; 99285; J1650; Q9967

== ENCOUNTER 2023-05-17 15:36 | Outpatient (OUT) | payer MEDICARE, SELFPAY ==
--- NOTE | 2023-05-17 15:38 | MR_ITS ---
The [address] [address] Patient Name: MARIANNA STEINBERG MRN: [id number] date: 1955 Sex: F Assigned Patient Location: MRI Current Patient Location: MRI Accession/Order Number: [id number] Exam Date: 05/17/2023 15:49 Report Date: 05/17/2023 16:52 At the request of: SHAIKH DENEEN Procedure: MR head/brain wo/w con MR head/brain wo/w con, 05/17/2023 3:49 PM EST INDICATION: syncope, R55, daily persistent headache G44.52 COMPARISON: prior CT of head dated 10/11/2022. TECHNIQUE: Multiplanar, multisequential MRI images of brain were obtained without and with injection of contrast. FINDINGS: The cerebral sulci as well as ventricular system are appropriate for age. There is no restricted diffusion. Hyperintensities on T2 and FLAIR images in the joseph and kahn radiata and centrum semiovale with sparing of U fibers are nonspecific, statistically most likely consistent with moderate microvascular ischemic changes. There is no intracranial mass, mass effect, midline shift, intra or extra-axial fluid collection or large hemorrhage. No abnormal enhancing lesion is noted. Normal flow-void in the intracranial vessels is noted. There is status post bilateral lens replacement. The visualized portions of orbits, mastoid air cells as well as paranasal sinuses are unremarkable. MR/MR head/brain wo/w con IMPRESSION: No acute intracranial process is noted. Moderate microvascular ischemic changes. Electronically authenticated by: TERESA LORA Date: 05/17/2023 16:52
== END 2023-05-17 15:37 | disposition home or self-care (01) ==
LOC: MRI 15:36
PROVIDERS: PCP Family Medicine; Visit Provider Internal Medicine
DX: R55 Syncope and collapse (principal); G44.52 New daily persistent headache (NDPH)
CPT/HCPCS: 70553; A9575

== ENCOUNTER 2023-07-08 10:55 | Observation (INO) | payer MEDICARE, MEDICAID, SELFPAY ==
[2023-07-08] VITALS (18 sets, daily range): BP systolic 143–204; BP diastolic 61–94; PULSE 63–89; TEMP 36.6–36.7; O2SAT 96–100; BMI 21.0; BMI 21.5
--- NOTE | 2023-07-08 11:16 | XR_ITS ---
The [address] [address] Patient Name: MARIANNA STEINBERG MRN: [id number] date: 1955 Sex: F Assigned Patient Location: ER Current Patient Location: ER Accession/Order Number: [id number] Exam Date: 07/08/2023 11:30 Report Date: 07/08/2023 11:54 At the request of: KATHY WALKER Procedure: XR chest 1V EXAMINATION: XR chest 1V HISTORY: chest pain COMPARISON: XR chest 06/11/2023 FINDINGS: LUNGS: Hyperexpanded lungs with new mild opacity within medial right lung base. VASCULATURE: No increased pulmonary vasculature. PLEURA: No pneumothorax, effusion, or pleural thickening. CARDIAC: No cardiomegaly or cardiac silhouette abnormality. MEDIASTINUM: No visible mass or adenopathy. BONES: No fracture or visible bone lesion. OTHER: Negative. XR/XR chest 1V IMPRESSION: 1. New mild infiltrates versus atelectasis within medial right lung base. Electronically authenticated by: CINDY NUÑEZ Date: 07/08/2023 11:54
--- NOTE | 2023-07-08 11:16 | ECG_ITS ---
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
--- NOTE | 2023-07-08 11:16 | CT_ITS ---
[address] [address] Patient Name: MARIANNA STEINBERG MRN: [id number] date: 1955 Sex: F Assigned Patient Location: ER Current Patient Location: Accession/Order Number: [id number] Exam Date: 07/08/2023 12:05 Report Date: 07/08/2023 12:48 At the request of: KATHY WALKER Procedure: CT abdomen pelvis w con EXAMINATION: CT abdomen pelvis w con HISTORY: abd pain, nausea, bloody diarrhea COMPARISON: No relevant comparison available. TECHNIQUE: Axial, Coronal, and Sagittal images were obtained without and/or with IV contrast as indicated by examination type. Dose reduction techniques were achieved by using automated exposure control and/or adjustment of mA and/or kV according to patient size and/or use of iterative reconstruction technique. FINDINGS: LUNG BASES: No visible pulmonary or pleural disease. LIVER: No enlargement, atrophy, suspicious density, or significant focal lesion. BILIARY: No dilatation or calcification. PANCREAS: No lesion, fluid collection, or abnormal duct dilatation. SPLEEN: No enlargement or focal lesion. ADRENALS: No mass or enlargement. KIDNEYS: A few benign-appearing cysts. No mass, obstruction, or calcification. BOWEL/MESENTERY: Appendix is mildly distended with mild wall thickening, but no significant surrounding inflammatory changes. No visible mass, obstruction, or bowel wall thickening. AORTA/VASCULAR: Marked atherosclerotic disease; no aneurysm. RETROPERITONEUM: No mass or adenopathy. LYMPH NODES: No adenopathy. URINARY BLADDER: No visible focal wall thickening, lesion, or calculus. PELVIC ORGANS: No visible mass. Pelvic organs appropriate for patient age. ABDOMINAL WALL: No mass or hernia. BONES: Moderate marked degenerative disc disease L4-5, L5-S1. No bony lesion or fracture. OTHER: Negative. CT/CT abdomen pelvis w con IMPRESSION: 1. Suspect mild acute appendicitis. No bowel obstruction, free air, free fluid, or significant surrounding inflammatory changes. 2. Marked atherosclerotic disease of aorta and branches. Electronically authenticated by: CINDY NUÑEZ Date: 07/08/2023 12:48
--- NOTE | 2023-07-08 11:19 | ED_ITS ---
HPI HPI - General Adult General Chief complaint: Abdominal Pain Stated complaint: DIARRHEA/BLOOD IN STOOL Time Seen by Provider: 07/08/23 11:00 Source: patient Mode of arrival: walk-in Limitations: no limitations Related Data Home Medications ?Medication ?Instructions ?Recorded ?Confirmed carvedilol 6.25 mg tablet 6.25 mg PO Q12H 10/30/22 05/13/23 citalopram 40 mg tablet 40 mg PO QDAY 10/30/22 05/13/23 lisinopril 5 mg tablet 5 mg PO QDAY 10/30/22 05/13/23 lorazepam 1 mg tablet 1 mg PO Q8H 10/30/22 05/13/23 ropinirole 2 mg tablet 2 mg PO TID 10/30/22 05/13/23 rosuvastatin 40 mg tablet 40 mg PO QDAY 10/30/22 10/30/22 aspirin 81 mg capsule 81 mg PO DAILY 05/13/23 05/13/23 Previous Rx's ?Medication ?Instructions ?Recorded meloxicam 7.5 mg tablet 7.5 mg PO DAILY PRN pain #10 tabs 10/11/22 nitrofurantoin 100 mg PO BID 5 days #10 caps 10/11/22 monohydrate/macrocrystals 100 mg capsule (Macrobid) Allergies Allergy/AdvReac Type Severity Reaction Status Date / Time atorvastatin [From Lipitor] Allergy Mild Rash Verified 05/13/23 18:51 prednisone Allergy Unknown Verified 05/13/23 18:51 latanoprost Allergy Verified 05/13/23 18:51 bupropion AdvReac Unresponsiv Verified 05/13/23 18:51 e desvenlafaxine AdvReac Unconscious Verified 05/13/23 18:51 olanzapine AdvReac Unconscious Verified 05/13/23 18:51 venlafaxine AdvReac Depression Verified 05/13/23 18:52 vilazodone AdvReac suicidal Verified 05/13/23 18:51 ideation Opioid HPI Opioid Management Most Recent Opioid Data: Last Pain Scale 8 07/08/23 11:29 Last MAR Pain Assessment 07/08/23 11:26 PFSH PFSH Social History Smoking status: Current every day smoker Exam Narrative Exam Narrative: Nurses notes and vital signs reviewed and patient is not hypoxic. afebrile General: Well-appearing and in no apparent distress. Skin: Warm, dry, no pallor noted. No rash. Head: Normocephalic, atraumatic. Neck: Supple, non-tender. Eye: Pupils are equal, round and EOMI. No scleral icterus. Ears, Nose, Mouth, and Throat: Oral mucosa is dry Cardiovascular: Regular Rate and Rhythm without murmur, gallop or rub. Respiratory: No accessory muscle use or respiratory distress. Lungs are clear to auscultation, no wheezing, rales or rhonchi Back: No CVA tenderness Musculoskeletal: normal ROM, no calf or popliteal tenderness, no lower extrem ity edema/swelling GI: Abdomen is soft, non-distended. Normal bowel sounds. No masses appreciated. Diffuse abdominal tenderness with focal tenderness to palpation at the umbilicus. No rebound, guarding, or rigidity noted. Neurological: A&O x4. No cranial nerve dysfunction observed. No truncal ataxia. Moves all extremities. Sensation intact. Psychiatric: Cooperative and interactive. Normal mood and affect. Constitutional Vital Signs, click to edit/add: Last Vital Signs Temp 98.1 F 07/08/23 10:57 Pulse 72 07/08/23 13:00 Resp 16 07/08/23 13:00 BP 177/71 H 07/08/23 12:30 Pulse Ox 100 07/08/23 13:00 O2 Del Method Room Air 07/08/23 10:57 Course Vital Signs Vital signs: Vital Signs Temperature 98.1 F 07/08/23 10:57 Pulse Rate 89 07/08/23 10:57 Respiratory Rate 18 07/08/23 10:57 Blood Pressure 197/94 H 07/08/23 10:57 Pulse Oximetry 99 07/08/23 10:57 Oxygen Delivery Method Room Air 07/08/23 10:57 Temperature 98.1 F 07/08/23 10:57 Pulse Rate 72 07/08/23 13:00 Respiratory Rate 16 07/08/23 13:00 Blood Pressure 177/71 H 07/08/23 12:30 Pulse Oximetry 100 07/08/23 13:00 Oxygen Delivery Method Room Air 07/08/23 10:57 Medical Decision Making MDM Narrative Medical decision making narrative: Patient presents with acute lower abdominal pain and bloody diarrhea that began early this morning. She has also been complaining for the last month about mid to upper abdominal pain and heartburn-like symptoms. But she has also been experiencing pain across the chest with some bouts of shortness of breath. She is very anxious and it is possible that her chest symptoms are related to her anxiety. She is unhappy with Dr. Gonzalez's care and is switched to a different provider. She was supposed to get upper and lower endoscopy but canceled that follow-up because she was not feeling up to it . Peripheral IV established and blood drawn and sent for testing. She tried to give us a stool sample but was unable to. She eventually gave us urine that was also sent for testing. CT scan was obtained with IV contrast. Her kidney function was acceptable for this test, despite her belief that she had stage III kidney disease. She and I talked and that evaluation was associated with an acute UTI so it is likely that the patient's renal function has improved once that urinary tract infection was cleared. Blood tests were unremarkable. Urine did show some leukocyte Estrace and some blood. The CT scan revealed mild acute appendicitis. No renal stones were noted. I asked that the general surgeon on-call be paged Dr Patel and I discussed the case and the CT report as well as the patient's exam. Plan is to start IV Zosyn, make the patient NPO and admit to on-call admitting physician. Call placed to Dr Alex to discuss and he is agreeable to admit the patient to his service. Lab Data Lab results reviewed: Yes I reviewed the patient's lab results Labs: Lab Results 07/08/23 07/08/23 Range/Units 11:25 12:42 WBC 6.2 (4.0-11.0) 10^3/uL RBC 4.16 L (4.20-5.40) 10^6/uL Hgb 12.5 (12.0-16.0) g/dL Hct 37.2 (36.0-48.0) % MCV 89.4 (81.0-99.0) fL MCH 30.0 (26.7-34.0) pg MCHC 33.6 (29.9-35.2) g/dL RDW 12.4 (11.0-15.0) % Plt Count 210 (150-450) 10^3/uL MPV 9.5 (9.5-13.5) fL Neut % (Auto) 70.5 (43.0-75.0) % Lymph % (Auto) 22.5 (20.5-60.0) % Sherman % (Auto) 5.3 (1.7-12.0) % Eos % (Auto) 1.0 (0.9-7.0) % Baso % (Auto) 0.5 (0.2-2.0) % Neut # (Auto) 4.4 (1.4-6.5) 10^3/uL Lymph # (Auto) 1.4 (1.2-3.8) 10^3/uL Sherman # (Auto) 0.3 (0.3-0.8) 10^3/uL Eos # (Auto) 0.1 (0.0-0.7) 10^3/uL Baso # (Auto) 0.0 (0.0-0.1) 10^3/uL Abs Immat Gran (auto) 0.01 (0.00-0.03) 10^3/uL Imm/Tot Granulo (auto) 0.2 (0.0-0.5) % PT 10.6 (9.0-11.6) sec INR 1.00 Sodium 142 (136-145) mmol/L Potassium 3.4 L (3.5-5.1) mmol/L Chloride 105 (98-107) mmol/L Carbon Dioxide 25.7 (21.0-32.0) mmol/L Anion Gap 14.7 BUN 11.0 (7.0-18.0) mg/dL Creatinine 1.00 (0.55-1.02) mg/dL Est GFR ( Amer) >60 (>=60) Est GFR (Non-Af Amer) 55 L (>=60) BUN/Creatinine Ratio 11.0 Glucose 106 (74-106) mg/dL Calcium 9.8 (8.5-10.1) mg/dL Total Bilirubin 0.5 (0.2-1.0) mg/dL AST 15 (15-37) U/L ALT 14 (14-59) U/L Alkaline Phosphatase 67 (46-116) U/L Troponin I High Sens 4.7 (4.0-51.3) pg/mL NT-Pro-B Natriuret Pep 448.0 (<=900.0) pg/mL Total Protein 7.7 (6.4-8.2) g/dL Albumin 4.2 (3.4-5.0) g/dL Globulin 3.5 g/dL Albumin/Globulin Ratio 1.2 Lipase 47.0 (16.0-77.0) U/L Urine Color Lt. yellow (YELLOW) Urine Clarity Clear (CLEAR) Urine pH 7.5 (5.0-9.0) Ur Specific [place] <=1.005 A (1.005-1.025) Urine Protein Negative (NEG/TRACE) mg/dL Urine Glucose (UA) Negative (NEGATIVE) mg/dL Urine Ketones Negative (NEGATIVE) mg/dL Urine Occult Blood Moderate A (NEGATIVE) Urine Nitrite Negative (NEGATIVE) Urine Bilirubin Negative (NEGATIVE) Urine Urobilinogen 0.2 (0.2-1.0) EU/dL Ur Leukocyte Esterase Trace A (NEGATIVE) Urine RBC 2-5 A (0-2) #/HPF Urine WBC 0-2 A (NONE SEEN) #/HPF Ur Squamous Epith Cells Rare (NONE/RARE) #/LPF Urine Crystals None seen (None Seen) #/HPF Urine Bacteria None seen (NONE SEEN) #/HPF Urine Casts None seen (NONE SEEN) #/LPF Urine Mucus None seen (NONE SEEN) Imaging Data CT scan - abdomen: Radiologist's impression: ITS Impressions Abdomen/Pelvis CT 07/08/23 11:16 IMPRESSION: 1. Suspect mild acute appendicitis. No bowel obstruction, free air, free fluid, or significant surrounding inflammatory changes. 2. Marked atherosclerotic disease of aorta and branches. Electronically authenticated by: CINDY NUÑEZ Date: 07/08/2023 12:48 Chest X-Ray 07/08/23 11:16 IMPRESSION: 1. New mild infiltrates versus atelectasis within medial right lung base. Electronically authenticated by: CINDY NUÑEZ Date: 07/08/2023 11:54 ECG Data Attestation: I personally reviewed and interpreted this ECG as follows: Interpretation: EKG interpretation: Emergency Department physician interpretation. Normal sinu s rhythm at 74bpm. Normal axis, normal intervals and no ST segment elevation or depression. Normal EKG. Discharge Plan Discharge Chief Complaint: Abdominal Pain Clinical Impression: Acute appendicitis Patient Disposition: Admitted as Observation Time of Disposition Decision: 13:33
[2023-07-08] MEDS: HYDROMORPHONE HCL 0.5 MG/0.5 ML SYRINGE IV (11:26)
[2023-07-08] MEDS: ONDANSETRON PF 4 MG/2 ML VIAL IV (11:26)
[2023-07-08] MEDS: 0.9 % SODIUM CHLORIDE 1,000 ML 999 ML IV (11:26)
[2023-07-08] MEDS: PANTOPRAZOLE SODIUM 40 MG VIAL IV (11:26)
[2023-07-08 11:35] LABS: Basophils Percent Auto 0.5 % (0.2-2.0); Eosinophils Absolute Auto 0.1 10^3/uL (0.0-0.7); Hematocrit 37.2 % (36.0-48.0); Hemoglobin 12.5 g/dL (12.0-16.0); Immature Granulocytes Abs Auto 0.01 10^3/uL (0.00-0.03); Immature Granulocytes Pct Auto 0.2 % (0.0-0.5); Lymphocytes Absolute Auto 1.4 10^3/uL (1.2-3.8); Lymphocytes Percent Auto 22.5 % (20.5-60.0); Mean Corpuscular HGB Conc 33.6 g/dL (29.9-35.2); Mean Corpuscular Volume 89.4 fL (81.0-99.0); Mean Platelet Volume 9.5 fL (9.5-13.5); Monocytes Absolute Auto 0.3 10^3/uL (0.3-0.8); Monocytes Percent Auto 5.3 % (1.7-12.0); Neutrophils Absolute Auto 4.4 10^3/uL (1.4-6.5); Neutrophils Percent Auto 70.5 % (43.0-75.0); Platelet Count 210 10^3/uL (150-450); Red Blood Count 4.16 10^6/uL (4.20-5.40); Red Cell Distribution Width 12.4 % (11.0-15.0); White Blood Count 6.2 10^3/uL (4.0-11.0)
[2023-07-08 11:48] LABS: Prothrombin Time 10.6 sec (9.0-11.6)
[2023-07-08 11:50] LABS: Alanine Aminotransferase 14 U/L (14-59); Albumin Globulin Ratio 1.2; Albumin Level 4.2 g/dL (3.4-5.0); Alkaline Phosphatase 67 U/L (46-116); Anion Gap 14.7; Aspartate Amino Transferase 15 U/L (15-37); Bilirubin Total 0.5 mg/dL (0.2-1.0); Calcium 9.8 mg/dL (8.5-10.1); Carbon Dioxide 25.7 mmol/L (21.0-32.0); Chloride 105 mmol/L (98-107); Estimated GFR (African America >60 (>=60); Estimated GFR (Non-African Ame 55 (>=60); Globulin 3.5 g/dL; Glucose 106 mg/dL (74-106); Potassium 3.4 mmol/L (3.5-5.1); Sodium 142 mmol/L (136-145); Total Protein 7.7 g/dL (6.4-8.2)
[2023-07-08 11:56] LABS: Troponin I High Sensitivity 4.7 pg/mL (4.0-51.3)
[2023-07-08] MEDS: POTASSIUM CHLORIDE 10 MEQ ER TABLET 40 MEQ PO (12:55)
[2023-07-08 13:10] LABS: Bilirubin Urine NEGATIVE (NEGATIVE); Blood Urine MODERATE (NEGATIVE); Clarity Urine CLEAR (CLEAR); Color Urine LT. YELLOW (YELLOW); Glucose Urine UA NEGATIVE (NEGATIVE); Ketones Urine NEGATIVE (NEGATIVE); Leukocyte Esterase Urine TRACE (NEGATIVE); Nitrite Urine NEGATIVE (NEGATIVE); Protein Urine NEGATIVE (NEG/TRACE); Specific Gravity Urine <=1.005 (1.005-1.025); Urobilinogen Urine 0.2 EU/dL (0.2-1.0); pH Urine 7.5 (5.0-9.0)
[2023-07-08 13:11] LABS: Urine Microscopic Indicated YES
[2023-07-08 13:32] LABS: Bacteria Urine NONE SEEN #/HPF (NONE SEEN); WBC Urine 0-2 #/HPF (NONE SEEN)
[2023-07-08 13:33] LABS: Cast Seen? NONE SEEN #/LPF (NONE SEEN); Crystals Seen? None Seen #/HPF (None Seen); Mucus Urine NONE SEEN (NONE SEEN); Squamous Epithelial Cell Urine RARE #/LPF (NONE/RARE)
--- NOTE | 2023-07-08 13:42 | PC.NURSE ---
When this RN assisted patient to the bathroom, friend at bedside, Elsa, asks this RN about patient blood work. Discussion about potassium being 3.4 and this RN is going to administer 40meq of Potassium. The friend at bedside asked further about the kidney blood work. This RN told patient the results of the creatinine and BUN and stated the results were within normal limits. The patient stated I switched from Dr Raza to [place] for my doctor because Dr. Raza never told me about my chronic kidney disease. This RN stated that I can't answer to that or what other results you've had but today your blood work is looking good along with your kidney functions as of now. The friend at the bedside raised their voice at this RN and stated how dare you tell her that when she has stage 3 kidney disease. This RN asked the friend to not yell at this RN and instructed the friend that Lakisha has a no tolerance for aggressive behavior. The friend states I'm much older than you and I will talk to you how I want. The friend asked this RN my first and last name, this RN gave first name only stating I don't feel comfortable giving you my last name but I can get the teller supervisor to come down and speak with you if there is an issue that you'd like to discuss with them. The friend states I just told you that I'm much older than you and I will handle situations how I want and if I want to discuss them with somebody then I will handle it when and how I want. I actually don't have any complaints, I think you are being very professional This RN asked the patient if there was any further questions or concerns with the testing or blood work at this time. Patient states no. IV fluids disconnected after finishing. Patient states I'm actually really happy that my blood work looks better but can you explain to me about why I'm constantly burping and having stomach pains. This RN discussed with patient that the results of the CT aren't back yet but once they are Dr. Garcia will come and discuss and discuss those results with you.
[2023-07-08] MEDS: PIPERACILLIN SODIUM/TAZOBACTAM 4.5 GM in 0.9 % SODIUM CHLORIDE 50 ML IV (13:51)
--- NOTE | 2023-07-08 13:51 | PM.GSCN ---
History of Present Illness Consult details Consult date: 07/08/23 Reason for consult: abdominal pain Narrative: 68-year-old female who presents with a month-long abdominal pain, nausea GI issues. She states over the past 2 days or so her belly pain has been becoming more uncomfortable in the lower abdomen. She did have a couple episodes of emesis. She states that she has been extremely stressed for the last 8 months has been struggling with multiple health issues. She saw her PCP earlier this month who prescribed a PPI and has a referral to see a general surgeon for further workup. She states she has been taking her PPI and not sure if it has been helping much. She has had loose stool/diarrhea. Denies melena. Since receiving IV antibiotics patient states she is no longer nauseated and her belly pain has improved. She is passing gas and had a bowel movement since being admitted. She is tolerating p.o. intake. She is currently not interested in surgery at this time. She is willing to take oral antibiotics for 10 days. She was informed about the need to follow-up in clinic to discuss and schedule a colonoscopy and EGD on an elective basis after she has had time for her GI tract to cool off. She has Hx of A fib and only on rate control, no anticoagulants. She does take a 81mg ASA daily. Previous Abd surgeries include b/l ovarian biopsies via low transverse incision. She has very bad anxiety and has been struggling with excessive stress. Discussed with her this can cause gastritis. She states she was treated for H. Pylori over 20 years ago. We did discuss possible need for GI input as an outpatient if her issues continue despite a negative EGD/c-scope to work up for IBS and IBD. Review of Systems ROS Status of ROS 10 or more systems reviewed and unremarkable except as noted in history and below [facility] Medical History (Updated 07/08/23 @ 17:08 by Quique Patel DO) Bunion ?M21.619 - Bunion of unspecified foot (ICD-10) Hyperlipidemia ?E78.5 - Hyperlipidemia, unspecified (ICD-10) HTN (hypertension) ?I10 - Essential (primary) hypertension (ICD-10) Depression with anxiety ?F41.8 - Other specified anxiety disorders (ICD-10) Family History (Updated 07/08/23 @ 15:43 by Anahy Farias) Father Family history of CHF (congestive heart failure) Family history of hypertension Family history of myocardial infarction Mother Family history of CHF (congestive heart failure) Family history of diabetes mellitus Family history of hypertension Family history of myocardial infarction Family history of stroke Sister Family history of cancer Family history of hypertension Brother Family history of hypertension Family history of myocardial infarction Social History (Updated 07/08/23 @ 15:46 by Anahy Farias) Within the past year, how often did you have six or more drinks on one occasion: never Smoking status: Current every day smoker Nicotine containing products detail: stated she has not smoked in three days Non-prescribed substance use: denies use 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 Highest level of school completed/degree received: high school graduate Are you now , , , , never or living with a partner: In a typical week, how many times do you talk on the telephone with family, friends, or neighbors: 3 or more times per week How often do you get together with friends or relatives: 3 or more times per week How often do you attend sikhism or druze services: never Little interest or pleasure in doing things: not at all Feeling down, depressed, or hopeless: not at all Feel stressed/tense/nervous/anxious/difficulty sleeping: very much Due to disability, difficulty making decisions: No Do you think of yourself as: straight/heterosexual Gender Identity: female Meds Home Medications and Allergies Home Medications ?Medication ?Instructions ?Recorded ?Confirmed ?Type meloxicam 7.5 mg tablet 7.5 mg PO DAILY PRN pain #10 tabs 10/11/22 07/08/23 Rx carvedilol 6.25 mg tablet 6.25 mg PO Q12H 10/30/22 07/08/23 History citalopram 40 mg tablet 40 mg PO QDAY 10/30/22 07/08/23 History lorazepam 1 mg tablet 1 mg PO Q8H PRN anxiety 10/30/22 07/08/23 History rosuvastatin 40 mg tablet 40 mg PO .QHS 10/30/22 07/08/23 History aspirin 81 mg capsule 81 mg PO DAILY 05/13/23 07/08/23 History pantoprazole 40 mg tablet,delayed 40 mg PO DAILY 07/08/23 07/08/23 History release Allergies Allergy/AdvReac Type Severity Reaction Status Date / Time atorvastatin [From Lipitor] Allergy Mild Rash Verified 05/13/23 18:51 prednisone Allergy Unknown Verified 05/13/23 18:51 latanoprost Allergy Verified 05/13/23 18:51 bupropion AdvReac Unresponsiv Verified 05/13/23 18:51 e desvenlafaxine AdvReac Unconscious Verified 05/13/23 18:51 olanzapine AdvReac Unconscious Verified 05/13/23 18:51 venlafaxine AdvReac Depression Verified 05/13/23 18:52 vilazodone AdvReac suicidal Verified 05/13/23 18:51 ideation Exam Constitutional Vital Signs, click to edit/add: Last Vital Signs Temp 98.1 F 07/08/23 10:57 Pulse 72 07/08/23 13:00 Resp 16 07/08/23 13:00 BP 177/71 H 07/08/23 12:30 Pulse Ox 100 07/08/23 13:00 O2 Del Method Room Air 07/08/23 10:57 Common normals: no apparent distress, oriented x3 and alert HENMT Common normals: normocephalic and hearing grossly normal bilaterally Eye Common normals: PERRL and EOMs intact bilaterally Respiratory Common normals: normal respiratory effort and no retractions Cardio Common normals: regular rate and regular rhythm GI Common normals: soft to palpation and no masses Palpation: soft, tender and guarding Extremity Common normals: normal to inspection and full ROM Psych Appearance: grossly normal Results Labs Labs: Abnormal lab results 07/08/23 07/08/23 Range/Units 11:25 12:42 RBC 4.16 L (4.20-5.40) 10^6/uL Potassium 3.4 L (3.5-5.1) mmol/L Est GFR (Non-Af Amer) 55 L (>=60) Ur Specific [place] <=1.005 A (1.005-1.025) Urine Occult Blood Moderate A (NEGATIVE) Ur Leukocyte Esterase Trace A (NEGATIVE) Urine RBC 2-5 A (0-2) #/HPF Urine WBC 0-2 A (NONE SEEN) #/HPF Diabetes panel 07/08/23 Range/Units 11:25 Sodium 142 (136-145) mmol/L Potassium 3.4 L (3.5-5.1) mmol/L Chloride 105 (98-107) mmol/L Carbon Dioxide 25.7 (21.0-32.0) mmol/L BUN 11.0 (7.0-18.0) mg/dL Creatinine 1.00 (0.55-1.02) mg/dL Glucose 106 (74-106) mg/dL Calcium 9.8 (8.5-10.1) mg/dL AST 15 (15-37) U/L ALT 14 (14-59) U/L Alkaline Phosphatase 67 (46-116) U/L Total Protein 7.7 (6.4-8.2) g/dL Albumin 4.2 (3.4-5.0) g/dL Calcium panel 07/08/23 Range/Units 11:25 Calcium 9.8 (8.5-10.1) mg/dL Albumin 4.2 (3.4-5.0) g/dL Pituitary panel 07/08/23 Range/Units 11:25 Sodium 142 (136-145) mmol/L Potassium 3.4 L (3.5-5.1) mmol/L Chloride 105 (98-107) mmol/L Carbon Dioxide 25.7 (21.0-32.0) mmol/L BUN 11.0 (7.0-18.0) mg/dL Creatinine 1.00 (0.55-1.02) mg/dL Glucose 106 (74-106) mg/dL Calcium 9.8 (8.5-10.1) mg/dL Adrenal panel 07/08/23 Range/Units 11:25 Sodium 142 (136-145) mmol/L Potassium 3.4 L (3.5-5.1) mmol/L Chloride 105 (98-107) mmol/L Carbon Dioxide 25.7 (21.0-32.0) mmol/L BUN 11.0 (7.0-18.0) mg/dL Creatinine 1.00 (0.55-1.02) mg/dL Glucose 106 (74-106) mg/dL Calcium 9.8 (8.5-10.1) mg/dL Total Bilirubin 0.5 (0.2-1.0) mg/dL AST 15 (15-37) U/L ALT 14 (14-59) U/L Alkaline Phosphatase 67 (46-116) U/L Total Protein 7.7 (6.4-8.2) g/dL Albumin 4.2 (3.4-5.0) g/dL All other labs normal. Imaging Abdomen CT scan report/results: image reviewed Assessment and Plan Assessment and Plan (1) Acute appendicitis: (2) Enteritis: Plan Shared decision making was done with the patient and her current preferences are to treat her appendicitis with antibiotics. She has been struggling with GI issues/ enteritis for nearly a month. She had referral to see a surgeon for work up of her ongoing GI issues. She started a PPI earlier this month but per nursing she does not seem to have been taking them. CODA trial antibiotic dosing 24hr of IV Abx (bioavailability) either zosyn or ertapenem followed by 10 days of oral antibiotics of metronidazole with either ciprofloxacin or cefdinir Ok for d/c once clinically improving, tolerating liquid intake and abdominal pain reasonably controlled Will see patient in clinic next week to discuss colonoscopy and EGD timing. Contact general surgery as needed.
--- NOTE | 2023-07-08 14:40 | P.HP_ITS ---
<Statement entered by Shaikh Isai MD - 07/08/23 15:45> This documentation has been reviewed and approved. Patient was not personally seen by me. However, her medical records reviewed and case was discussed with Nessa. Agree with her clinical decision making and treatment plan. Acute appendicitis HTN urgency HLD Depression with anxiety GERD -Added hydroxyzine to help with anxiety. Added amlodipine along with IV hydralazine as needed. NPO after MN - Surgery on consult. HPI H&P: HPI History of Present Illness Chief complaint: ACUTE APPENDICITIS Narrative: 07/08/23 1420 This is a 68-year-old female patient with a past medical history as outlined be low including depression with anxiety, hypertension, hyperlipidemia, GERD, and restless leg syndrome; who presented to the ED today complaining of diarrhea. The patient gives a somewhat mottled story regarding her recent symptoms of dyspepsia and acid reflux since March. She notes the last 2 days she has had more epigastric pain that radiates down to her umbilical area and dyspepsia with both belching and flatus noted. This morning she developed loose stools (semiformed) with 6+ episodes of diarrhea. She noted the last couple of episodes that she had some blood on the paper when wiping. She denies nausea and vomiting, fevers, shortness of breath, or any other acute complaint. She presented to the ED for further evaluation. Workup in the ED was relatively benign with stable vital signs and no evidence of leukocytosis or anemia. Mild hypokalemia (3.4) was noted on chemistries and was repleted w/ KCL in the ED. Troponin, BNP, and lipase were all within normal limits. Urine was negative for infection. GI panel was ordered but the patient was unable to produce a stool sample in the ED. Chest x-ray was negative for acute findings. A CT of the abdomen and pelvis was obtained and this revealed a mildly distended appendix with mild wall thickening but no surrounding inflammatory changes. Dr. Patel, general surgeon, was contacted by the ED and he saw the patient in consult for mild acute appendicitis. The patient is being admitted in observation to the hospitalist service with general surgery on consult. At the time of my exam the patient is very tearful and anxious, nearly and panic over her state of health. She reports not having slept for 2 days that she is worrying about all of her symptoms she does not endorse any significant abdominal pain, but was tender to the right periumbilical area on exam. She will be given IVPB Zosyn, IV fluids, and full liquid diet. She will be made n.p.o. at midnight in case surgical intervention is indicated by Dr. Patel on reevaluation tomorrow. Opioid HPI Opioid Management Most Recent Opioid Data: Last Pain Scale 8 07/08/23 11:29 Last MAR Pain Assessment 07/08/23 14:50 Review of Systems ROS Status of ROS 10 or more systems reviewed and unremark able except as noted in history and below [facility] Medical History (Updated 07/08/23 @ 14:57 by Nessa Will NP) Hyperlipidemia ?E78.5 - Hyperlipidemia, unspecified (ICD-10) HTN (hypertension) ?I10 - Essential (primary) hypertension (ICD-10) Depression with anxiety ?F41.8 - Other specified anxiety disorders (ICD-10) Social History Smoking status: Current every day smoker Meds Home Medications and Allergies Home Medications ?Medication ?Instructions ?Recorded ?Confirmed ?Type meloxicam 7.5 mg tablet 7.5 mg PO DAILY PRN pain #10 tabs 10/11/22 Rx nitrofurantoin 100 mg PO BID 5 days #10 caps 10/11/22 Rx monohydrate/macrocrystals 100 mg capsule (Macrobid) carvedilol 6.25 mg tablet 6.25 mg PO Q12H 10/30/22 05/13/23 History citalopram 40 mg tablet 40 mg PO QDAY 10/30/22 05/13/23 History lisinopril 5 mg tablet 5 mg PO QDAY 10/30/22 05/13/23 History lorazepam 1 mg tablet 1 mg PO Q8H 10/30/22 05/13/23 History ropinirole 2 mg tablet 2 mg PO TID 10/30/22 05/13/23 History rosuvastatin 40 mg tablet 40 mg PO QDAY 10/30/22 10/30/22 History aspirin 81 mg capsule 81 mg PO DAILY 05/13/23 05/13/23 History Allergies Allergy/AdvReac Type Severity Reaction Status Date / Time atorvastatin [From Lipitor] Allergy Mild Rash Verified 05/13/23 18:51 prednisone Allergy Unknown Verified 05/13/23 18:51 latanoprost Allergy Verified 05/13/23 18:51 bupropion AdvReac Unresponsiv Verified 05/13/23 18:51 e desvenlafaxine AdvReac Unconscious Verified 05/13/23 18:51 olanzapine AdvReac Unconscious Verified 05/13/23 18:51 venlafaxine AdvReac Depression Verified 05/13/23 18:52 vilazodone AdvReac suicidal Verified 05/13/23 18:51 ideation Exam Constitutional Vital Signs, click to edit/add: Last Vital Signs Temp 98.1 F 07/08/23 14:25 Pulse 71 07/08/23 14:25 Resp 18 07/08/23 14:25 BP 204/76 H 07/08/23 14:25 Pulse Ox 98 07/08/23 14:25 O2 Del Method Room Air 07/08/23 14:25 Common normals: no apparent distress, oriented x3, alert and well nourished General appearance: cooperative Orientation/consciousness: Yes awake HENMT Common normals: normocephalic, head/scalp atraumatic, hearing grossly normal bilaterally, external nose normal and moist oral mucous membranes Eye Common normals: PERRL, EOMs intact bilaterally, conjunctivae normal and no scleral icterus Alignment: alignment normal Eyelid: eyelids normal Neck & C-Spine Common normals: full ROM, supple and no JVD Chest Common normals: inspection of chest normal Chest: symmetrical chest wall rise Respiratory Common normals: normal respiratory effort, no retractions, no use of accessory muscles and clear to auscultation bilaterally Effort & inspection: able to speak in complete sentences Cardio Common normals: no JVD, regular rate, regular rhythm, S1 normal heart sound, S2 normal heart sound, no gallops, no clicks, no rub and peripheral pulses 2+ throughout Heart sounds: murmur (HSM 2/6) GI Common normals: Normal to inspection, nondistended, normoactive bowel sounds present, soft to palpation, no hepatosplenomegaly, no masses and no bruits Palpation: tender (Diffuse. Foci of tenderness R periumbilical); not firm, no guarding, not rigid and no rebound tenderness present Bladder/kidney exam: bladder normal to palpation Back & Pelvis Common normals: thoracic and lumbar spine normal to inspection Extremity Common normals: normal capillary refill and no pedal edema General: normal exam except as noted; no clubbing and no cyanosis Neuro Braulio Coma Scale: GCS not evaluated Common normals: CN's II-XII intact bilaterally, moves all extremities, no focal motor deficits and no sensory deficits noted Speech: speech normal Motor exam: strength 5/5 throughout Psych Common normals: mental status grossly normal, thought process normal and activity/motor behavior normal Appearance: grossly normal Mood and affect: anxious and tearful Memory/cognition: memory grossly intact Results Labs Labs: Short CBC 07/08/23 Range/Units 11:25 WBC 6.2 (4.0-11.0) 10^3/uL Hgb 12.5 (12.0-16.0) g/dL Hct 37.2 (36.0-48.0) % Plt Count 210 (150-450) 10^3/uL BMP 07/08/23 11:25 Sodium 142 Potassium 3.4 L Chloride 105 Carbon Dioxide 25.7 BUN 11.0 Creatinine 1.00 Glucose 106 Calcium 9.8 Liver Function 07/08/23 Range/Units 11:25 Total Bilirubin 0.5 (0.2-1.0) mg/dL AST 15 (15-37) U/L ALT 14 (14-59) U/L Alkaline Phosphatase 67 (46-116) U/L Albumin 4.2 (3.4-5.0) g/dL Urine 07/08/23 Range/Units 12:42 Urine Color Lt. yellow (YELLOW) Urine Clarity Clear (CLEAR) Urine pH 7.5 (5.0-9.0) Ur Specific [place] <=1.005 A (1.005-1.025) Urine Protein Negative (NEG/TRACE) mg/dL Urine Glucose (UA) Negative (NEGATIVE) mg/dL Pulse Oximetry Attestation: I have reviewed the pertinent pulse oximetry results. Imaging Chest x-ray: Attestation: I have reviewed the pertinent imaging results. Radiologist's impression: IMPRESSION: 1. New mild infiltrates versus atelectasis within medial right lung base. CT scan - abdomen: Attestation: I have reviewed the pertinent imaging results. Radiologist's impression: IMPRESSION: 1. Suspect mild acute appendicitis. No bowel obstruction, free air, free fluid, or significant surrounding inflammatory changes. 2. Marked atherosclerotic disease of aorta and branches. Assessment and Plan Assessment and Plan (1) Acute appendicitis: Assessment and Plan: Acute * Adm observation * C/S General Surgery - we appreciate Dr Patel's assistance with this pt's care * IVPB Zosyn * Full liquid diet now, NPO after midnight for possible surgery tomorrow * NS IVF at 100/hr * CBC, CMP daily (2) Depression with anxiety: Assessment and Plan: Chronic * Continue home sertraline * Pt severely anxious and tearful * Provided education and reassurance re health * Continue home PO PRN Ativan - give dose now (3) HTN (hypertension): Assessment and Plan: Chronic * Continue home lisinopril, Coreg (4) Hyperlipidemia: Assessment and Plan: Chronic * Continue home statin
[2023-07-08] MEDS: ACETAMINOPHEN 325 MG TABLET 650 MG PO (14:50)
[2023-07-08] MEDS: LORAZEPAM 1 MG TABLET PO ×2 (14:50→21:14)
[2023-07-08] MEDS: HYDROXYZINE PAMOATE 25 MG CAPSULE PO (14:51)
[2023-07-08] MEDS: LACTATED RINGER'S SOLUTION 1,000 ML 100 ML IV (14:57)
[2023-07-08] MEDS: ASPIRIN 81 MG TAB.CHEW PO (15:47)
[2023-07-08] MEDS: CARVEDILOL 6.25 MG TABLET PO ×2 (15:47→22:08)
[2023-07-08] MEDS: HEPARIN SODIUM (PORCINE) 5,000 UNIT/ML VIAL 5000 UNIT SUBQ ×2 (15:47→22:08)
[2023-07-08] MEDS: CITALOPRAM HYDROBROMIDE 20 MG TABLET 40 MG PO (15:47)
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
--- NOTE | 2023-07-08 15:52 | SWNOTE1 ---
Medicare Outpatient Observation Notice reviewed and discussed with patient. Pt. verbalized understanding and signed the form. Original given to patient and copy placed in patient?s chart.
--- NOTE | 2023-07-08 16:59 | PM.GSCN ---
[facility] Medical History (Updated 07/08/23 @ 15:41 by Anahy Farias) Bunion ?M21.619 - Bunion of unspecified foot (ICD-10) Hyperlipidemia ?E78.5 - Hyperlipidemia, unspecified (ICD-10) HTN (hypertension) ?I10 - Essential (primary) hypertension (ICD-10) Depression with anxiety ?F41.8 - Other specified anxiety disorders (ICD-10) Family History (Updated 07/08/23 @ 15:43 by Anahy Farias) Father Family history of CHF (congestive heart failure) Family history of hypertension Family history of myocardial infarction Mother Family history of CHF (congestive heart failure) Family history of diabetes mellitus Family history of hypertension Family history of myocardial infarction Family history of stroke Sister Family history of cancer Family history of hypertension Brother Family history of hypertension Family history of myocardial infarction Social History (Updated 07/08/23 @ 15:46 by Anahy Farias) Within the past year, how often did you have six or more drinks on one occasion: never Smoking status: Current every day smoker Nicotine containing products detail: stated she has not smoked in three days Non-prescribed substance use: denies use 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 Highest level of school completed/degree received: high school graduate Are you now , , , , never or living with a partner: In a typical week, how many times do you talk on the telephone with family, friends, or neighbors: 3 or more times per week How often do you get together with friends or relatives: 3 or more times per week How often do you attend jainism or latter-day services: never Little interest or pleasure in doing things: not at all Feeling down, depressed, or hopeless: not at all Feel stressed/tense/nervous/anxious/difficulty sleeping: very much Due to disability, difficulty making decisions: No Do you think of yourself as: straight/heterosexual Gender Identity: female Meds Home Medications and Allergies Home Medications ?Medication ?Instructions ?Recorded ?Confirmed ?Type meloxicam 7.5 mg tablet 7.5 mg PO DAILY PRN pain #10 tabs 10/11/22 07/08/23 Rx carvedilol 6.25 mg tablet 6.25 mg PO Q12H 10/30/22 07/08/23 History citalopram 40 mg tablet 40 mg PO QDAY 10/30/22 07/08/23 History lorazepam 1 mg tablet 1 mg PO Q8H PRN anxiety 10/30/22 07/08/23 History rosuvastatin 40 mg tablet 40 mg PO .QHS 10/30/22 07/08/23 History aspirin 81 mg capsule 81 mg PO DAILY 05/13/23 07/08/23 History pantoprazole 40 mg tablet,delayed 40 mg PO DAILY 07/08/23 07/08/23 History release Allergies Allergy/AdvReac Type Severity Reaction Status Date / Time atorvastatin [From Lipitor] Allergy Mild Rash Verified 05/13/23 18:51 prednisone Allergy Unknown Verified 05/13/23 18:51 latanoprost Allergy Verified 05/13/23 18:51 bupropion AdvReac Unresponsiv Verified 05/13/23 18:51 e desvenlafaxine AdvReac Unconscious Verified 05/13/23 18:51 olanzapine AdvReac Unconscious Verified 05/13/23 18:51 venlafaxine AdvReac Depression Verified 05/13/23 18:52 vilazodone AdvReac suicidal Verified 05/13/23 18:51 ideation Exam Constitutional Vital Signs, click to edit/add: Last Vital Signs Temp 98.1 F 07/08/23 14:25 Pulse 63 07/08/23 16:13 Resp 18 07/08/23 14:25 BP 204/76 H 07/08/23 14:25 Pulse Ox 98 07/08/23 16:13 O2 Del Method Room Air 07/08/23 16:13 Results Labs Labs: Abnormal lab results 07/08/23 07/08/23 Range/Units 11:25 12:42 RBC 4.16 L (4.20-5.40) 10^6/uL Potassium 3.4 L (3.5-5.1) mmol/L Est GFR (Non-Af Amer) 55 L (>=60) Ur Specific [place] <=1.005 A (1.005-1.025) Urine Occult Blood Moderate A (NEGATIVE) Ur Leukocyte Esterase Trace A (NEGATIVE) Urine RBC 2-5 A (0-2) #/HPF Urine WBC 0-2 A (NONE SEEN) #/HPF Diabetes panel 07/08/23 Range/Units 11:25 Sodium 142 (136-145) mmol/L Potassium 3.4 L (3.5-5.1) mmol/L Chloride 105 (98-107) mmol/L Carbon Dioxide 25.7 (21.0-32.0) mmol/L BUN 11.0 (7.0-18.0) mg/dL Creatinine 1.00 (0.55-1.02) mg/dL Glucose 106 (74-106) mg/dL Calcium 9.8 (8.5-10.1) mg/dL AST 15 (15-37) U/L ALT 14 (14-59) U/L Alkaline Phosphatase 67 (46-116) U/L Total Protein 7.7 (6.4-8.2) g/dL Albumin 4.2 (3.4-5.0) g/dL Calcium panel 07/08/23 Range/Units 11:25 Calcium 9.8 (8.5-10.1) mg/dL Albumin 4.2 (3.4-5.0) g/dL Pituitary panel 07/08/23 Range/Units 11:25 Sodium 142 (136-145) mmol/L Potassium 3.4 L (3.5-5.1) mmol/L Chloride 105 (98-107) mmol/L Carbon Dioxide 25.7 (21.0-32.0) mmol/L BUN 11.0 (7.0-18.0) mg/dL Creatinine 1.00 (0.55-1.02) mg/dL Glucose 106 (74-106) mg/dL Calcium 9.8 (8.5-10.1) mg/dL Adrenal panel 07/08/23 Range/Units 11:25 Sodium 142 (136-145) mmol/L Potassium 3.4 L (3.5-5.1) mmol/L Chloride 105 (98-107) mmol/L Carbon Dioxide 25.7 (21.0-32.0) mmol/L BUN 11.0 (7.0-18.0) mg/dL Creatinine 1.00 (0.55-1.02) mg/dL Glucose 106 (74-106) mg/dL Calcium 9.8 (8.5-10.1) mg/dL Total Bilirubin 0.5 (0.2-1.0) mg/dL AST 15 (15-37) U/L ALT 14 (14-59) U/L Alkaline Phosphatase 67 (46-116) U/L Total Protein 7.7 (6.4-8.2) g/dL Albumin 4.2 (3.4-5.0) g/dL All other labs normal. Assessment and Plan Assessment and Plan (1) Acute appendicitis: (2) Depression with anxiety: (3) HTN (hypertension): (4) Hyperlipidemia: Plan CODA trial antibiotic dosing 24hr of IV Abx either zosyn or ertapenem followed by 10 days of oral antibiotics of metronidazole with either ciprofloxacin or cefdinir Ok for d/c once clinically improving, tolerating liquid intake and abdominal pain reasonably controlled
[2023-07-08] MEDS: AMLODIPINE BESYLATE 5 MG TABLET PO (17:33)
[2023-07-08] MEDS: DIPHENHYDRAMINE HCL 25 MG/10 ML ELIXIR PO (21:14)
[2023-07-08] MEDS: PIPERACILLIN SODIUM/TAZOBACTAM 3.375 GM in 0.9 % SODIUM CHLORIDE 50 ML IV (21:14)
[2023-07-09] VITALS (10 sets, daily range): BP systolic 107–159; BP diastolic 54–69; PULSE 58–68; TEMP 35.9–36.4; O2SAT 95–99
[2023-07-09 04:47] LABS: Basophils Absolute Auto 0.1 10^3/uL (0.0-0.1); Basophils Percent Auto 1.2 % (0.2-2.0); Eosinophils Absolute Auto 0.1 10^3/uL (0.0-0.7); Eosinophils Percent Auto 2.1 % (0.9-7.0); Hematocrit 33.7 % (36.0-48.0); Hemoglobin 10.8 g/dL (12.0-16.0); Lymphocytes Absolute Auto 2.3 10^3/uL (1.2-3.8); Lymphocytes Percent Auto 43.9 % (20.5-60.0); Mean Corpuscular Hemoglobin 29.7 pg (26.7-34.0); Mean Corpuscular Volume 92.6 fL (81.0-99.0); Mean Platelet Volume 9.7 fL (9.5-13.5); Monocytes Absolute Auto 0.5 10^3/uL (0.3-0.8); Neutrophils Absolute Auto 2.3 10^3/uL (1.4-6.5); Neutrophils Percent Auto 43.8 % (43.0-75.0); Platelet Count 179 10^3/uL (150-450); Red Blood Count 3.64 10^6/uL (4.20-5.40); Red Cell Distribution Width 12.6 % (11.0-15.0); White Blood Count 5.1 10^3/uL (4.0-11.0)
[2023-07-09] MEDS: PIPERACILLIN SODIUM/TAZOBACTAM 3.375 GM in 0.9 % SODIUM CHLORIDE 50 ML IV (05:09)
[2023-07-09] MEDS: LORAZEPAM 1 MG TABLET PO (05:09)
[2023-07-09] MEDS: LACTATED RINGER'S SOLUTION 1,000 ML 100 ML IV (05:09)
[2023-07-09 05:10] LABS: Alanine Aminotransferase 10 U/L (14-59); Albumin Globulin Ratio 1.1; Albumin Level 3.2 g/dL (3.4-5.0); Alkaline Phosphatase 53 U/L (46-116); Anion Gap 11.1; Aspartate Amino Transferase 14 U/L (15-37); BUN Creatinine Ratio 7.9; Bilirubin Total 0.4 mg/dL (0.2-1.0); Calcium 9.2 mg/dL (8.5-10.1); Chloride 108 mmol/L (98-107); Estimated GFR (African America 57 (>=60); Estimated GFR (Non-African Ame 47 (>=60); Globulin 2.9 g/dL; Glucose 85 mg/dL (74-106); Potassium 4.1 mmol/L (3.5-5.1); Sodium 142 mmol/L (136-145); Total Protein 6.1 g/dL (6.4-8.2)
[2023-07-09] MEDS: CARVEDILOL 6.25 MG TABLET PO (09:54)
[2023-07-09] MEDS: ASPIRIN 81 MG TAB.CHEW PO (09:54)
[2023-07-09] MEDS: AMLODIPINE BESYLATE 5 MG TABLET PO (09:55)
[2023-07-09] MEDS: CITALOPRAM HYDROBROMIDE 20 MG TABLET 40 MG PO (09:55)
[2023-07-09] MEDS: OMEPRAZOLE 40 MG CAPSULE.DR PO (09:55)
--- NOTE | 2023-07-09 10:03 | PM.DS1 ---
DS: Providers Provider Date of admission: 07/08/23 14:16 Primary care physician: XAVIER JOHNSON Admitting clinician: Shaikh Isai Attending physician on admission: Shaikh Isai Consults: 07/08/23 13:31 Consult to General Surgeon Routine Consulting Provider: Quique Patel Reason for consultation: acute appendicitis Has provider been notified: Yes 07/08/23 13:51 Occupational Therapy Eval and Treat Routine Reason for consultation: Ambulatory dysfunction/weakness Physical Therapy Eval and Treat Routine Reason for consultation: Ambulatory dysfunction/weakness 07/08/23 13:54 Consult to General Surgeon Routine Consulting Provider: Quique Patel Reason for consultation: Appendicitis Attending physician on discharge: Shaikh Isai Discharging clinician: Shaikh Isai Anticipated date of discharge: 07/09/23 DS: Diagnosis Discharge Diagnosis (1) Acute appendicitis: Assessment and plan: Presented with acute localized appendicitis w/o any complication. Seen by General Surg. Patient's symptoms resolved. Denies N/V/ or abdominal pain. Patient prefers medical management of her appendicitis. She has a follow up with Dr Patel on Wed as outpatient. She is medically stable for discharge. Qualifiers: Acute appendicitis type: with localized peritonitis Appendicitis gangrene presence: without gangrene Appendicitis perforation presence: without perforation Appendicitis abscess presence: without abscess Qualified Code(s): K35.30 - Acute appendicitis with localized peritonitis, without perforation or gangrene (2) Enteritis: Assessment and plan: Associated with appendicitis. Asymptomatic now. Stable for discharge. (3) Depression with anxiety: Assessment and plan: C/w home medications. (4) HTN (hypertension): Assessment and plan: C/w Coreg Qualifiers: Hypertension type: primary hypertension Qualified Code(s): I10 - Essential (primary) hypertension (5) Hyperlipidemia: Assessment and plan: C/w statin Qualifiers: Hyperlipidemia type: unspecified Qualified Code(s): E78.5 - Hyperlipidemia, unspecified DS: Summary Hospital Course Hospital Course: 68 y female admitted for acute appendicitis. She was treated with IV zosyn, IVF. She also received supportive care for pain and nausea. She was seen by General Surgery. Her symptoms resolved overnight and she has no active GI symptoms to offer. She prefers medical management of her appendicitis. Patient will be discharged home on oral abx. She has follow up with Gen Surgery on Wed. Patient educated on signs and symptoms of clinical worsening and that she should seek urgent care if she develops worsening abdominal pain, nausea or vomiting or fever Pt medically stable for discharge. Will call in oral abx along with zofran and short course of oxycodone as needed for pain Status at Discharge Functional status at discharge: independent ambulation Overall status at discharge: patient is back to baseline Time Spent with Patient Time attestation: Total time spent providing and/or coordinating discharge services: Time spent: greater than 30 minutes Exam Constitutional Vital Signs, click to edit/add: Last Vital Signs Temp 97.5 F L 07/09/23 04:30 Pulse 64 07/09/23 08:00 Resp 18 07/09/23 07:36 BP 159/69 H 07/09/23 09:55 Pulse Ox 95 07/09/23 04:30 O2 Del Method Room Air 07/09/23 04:30 Documenting provider has reviewed patient's vital signs: yes Common normals: no apparent distress and oriented x3 General appearance: cooperative HENMT Common normals: normocephalic and head/scalp atraumatic Head and scalp: normocephalic and atraumatic Eye Common normals: conjunctivae normal and no scleral icterus Conjunctiva: conjunctiva(e) normal Respiratory Common normals: normal respiratory effort and clear to auscultation bilaterally Effort & inspection: able to speak in complete sentences Auscultation: clear to auscultation bilaterally Cardio Common normals: regular rate, S1 normal heart sound and S2 normal heart sound Rate: regular rate Heart sounds: S1 normal and S2 normal GI Common normals: Normal to inspection, nondistended, normoactive bowel sounds present, soft to palpation, non-tender and no hepatosplenomegaly Palpation: soft and no hepatosplenomegaly Extremity Common normals: no clubbing, cyanosis or edema Neuro Common normals: oriented x3, moves all extremities and no focal motor deficits Psych Common normals: mental status grossly normal, denies hallucinations, denies homicidal ideation and denies suicidal ideation DS: Data Data Completed and Pending Labs on day of discharge: Labs from last 24 hours 07/09/23 07/08/23 07/08/23 03:57 12:42 11:25 WBC 5.1 6.2 RBC 3.64 L 4.16 L Hgb 10.8 L 12.5 Hct 33.7 L 37.2 MCV 92.6 89.4 MCH 29.7 30.0 MCHC 32.0 33.6 RDW 12.6 12.4 Plt Count 179 210 MPV 9.7 9.5 Neut % (Auto) 43.8 70.5 Lymph % (Auto) 43.9 22.5 [place] % (Auto) 9.0 5.3 Eos % (Auto) 2.1 1.0 Baso % (Auto) 1.2 0.5 Neut # (Auto) 2.3 4.4 Lymph # (Auto) 2.3 1.4 [place] # (Auto) 0.5 0.3 Eos # (Auto) 0.1 0.1 Baso # (Auto) 0.1 0.0 Abs Immat Gran (auto) 0.00 0.01 Imm/Tot Granulo (auto) 0.0 0.2 PT 10.6 INR 1.00 Sodium 142 142 Potassium 4.1 3.4 L Chloride 108 H 105 Carbon Dioxide 27.0 25.7 Anion Gap 11.1 14.7 BUN 9.0 11.0 Creatinine 1.14 H 1.00 Est GFR ( Amer) 57 L >60 Est GFR (Non-Af Amer) 47 L 55 L BUN/Creatinine Ratio 7.9 11.0 Glucose 85 106 Calcium 9.2 9.8 Total Bilirubin 0.4 0.5 AST 14 L 15 ALT 10 L 14 Alkaline Phosphatase 53 67 Troponin I High Sens 4.7 NT-Pro-B Natriuret Pep 448.0 Total Protein 6.1 L 7.7 Albumin 3.2 L 4.2 Globulin 2.9 3.5 Albumin/Globulin Ratio 1.1 1.2 Lipase 47.0 Urine Color Lt. yellow Urine Clarity Clear Urine pH 7.5 Ur Specific [place] <=1.005 A Urine Protein Negative Urine Glucose (UA) Negative Urine Ketones Negative Urine Occult Blood Moderate A Urine Nitrite Negative Urine Bilirubin Negative Urine Urobilinogen 0.2 Ur Leukocyte Esterase Trace A Urine RBC 2-5 A Urine WBC 0-2 A Ur Squamous Epith Cells Rare Urine Crystals None seen Urine Bacteria None seen Urine Casts None seen Urine Mucus None seen Discharge Plan Discharge Disposition: Home, Self-Care Discharge Medications: No Action carvedilol 6.25 mg tablet 6.25 mg PO Q12H citalopram 40 mg tablet 40 mg PO QDAY lorazepam 1 mg tablet 1 mg PO Q8H PRN (Reason: anxiety) rosuvastatin 40 mg tablet 40 mg PO .QHS meloxicam 7.5 mg tablet 7.5 mg PO DAILY PRN (Reason: pain) Qty: 10 0RF aspirin 81 mg capsule 81 mg PO DAILY pantoprazole 40 mg tablet,delayed release (DR/EC) 40 mg PO DAILY Activity: increase activity as tolerated and return to work once cleared by your PCP/specialist Diet: advance to your usual diet Print Language: [place] Patient Instructions: Appendicitis (GEN) Forms: Portal Instructions Follow Up Appointments: Dr Patel WednesdayJuly 13 10:00am. [address] [facility], [address] in [place]. [phone]
--- NOTE | 2023-07-09 10:04 | SWNOTE1 ---
Pt is going to be discharged today. Pt was sitting in chair with a smile on her face. Pt voiced she feels much better, no pain at this time. SW asked pt what the plan was for discharge? She stated she has to take the antibiotic for awhile that she is discharging on and then follow up with Dr. Patel, SW highly encouraged pt to do this. Pt's friend will be picking her up. Pt also voiced she had a good nights sleep here. At this time pt denies any discharge needs. SW to follow as needed.
--- NOTE | 2023-07-09 10:08 | CM.NOTE ---
Rounds made with Dr. Alex, pt will discharge to home today. No discharge needs identified.
--- NOTE | 2023-07-15 16:28 | CM.DCFOLLOWU ---
Person spoke with:patient How are you feeling? not better How is your pain? still pain Did you understand your discharge instructions? yes Do you have any questions about your discharge instructions? not at this time Were you given any prescriptions at discharge? yes Were you able to get your prescriptions filled? yes Do you understand how to take your medications as ordered? yes Do you have any questions about your follow up appointment and do you plan to keep your follow up appointment? no, refused to follow up with Dr. Patel since he comes here. Was not pleased with care at [facility] Is there anything else that you would like to discuss? no Questions/Comments/Concerns/Other: Advised to go to ER if not feeling better,
== END 2023-07-09 12:02 | disposition home or self-care (01) ==
LOC: ER 13:36 → MS 14:19
PROVIDERS: Admitting Provider Internal Medicine; Emergency Provider Emergency Medicine; PCP Nurse Practitioner Family; Visit Provider Internal Medicine
DX: K35.30 Acute appendicitis with localized peritonitis, without perforation or gangrene (principal); K52.9 Noninfective gastroenteritis and colitis, unspecified; F32.A Depression, unspecified; F41.9 Anxiety disorder, unspecified; I16.0 Hypertensive urgency; E78.5 Hyperlipidemia, unspecified; E87.6 Hypokalemia; Z79.899 Other long term (current) drug therapy; Z79.82 Long term (current) use of aspirin; F17.210 Nicotine dependence, cigarettes, uncomplicated; K21.9 Gastro-esophageal reflux disease without esophagitis; G25.81 Restless legs syndrome
CPT/HCPCS: 36415; 71045; 74177; 80053; 81001; 83690; 83880; 84484; 85025; 85610; 87507; 93005; 94761; 96361; 96365; 96366; 96372; 96375; 97165; 99285; G0378; J1170; Q9967

== ENCOUNTER 2024-05-19 09:54 | Outpatient (OUT) | payer MEDICARE, MEDICAID, SELFPAY ==
[2024-05-19 10:58] LABS: Chol HDL Ratio 2.9; Cholesterol 122 mg/dL (<=200); HDL Cholesterol 42 mg/dL (40-60); LDL Cholesterol Calculated 50.4 mg/dL; Triglycerides 148 mg/dL (<=150); VLDL CHOLESTEROL 29.6 mg/dL
== END 2024-05-19 09:55 | disposition home or self-care (01) ==
LOC: LAB 09:57
PROVIDERS: PCP Nurse Practitioner Family; Visit Provider Internal Medicine Interventional Cardiology
DX: E78.2 Mixed hyperlipidemia (principal)
CPT/HCPCS: 36415; 80061

== ENCOUNTER 2024-05-26 08:54 | Outpatient (OUT) | payer MEDICARE, MEDICAID, SELFPAY ==
--- NOTE | 2024-05-26 09:00 | CA_ITS ---
Patient Name: MARIANNA STEINBERG MR#: [id number] : 1955 Exam Date: 05/26/2024 Ordering Doctor: DR MARY ELLEN GRIFFITHS M.D. ECHOCARDIOGRAM REPORT PROCEDURE: CA ECHO DOPPLER COMPLETE INDICATIONS: Atrial flutter, syncope, hypertension COMPARISON: None. DESCRIPTION: COMPLETE ECHOCARDIOGRAM Real-time transthoracic echocardiography with 2D, M-mode, spectral and color flow Doppler performed. QUALITY: Technical quality was good. LEFT VENTRICLE: Normal chamber size. Proximal septal hypertrophy (sigmoid septum). Normal systolic function. LV EF: Normal left ventricular ejection fraction, (65-70%). DIASTOLIC: Diastolic function is indeterminate. ATRIAL SEPTUM: LEFT ATRIUM: Normal chamber size. RIGHT ATRIUM: Normal chamber size. RIGHT VENTRICLE: Normal chamber size. Normal right ventricular systolic function. TRICUSPID VALVE: Normal mobility and thickness. No stenosis with no regurgitation. MITRAL VALVE: Normal mobility and thickness. No evidence of mitral valve stenosis. There is no mitral annular calcification. Trivial mitral regurgitation. AORTIC VALVE: Normal trileaflet appearance. No visible sclerosis. Normal leaflet mobility. No evidence of aortic valve stenosis. No aortic regurgitation. AORTIC ROOT: Normal diameter and appearance, measuring 2.9 cm. Ascending aorta is normal in size, measuring 2.2 cm. PULMONIC VALVE: Normal thickness and mobility. No stenosis. Trivial regurgitation. PERICARDIUM: Small circumferential pericardial effusion. IVC: Collapses with inspirations. IVC is normal in size. PLEURA: CONCLUSION: 1. Normal left ventricular size and systolic function. LVEF is estimated at 65 to 70%. 2. Normal right ventricular size and systolic function. 3. No significant valvular dysfunction. 4. Small circumferential pericardial effusion. Adult Echocardiography Procedure Report Left Ventricle LVEDD (3.7 - 5.6 cm): 3.21 cm LVESD (2.2 - 4.0 cm): 2.01 cm LVIVS thickness (0.6 - 1.2 cm): 1.63 cm LVPW thickness (0.5 - 1.0 cm): 0.91 cm e': 0.05 m/s E - e': 10.81 LVOT Max Gradient: 2.87 mm[Hg] LVOT Area (cm2): 0.85 m/s Peak Velocity (LVOT): 0.85 m/s Mean Velocity (LVOT): 0.62 m/s LVOT Diameter 2.04 cm Left Atrium LA Volume Index (2D A2C): 27.11 ml/m2 Left Atrium Systolic Dimension: 3.53 cm Mitral Valve MV E to A Ratio: 0.74 Mitral Valve A-Wave Peak Velocity: 0.74 m/s Mitral Valve E-Wave Peak Velocity: 0.55 m/s Right Ventricle Aorta AO Root Diam: 2.93 cm Ascending Ao Diam: 2.22 cm Aortic Valve AoV Area (Peak Merlin): 2.67 cm2, 2.67 cm2 AoV Area (VTI): 3.24 cm2, 3.24 cm2 Peak Velocity(Antegrade Flow): 1.04 m/s Peak Gradient(Antegrade Flow): 4.29 mm[Hg] Mean Velocity(Antegrade Flow): 0.74 m/s Mean Gradient(Antegrade Flow): 2.47 mm[Hg] Velocity Time Integral: 26.05 cm Tricuspid Valve Pulmonic Valve Mean Gradient: 1.40 mm[Hg] Mean Velocity: 0.55 m/s Peak Velocity: 0.80 m/s, 0.72 m/s Peak Gradient: 2.10 mm[Hg], 2.58 mm[Hg] Right Atrium Right Atrium Systolic Pressure: 22.13 ml, 22.13 ml Dictated by: Mary Ellen Griffiths M.D. on 05/26/2024 at 17:26 Approved by: Mary Ellen Griffiths M.D. on 05/26/2024 at 17:31
== END 2024-05-26 08:55 | disposition home or self-care (01) ==
LOC: CARD 08:54
PROVIDERS: PCP Nurse Practitioner Family; Visit Provider Internal Medicine Interventional Cardiology
DX: I77.1 Stricture of artery (principal); I48.92 Unspecified atrial flutter; R42 Dizziness and giddiness; R55 Syncope and collapse
CPT/HCPCS: 93306; 93880